=== PATIENT | male | born 1945 | race Caucasian/White ===

== ENCOUNTER 2016-10-15 12:03 | Emergency (ER) | payer BC, OTHER ==
[~2016-10-15] VITALS: Ht 180.3 cm; Wt 123.2 kg
[~2016-10-15 12:03] MED LIST: CITA40TA4 PO; LSX40 PO; PRAM1TAB6 PO
[2016-10-15 12:16] VITALS: Ht 180.3 cm; Wt 123.2 kg
[2016-10-15] MEDS ORDERED: HYDROmorphone INJ 1 MG/ML SYR IV STA ×2 (14:25→16:08)
[2016-10-15] MEDS ORDERED: ONDANSETRON INJ 2 MG/ML 2 ML VIAL IV STA (14:25)
--- NOTE | 2016-10-15 14:26 | EMERGENCY ROOM VISIT NOTE ---
History Report prepared by Jessica: Sheyla Duke Under the Supervision of: Dr. Tony Acosta M.D. First contact with patient: 14:17 Chief Complaint: SWELLING TO EXTREMITY Stated Complaint: SWOLLEN LEGS History of Present Illness The patient is a 71 year old male who presents to the Emergency Room with complaints of right calf pain that began Corey evening. He currently rates his discomfort as a 9/10 in severity. The patient notes that he has a history of previous blood clots and states that he was placed on Coumadin for one year. He states that he was taken off the Coumadin one year ago. The patient states that his right leg pain began Corey evening. He additionally notes chronic back pain today, due to his L4 and L5 compressions. The patient states that he follows with the [facility], but states that his last visit was three months ago. He denies seeing physical therapy. The patient's states that the patient is very careful with taking his medications. He states that he has gained nearly 30 lbs due to all his new medications. Source of History: patient Onset: Saturday evening Position: other (left calf) Symptom Intensity: 9/10 Timing: other (persistent) Associated Symptoms: + back pain Review of Systems See HPI for pertinent positives & negatives. A total of 10 systems reviewed and were otherwise negative. Past Medical & Surgical Medical Problems: (1) HTN (hypertension) (2) Hyperlipemia (3) Hypokalemia (4) ICH (intracerebral hemorrhage) (5) Left shoulder pain (6) Myocardial infarct, old (7) Parkinson disease (8) Superficial thrombophlebitis of left leg Surgical Problems: (1) H/O repair of rotator cuff Family History Diabetes mellitus Hypertension Social History Smoking Status: Current Some Day Smoker Alcohol Use: none Marital Status: Housing Status: lives with significant other Occupation Status: retired Current/Historical Medications Scheduled Apoaequorin (Prevagen), 10 MG PO QAM Aspirin (Aspirin Ec), 81 MG PO QPM Clotrimazole (Topical) (Anti-Fungal), 1 DOSE PO DIRECTED Furosemide (Furosemide), 40 MG PO BID Metoprolol Tartrate (Lopressor) (Lopressor), 0.5 TAB PO DAILY Omeprazole (Prilosec), 20 MG PO QAM Oxybutynin Chloride (Oxybutynin Chloride), 5 MG PO QAM Potassium Ext Rel (Klor-Con), 20 MEQ PO DAILY Pramipexole Dihydrochloride (Pramipexole Dihydrochlori), 1 MG PO TID Simvastatin (Simvastatin), 80 MG PO HS Scheduled PRN Hydrocodon/Acetaminophen 10MG/300MG (Vicodin Hp (10MG/300MG)), Unknown Dose PO BID PRN for Pain Nitroglycerin (Nitrostat), 0.4 MG UT UD PRN for Chest Pain Oxycodone/Acetaminophen 5MG/325MG (Percocet 5MG/325MG), 1-2 TAB PO Q4H PRN for Pain Allergies Coded Allergies: No Known Allergies (Verified , 10/15/16) Physical Exam Vital Signs Date Time Temp Pulse Resp B/P Pulse Ox O2 Delivery O2 Flow Rate FiO2 10/15/16 18:55 36.5 81 22 125/76 96 10/15/16 14:49 96 Nasal Cannula 2.0 10/15/16 14:38 95 Room Air 10/15/16 14:34 81 10/15/16 14:29 82 22 125/76 94 Room Air 10/15/16 12:16 36.5 90 18 144/95 96 Room Air Physical Exam GENERAL: Patient is a healthy-appearing well-nourished HEAD: Normocephalic atraumatic EYES: Ocular movements intact pupils equal and react to light OROPHARYNX mucous membranes are moist no exudates present no erythema or edema present NECK: Supple no nuchal rigidity CHEST: Good equal expansion LUNGS: Clear and equal to auscultation CARDIAC: Normal S1 and S2 ABDOMEN: Soft nontender no guarding BACK: No CVA tenderness EXTREMITIES: Right leg is grossly swollen, no pitting edema, no cellulitis. NEURO: Patient is following commands is answering questions appropriately. Alert and oriented x3 Cranial Nerves 2-12 grossly intact Medical Decision & Procedures ER Provider Diagnostic Interpretation: Radiology results as stated below per my review and radiologist interpretation: BILATERAL LOWER EXTREMITY VENOUS DOPPLER HISTORY: Pain. Edema. Pt c/o b/l swollen ext COMPARISON STUDY: None. FINDINGS: There is normal compressibility, flow, and augmentation within the bilateral lower extremity deep venous systems. IMPRESSION: No DVT within the right or left lower extremity. Electronically signed by: Karri Ledesma M.D. 10/15/2016 5:32 PM Dictated Date/Time: 10/15/2016 5:[address] LUMBAR SPINE WITHOUT CT DOSE: 708.19 mGycm CLINICAL HISTORY: Persistent low back pain LEG SWELLING TECHNIQUE: Helical images were acquired in transverse plane. Reformatted sagittal and coronal images were reviewed. CONTRAST: No contrast was administered COMPARISON STUDY: None. FINDINGS: L1-2 level: There is minimal retrolisthesis of L1 on L2. No focal herniations are visualized. There is no specific and spinal or foraminal stenosis. L2-3 level: There is a small posterior disc osteophyte complex. There is mild spinal canal narrowing. There is no significant foraminal narrowing L3-4 level: The disc is degenerated. There is a mild circumferential disc bulge. There is mild to moderate spinal canal narrowing. L4-5 level: There is a circumferential disc bulge. There is posterior osteophytic spurring. There is moderate spinal stenosis. L5-S1 level: There is a grade 1 spondylolisthesis of L5 on S1. There is a right-sided L5 pars defect. There is no significant spinal stenosis. There is mild to moderate right-sided foraminal narrowing. No acute fractures or trauma subluxations are visualized. No destructive lesions are evident. IMPRESSION: 1. No acute fractures or traumatic subluxations are visualized 2. No destructive lesions are evident 3. Multilevel spondylitic changes with spinal stenosis most pronounced at the L4-5 level. Electronically signed by: Ludwin Saravia M.D. 10/15/2016 3:33 PM Dictated Date/Time: 10/15/2016 3:27 PM The status of this report is Signed. Draft = Not yet reviewed or approved by Radiologist. Signed = Reviewed and approved by Radiologist. CHEST ONE VIEW PORTABLE CLINICAL HISTORY: Chest pain leg swelling COMPARISON STUDY: 07/28/2011 FINDINGS: The heart is enlarged. There is no failure. There is no focal pulmonary consolidation. There are no pleural effusions.[ IMPRESSION: Cardiomegaly. No acute findings. Electronically signed by: Ludwin Saravia M.D. 10/15/2016 2:57 PM Dictated Date/Time: 10/15/2016 2:56 PM RIGHT ANKLE MIN 3 VIEWS ROUTINE CLINICAL HISTORY: Pt c/o Rt ankle pain Right pain COMPARISON: None. DISCUSSION: The bones and joint spaces appear intact. There is no evidence of fracture, dislocation or bony disease. Considerable soft tissue edema IMPRESSION: Soft tissue edema. No acute bony abnormality. Electronically signed by: Karri Ledesma M.D. 10/15/2016 6:18 PM Dictated Date/Time: 10/15/2016 6:17 PM RIGHT TIBIA/FIBULA 2 VIEWS ROUTINE CLINICAL HISTORY: Pt c/o Rt kleine pain Right COMPARISON: None. DISCUSSION: Generalized soft tissue edema. No acute bony abnormality. IMPRESSION: Generalized soft tissue edema. No acute bony abnormality. Electronically signed by: Karri Ledesma M.D. 10/15/2016 6:19 PM Dictated Date/Time: 10/15/2016 6:18 PM Laboratory Results 10/15/16 14:35 Red Blood Count 4.48, Mean Corpuscular Volume 96.2, Mean Corpuscular Hemoglobin 33.5, Mean Corpuscular Hemoglobin Concent 34.8, Mean Platelet Volume 9.7, Neutrophils (%) (Auto) 55.5, Lymphocytes (%) (Auto) 29.8, Monocytes (%) (Auto) 10.2, Eosinophils (%) (Auto) 4.1, Basophils (%) (Auto) 0.2, Neutrophils # (Auto ) 3.12, Lymphocytes # (Auto) 1.67, Monocytes # (Auto) 0.57, Eosinophils # (Auto ) 0.23, Basophils # (Auto) 0.01 10/15/16 14:35 Test 10/15/16 14:35 White Blood Count 5.61 K/uL (4.8-10.8) Red Blood Count 4.48 M/uL (4.7-6.1) Hemoglobin 15.0 g/dL (14.0-18.0) Hematocrit 43.1 % (42-52) Mean Corpuscular Volume 96.2 fL (80-100) Mean Corpuscular Hemoglobin 33.5 pg (25-34) Mean Corpuscular Hemoglobin Concent 34.8 g/dl (32-36) Platelet Count 216 K/uL (130-400) Mean Platelet Volume 9.7 fL (7.4-10.4) Neutrophils (%) (Auto) 55.5 % Lymphocytes (%) (Auto) 29.8 % Monocytes (%) (Auto) 10.2 % Eosinophils (%) (Auto) 4.1 % Basophils (%) (Auto) 0.2 % Neutrophils # (Auto) 3.12 K/uL (1.4-6.5) Lymphocytes # (Auto) 1.67 K/uL (1.2-3.4) Monocytes # (Auto) 0.57 K/uL (0.11-0.59) Eosinophils # (Auto) 0.23 K/uL (0-0.5) Basophils # (Auto) 0.01 K/uL (0-0.2) RDW Standard Deviation 46.3 fL (36.4-46.3) RDW Coefficient of Variation 13.2 % (11.5-14.5) Immature Granulocyte % (Auto) 0.2 % Immature Granulocyte # (Auto) 0.01 K/uL (0.00-0.02) Prothrombin Time 10.4 SECONDS (9.0-12.0) Prothromb Time International Ratio 1.0 (0.9-1.1) Activated Partial Thromboplast Time 27.1 SECONDS (21.0-31.0) Partial Thromboplastin Ratio 1.0 Anion Gap 8.0 mmol/L (3-11) Est Creatinine Clear Calc Drug Dose 116.0 ml/min Estimated GFR () 105.3 Estimated GFR (Non- 90.8 BUN/Creatinine Ratio 21.3 (10-20) Calcium Level 8.8 mg/dl (8.5-10.1) Total Bilirubin 0.4 mg/dl (0.2-1) Direct Bilirubin 0.1 mg/dl (0-0.2) Aspartate Amino Transf (AST/SGOT) 24 U/L (15-37) Alanine Aminotransferase (ALT/SGPT) 26 U/L (12-78) Alkaline Phosphatase 59 U/L (45-117) Pro-B-Type Natriuretic Peptide 148 pg/ml (0-900) Total Protein 7.6 gm/dl (6.4-8.2) Albumin 3.6 gm/dl (3.4-5.0) Lipase 131 U/L (73-393) Labs reviewed by ED physician. Medications Administered Medications (Trade) Dose Ordered Sig/Ed Route Start Time Stop Time Status Last Admin Dose Admin Hydromorphone HCl (Dilaudid Inj) 1 mg NOW STAT IV 10/15/16 14:25 10/15/16 14:27 DC 10/15/16 14:46 1 MG Ondansetron HCl (Zofran Inj) 4 mg NOW STAT IV 10/15/16 14:25 10/15/16 14:27 DC 10/15/16 14:47 4 MG Hydromorphone HCl (Dilaudid Inj) 1 mg NOW STAT IV 10/15/16 16:08 10/15/16 16:09 DC 10/15/16 16:22 1 MG Metoclopramide HCl (Reglan Inj) 10 mg NOW STAT IV 10/15/16 16:08 10/15/16 16:09 DC 10/15/16 16:22 10 MG Oxycodone/ Acetaminophen (Percocet 5/ 325MG Home Pack) 1 homepack UD ONCE PO 10/15/16 18:45 10/15/16 18:46 DC 10/15/16 18:54 1 HOMEPACK ECG Indication: other (possibble DVT) Rate (beats per minute): 85 Rhythm: normal sinus Findings: no acute ischemic change, no ectopy ED Course 1419: Past medical records reviewed. The patient was evaluated in room A11B. A complete history and physical examination was performed. 1425: Ordered Zofran Inj 4 mg IV, Dilaudid Inj 1 mg IV. 1608: Ordered Reglan Inj 10 mg IV, Dilaudid Inj 1 mg IV. 1738: I reevaluated the patient and he is resting comfortably. I updated him on his test results. He is going to have some additional x-rays. 1845: I reevaluated the patient and he is doing well. I discussed all the exam findings with him and I discussed the treatment plan. He verbalized complete understanding and agreement. He is ready to go home. Ordered Oxycodone/ Acetaminophen 1 homepack PO. Medical Decision Differential diagnosis: Etiologies such as DVT, musculoskeletal, infection, joint effusion, trauma, lymphedema, idiopathic, CHF, as well as others were entertained. This is a 71-year-old male who presents emergency department complaining of right ankle pain as well as right back pain. Patient has a history of a DVT and is concerned this is a DVT. He was sent for an ultrasound of the bilateral legs however this did not show any evidence of DVT. Patient was also sent for CAT scan of his lower back. This shows lumbar stenosis. An IV was established , the patient given 1 mg of Dilaudid, Zofran. The Dilaudid was repeated. X- rays of the patient's ankle and tibia do not show any evidence of acute fracture. I recommended that the patient use crutches which he has at home. I also recommended ice and elevation and to have a repeat ultrasound performed within a week if he is continuing to have symptoms. The patient is going to follow-up with orthopedics. He was given pain medication for home. Both patient and are in agreement with the treatment plan. Impression Primary Impression: Low back pain Additional Impression: Ankle pain, right Scribe Attestation The scribe's documentation has been prepared under my direction and personally reviewed by me in its entirety. I confirm that the note above accurately reflects all work, treatment, procedures, and medical decision making performed by me. Departure Information Dispostion Home / Self-Care Prescriptions Oxycodone/Acetaminophen 5MG/325MG (PERCOCET 5MG/325MG) Tab 1-2 TAB PO Q4H Y for Pain, #14 TAB Prov: Tony Acosta MD 10/15/16 Referrals No Doctor, Assigned (PCP) Wing Rose M.D. Torretti, Joel A., M.D. Forms HOME CARE DOCUMENTATION FORM, IMPORTANT VISIT INFORMATION, WORK / SCHOOL INSTRUCTIONS Patient Instructions Ankle Sprain, ED Back Care Tips, ED Back Pain Acute Chronic, ED RICE, Pending Sale To [facility], Sprain Ankle Tx Additional Instructions Follow up with Dr Carrillo's office Follow up ith DR Rose's office You have been examined and treated today on an emergency basis only. This is not a substitute for, or an effort to provide, complete comprehensive medical care. It is impossible to recognize and treat all injuries or illnesses in a single emergency department visit. It is therefore important that you follow up closely with your PCP. Call as soon as possible for an appointment. Thank you for your time and consideration. I look forward to speaking with you again soon. Please don't hesitate to call us if you have any questions. Problem Qualifiers Primary Impression: Low back pain Chronicity: acute Back pain laterality: unspecified Sciatica presence: unspecified whether sciatica present Qualified Codes: M54.5 - Low back pain Additional Impression: Ankle pain, right Chronicity: acute Qualified Codes: M25.571 - Pain in right ankle and joints of right foot
[2016-10-15] MEDS ORDERED: HYDR-3763 PO (14:48)
[2016-10-15 14:49] VITALS: O2SAT 96
[2016-10-15 14:51] LABS: BASO % 0.2 %; BASO ABS # 0.01 K/uL (0-0.2); COMPLETE YES; EOS % 4.1 %; HEMATOCRIT 43.1 % (42-52); IG% 0.2 %; LYMPH % 29.8 %; LYMPH ABS # 1.67 K/uL (1.2-3.4); MEAN CELL VOLUME 96.2 fL (80-100); MEAN CORPUSCULAR HEMOGLOBIN 33.5 pg (25-34); MEAN CORPUSCULAR HGB CONC 34.8 g/dl (32-36); MEAN PLATELET VOLUME 9.7 fL (7.4-10.4); MONO % 10.2 %; NEUT % 55.5 %; PLATELET COUNT 216 K/uL (130-400); RED BLOOD COUNT 4.48 M/uL (4.7-6.1); WHITE BLOOD COUNT 5.61 K/uL (4.8-10.8)
--- NOTE | 2016-10-15 14:58 | DIAGNOSTIC IMAGING REPORT ---
CHEST ONE VIEW PORTABLE CLINICAL HISTORY: Chest pain leg swelling COMPARISON STUDY: 07/28/2011 FINDINGS: The heart is enlarged. There is no failure. There is no focal pulmonary consolidation. There are no pleural effusions.[ IMPRESSION: Cardiomegaly. No acute findings. Electronically signed by: Ludwin Saravia M.D. 10/15/2016 2:57 PM Dictated Date/Time: 10/15/2016 2:56 PM
[2016-10-15 15:09] LABS: BUN/CREATININE RATIO 21.3 (10-20); CALCIUM 8.8 mg/dl (8.5-10.1); CREATININE 0.78 mg/dl (0.60-1.40); POTASSIUM 3.7 mmol/L (3.5-5.1)
[2016-10-15 15:24] LABS: PROTHROMBIN TIME (PATIENT) 10.4 SECONDS (9.0-12.0)
--- NOTE | 2016-10-15 15:34 | DIAGNOSTIC IMAGING REPORT ---
CT LUMBAR SPINE WITHOUT CT DOSE: 708.19 mGycm CLINICAL HISTORY: Persistent low back pain LEG SWELLING TECHNIQUE: Helical images were acquired in transverse plane. Reformatted sagittal and coronal images were reviewed. CONTRAST: No contrast was administered COMPARISON STUDY: None. FINDINGS: L1-2 level: There is minimal retrolisthesis of L1 on L2. No focal herniations are visualized. There is no specific and spinal or foraminal stenosis. L2-3 level: There is a small posterior disc osteophyte complex. There is mild spinal canal narrowing. There is no significant foraminal narrowing L3-4 level: The disc is degenerated. There is a mild circumferential disc bulge. There is mild to moderate spinal canal narrowing. L4-5 level: There is a circumferential disc bulge. There is posterior osteophytic spurring. There is moderate spinal stenosis. L5-S1 level: There is a grade 1 spondylolisthesis of L5 on S1. There is a right-sided L5 pars defect. There is no significant spinal stenosis. There is mild to moderate right-sided foraminal narrowing. No acute fractures or trauma subluxations are visualized. No destructive lesions are evident. IMPRESSION: 1. No acute fractures or traumatic subluxations are visualized 2. No destructive lesions are evident 3. Multilevel spondylitic changes with spinal stenosis most pronounced at the L4-5 level. Electronically signed by: Ludwin Saravia M.D. 10/15/2016 3:33 PM Dictated Date/Time: 10/15/2016 3:27 PM
[2016-10-15] MEDS ORDERED: METOCLOPRAMIDE HCL INJ 5 MG/ML 2 ML VIAL IV STA (16:08)
--- NOTE | 2016-10-15 17:33 | DIAGNOSTIC IMAGING REPORT ---
BILATERAL LOWER EXTREMITY VENOUS DOPPLER HISTORY: Pain. Edema. Pt c/o b/l swollen ext COMPARISON STUDY: None. FINDINGS: There is normal compressibility, flow, and augmentation within the bilateral lower extremity deep venous systems. IMPRESSION: No DVT within the right or left lower extremity. Electronically signed by: Karri Ledesma M.D. 10/15/2016 5:32 PM Dictated Date/Time: 10/15/2016 5:32 PM
--- NOTE | 2016-10-15 18:19 | DIAGNOSTIC IMAGING REPORT ---
RIGHT ANKLE MIN 3 VIEWS ROUTINE CLINICAL HISTORY: Pt c/o Rt ankle pain Right pain COMPARISON: None. DISCUSSION: The bones and joint spaces appear intact. There is no evidence of fracture, dislocation or bony disease. Considerable soft tissue edema IMPRESSION: Soft tissue edema. No acute bony abnormality. Electronically signed by: Karri Ledesma M.D. 10/15/2016 6:18 PM Dictated Date/Time: 10/15/2016 6:17 PM
--- NOTE | 2016-10-15 18:20 | DIAGNOSTIC IMAGING REPORT ---
RIGHT TIBIA/FIBULA 2 VIEWS ROUTINE CLINICAL HISTORY: Pt c/o Rt kleine pain Right COMPARISON: None. DISCUSSION: Generalized soft tissue edema. No acute bony abnormality. IMPRESSION: Generalized soft tissue edema. No acute bony abnormality. Electronically signed by: Karri Ledesma M.D. 10/15/2016 6:19 PM Dictated Date/Time: 10/15/2016 6:18 PM
[2016-10-15] MEDS ORDERED: OXYC-57 PO (18:42)
[2016-10-15] MEDS ORDERED: PERCOCET HOME PACK PO ONE (18:45)
[2016-10-15 18:55] VITALS: BP 125/76; PULSE 81; TEMP 36.5; O2SAT 96
[2017-02-24] MEDS ORDERED: ASPI81TA28 PO (07:10)
[2017-02-24] MEDS ORDERED: APOA1CAP PO (11:00)
[2017-02-24] MEDS ORDERED: CLOT1CRE80 PO (13:01)
[2017-02-24] MEDS ORDERED: POTA20TA16 PO (14:43)
[2017-02-24] MEDS ORDERED: METO25TA56 PO (15:06)
[2017-04-19] MEDS ORDERED: PROTANDIM NRF PO (15:04)
[2017-04-19] MEDS ORDERED: [UNRECOGNIZED DRUG - OTHER] PO (15:04)
[2017-04-19] MEDS ORDERED: FRS/40 PO (15:04)
[2017-04-19] MEDS ORDERED: GARC1TAB PO (15:04)
[2017-04-19] MEDS ORDERED: LIDOCAINE PATCH EX (15:04)
== END 2016-10-15 18:55 | disposition home or self-care (01) ==
LOC: C.EDB 12:05 → C.EDA 18:55
DX: M54.5 Low back pain (principal); M25.571 Pain in right ankle and joints of right foot; I10 Essential (primary) hypertension; E78.5 Hyperlipidemia, unspecified; I25.2 Old myocardial infarction; G20 Parkinson's disease; F17.200 Nicotine dependence, unspecified, uncomplicated; Z86.73 Personal history of transient ischemic attack (TIA), and cerebral infarction without residual deficits; Z79.01 Long term (current) use of anticoagulants; Z79.82 Long term (current) use of aspirin; Z79.899 Other long term (current) drug therapy; Z83.3 Family history of diabetes mellitus; Z82.49 Family history of ischemic heart disease and other diseases of the circulatory system

== ENCOUNTER → 2016-10-19 | Outpatient (CLI) | payer BC, OTHER ==
[~2016-10-19] VITALS: Ht 180.3 cm; Wt 121.4 kg
[~2016-10-19] MED LIST changes: +APOA1CAP PO; +ASPI81TA28 PO; +CARB25TA12 PO; +CARBIDOPA PO; -CITA40TA4 PO; +CLOT1CRE80 PO; +DTR5 PO; +FRS/40 PO; +GARC1TAB PO; +HYDR-3763 PO; +LIDOCAINE 5% PATCH TOP; +LIDOCAINE PATCH EX; +METO25TA56 PO; +NAPR1TAB9 PO; +NTRGSL/4 UT; +OMEP20CA9 PO; +OXYC-57 PO; +POTA20TA16 PO; +PROTANDIM NRF PO; +TRAM-10 PO; +ZCR80 PO; +[UNRECOGNIZED DRUG - OTHER] PO
[2016-10-19 12:24] VITALS: BP 130/90; PULSE 74; Ht 180.3 cm; Wt 121.4 kg
== END | disposition home or self-care (01) ==
LOC: C.NEUR 11:53
PROVIDERS: ATTEND Internal Medicine Pulmonary Disease
DX: R06.83 Snoring (principal); R06.81 Apnea, not elsewhere classified

== ENCOUNTER → 2016-10-22 | Outpatient (CLI) | payer OTHER ==
--- NOTE | 2016-10-23 06:09 | PAP/PSG TECHNICIAN REPORT ---
[facility] Service Unit Operator Polysomnogram Report Study name: None Report date: 10/23/2016 Study date: 10/22/2016 Referring Physician: Michael Rosario M.D. Name: ALAN BONE Interpreting Physician: Michael Rosario M.D. Date of : 1945 Service Unit Operator: ARACELIS Salazar. Sex: Male Age: 71 StudyType: PSG Weight: 267 lbs Height: 71 years, Height 5' 11" Neck Circum:19.5inches BMI: 37.23 Medications: ASA 81mg, Citalopram 40mg, Furosemide 20mg, Lidoderm 5% patch, Metoprolol 25mg, Mirapex 1mg, Nitrostat 0.4mg, Omeprazole 20mg, Prevagen Caps, Simvastatin 80mg, Warfarin Patient History Study started on room air with no ETCO2 monitoring in room #6. 71 yr old male here tonight for a diagnostic psg. He snores loudly at night and wakes up several times gasping for air. He has been sleeping in a hospital bed with the head of the bed slightly elevated. He has EDS. His ESS=13/24. His neck circ=19.5inches. Parameters Monitored NPSG: E1-M2, E2-M1, Fp1-M2, Fp2-M1, F3-M2, F4-M2, F4-M1, C3-M2, C4-M2, C4-M1, O1-M2, O2-M2, O2-M1, T3-M2, T4-M1, P3-M2, P4-M1, CHIN1, CHIN2, HR, EKG, Legs, PFLOW, SNOR, FLOW, CFLOW, Tidal Volume, THOR, ABDO, SpO2, PLTH, CPRESS, ETCO2 Wave, ETCO2, pH Sleep Architecture Sleep Stages Time at Lights Off 10:17:39 PM STAGES Time (min.) TST (%) Time at Lights On 5:14:39 AM Wake 140.5 -- Total Recording Time (TRT) 417.00 min. N1 14.5 5 Total Sleep Period (TSP) 395.0 min. N2 149.0 54 Total Sleep Time (TST) 276.5min. N3 66.5 24 Awake Time 140.5 min. REM 46.5 17 Wake after Sleep Onset 121.5 min. Sleep Efficiency (SE) 66 % Sleep Onset Latency (TONG) 19.0 min. Number of Stage 1 Shifts None Awakenings 28 Stage Changes 109 Number of REM periods 8 REM 46.5 17 REM Latency 37.0 min. NREM 230.0 83 Body Position Analysis Supine Right Left Side Prone Vertical Total Sleep Time (min.) 278.8 89.6 42.4 131.93 0.0 0.0 Total Sleep Time (%) 52% 32% 15% 48 0% N/A% Total Sleep Time REM (min.) 33.0 13.5 0.0 None 0.0 0.0 Total Sleep Time NREM (min.) 111.6 76.1 42.4 None 0.0 0.0 Intermittent Wake (min.) 134.2 6.2 0.1 None 0.0 0.0 Total Sleep Period (%) 66% None None None None None Arousals Myoclonus (PLM) * Events Count Index Events Count Index Spontaneous 23 5 Events Awake (PLMW) 134 57.2 Respiratory 42 9.8 Events Asleep w/ Arousal (PLMA) 17 3.7 PLM 17 4 Events Asleep w/o Arousal (PLMS) 227 49.3 Snoring 2 0 Total Asleep 244 52.9 Total 84 18 Total 378 54 Respiratory Analysis * CA OA MA CH H RERA Total Count 5 7 1 0 107 1 120 Index 1.1 1.5 0.2 0 23.2 0 26.3 Mean Duration 20.4 15.3 17.0 0.00 22.0 13.2 21.4 Longest Duration 25.0 17.7 17.0 0.00 17.0 13.2 71.2 Respiratory Event Summary Total Supine ~Supine Right Left Prone REM NREM Apneas Count 13 8 5 1 4 N/A 1 12 Index 2.8 3 2 0.7 5.7 N/A 1 3 Hypopneas (4% Desat) Count 107 80 27 17 10 N/A 35 72 Index 23.2 33.2 12 11.4 14.2 N/A 45.2 18.8 Apneas & All Hypopneas Count 120 88 32 18 14 N/A 36 84 Index 26.0 37 15 12 20 N/A 46.5 21.9 Respiratory Events (Newspaper Library Manager+All Hyp+RERA) Count 120 89 32 18 14 N/A 36 84 Index 26.3 37 15 12.1 19.8 N/A 46.5 22.2 Respiratory Related Arousal Count 42 89 10 5 5 N/A 10 35 Index 9.8 15 5 3 7 N/A 13 9 Snoring Analysis Supine Right Left Prone REM NREM Total Snore duration 16.3 min Snores count 166 512 189 N/A 48 819 867 Snore mean duration 1.1 Sec Snores index 69 343 268 N/A 61.9 213.7 188.1 TST with snoring (%) 5.9% Desaturation Event Summary: Minimum %SpO2 Event Count Mean/Min/Max Duration(sec.) Desaturation Index % Time In Bed > 90 194 20.0 / 6.5 / 57.8 76.1 41.5 86 - 90 76 18.5 / 4.8 / 57.8 22.1 55.9 81 - 85 1 8.0 / 8.0 / 8.0 6.4 2.5 76 - 80 0 N/A 0.0 0.1 71 - 75 0 N/A 0.0 0.0 66 - 70 0 N/A 0.0 0.0 61 - 65 0 N/A 0.0 0.0 56 - 60 0 N/A 0.0 0.0 51 - 55 0 N/A 0.0 0.0 < 50 0 N/A 0.0 0.0 Total REM NREM Awake <50% 0.0 min. 0.0 min. 0.0 min. 0.0 min. 51 - 60% 0.0 min. 0.0 min. 0.0 min. 0.0 min. 61 - 70% 0.0 min. 0.0 min. 0.0 min. 0.0 min. 71 - 80% 0.4 min. 0.1 min. 0.1 min. 0.3 min. 81 - 90% 215.2 min. 29.9 min. 136.9 min. 48.4 min. 91 - 100% 152.9 min. 16.5 min. 91.6 min. 44.9 min. Average 90 90 90 90 Minimum SpO2 78 80 79 78 Desaturation Event Index 31.5 50.3 29.7 28.6 # Desat. Events below 89% 174 36 86 52 Time(%) with Saturation below 89% 20.7 5.6 9.8 5.4 Time(min.) with Saturation below 89% 76.5 20.6 36.0 19.9 Time (mins) REM (mins) NREM (mins) % of TST SpO2 Below 90% 149 38 N111 37.4 SpO2 Below 88% 39 0 0 11 Heart Rate Analysis Min (bpm) Max (bpm) Average (bpm) Awake 56 231 87 NREM 49 188 78 REM 42 96 67 Overall 42 188 76 Supplemental O2 Values Minimum O2 level: None Value Start Time End Time Service Unit Operator Comments Mr. Bone slept in the right, left and supine positions with the head of the bed slightly elevated. Cardiac arrhythmia and PLM's noted, please see print outs. His legs bothered him all night. He would have to sit at the side of the bed or constantly move them. At one point, he sat in a chair and rubbed alcohol on them. He would fall asleep sitting on the bed and his head would start to swing back and forth. No bruxism noted. Snoring was noted and scored as a 2 on a scale of 1 through 5. (0=no snoring, 5=snoring loud enough to be heard through a closed door or down the yu way) He awoke to use the restroom 1 time during the night. He stated that this is what has been happening for the past few months. The calf of his right leg and the area directly behind his right knee is what bothered him last night. The final report will be interpreted and signed by a sleep physician. The completed physician report will then be placed in the patient medical record. Therapy (cm H2O) 0 TIB (min.) 417.0 TST (min.) 276.5 Sleep Onset (min.) 19.0 REM Onset From Sleep (min.) 37.0 Sleep Efficiency % 66 Wakefulness (%) 34 Wakefulness (min.) 140.5 NREM 1 (%) 5 NREM 1 (min.) 14.5 NREM 2 (%) 54 NREM 2 (min.) 149.0 NREM 3 (%) 24 NREM 3 (min.) 66.5 REM (%) 17 REM (min.) 46.5 # Arousals 84 Arousal Index 18 # Snore 867 Snore Index 188.1 AHI 26.0 AHI Supine 37 AHI Non-Supine 15 NREM AHI 21.9 REM AHI 46.5 RDI 26.3 # Obstructive Apnea 7 # Central Apnea 5 # Mixed Apnea 1 # Hypopneas 107 RERAs 1 Total Respiratory Events 135 Time Below SpO2 89% (min.) 56.6 Mean NREM SpO2 (%) 90 Mean REM SpO2 (%) 90 Mean Sleep SpO2 (%) 90 Min NREM SpO2 (%) 79 Min REM SpO2 (%) 80 Position Supine (min.) 278.8 Position Non-supine (min.) 131.9 LM Index Sleep 52.9 LM Index NREM 59.7 LM Index REM 19.4 Mean Heart Rate (bpm) 76 Min Heart Rate (bpm) 42
--- NOTE | 2016-10-25 07:01 | POLYSOMNOGRAPH REPORT ---
CLINICAL DATA: A 71-year-old male with BMI of 37.23 referred by myself and Dr. Devante Rust of the [facility] for evaluation of sleep apnea. He snores loudly and wakes up several times at night gasping for air. He has been sleeping in a hospital bed with the head of the bed elevated. His Minerva sleepiness score is 13/24. SLEEP ARCHITECTURE: Total sleep period was 395 minutes. Total sleep time was 276.5 minutes divided between 230 minutes of non-REM sleep and 46.5 minutes of REM sleep. Sleep onset latency was 19 minutes. REM latency was 37 minutes. Sleep efficiency was 66%. Wake after sleep onset was 121.5 minutes. Sleep consisted of stage N1 5%, N2 54%, N3 24%, and REM 17%. AROUSAL DATA: Eighty four arousals were recorded for an index of 18 per hour. PLM DATA: Significantly elevated limb movements during sleep were noted. There were 244 limb movements during sleep noted for an index of 52.9 per hour with arousal index of 3.7 per hour. RESPIRATORY DATA: Moderate sleep apnea was documented. The AHI was 26. There were 5 central, 7 obstructive, and 1 mixed apneic episodes. The longest duration of apnea was 25 seconds. There were 107 hypopneic episodes. The mean duration of hypopnea was 22 seconds. OXIMETRY DATA: Nocturnal hypoxemia was seen. Oxygen jennifer was 79% during non-REM sleep. The mean saturation was 90%. Time below 88% was 39 minutes. HEART RATE DATA: Heart rates ranged from 49-188 beats per minute. Sinus arrhythmia, and PACs with sinus tachycardia were noted. CLERK'S COMMENTS: The patient slept in the right, left, supine position with the head of the bed slightly elevated. His legs bothered him all night and he would have to site at the side of the bed and constantly move them. At one point, he sat in a chair and rubbed alcohol on his legs. Snoring was moderate, rated 2 on a scale of 1 through 5. The calf of his right leg and behind his right knee is where he has most of his pain. IMPRESSION: 1. Moderate sleep apnea/hypopnea with an apnea-hypopnea index of 26 with nocturnal hypoxemia with an oxygen jennifer of 79%. 2. Frequent limb movements during sleep. RECOMMENDATIONS: The patient would benefit from a repeat sleep study with CPAP. [facility]
== END | disposition home or self-care (01) ==
LOC: C.NEUR 21:00
PROVIDERS: ATTEND Internal Medicine Pulmonary Disease
DX: R06.81 Apnea, not elsewhere classified (principal)

== ENCOUNTER → 2016-10-29 | Outpatient (CLI) | payer OTHER ==
--- NOTE | 2016-10-30 06:31 | PAP/PSG TECHNICIAN REPORT ---
[facility] School Bus Monitor Polysomnogram Report Study name: None Report date: 10/30/2016 Study date: 10/29/2016 Referring Physician: Michael Rosario M.D. Name: ALAN BONE Interpreting Physician: Michael Rosario M.D. Date of : 1945 School Bus Monitor: Jacklyn Salcedo RPS. Sex: Male Age: 71 StudyType: PSG PAP Weight: 267 lbs Height: 71 years, Height 5' 11" Neck Circum: 19.5inches BMI: 37.23 Medications: ASA 81 mg, Citalopram 40mg, Furosemide 20mg, Lidoderm 5% patch, Metoprolol 25mg, Mirapex 1mg, Nitrostat 0.4mg, Omeprazole 20mg, Prevagen Caps, Simvastatin 80mg, Warfarin Patient History Study started on room air with 5cwp cpap in room #7. 71 yr old male here tonight for a new titration study. He had a diagnostic psg done here on 10/22/16 that had an AHI of 26.0. His ESS=13/24. Neck circ=19.5inches. Parameters Monitored NPSG: E1-M2, E2-M1, Fp1-M2, Fp2-M1, F3-M2, F4-M2, F4-M1, C3-M2, C4-M2, C4-M1, O1-M2, O2-M2, O2-M1, T3-M2, T4-M1, P3-M2, P4-M1, CHIN1, CHIN2, HR, EKG, Legs, PFLOW, SNOR, FLOW, CFLOW, Tidal Volume, THOR, ABDO, SpO2, PLTH, CPRESS, ETCO2 Wave, ETCO2, pH Sleep Architecture Sleep Stages Time at Lights Off 10:04:36 PM STAGES Time (min.) TST (%) Time at Lights On 5:28:06 AM Wake 158.5 -- Total Recording Time (TRT) 443.50 min. N1 12.5 4 Total Sleep Period (TSP) 437.5 min. N2 149.0 52 Total Sleep Time (TST) 285.0min. N3 47.5 17 Awake Time 158.5 min. REM 76.0 27 Wake after Sleep Onset 153.5 min. Sleep Efficiency (SE) 64 % Sleep Onset Latency (TONG) 5.0 min. Number of Stage 1 Shifts None Awakenings 19 Stage Changes 73 Number of REM periods 8 REM 76.0 27 REM Latency 151.0 min. NREM 209.0 73 Body Position Analysis Supine Right Left Side Prone Vertical Total Sleep Time (min.) 235.6 159.3 41.0 200.32 0.0 0.0 Total Sleep Time (%) 30% 56% 14% 70 0% N/A% Total Sleep Time REM (min.) 25.0 21.5 29.5 None 0.0 0.0 Total Sleep Time NREM (min.) 59.7 137.8 11.5 None 0.0 0.0 Intermittent Wake (min.) 150.9 6.9 0.7 None 0.0 0.0 Total Sleep Period (%) 53% None None None None None Arousals Myoclonus (PLM) * Events Count Index Events Count Index Spontaneous 7 1 Events Awake (PLMW) 72 27.3 Respiratory 14 3.8 Events Asleep w/ Arousal (PLMA) 7 1.5 PLM 7 1 Events Asleep w/o Arousal (PLMS) 49 10.3 Snoring 5 1 Total Asleep 56 11.8 Total 33 7 Total 128 17 Respiratory Analysis * CA OA MA CH H RERA Total Count 3 4 0 0 28 0 35 Index 0.6 0.8 0.0 0 5.9 0 7.4 Mean Duration 12.2 18.1 0.0 0.00 29.0 0.0 26.4 Longest Duration 13.3 22.5 0.0 0.00 0.0 0.0 59.3 Respiratory Event Summary Total Supine ~Supine Right Left Prone REM NREM Apneas Count 7 7 0 0 0 N/A 0 7 Index 1.5 5 0 0.0 0.0 N/A 0 2 Hypopneas (4% Desat) Count 28 17 11 10 1 N/A 7 21 Index 5.9 12.0 3 3.8 1.5 N/A 5.5 6.0 Apneas & All Hypopneas Count 35 24 11 10 1 N/A 7 28 Index 7.4 17 3 4 1 N/A 5.5 8.0 Respiratory Events (Insurance Adjuster+All Hyp+RERA) Count 35 24 11 10 1 N/A 7 28 Index 7.4 17 3 3.8 1.5 N/A 5.5 8.0 Respiratory Related Arousal Count 14 24 2 2 0 N/A 2 16 Index 3.8 11 1 1 0 N/A 2 5 Snoring Analysis Supine Right Left Prone REM NREM Total Snore duration 11.4 min Snores count 156 173 140 N/A 216 253 469 Snore mean duration 1.5 Sec Snores index 111 65 205 N/A 170.5 72.6 98.7 TST with snoring (%) 4.0% Desaturation Event Summary: Minimum %SpO2 Event Count Mean/Min/Max Duration(sec.) Desaturation Index % Time In Bed > 90 82 22.0 / 6.0 / 54.8 29.1 51.9 86 - 90 43 20.9 / 6.0 / 58.0 17.1 46.4 81 - 85 1 8.8 / 8.8 / 8.8 11.0 1.7 76 - 80 0 N/A 0.0 0.0 71 - 75 0 N/A 0.0 0.0 66 - 70 0 N/A 0.0 0.0 61 - 65 0 N/A 0.0 0.0 56 - 60 0 N/A 0.0 0.0 51 - 55 0 N/A 0.0 0.0 < 50 0 N/A 0.0 0.0 Total REM NREM Awake <50% 0.0 min. 0.0 min. 0.0 min. 0.0 min. 51 - 60% 0.0 min. 0.0 min. 0.0 min. 0.0 min. 61 - 70% 0.0 min. 0.0 min. 0.0 min. 0.0 min. 71 - 80% 0.1 min. 0.0 min. 0.1 min. 0.0 min. 81 - 90% 156.6 min. 33.7 min. 102.5 min. 20.3 min. 91 - 100% 168.8 min. 42.2 min. 102.5 min. 24.1 min. Average 90 91 90 91 Minimum SpO2 78 84 78 81 Desaturation Event Index 14.2 8.7 12.9 18.5 # Desat. Events below 89% 83 10 32 41 Time(%) with Saturation below 89% 14.6 2.7 8.9 3.1 Time(min.) with Saturation below 89% 47.6 8.7 28.9 10.0 Time (mins) REM (mins) NREM (mins) % of TST SpO2 Below 90% 54 11 N43 26.3 SpO2 Below 88% 16 0 0 5 Heart Rate Analysis Min (bpm) Max (bpm) Average (bpm) Awake 41 300 87 NREM 46 281 75 REM 52 91 64 Overall 46 281 72 Supplemental O2 Values Minimum O2 level: None Value Start Time End Time School Bus Monitor Comments Mr. Bone slept in the right, left and supine positions. Cardiac arrhythmia and leg movements were noted. No bruxism noted. CPAP was initiated at +5 CMH2O and up-titrated to a level of +11 CMH2O. A medium Simplus full face mask by [employer] was used during titration. He awoke to use the restroom 1 time during the night. He awoke several times because he had to sit at the side of the bed to dangle his feet. He had right leg pain. He stated that he slept about the same as when at home. The final report will be interpreted and signed by a sleep physician. The completed physician report will then be placed in the patient medical record. Therapy Event: Therapy (cm H20) 5 6 7 8 9 10 11 Total Time at Pressure (min.) 64.9 70.8 31.4 123.2 17.7 45.4 90.1 TST at Pressure (min.) 46.0 4.0 26.1 89.7 17.2 16.4 85.6 # Periods 1 1 1 1 1 1 1 Sleep Onset (min.) 5.0 1.1 5.3 0.0 0.0 0.0 0.0 REM Onset (min.) N/A N/A 20.3 0.0 N/A N/A 20.1 Sleep Efficiency % 70 5 83 72 97 36 95 Wakefulness (%) 29.1 94.3 16.9 27.2 2.8 63.9 5.0 Wakefulness (min.) 18.9 66.8 5.3 33.5 0.5 29.0 4.5 NREM 1 (%) 2.3 1.4 1.6 4.1 5.7 1.1 3.3 NREM 1 (min.) 1.5 1.0 0.5 5.0 1.0 0.5 3.0 NREM 2 (%) 56.2 4.2 65.2 21.8 91.5 21.7 40.1 NREM 2 (min.) 36.5 3.0 20.5 26.8 16.2 9.9 36.1 NREM 3 (%) 12.3 0.0 0.0 9.7 0.0 13.2 23.9 NREM 3 (min.) 8.0 0.0 0.0 12.0 0.0 6.0 21.5 REM (%) 0.0 0.0 16.3 37.2 0.0 0.0 27.7 REM (min.) 0.0 0.0 5.1 45.9 0.0 0.0 25.0 # Arousals 6 3 1 8 4 6 5 Arousal Index 7.8 45.0 2.3 5.3 14.0 22.0 3.5 # Snore 35 4 39 265 111 7 8 Snore Index 45.7 60.0 89.6 177.2 387.7 25.7 5.6 AHI 3.9 90.0 13.8 6.7 10.5 18.3 1.4 AHI Supine 69.9 90.0 0.0 86.6 10.5 18.3 2.9 AHI Non-Supine 2.7 N/A 14.0 2.1 N/A N/A 0.0 NREM AHI 3.9 90.0 8.6 9.6 10.5 18.3 1.0 REM AHI N/A N/A 35.2 3.9 N/A N/A 2.4 RDI 3.9 90.0 13.8 6.7 10.5 18.3 1.4 # Obstructive 0 0 0 1 2 1 0 # Central Ap 0 0 0 0 0 2 1 # Mixed 0 0 0 0 0 0 0 # Hypopneas 3 6 6 9 1 2 1 RERAS 0 0 0 0 0 0 0 Total Respiratory Events 3 6 6 10 3 5 2 Time Below SpO2 89.00% (min.) 3.6 1.1 16.0 10.4 4.9 0.4 1.2 Mean NREM SpO2 (%) 90 91 88 91 90 91 91 Mean REM SpO2 (%) N/A N/A 87 90 N/A N/A 92 Mean Sleep SpO2 (%) 90 91 88 91 90 91 91 Min NREM SpO2 (%) 86 83 82 78 83 85 86 Min REM SpO2 (%) N/A N/A 84 84 N/A N/A 87 Position Supine (min.) 0.9 4.0 0.3 4.8 17.2 16.4 41.1 Position Non-supine (min.) 45.1 0.0 25.8 84.9 0.0 0.0 44.5 LM Index Sleep 10.4 30.0 2.3 11.4 14.0 69.7 3.5 LM Index NREM 10.4 30.0 2.9 8.2 14.0 69.7 4.0 LM Index REM N/A N/A 0.0 14.4 N/A N/A 2.4 Mean Heart Rate (bpm) 88 84 79 67 71 68 67 Min Heart Rate (bpm) 46 72 55 51 56 51 46
--- NOTE | 2016-11-02 09:00 | POLYSOMNOGRAPH REPORT ---
CLINICAL DATA: A 71-year-old male with BMI of 37.33 referred by myself and Dr. Rust of the [place] for treatment of sleep apnea. He had a diagnostic sleep study done on 10/22/2016 which showed moderate sleep apnea with an AHI of 26. His [place] Sleepiness Score was 13/24. SLEEP ARCHITECTURE: Total sleep period was 437.5 minutes. Total sleep time was 285 minutes divided between 209 minutes of non-REM sleep and 76 minutes of REM sleep. Sleep onset latency was 5 minutes. REM latency was slightly prolonged at 151 minutes. Sleep efficiency was reduced to 64%. Wake after sleep onset was elevated at 153.5 minutes. Sleep consisted of stage N1 4%, N2 52%, N3 17%, REM 27%. AROUSAL DATA: Thirty-three arousals were recorded for an index of 7 per hour. PLM DATA: Fifty-six limb movements during sleep were noted for an index of 11.8 per hour with arousal index of 1.5 per hour. RESPIRATORY DATA: The AHI was 7.4. There were 3 central and 4 obstructive apneic episodes. The longest duration of apnea was 18.1 seconds. There were 28 hypopneic episodes. The mean duration of hypopnea was 29 seconds. OXIMETRY DATA: Nocturnal hypoxemia was seen. Oxygen jennifer was 78%. Mean saturation was 90%. Time below 88% was 16 minutes. EKG: Heart rates ranged from 46 to 91 beats per minute. TEACHER RESOURCE'S COMMENTS AND TREATMENT SUMMARY: The patient slept in the right, left, and supine positions. CPAP was started using a medium Simplus full face mask by [employer]. He was titrated up to his final pressure setting of 11 cm water pressure. At that setting, he slept for 85.6 minutes with an AHI of 1.4. He awoke several times through the night because of right leg pain. IMPRESSION: Moderate sleep apnea/hypopnea corrected with CPAP 11 cm water pressure, medium Simplus full face mask by [employer]. RECOMMENDATIONS: The patient should be started on the above noted treatment regimen and seen back in followup within 90 days to document efficacy and compliance. LAURA
== END | disposition home or self-care (01) ==
LOC: C.NEUR 21:00
PROVIDERS: ATTEND Internal Medicine Pulmonary Disease
DX: G47.33 Obstructive sleep apnea (adult) (pediatric) (principal)

== ENCOUNTER → 2016-11-23 | Outpatient (CLI) | payer OTHER ==
[~2016-11-23] VITALS: Ht 180.3 cm; Wt 121.0 kg
[2016-11-23 16:05] VITALS: BP 147/76; PULSE 74; Ht 180.3 cm; Wt 121.0 kg
== END | disposition home or self-care (01) ==
LOC: C.NEUR 13:57
PROVIDERS: ATTEND Internal Medicine Pulmonary Disease
DX: G47.33 Obstructive sleep apnea (adult) (pediatric) (principal); R53.83 Other fatigue

== ENCOUNTER → 2017-02-15 | Outpatient (CLI) | payer OTHER ==
[~2017-02-15] VITALS: Ht 180.3 cm; Wt 118.7 kg
[2017-02-15 14:37] VITALS: BP 125/78; PULSE 76; Ht 180.3 cm; Wt 118.7 kg
== END | disposition home or self-care (01) ==
LOC: C.NEUR 13:52
PROVIDERS: ATTEND Internal Medicine Pulmonary Disease
DX: G47.33 Obstructive sleep apnea (adult) (pediatric) (principal); I25.10 Atherosclerotic heart disease of native coronary artery without angina pectoris; C61 Malignant neoplasm of prostate

== ENCOUNTER 2017-02-24 18:22 | Emergency (ER) | payer OTHER ==
[~2017-02-24] VITALS: Ht 180.3 cm; Wt 117.3 kg
[~2017-02-24 18:22] MED LIST changes: -CARB25TA12 PO; -CARBIDOPA PO; -DTR5 PO; -FRS/40 PO; -GARC1TAB PO; -LIDOCAINE 5% PATCH TOP; -LIDOCAINE PATCH EX; -NAPR1TAB9 PO; -NTRGSL/4 UT; -OMEP20CA9 PO; -PROTANDIM NRF PO; -TRAM-10 PO; -ZCR80 PO; -[UNRECOGNIZED DRUG - OTHER] PO
[2017-02-24 18:23] VITALS: TEMP 36.6; Ht 180.3 cm; Wt 117.3 kg
[2017-02-24] MEDS ORDERED: NTRGSL/4 UT (19:03)
[2017-02-24] MEDS ORDERED: DTR5 PO (19:10)
[2017-02-24] MEDS ORDERED: ZCR80 PO (19:10)
[2017-02-24] MEDS ORDERED: OMEP20CA9 PO (19:10)
--- NOTE | 2017-02-24 19:15 | DIAGNOSTIC IMAGING REPORT ---
HEAD CT NONCONTRAST CT DOSE: 712.55 mGy.cm HISTORY: Head injury. fall TECHNIQUE: Multiaxial CT images of the head were performed without the use of intravenous contrast. Automated exposure control was utilized for this study. A dose lowering technique was utilized adhering to the principles of ALARA. Comparison: None. Findings: The paranasal sinuses and mastoid air cells are clear. The calvarium and skull base are intact. There is no definite hematoma, midline shift, acute infarct. White matter hypodensity is nonspecific but suggestive of microvascular ischemic change. The ventricles and sulci demonstrate mild age-related involutional changes. Stable 1 cm extra-axial hyperdense focus within the left frontal region on image 25. The stability favors a calcified meningioma. Impression: There is again noted a 1 cm hyperdense extra-axial focus within the left frontal region. This is unchanged compared to the 2015 study. Therefore, this most likely represents a calcified meningioma. A focus of extra-axial hemorrhage is considered less likely given the long-term stability. However, given the history of trauma a 24-hour head CT follow-up is recommended . Electronically signed by: Ashu Bailey M.D. 02/24/2017 7:13 PM Dictated Date/Time: 02/24/2017 7:08 PM
[2017-02-24] MEDS ORDERED: TRAM-10 PO (19:39)
[2017-02-24] MEDS ORDERED: CARBIDOPA PO (19:39)
[2017-02-24] MEDS ORDERED: NAPR1TAB9 PO (19:39)
--- NOTE | 2017-02-24 19:45 | EMERGENCY ROOM VISIT NOTE ---
History Report prepared by Jessica: Machelle Womack Under the Supervision of: Dr. Tony Genao D.O. First contact with patient: 18:28 Chief Complaint: FALL Stated Complaint: FELL,HIT HEAD/LF SHOULDER History of Present Illness The patient is a 71 year old male who presents to the Emergency Room with complaints of a fall 1 hour ago. The patient was mowing the lawn with a new mower today. He was mowing across a hill when the mower started to roll over. He fell off of the mower and hit his head and left shoulder on the grass. The mower righted itself and did not roll over onto him. [facility] he should present to [facility] ED if he ever hits his head because of the medications that he is on. He denies any SOB. He normally has pain in his left shoulder, but is currently having increased pain. He is on aspirin. He is not on warfarin anymore. He has a history of Parkinson's and AR. Source of History: patient, spouse/significant other Onset: 1 hour ago Position: other (global) Quality: other (fall) Timing: other (episodic) Note: Pt reports left shoulder pain, head injury. Review of Systems See HPI for pertinent positives & negatives. A total of 10 systems reviewed and were otherwise negative. Past Medical & Surgical Medical Problems: (1) HTN (hypertension) (2) Hyperlipemia (3) Hypokalemia (4) ICH (intracerebral hemorrhage) (5) Left shoulder pain (6) Myocardial infarct, old (7) Parkinson disease (8) Superficial thrombophlebitis of left leg Surgical Problems: (1) H/O repair of rotator cuff Family History Diabetes mellitus Hypertension Social History Smoking Status: Former Smoker Alcohol Use: none Marital Status: Housing Status: lives with significant other Occupation Status: retired Current/Historical Medications Scheduled Apoaequorin (Prevagen), 10 MG PO QAM Aspirin (Aspirin Ec), 81 MG PO QPM Clotrimazole (Topical) (Anti-Fungal), 1 DOSE PO DIRECTED Furosemide (Furosemide), 40 MG PO BID Metoprolol Tartrate (Lopressor) (Lopressor), 0.5 TAB PO DAILY Naproxen (Aleve), 440 MG PO PRN UD Omeprazole (Prilosec), 20 MG PO QAM Oxybutynin Chloride (Oxybutynin Chloride), 5 MG PO QAM Potassium Ext Rel (Klor-Con), 20 MEQ PO DAILY Simvastatin (Simvastatin), 80 MG PO HS [Carbidopa], 0.5 TAB PO TID Scheduled PRN Nitroglycerin (Nitrostat), 0.4 MG UT UD PRN for Chest Pain Tramadol (Ultram), 50 MG PO PRN UD PRN for Pain Allergies Coded Allergies: No Known Allergies (Verified , 10/15/16) Physical Exam Vital Signs Date Time Temp Pulse Resp B/P (MAP) Pulse Ox O2 Delivery O2 Flow Rate FiO2 02/24/17 19:58 78 20 116/72 98 02/24/17 19:18 77 20 118/79 98 02/24/17 18:23 36.6 74 20 143/79 94 Room Air Physical Exam CONSTITUTIONAL/VITAL SIGNS: Reviewed / noted above. GENERAL: Non-toxic in appearance. INTEGUMENTARY: Warm, dry, and [place]. HEAD: Normocephalic. EYES: without scleral icterus or trauma. ENT/OROPHARYNX: clear and moist. LYMPHADENOPATHY/NECK: Is supple without lymphadenopathy or meningismus. RESPIRATORY: Lungs clear and equal. CARDIOVASCULAR: Regular rate and rhythm. GI/ABDOMEN: Soft and nontender. No organomegaly or pulsatile mass. No rebound or guarding. Normal bowel sounds. EXTREMITIES: Some tenderness to palpation of the left shoulder, decreased ROM of left shoulder due to pain. BACK: No CVA tenderness. NEUROLOGICAL: Intact without focal deficits. PSYCHIATRIC: normal affect. MUSCULOSKELETAL: Normally developed with good muscle tone. Medical Decision & Procedures ER Provider Diagnostic Interpretation: X ray results and stated below per my interpretation and radiology interpretation. Radiology results as stated below per my review and radiologist interpretation: LEFT SHOULDER 3 VIEWS HISTORY: Left shoulder pain. fall COMPARISON: None. FINDINGS: No dislocation. Irregularity at the greater tuberosity of the humeral head. This is consistent with an age-indeterminate nondisplaced fracture. Soft tissues are unremarkable. No radiopaque foreign bodies. The left clavicle is intact. Moderate degenerative changes within the left shoulder. IMPRESSION: Irregularity at the greater tuberosity of the humeral head consistent within age-indeterminate nondisplaced fracture. However, the appearance/location favors an old Hill-Sachs impaction fracture. Recommend correlation for pain at this location to exclude an acute injury. Electronically signed by: Ashu Bailey M.D. 02/24/2017 7:42 PM Dictated Date/Time: 02/24/2017 7:[address]AST CT DOSE: 712.55 mGy.cm HISTORY: Head injury. fall TECHNIQUE: Multiaxial CT images of the head were performed without the use of intravenous contrast. Automated exposure control was utilized for this study. A dose lowering technique was utilized adhering to the principles of ALARA. Comparison: None. Findings: The paranasal sinuses and mastoid air cells are clear. The calvarium and skull base are intact. There is no definite hematoma, midline shift, acute infarct. White matter hypodensity is nonspecific but suggestive of microvascular ischemic change. The ventricles and sulci demonstrate mild age-related involutional changes. Stable 1 cm extra-axial hyperdense focus within the left frontal region on image 25. The stability favors a calcified meningioma. Impression: There is again noted a 1 cm hyperdense extra-axial focus within the left frontal region. This is unchanged compared to the 2015 study. Therefore, this most likely represents a calcified meningioma. A focus of extra-axial hemorrhage is considered less likely given the long-term stability. However, given the history of trauma a 24-hour head CT follow-up is recommended . Electronically signed by: Ashu Bailey M.D. 02/24/2017 7:13 PM Dictated Date/Time: 02/24/2017 7:08 PM Medications Administered Medications (Trade) Dose Ordered Sig/Ed Route Start Time Stop Time Status Last Admin Dose Admin Oxycodone/ Acetaminophen (Percocet 5-325mg Tab) 1 tab NOW ONCE PO 02/24/17 20:00 02/24/17 20:01 DC 02/24/17 19:56 1 TAB ED Course 1830: Previous medical records were reviewed. The patient was evaluated in room D6. A complete history and physical examination was performed. 1948: On reevaluation, the patient is resting comfortably. I discussed the results and findings with the patient. He verbalized agreement of the treatment plan. He was discharged home. Medical Decision Differential includes close head injury, intracranial bleed, facial trauma, cervical spine trauma, chest and thoracic trauma, abdominal and intra-abdominal trauma, spine neurologic trauma, extremity trauma. This is a 71-year-old male who presents the ED with a chief complaint of fall. The patient states that he was riding a lawn manner on the side of the hill when it tipped over causing the fall off. The patient states that the lawnmower righted itself. It did not fall on him. He states that he landed on his left shoulder and hit his head. He complains of some left shoulder pain. He does have some chronic issues with his left shoulder with regards to his rotator cuff. The patient has no other complaints. Denies loss of consciousness. Denies neck or back pain. Denies any chest pains, shortness of breath or abdominal pains or other extremity injury. CT scan of the brain did not show any acute process. There was what appears to be a calcified meningioma that is similar to a CT scan of 2015. They did recommend repeat CT scan of 24 hours. This was reported to the patient. X-ray of the left shoulder did not show any clear acute injuries, fractures or dislocations. The patient has a possible old Hill-Sachs type injury. The patient does state that he has a chronic problem with his left shoulder that he is seeing a orthopedist for this week at the [facility]. The patient was told the results. He is felt to be stable for discharge. Head Trauma GCS Score: 15 Medication Reconcilliation Current Medication List: was personally reviewed by me Blood Pressure Screening Patient's blood pressure: Normal blood pressure Blood pressure disposition: Did not require urgent referral Impression Primary Impression: Contusion of left shoulder Additional Impression: Head injury Scribe Attestation The scribe's documentation has been prepared under my direction and personally reviewed by me in its entirety. I confirm that the note above accurately reflects all work, treatment, procedures, and medical decision making performed by me. Departure Information Dispostion Home / Self-Care Referrals Devante Rust D.O. (PCP) Patient Instructions My [facility] Additional Instructions Follow-up with your doctor for further care and evaluation in 1-2 days if symptoms persist. Return to the emergency department for worsening or new symptoms or any concerns. You have been examined and treated today on an emergency basis only. This is not a substitute for, or an effort to provide, complete comprehensive medical care. It is impossible to recognize and treat all injuries or illnesses in a single emergency department visit. It is therefore important that you follow up closely with your doctor. Call as soon as possible for an appointment. Radiology requests repeat CT scan of the head in 24 hours. Return tomorrow evening for this. Problem Qualifiers
[2017-02-24 19:58] VITALS: BP 116/72; PULSE 78; O2SAT 98
[2017-02-24] MEDS ORDERED: OXYCODONE/ACETAMINOPHEN 5-325 TAB PO ONE (20:00)
[2017-02-25] MEDS ORDERED: CARB25TA12 PO (20:29)
[2017-04-19] MEDS ORDERED: GARC1TAB PO (15:04)
[2017-04-19] MEDS ORDERED: LIDOCAINE PATCH EX (15:04)
[2017-04-19] MEDS ORDERED: [UNRECOGNIZED DRUG - OTHER] PO (15:04)
[2017-04-19] MEDS ORDERED: FRS/40 PO (15:04)
[2017-04-19] MEDS ORDERED: PROTANDIM NRF PO (15:04)
[2017-04-30] MEDS ORDERED: OXYC-57 PO (14:45)
== END 2017-02-24 19:59 | disposition home or self-care (01) ==
LOC: C.EDB 18:23 → C.EDD 19:59
DX: S40.012A Contusion of left shoulder, initial encounter (principal); S09.90XA Unspecified injury of head, initial encounter; V84.5XXA Driver of special agricultural vehicle injured in nontraffic accident, initial encounter; Y92.096 Garden or yard of other non-institutional residence as the place of occurrence of the external cause; G20 Parkinson's disease; I25.2 Old myocardial infarction; I10 Essential (primary) hypertension; E78.5 Hyperlipidemia, unspecified; E87.6 Hypokalemia; Z86.718 Personal history of other venous thrombosis and embolism; Z83.3 Family history of diabetes mellitus; Z82.49 Family history of ischemic heart disease and other diseases of the circulatory system; Z87.891 Personal history of nicotine dependence; Z79.82 Long term (current) use of aspirin; Z79.899 Other long term (current) drug therapy

== ENCOUNTER 2017-02-25 19:14 | Emergency (ER) | payer OTHER ==
[~2017-02-25] VITALS: Ht 180.3 cm; Wt 116.4 kg
[~2017-02-25 19:14] MED LIST changes: +CARBIDOPA PO; +DTR5 PO; -HYDR-3763 PO; +NAPR1TAB9 PO; +NTRGSL/4 UT; +OMEP20CA9 PO; -OXYC-57 PO; -PRAM1TAB6 PO; +TRAM-10 PO; +ZCR80 PO
[2017-02-25 19:29] VITALS: TEMP 36.5; Ht 180.3 cm; Wt 116.4 kg
--- NOTE | 2017-02-25 20:16 | EMERGENCY ROOM VISIT NOTE ---
History Report prepared by Jessica: Keshia Orr Under the Supervision of: Dr. Myla Gonzalez M.D. First contact with patient: 19:47 Chief Complaint: OTHER COMPLAINT Stated Complaint: 24 HOUR FOLLOW UP PER ER LAST NIGHT History of Present Illness The patient is a 71 year old male who presents to the Emergency Room for a follow-up evaluation secondary to a fall occurring 24 hours ago. 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 He went up over a hill and the mower started to flip, causing the patient to fall to the ground. He hit his head and his left shoulder when he fell. The patient was evaluated in the ED yesterday after this incident and told to return in [address] of the head. The patient is complaining of a slight headache. He denies any confusion, vomiting, visual changes, or problems with his speech. He has chronic left shoulder pain and has an appointment in [place] tomorrow with an orthopedic surgeon. He rates his current pain as a 9/10 in severity. Source of History: patient Onset: 24 hours ago Position: other (global) Symptom Intensity: 9/10 Quality: other (fall) Timing: other (episode) Associated Symptoms: + headache, No vomiting Note: Pt has chronic left shoulder pain. Pt denies confusion, visual changes, and problems with speech. Review of Systems See HPI for pertinent positives & negatives. A total of 6 systems reviewed and were otherwise negative. Past Medical & Surgical Medical Problems: (1) HTN (hypertension) (2) Hyperlipemia (3) Hypokalemia (4) ICH (intracerebral hemorrhage) (5) Left shoulder pain (6) Myocardial infarct, old (7) Parkinson disease (8) Superficial thrombophlebitis of left leg Surgical Problems: (1) H/O repair of rotator cuff Family History Diabetes mellitus Hypertension Social History Smoking Status: Current Every Day Smoker Alcohol Use: none Marital Status: Housing Status: lives with significant other Occupation Status: retired Current/Historical Medications Scheduled Apoaequorin (Prevagen), 10 MG PO QAM Aspirin (Aspirin Ec), 81 MG PO QPM Carbidopa/Levodopa (Sinemet 25MG/100MG), 1 TAB PO TID Clotrimazole (Topical) (Anti-Fungal), 1 DOSE PO DIRECTED Furosemide (Furosemide), 40 MG PO BID Metoprolol Tartrate (Lopressor) (Lopressor), 0.5 TAB PO DAILY Omeprazole (Prilosec), 20 MG PO QAM Oxybutynin Chloride (Oxybutynin Chloride), 5 MG PO QAM Potassium Ext Rel (Klor-Con), 20 MEQ PO DAILY Simvastatin (Simvastatin), 80 MG PO HS Scheduled PRN Nitroglycerin (Nitrostat), 0.4 MG UT UD PRN for Chest Pain Tramadol (Ultram), 50 MG PO PRN UD PRN for Pain Allergies Coded Allergies: No Known Allergies (Verified , 02/25/17) Physical Exam Vital Signs Date Time Temp Pulse Resp B/P (MAP) Pulse Ox O2 Delivery O2 Flow Rate FiO2 02/25/17 21:04 62 16 139/103 96 Room Air 02/25/17 19:29 36.5 64 16 140/91 95 Room Air Physical Exam Vital signs reviewed. General: Well-appearing older male, in no significant distress, sling to the left shoulder. HEENT: No scleral icterus, PERRLA, neck supple. Atraumatic. Musculoskeletal: Tender to the shoulders bilaterally, sling to the left arm. Generally atraumatic. Neurologic: Patient awake alert and oriented x 3, full strength in all 4 extremities. Cranial nerves 2 through 12 grossly intact. Skin: Warm, dry, no rash Medical Decision & Procedures ER Provider Diagnostic Interpretation: Radiology results as stated below per my review and radiologist interpretation: HEAD WITHOUT CONTRAST (CT) CT DOSE: 614.27 mGy.cm HISTORY: Mental status change f/u for ?ICH TECHNIQUE: Multiaxial CT images of the head were performed without the use of intravenous contrast. A dose lowering technique was utilized adhering to the principles of ALARA. Comparison: 02/24/2017 Findings: The paranasal sinuses and mastoid air cells are clear. The calvarium and skull base are intact. The ventricles and sulci are within normal limits. There is no mass, hematoma, midline shift, or acute infarct. Unchanged 1 cm left frontal meningioma. Impression: No acute intracranial abnormality. Stable left frontal calcified meningioma. No acute intracranial hemorrhage. The above report was generated using voice recognition software. It may contain grammatical, syntax or spelling errors. Electronically signed by: Karri Ledesma M.D. 02/25/2017 8:35 PM Dictated Date/Time: 02/25/2017 8:32 PM ED Course 1946: Past medical records reviewed. The patient was evaluated in room C12B. A complete history and physical examination was performed. 2108: I reassessed the patient at this time. He is feeling better and resting comfortably. I discussed the results and treatment plan with the patient and his . I answered all pertaining questions that they had. They expressed understanding and verbalized agreement. The patient will be discharged home. Medical Decision Differential diagnoses includes calcified meningioma, intracranial hemorrhage, contusion, concussion. This patient was evaluated and appeared to be in no significant distress. Patient has a sling to the left arm. He does have some discomfort with range of motion however appears to be neurologically intact. Records were reviewed. A repeat CT scan of the head was performed and reveals a stable calcification, no acute bleed. The patient was advised of the findings and discharged in care of his . He will return to the ER for worsening of symptoms or any medical concerns. Medication Reconcilliation Current Medication List: was personally reviewed by me Blood Pressure Screening Patient's blood pressure: Elevated blood pressure Blood pressure disposition: Referred to PCP Impression Primary Impression: Closed head injury Scribe Attestation The scribe's documentation has been prepared under my direction and personally reviewed by me in its entirety. I confirm that the note above accurately reflects all work, treatment, procedures, and medical decision making performed by me. Departure Information Dispostion Home / Self-Care Referrals Devante Rust D.O. (PCP) Forms HOME CARE DOCUMENTATION FORM, IMPORTANT VISIT INFORMATION, WORK / SCHOOL INSTRUCTIONS Patient Instructions My [facility] Additional Instructions Diagnosis: Closed head injury [facility] See your primary care physician for blood pressure recheck and reevaluation. Return to the ER for worsening of symptoms or any medical concerns. Problem Qualifiers Primary Impression: Closed head injury Encounter type: subsequent encounter Qualified Codes: S09.90XD - Unspecified injury of head, subsequent encounter
[2017-02-25] MEDS ORDERED: CARB25TA12 PO (20:29)
--- NOTE | 2017-02-25 20:36 | DIAGNOSTIC IMAGING REPORT ---
HEAD WITHOUT CONTRAST (CT) CT DOSE: 614.27 mGy.cm HISTORY: Mental status change f/u for ?ICH TECHNIQUE: Multiaxial CT images of the head were performed without the use of intravenous contrast. A dose lowering technique was utilized adhering to the principles of ALARA. Comparison: 02/24/2017 Findings: The paranasal sinuses and mastoid air cells are clear. The calvarium and skull base are intact. The ventricles and sulci are within normal limits. There is no mass, hematoma, midline shift, or acute infarct. Unchanged 1 cm left frontal meningioma. Impression: No acute intracranial abnormality. Stable left frontal calcified meningioma. No acute intracranial hemorrhage. The above report was generated using voice recognition software. It may contain grammatical, syntax or spelling errors. Electronically signed by: Karri Ledesma M.D. 02/25/2017 8:35 PM Dictated Date/Time: 02/25/2017 8:32 PM
[2017-02-25 21:04] VITALS: BP 139/103; PULSE 62; O2SAT 96
[2017-04-19] MEDS ORDERED: FRS/40 PO (15:04)
[2017-04-19] MEDS ORDERED: [UNRECOGNIZED DRUG - OTHER] PO (15:04)
[2017-04-19] MEDS ORDERED: PROTANDIM NRF PO (15:04)
[2017-04-19] MEDS ORDERED: LIDOCAINE PATCH EX (15:04)
[2017-04-19] MEDS ORDERED: GARC1TAB PO (15:04)
[2017-04-30] MEDS ORDERED: OXYC-57 PO (14:45)
== END 2017-02-25 21:08 | disposition home or self-care (01) ==
LOC: C.EDB 19:17 → C.EDC 21:08
DX: S09.90XD Unspecified injury of head, subsequent encounter (principal); W01.198A Fall on same level from slipping, tripping and stumbling with subsequent striking against other object, initial encounter; Y93.H9 Activity, other involving exterior property and land maintenance, building and construction; Y99.8 Other external cause status; I10 Essential (primary) hypertension; E78.5 Hyperlipidemia, unspecified; G20 Parkinson's disease; F17.200 Nicotine dependence, unspecified, uncomplicated; I25.2 Old myocardial infarction; Z98.890 Other specified postprocedural states; Z83.3 Family history of diabetes mellitus; Z82.49 Family history of ischemic heart disease and other diseases of the circulatory system; Z79.82 Long term (current) use of aspirin; Z79.899 Other long term (current) drug therapy

== ENCOUNTER 2017-03-17 12:57 | Emergency (ER) | payer BC, OTHER ==
[~2017-03-17] VITALS: Ht 180.3 cm; Wt 116.9 kg
[~2017-03-17 12:57] MED LIST changes: +CARB25TA12 PO; -CARBIDOPA PO; -NAPR1TAB9 PO
[2017-03-17 13:02] VITALS: TEMP 36.7; Ht 180.3 cm; Wt 116.9 kg
[2017-03-17] MEDS ORDERED: LIDOCAINE 5% PATCH TOP (13:22)
--- NOTE | 2017-03-17 13:54 | DIAGNOSTIC IMAGING REPORT ---
RIGHT WRIST MIN 3 VIEWS ROUTINE HISTORY: 72 years-old Male acute right wrist pain status post fall. COMPARISON: None available TECHNIQUE: 3 views of the right wrist. FINDINGS: Multifocal degenerative changes are noted with mild background bone demineralization. Joint space narrowing with marginal spurring and subchondral sclerosis seen most notably within the first carpal metacarpal, second and third metacarpal phalangeal joints. Mild triscaphe degenerative changes are noted with subcortical cystic changes seen throughout the proximal and distal carpal row. There is a remote fracture deformity of the distal fifth metacarpal. There is mild soft tissue swelling about the wrist without acute fracture or dislocation identified. The distal radius and ulna appear to be intact. IMPRESSION: 1. Mild soft tissues about the wrist without acute fracture or dislocation identified. 2. Multifocal degenerative changes with background mild bone demineralization. 3. Remote fracture deformity of the distal fifth metacarpal. The above report was generated using voice recognition software. It may contain grammatical, syntax or spelling errors. Electronically signed by: Juan Roa M.D. 03/17/2017 1:52 PM Dictated Date/Time: 03/17/2017 1:50 PM
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
[2017-03-17 14:10] VITALS: BP 134/64; PULSE 64; O2SAT 99
[2017-04-19] MEDS ORDERED: PROTANDIM NRF PO (15:04)
[2017-04-19] MEDS ORDERED: LIDOCAINE PATCH EX (15:04)
[2017-04-19] MEDS ORDERED: GARC1TAB PO (15:04)
[2017-04-19] MEDS ORDERED: [UNRECOGNIZED DRUG - OTHER] PO (15:04)
[2017-04-19] MEDS ORDERED: FRS/40 PO (15:04)
[2017-04-30] MEDS ORDERED: OXYC-57 PO (14:45)
== END 2017-03-17 14:11 | disposition home or self-care (01) ==
LOC: C.EDB 12:58 → C.EDD 14:11
DX: S63.501A Unspecified sprain of right wrist, initial encounter (principal); W19.XXXA Unspecified fall, initial encounter; F17.200 Nicotine dependence, unspecified, uncomplicated; I10 Essential (primary) hypertension; E78.5 Hyperlipidemia, unspecified; G20 Parkinson's disease

== ENCOUNTER → 2017-04-30 | Day surgery (SDC) | payer OTHER, BC ==
[2017-04-19 14:31] VITALS: BMI 36.0
--- NOTE | 2017-04-19 15:29 | PAT Medication Instructions ---
Service Date Apr 19, 2017. Current Home Medication List Apoaequorin (Prevagen), 10 MG PO QAM Aspirin (Aspirin Ec), 81 MG PO QD@1400 Carbidopa/Levodopa (Sinemet 25MG/100MG), 0.5 TAB PO TID Clotrimazole (Topical) (Anti-Fungal), 1 DOSE PO DIRECTED Furosemide (Lasix), 40 MG PO BID Garcinia Cambogia-Chromium (Garcinia Cambogia), 1 TAB PO QPM Metoprolol Tartrate (Lopressor) (Lopressor), 0.5 TAB PO QAM Omeprazole (Prilosec), 20 MG PO QAM Oxybutynin Chloride (Oxybutynin Chloride), 5 MG PO QAM Potassium Ext Rel (Klor-Con), 20 MEQ PO QAM Simvastatin (Simvastatin), 80 MG PO HS Tramadol (Ultram), 50 MG PO PRN UD PRN for Pain [Lidocaine Patch], 1 PATCH EX Q12 [Protandim Nrf], 1 TAB PO QPM [Slender Forskolin], 1 TAB PO QPM Medication Instructions For Your Scheduled Surgery [Lidocaine Patch], 1 PATCH EX Q12 (avoid placement on surgical site) - Hold the following medications starting 04/19/17: Garcinia Cambogia-Chromium (Garcinia Cambogia), 1 TAB PO QPM - Check with surgeon/check services clerk for instructions: Aspirin (Aspirin Ec), 81 MG PO QD@1400 - Hold the following medications 24 hours prior to surgery: Clotrimazole (Topical) (Anti-Fungal), 1 DOSE PO DIRECTED - Hold the following medications the morning of surgery: Oxybutynin Chloride (Oxybutynin Chloride), 5 MG PO QAM Furosemide (Lasix), 40 MG PO BID Apoaequorin (Prevagen), 10 MG PO QAM - Take the following medications the morning of surgery with a sip of water: Tramadol (Ultram), 50 MG PO PRN UD PRN for Pain (okay to take up 4 hours prior to surgery if needed) Omeprazole (Prilosec), 20 MG PO QAM Metoprolol Tartrate (Lopressor) (Lopressor), 0.5 TAB PO QAM Carbidopa/Levodopa (Sinemet 25MG/100MG), 0.5 TAB PO TID - Take the following medications as scheduled the night before surgery: Tramadol (Ultram), 50 MG PO PRN UD PRN for Pain (if needed) Simvastatin (Simvastatin), 80 MG PO HS Furosemide (Lasix), 40 MG PO BID Carbidopa/Levodopa (Sinemet 25MG/100MG), 0.5 TAB PO TID [Protandim Nrf], 1 TAB PO QPM [Slender Forskolin], 1 TAB PO QPM If you have any questions please call us at [phone] or [phone] or [phone]
[2017-04-19 15:53] LABS: BASO % 0.2 %; BASO ABS # 0.01 K/uL (0-0.2); COMPLETE YES; EOS % 3.2 %; IG% 0.3 %; LYMPH % 22.2 %; LYMPH ABS # 1.37 K/uL (1.2-3.4); MEAN CELL VOLUME 96.3 fL (80-100); MEAN CORPUSCULAR HEMOGLOBIN 33.3 pg (25-34); MEAN CORPUSCULAR HGB CONC 34.5 g/dl (32-36); MEAN PLATELET VOLUME 9.6 fL (7.4-10.4); MONO % 13.1 %; PLATELET COUNT 208 K/uL (130-400); RED BLOOD COUNT 4.57 M/uL (4.7-6.1); WHITE BLOOD COUNT 6.16 K/uL (4.8-10.8)
[2017-04-19 15:53] LABS: URINE APPEARANCE CLEAR (CLEAR); URINE BILIRUBIN NEG (NEG); URINE COLOR YELLOW; URINE NITRITE NEG (NEG); URINE SPECIFIC GRAVITY 1.015 (1.000-1.030); UROBILINOGEN NEG (NEG); ZZUR CULT IF INDIC CLEAN CATCH NO
[2017-04-19 15:56] LABS: MANUAL MICROSCOPIC REQUIRED? NO; REVIEW REQ? NO
--- NOTE | 2017-04-19 16:03 | DIAGNOSTIC IMAGING REPORT ---
CHEST PREADMISSION(PA/LAT) HISTORY: 72 years-old Male PAT preadmission exam for left shoulder surgery. No acute chest complaints. COMPARISON: Chest radiograph 10/15/2016 TECHNIQUE: Frontal and lateral views of the chest FINDINGS: Cardiac silhouette is again mildly enlarged. There is atherosclerosis of the aorta. No pneumothorax, pleural effusion or focal airspace consolidation. Minimal subsegmental ill-defined opacities suggest some atelectasis, unchanged. No overt pulmonary edema. The bones of the chest appear to be grossly intact. Multilevel endplate osteophytosis of the spine is seen. IMPRESSION: No acute cardiopulmonary process. The above report was generated using voice recognition software. It may contain grammatical, syntax or spelling errors. Electronically signed by: Juan Roa M.D. 04/19/2017 4:02 PM Dictated Date/Time: 04/19/2017 4:00 PM
[2017-04-19 16:05] LABS: PROTHROMBIN TIME (PATIENT) 10.6 SECONDS (9.0-12.0)
[2017-04-19 16:09] LABS: BUN/CREATININE RATIO 15.7 (10-20); CREATININE 0.79 mg/dl (0.60-1.40); POTASSIUM 3.9 mmol/L (3.5-5.1)
--- NOTE | 2017-04-29 09:59 | HISTORY & PHYSICAL EXAMINATION ---
DATE OF ADMISSION: 04/30/2017 HISTORY OF PRESENT ILLNESS: The patient presents as a 72-year-old white male with left shoulder pain, presents for rotator cuff repair with resection of AC joint. PAST MEDICAL HISTORY: Significant for previous myocardial infarction, heart murmur, hypertension, hypercholesterolemia, previous history of TIA. FAMILY HISTORY: Unremarkable and noncontributory. SOCIAL HISTORY: The patient relates 1 alcoholic drink per week. No smoking, no recreational drug use. PAST SURGICAL HISTORY: Significant for previous carpal tunnel surgery. ALLERGIES: None. MEDICATIONS: Lisinopril, dose unknown. REVIEW OF SYSTEMS: Otherwise unremarkable. See history of present illness for pertinent positives. PHYSICAL EXAMINATION: GENERAL: Reveals a very pleasant 72-year-old white male, alert and oriented x3, with ongoing complaints of pain about his left shoulder. HEENT: Otherwise atraumatic, normocephalic. No lesions are noted. HEART: Regular at 72 beats per minute. LUNGS: Clear. No rales, rhonchi or wheeze noted. ABDOMEN: Soft, nontender, nondistended. Bowel sounds are present in all 4 quadrants. RECTAL: No rectal examination was performed. MUSCULOSKELETAL: Ongoing left shoulder pain with rotator cuff tear, weakness of the supraspinatus tendon, nonresponsive to injections as well as physical therapy. Presenting for arthroscopic evaluation, rotator cuff repair, distal clavicle excision pending findings at the time of surgery, postoperative pain management, DVT prophylaxis, antibiotics.
[~2017-04-30] VITALS: Ht 180.3 cm; Wt 117.9 kg
[~2017-04-30] MED LIST changes: +BACITRACIN 50000 UNIT VIAL ONE; +CEFAZOLIN 2000 MG/60 ML D5W IV SCH; +EpINEphrine HCL INJ 1 MG/ML 5ML SYRINGE ONE; +FENTANYL CITRATE INJ 50 MCG/1 ML 2 ML VIAL ONE; +FRS/40 PO; +GARC1TAB PO; +LACTATED RINGER'S 1000ML 1,000 ML IV SCH; +LIDOCAINE HCL 2% 2 ML VIAL (20MG/ML) ONE; +LIDOCAINE PATCH EX; -LSX40 PO; +MIDAZOLAM HCL 1 MG/ML 2ML VIAL ONE; -NTRGSL/4 UT; +ONDANSETRON INJ 2 MG/ML 2 ML VIAL IV PRN; +ONDANSETRON INJ 2 MG/ML 2 ML VIAL ONE; +OXYC-57 PO; +OXYCODONE/ACETAMINOPHEN 5-325 TAB PO PRN; +PROPOFOL IV EMULSION 10 MG/ML 20 ML VIAL IV ONE; +PROTANDIM NRF PO; +ROPIVACAINE 0.5% 5 MG/ML 30 ML VIAL ONE; +SODIUM CHLORIDE 0.9% 1000ML 1,000 ML IV SCH; +THROMBIN FOR SOLN 20000 UNIT KIT ONE; +[UNRECOGNIZED DRUG - OTHER] PO
--- NOTE | 2017-04-30 11:34 | History & Physical Bridge Note ---
H&P Re-Evaluation Bridge Note: I have examined the patient, reviewed the History & Physical and in the interval since the performance of the History & Physical I have noted the following changes of clinical significance: No changes noted
[2017-04-30 12:10] VITALS: BP 142/92; PULSE 72; TEMP 36.7; O2SAT 96; Ht 180.3 cm; Wt 117.9 kg
--- NOTE | 2017-04-30 14:47 | [facility] Operative Report ---
Operative Report Operative Date Apr 30, 2017. Pre-Operative Diagnosis Left Shoulder Pain, Rotator Cuff Tear Post-Operative Diagnosis Left Shoulder Pain, Rotator Cuff Tear Procedure(s) Performed Left Shoulder Arthroscopy with Debredement of Rotator Cuff Tear acromioplasty distal clavicle excision debridement of labral tear debridement of massive cuff tear back to a stable margin Surgeon Niels Revenue Agent Surgeon(s) Karri Botello PA-C Estimated Blood Loss 5cc Findings Massive rotator cuff tear and before meals joint DJD impingement syndrome labral tear nonresponsive to conservative therapy presents for a scopic evaluation Specimens none per surgeon Complication(s) None Disposition Recovery Room / PACU Indications Patient presents with ongoing shoulder pain with weakness of rotator cuff and shoulder massive cuff tear before meals joint DJD impingement pain performed scopic evaluation failing attempts injections anti-inflammatories relative rest physical therapy and presents for arthroscopic evaluation. Description of Procedure After proper prepping and draping the left upper extremity a posterior portal was created or scopic examination beginning region of the glenohumeral joint revealed evidence of a massive rotator cuff tear was debrided back to a stable margin the anterior labrum was debrided as well for markedly degenerative tearing and fraying of the subcarinal space was evaluated markedly thickened hypertrophic before meals joint spurs and osteophytes anteriorly and at the joint which were removed utilizing a 5.0 mm bur distal clavicle excision was performed with 1 cm of distal clavicle excised with a bur under direct visualization have informed acromioplasty subacromial decompression debridement of labral tear back to stable margin rotator cuff was further evaluated and attempted to be mobilized and was not able to be mobilized back past the equator of the humeral head was basically about 1 cm past the lateralward past the superior region of the glenoid. Nonrepairable massive was debrided back to stable margin. Region removed superficial closed with 4-0 nylon a sterile compressive dressing was placed Karri HENLEY was necessary for prepping draping retraction arm positioning wound closure was necessary for the case I attest to the content of the Intraoperative Record and any orders documented therein. Any exceptions are noted below.
--- NOTE | 2017-04-30 14:50 | Discharge Instructions ---
Discharge Instructions Date of Service Apr 30, 2017. Visit Reason for Visit: Left Shoulder Osteoarthritis, Sprain Of Rtc Capsul Discharge Discharge Diagnosis / Problem: Left Shoulder Osteoarthritis; Unrepairable RTC Tear Discharge Goals Goal(s): Decrease discomfort, Improve function ( ) Activity Recommendations Activity Limitations: per Instructions/Follow-up section Anesthesia . Post Anesthesia Instructions: If you have had General Anesthesia or IV Sedation: * Do not drive today. * Resume driving when surgeon permits. * Do not make important decisions or sign legal documents today. * Call surgeon for: 1. Temperature elevations greater than 101 degrees F. 2. Uncontrollable pain. 3. Excessive bleeding. 4. Persistent nausea and vomiting. 5. Medication intolerance (nausea, vomiting or rash). * For nausea and vomiting use only clear liquids such as: tea, soda, bouillon until nausea subsides, then gradually increase diet as tolerated. * If you have any concerns or questions, call your surgeon's office. If physician is unavailable and it is an emergency, call 911 or go to the nearest emergency room. . Instructions / Follow-Up Instructions / Follow-Up U DISCHARGE INSTRUCTIONS: SHOULDER ARTHROSCOPY with or without Distal Clavicle Excision SELF CARE INSTRUCTIONS AFTER: A. You are allowed to use your arm actively as comfort allows. Recommend NOT doing repetitive overhead activity or heavy lifting. B. You should start Physical Therapy within 1-3 days from your surgery. You will be provided a prescription with specific restrictions, if needed, at time of discharge. C. You can discontinue the sling as comfort allows within one to two days after surgery. A. At 48 hours post-operatively, you may change your dressing. . (Leave white steri-strips intact if present). Use band-aids and change daily. You are allowed to shower at this time and get the incision area wet, but DO NOT soak or submerge incision area in water. (No baths, swimming pools, hot tubs) B. Do NOT apply soap or any ointment/lotions directly over incision. C. You may use ice as needed to operative shoulder SPECIAL CARE INSTRUCTIONS: VERY IMPORTANT TO READ AND REVIEW A. There are a few signs you need to watch for after you are home. Call [facility] at [phone] if you experience any of the following: a. Increased severe shoulder pain. Some pain is expected especially when you exercise b. Increased swelling in your shoulder or arm; pain or swelling in either upper extremity. (Note: swelling and stiffness is normal and expected for several weeks post op, depending on type of shoulder surgery you had). c. Any fluid or drainage from the incision; redness of the incision. d. Shortness of breath or chest pain. B. Please call [facility] at [phone] if you have any questions or concerns about your operation or recovery. C. Call your physician if: a. Temperature is greater than 101 degrees (F). b. Pain is not relieved by prescribed pain medications. c. Increase drainage or redness from incision. d. Unanswered questions or concerns. D. Pain Medication: a. You will be prescribed pain medication upon discharge that should last till your first post-operative appointment. b. You may also take Advil or Ibuprofen between medication doses if you do not have any contraindication to taking them. c. You may also take Advil or Ibuprofen in place of your pain medication if the pain is tolerable. d. If you experience nausea and/or skin rash, discontinue this medication and contact our office for an alternative medication. e. Caution- narcotic pain medication can cause constipation. FOLLOW UP VISIT: Please call [facility] at [phone] to schedule a follow up appointment 10-14 days from your surgery date. Diet Recommendations Recommended Home Diet: resume previous diet Procedures Procedures Performed: Left Shoulder Arthroscopy with Debredement of Rotator Cuff Tear Pending Studies Studies pending at discharge: no Medical Emergencies . Who to Call and When: Medical Emergencies: If at any time you feel your situation is an emergency, please call 911 immediately. . Non-Emergent Contact Non-Emergency issues call your: Surgeon Call Non-Emergent contact if: temperature is above 101.5, your pain is not controlled, your pain is worsening, wound has increased drainage, wound has increased redness . . "Provider Documentation" section prepared by Milton Maki. . [place] Drug Monitoring Program Search Results: patient reviewed within database, no issues identified
--- NOTE | 2017-04-30 15:21 | Anesthesiology Progress Note ---
Anesthesia Post Op Note Date & Time Apr 30, 2017 at 15:21 Vital Signs Pain Intensity: 0 Vital Signs Past 12 Hours Date Time Temp Pulse Resp B/P (MAP) Pulse Ox O2 Delivery O2 Flow Rate FiO2 04/30/17 15:15 36.7 56 19 114/82 (97) 95 Room Air Oxymask 04/30/17 15:10 122/85 04/30/17 15:09 73 23 96 04/30/17 15:09 69 23 04/30/17 15:08 131/89 04/30/17 15:07 53/45 04/30/17 15:04 57 18 100 04/30/17 15:04 56 18 04/30/17 15:00 131/94 04/30/17 14:59 58 15 04/30/17 14:59 15 04/30/17 14:55 104/79 04/30/17 14:54 148 20 04/30/17 14:54 36.0 67 10 104/79 (84) 100 Oxymask 10 04/30/17 14:54 67 20 99 04/30/17 12:10 36.7 72 20 142/92 (109) 96 Room Air Notes Mental Status: alert / awake / arousable, participated in evaluation Pt Amnestic to Procedure: Yes Nausea / Vomiting: adequately controlled Pain: adequately controlled Airway Patency, RR, SpO2: stable & adequate BP & HR: stable & adequate Hydration State: stable & adequate Anesthetic Complications: no major complications apparent
[2017-04-30 15:30] VITALS: BP 110/79; PULSE 62; TEMP 36.6; O2SAT 94
[2017-04-30 16:00] VITALS: BP 136/77; PULSE 59; TEMP 36.6; O2SAT 96
== END | disposition home or self-care (01) ==
LOC: C.ACU 11:40
PROVIDERS: ATTEND Orthopaedic Surgery
DX: M75.102 Unspecified rotator cuff tear or rupture of left shoulder, not specified as traumatic (principal); G47.33 Obstructive sleep apnea (adult) (pediatric); I25.2 Old myocardial infarction; I25.10 Atherosclerotic heart disease of native coronary artery without angina pectoris; I10 Essential (primary) hypertension; M19.90 Unspecified osteoarthritis, unspecified site; Z86.73 Personal history of transient ischemic attack (TIA), and cerebral infarction without residual deficits; Z98.890 Other specified postprocedural states; G20 Parkinson's disease; E66.9 Obesity, unspecified; Z68.36 Body mass index [BMI] 36.0-36.9, adult; Z85.46 Personal history of malignant neoplasm of prostate

== ENCOUNTER 2017-07-26 03:53 | Emergency (ER) | payer OTHER, BC ==
[~2017-07-26] VITALS: Ht 180.3 cm; Wt 110.0 kg
[~2017-07-26 03:53] MED LIST changes: -BACITRACIN 50000 UNIT VIAL ONE; -CEFAZOLIN 2000 MG/60 ML D5W IV SCH; -EpINEphrine HCL INJ 1 MG/ML 5ML SYRINGE ONE; -FENTANYL CITRATE INJ 50 MCG/1 ML 2 ML VIAL ONE; -LACTATED RINGER'S 1000ML 1,000 ML IV SCH; -LIDOCAINE HCL 2% 2 ML VIAL (20MG/ML) ONE; -MIDAZOLAM HCL 1 MG/ML 2ML VIAL ONE; -ONDANSETRON INJ 2 MG/ML 2 ML VIAL IV PRN; -ONDANSETRON INJ 2 MG/ML 2 ML VIAL ONE; -OXYCODONE/ACETAMINOPHEN 5-325 TAB PO PRN; -PROPOFOL IV EMULSION 10 MG/ML 20 ML VIAL IV ONE; -ROPIVACAINE 0.5% 5 MG/ML 30 ML VIAL ONE; -SODIUM CHLORIDE 0.9% 1000ML 1,000 ML IV SCH; -THROMBIN FOR SOLN 20000 UNIT KIT ONE
[2017-07-26 03:59] VITALS: TEMP 36.4; Ht 180.3 cm; Wt 110.0 kg
[2017-07-26] MEDS ORDERED: OXYCODONE/ACETAMINOPHEN 5-325 TAB PO STA (04:15)
--- NOTE | 2017-07-26 04:22 | EMERGENCY ROOM VISIT NOTE ---
History First contact with patient: 04:05 Chief Complaint: ANKLE PAIN Stated Complaint: FELL ON ICE,ANKLE PAIN History of Present Illness The patient is a 72 year old male who presents to the Emergency Room with complaints of right ankle pain. The patient reports that he slipped on ice yesterday and fell, injuring his right ankle. He has had worsening pain since then. He was unable to sleep tonight due to the pain. He has been able to bear weight, but with difficulty. He rates his discomfort a 9/10. He took 2 tramadol without relief. He has seen [facility] in the past. He denies any previous injuries to this ankle. He denies any numbness or weakness. Review of Systems A 6 point review of systems was reviewed with the patient with pertinent positives and negatives as per history of present illness. All else were negative. Past Medical/Surgical History Medical Problems: (1) Ankle pain, right (2) Closed head injury (3) Closed head injury (4) Contusion of left shoulder (5) Head injury (6) HTN (hypertension) (7) Hyperlipemia (8) Hypokalemia (9) ICH (intracerebral hemorrhage) (10) Left shoulder pain (11) Low back pain (12) Musculoskeletal neck pain (13) Myocardial infarct, old (14) Neck pain (15) Neck stiffness (16) Parkinson disease (17) Right leg injury (18) Superficial thrombophlebitis of left leg Surgical Problems: (1) H/O repair of rotator cuff Family History Diabetes mellitus Hypertension Social History Smoking Status: Light Tobacco Smoker Alcohol Use: none Marital Status: Housing Status: lives with significant other Occupation Status: retired Current/Historical Medications Scheduled Apoaequorin (Prevagen), 10 MG PO QAM Aspirin (Aspirin Ec), 81 MG PO QD@1400 Carbidopa/Levodopa (Sinemet 25MG/100MG), 0.5 TAB PO TID Clotrimazole (Topical) (Anti-Fungal), 1 DOSE PO DIRECTED Furosemide (Lasix), 40 MG PO BID Garcinia Cambogia-Chromium (Garcinia Cambogia), 1 TAB PO QPM Metoprolol Tartrate (Lopressor) (Lopressor), 0.5 TAB PO QAM Omeprazole (Prilosec), 20 MG PO QAM Oxybutynin Chloride (Oxybutynin Chloride), 5 MG PO QAM Potassium Ext Rel (Klor-Con), 20 MEQ PO QAM Simvastatin (Simvastatin), 80 MG PO HS [Lidocaine Patch], 1 PATCH EX Q12 [Protandim Nrf], 1 TAB PO QPM [Slender Forskolin], 1 TAB PO QPM Scheduled PRN Oxycodone/Acetaminophen 5MG/325MG (Percocet 5MG/325MG), 1-2 TABLETS PO q4-6h PRN for Pain Oxycodone/Acetaminophen 5MG/325MG (Percocet 5MG/325MG), 1-2 TABS PO Q4H PRN for Pain Tramadol (Ultram), 50 MG PO PRN UD PRN for Pain Physical Exam Vital Signs Date Time Temp Pulse Resp B/P (MAP) Pulse Ox O2 Delivery O2 Flow Rate FiO2 07/26/17 05:00 73 18 146/87 93 Room Air 07/26/17 05:00 87 18 141/92 91 Room Air 07/26/17 03:59 36.4 84 20 154/100 91 Room Air Physical Exam VITALS: Vitals are noted on the nurse's note and reviewed by myself. Vital signs stable. GENERAL: This is a 72-year-old male, in no acute distress, nondiaphoretic, well- developed well-nourished. MUSCULOSKELETAL: Soft tissue swelling to both lateral and medial aspects of the right ankle. Tenderness to palpation of the right lateral malleolus. No tenderness of the proximal tibia/fibula or foot. Normal sensation. Decreased strength to plantar flexion and dorsiflexion. NEURO: Patient was alert and oriented to person place and time. Medical Decision & Procedures ER Provider Diagnostic Interpretation: RIGHT ANKLE: Oblique fracture of right distal fibula. Otherwise no fractures or dislocations. Medications Administered Medications (Trade) Dose Ordered Sig/Ed Route Start Time Stop Time Status Last Admin Dose Admin Oxycodone/ Acetaminophen (Percocet 5-325mg Tab) 1 tab NOW STAT PO 07/26/17 04:15 07/26/17 04:17 DC 07/26/17 04:21 1 TAB Medical Decision The patient was evaluated as above. X-ray was reviewed by myself and shows a fracture of the distal right fibula. Patient was placed in a fracture boot and given a walker. He was given a Percocet in the emergency department with some relief. He was discharged home with a prescription for Percocet. He will follow up with [facility]. He verbalized understanding of my assessment and treatment plan. The patient was independently evaluated by Dr. Grant, ED attending physician , who agreed with my assessment and treatment plan. Medication Reconcilliation Current Medication List: was personally reviewed by me Blood Pressure Screening Patient's blood pressure: Elevated blood pressure Blood pressure disposition: Elevated BP felt to be situational Impression Primary Impression: Fracture of distal end of right fibula Departure Information Dispostion Home / Self-Care Condition GOOD Prescriptions Oxycodone/Acetaminophen 5MG/325MG (PERCOCET 5MG/325MG) Tab 1-2 TABS PO Q4H Y for Pain, #20 TAB For Initial Treatment Prov: Kristine Taylor PA-C 07/26/17 Referrals Devante Rust D.O. (PCP) Venu Mehta D.O. Patient Instructions [facility] Additional Instructions You have been treated in the Emergency Department for an Ankle fracture. You have received pain medicine in the emergency department which impairs your ability to operate a vehicle. It is illegal for you to drive after receiving these medicines. You have been prescribed Percocet to be used for pain control. This is a narcotic medication. You cannot drive or consume alcohol while on this medicine. This medicine should only be used for pain that cannot be controlled with [id number]-cjb-twbonnd pain medicines. For pain control, you can use the following [id number] medicines (if >12 yo): - Regular strength (325mg/tab) Tylenol (acetaminophen) 2 tabs every 4-6 hours as needed. Do not exceed 12 tablets in a 24 hour period. Avoid taking more than 4 grams (4000 mg) of Tylenol per day. This includes any other sources of acetaminophen you may take on a regular basis. - Regular strength (200 mg/tab) Advil (ibuprofen) 1-2 tabs every 4-6 hours as needed. Do not exceed a dose of 3200 mg per day. If this is a recent injury (<24 hrs), ice can be applied to the area of pain for the first 3 days to help decrease pain and inflammation. Contact [facility] for follow-up. Keep the ankle brace/splint in place until cleared by Orthopedics. Use the walker to help keep weight off the ankle. Return to the Emergency Department if your current symptoms worsen despite treatment course outlined above, or if you develop any of the following symptoms : intractable pain despite aforementioned treatment course or new onset of numbness or tingling of the foot. Problem Qualifiers Primary Impression: Fracture of distal end of right fibula Encounter type: initial encounter Fracture type: closed Fracture morphology : other fracture Qualified Codes: S82.831A - Other fracture of upper and lower end of right fibula, initial encounter for closed fracture
[2017-07-26] MEDS ORDERED: OXYC-57 PO (04:49)
[2017-07-26 05:00] VITALS: BP 146/87; PULSE 73; O2SAT 93
--- NOTE | 2017-07-26 06:37 | EMERGENCY ROOM VISIT NOTE ---
ED Visit Note First contact with patient: 04:05 I have personally evaluated and examined this patient. I agree with assessment and plan of Kristine Taylor PA-C. Right distal fib fracture s/p fall. No other injuries nor complaints.
--- NOTE | 2017-07-26 06:47 | DIAGNOSTIC IMAGING REPORT ---
R ANKLE MIN 3 VIEWS ROUTINE CLINICAL HISTORY: right ankle pain, injury trauma. Pain. COMPARISON: 10/15/2016 DISCUSSION: Oblique fracture distal fibula. No significant displacement. Ankle mortise is aligned anatomically. Lateral soft tissue edema. Heel spur. Medial malleolus is intact. No evidence of dislocation. IMPRESSION: Blank fracture distal fibula. Heel spur. Soft tissue edema. The above report was generated using voice recognition software. It may contain grammatical, syntax or spelling errors. Electronically signed by: Karri Ledesma M.D. 07/26/2017 6:45 AM Dictated Date/Time: 07/26/2017 6:44 AM
== END 2017-07-26 05:11 | disposition home or self-care (01) ==
LOC: C.EDB 03:54 → C.EDA 05:11
DX: S82.431A Displaced oblique fracture of shaft of right fibula, initial encounter for closed fracture (principal); W00.1XXA Fall from stairs and steps due to ice and snow, initial encounter; I10 Essential (primary) hypertension; E78.5 Hyperlipidemia, unspecified; E87.6 Hypokalemia; I25.2 Old myocardial infarction; M25.512 Pain in left shoulder; M54.5 Low back pain; M54.2 Cervicalgia; G20 Parkinson's disease; Z86.72 Personal history of thrombophlebitis; Z83.3 Family history of diabetes mellitus; Z82.49 Family history of ischemic heart disease and other diseases of the circulatory system; F17.200 Nicotine dependence, unspecified, uncomplicated; Z79.82 Long term (current) use of aspirin

== ENCOUNTER → 2017-09-17 | Outpatient (CLI) | payer OTHER ==
[~2017-09-17] VITALS: Ht 180.3 cm; Wt 116.3 kg
[2017-09-17 14:42] VITALS: BP 118/87; PULSE 87; Ht 180.3 cm; Wt 116.3 kg
== END | disposition home or self-care (01) ==
LOC: C.NEUR 13:55
PROVIDERS: ATTEND Internal Medicine Pulmonary Disease
DX: G47.33 Obstructive sleep apnea (adult) (pediatric) (principal); E66.9 Obesity, unspecified

== ENCOUNTER 2022-02-05 06:43 | Observation (INO) ==
--- NOTE | 2022-02-05 07:03 | Emergency Department Note ---
Impression & Plan Fall, Contusion of head, Back pain, Closed rib fracture ED Provider Note NAME: ALAN BONE AGE: 76 SEX: M : 1945 ARRIVES VIA: Walk-In INFORMANT: Patient ED PROVIDER(S): Rene Antunez DO CHIEF COMPLAINT: back pain and headache HPI: Patient is a 76-year-old male who presents to the ER following a mechanical fall. He was pushing his tractor out of the garage and it started rolling and he tried to hop up onto the lawnmower. He tripped and fell secondary to the seat. He did hit his head. She denies any loss consciousness. He admits to mild headache 3 out of 10 which is dull in nature in the posterior aspect. Back pain is worse in the upper lumbar and goes out to bilateral sides. Denies any weakness or numbness in the arms or legs. No other exacerbating or remitting factors. ROS: See above HPI for pertinent positives & negatives. A total of 10 systems reviewed and were otherwise negative. PAST MEDICAL HISTORY:See Below PAST SURGICAL HISTORY:See Below FAMILY HISTORY:See Below SOCIAL HISTORY:See Below HOME MEDICATIONS:See Below ALLERGIES:See Below VITALS:See Below PHYSICAL EXAMINATION: GENERAL: alert, well appearing, well nourished, no distress, non-toxic HEAD: normal cephalic, contusion to posterior occiput EYE EXAM: normal conjunctiva, PERRL and EOM's grossly intact OROPHARYNX: no exudate, no erythema, lips, buccal mucosa, and tongue normal and mucous membranes are moist NECK: supple, no nuchal rigidity, no adenopathy, non-tender CHEST: stable to compression anteriorly and posteriorly LUNGS: clear to auscultation. Normal chest wall mechanics HEART: no murmurs, S1 normal and S2 normal ABDOMEN: abdomen soft, non-tender, normo-active bowel sounds, no masses, no rebound or guarding. PELVIS: stable to compression anteriorly and posteriorly BACK: Back is symmetrical on inspection and there is no deformity, mid lumbar midline tenderness tracking up to the right paraspinal region no CVA tenderness. UPPER EXTREMITIES: full active and passive range of motion of all joints without tenderness to palpation LOWER EXTREMITIES: full active and passive range of motion of all joints without tenderness to palpation NEURO EXAM: Normal sensorium, cranial nerves II-XII grossly intact, normal speech, no gross weakness of arms, no gross weakness of legs. GCS: 15. MEDICAL DECISION MAKING: Patient is a 76-year-old male who presents ER with above-stated complaint. IV was established blood work was obtained. Labs show no significant leukocytosis or anemia. BMP along with LFTs bilirubin was unremarkable. COVID was negative. CT of the abdomen and lumbar spine shows [address] head was negative. Patient was updated bedside. He was having significant mount of pain was unable to get up/sit up. He was given IV morphine. He became slightly hypoxic on the morphine. With a protracted pain requiring narcotics and being hypoxic and still unable to sit up I did discuss with hospitalist for further evaluation. Triage Nursing notes reviewed. Limited review of prior medical records performed Vital Signs: reviewed and remarkable for HTN Differential diagnosis: Fracture, dislocation, contusion, intra-abdominal, pneumothorax, intrathoracic, intracranial, neurologic, compartment syndrome, rhabdomyolysis, as well as other pathologies. ER treatment provided: See below Diagnostics interpreted by me: ECG: none Cardiac Monitoring: An order was placed for continuous cardiac monitoring. The monitor shows a rate of 80 with sinus rhythm. Laboratory studies: As stated above and show below. Imaging studies: CT head was negative Chest x-ray was unremarkable CT abdomen pelvis showed 2 rib fractures on the left Consultation(s): Discussed with Dr. Peng for further evaluation Procedures: none Critical Care: None Past Med/Surg History Medical History Bilateral sacroiliitis Cardiac murmur Chronic back pain Diverticulosis Hearing deficit History of NC (myocardial infarction) History of osteoarthritis History of prostate cancer Lumbar facet joint syndrome Myofascial pain Parkinson disease Poor historian Sleep apnea Spinal stenosis of lumbar region Transient ischemic attack (TIA) Surgical History History of cardiac cath History of colonoscopy History of prostate biopsy History of repair of rotator cuff History of right cataract surgery S/P epidural steroid injection S/P left cataract extraction Family History Father Family history of diabetes mellitus Brother Family history of diabetes mellitus Social History Smoking Status: Former smoker Tobacco Type: Cigarettes Second Hand Exposure: Yes (BAR SMOKE); Hx Alcohol Use: Yes Alcohol type: hard liquor Hx Substance Use: No Preferred Language: Hungarian Communication Ability: Effective Visual Impairment: No Limitations Hearing Ability: Hard of Hearing 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 Required: No Beliefs That Will Affect Care: None marital status: Current Living Situation: Spouse current occupational status: retired Feels Safe at Home: Yes Assistive Devices: Cane, CPAP, Glasses and Hearing Aid - Bilateral Allergies Allergies Allergy/AdvReac Type Severity Reaction Status Date / Time No Known Allergies Allergy Verified 11/16/21 13:51 Home Meds Home Medications Medication Instructions Recorded Confirmed aspirin 81 mg tablet,delayed 81 mg PO HS 12/19/18 11/16/21 release cyanocobalamin (vitamin B-12) 1,000 mcg PO [facility] 12/19/18 11/16/21 1,000 mcg tablet furosemide 40 mg tablet (Lasix) 40 mg PO BID 12/19/18 11/16/21 metoprolol succinate 25 mg 12.5 mg PO [facility] 12/19/18 11/16/21 tablet,extended release 24 hr omeprazole 20 mg tablet,delayed 20 mg PO [facility] 12/19/18 11/16/21 release potassium chloride 20 mEq 20 meq PO BID 12/19/18 11/16/21 tablet,extended release Neuro Boost 1 tab PO [facility] 08/07/21 11/16/21 Prevagen 1 cap PO [facility] 08/07/21 11/16/21 rosuvastatin 40 mg tablet 40 mg PO 11/06/21 11/16/21 trospium 20 mg tablet 20 mg PO [facility] 11/06/21 11/16/21 Previous Rx's Medication Instructions Recorded carbidopa 25 mg-levodopa 100 mg 2 tab PO TID 90 days #540 tabs 09/26/21 tablet Results & Data (ED) Vital Signs Vital Signs - 24 hr 02/05/22 06:44 02/05/22 06:56 02/05/22 08:00 Temperature 36.4 C L Temperature Source Temporal Artery Scan Pulse Rate 88 82 Pulse Rate [Left Finger] 93 H Pulse Rate from SpO2 Sensor Pulse Rhythm Regular Pulse Rhythm [Left Finger] Regular Pulse Strength [Left Finger] Normal Respiratory Rate 18 20 20 Respiratory Effort / Characteristics Non-Labored Spontaneous Respiratory Depth Normal Respiratory Pattern Regular Blood Pressure 144/95 H Blood Pressure [Left Arm] 121/74 Blood Pressure Mean 111 Blood Pressure Mean [Left Arm] 89 Blood Pressure Position Sitting Blood Pressure Position [Left Arm] Sitting Pulse Oximetry 93 94 94 Oxygen Delivery Method Room Air Room Air Room Air Oxygen Flow Rate Sepsis Recent Fever Within 48 Hours No Sepsis New/Unexplained Change in Mental Status N/A Sepsis Action Taken by Nursing No Action Required Oxygen Flow Rate - Titration Pulse Oximetry Post Tiitration 02/05/22 08:21 02/05/22 08:30 02/05/22 08:30 Temperature Temperature Source Pulse Rate 79 Pulse Rate [Left Finger] Pulse Rate from SpO2 Sensor 79 Pulse Rhythm Pulse Rhythm [Left Finger] Pulse Strength [Left Finger] Respiratory Rate 24 Respiratory Effort / Characteristics Respiratory Depth Respiratory Pattern Blood Pressure 116/74 Blood Pressure [Left Arm] Blood Pressure Mean 88 Blood Pressure Mean [Left Arm] Blood Pressure Position Blood Pressure Position [Left Arm] Pulse Oximetry 87 L 94 Oxygen Delivery Method Nasal Cannula Nasal Cannula Oxygen Flow Rate 0 2 Sepsis Recent Fever Within 48 Hours Sepsis New/Unexplained Change in Mental Status Sepsis Action Taken by Nursing Oxygen Flow Rate - Titration 2 Pulse Oximetry Post Tiitration 97 02/05/22 09:00 02/05/22 09:00 Temperature Temperature Source Pulse Rate 83 Pulse Rate [Left Finger] Pulse Rate from SpO2 Sensor 83 Pulse Rhythm Pulse Rhythm [Left Finger] Pulse Strength [Left Finger] Respiratory Rate 21 Respiratory Effort / Characteristics Respiratory Depth Respiratory Pattern Blood Pressure 109/69 Blood Pressure [Left Arm] Blood Pressure Mean 82 Blood Pressure Mean [Left Arm] Blood Pressure Position Blood Pressure Position [Left Arm] Pulse Oximetry 91 Oxygen Delivery Method Nasal Cannula Oxygen Flow Rate 2 Sepsis Recent Fever Within 48 Hours Sepsis New/Unexplained Change in Mental Status Sepsis Action Taken by Nursing Oxygen Flow Rate - Titration Pulse Oximetry Post Tiitration Laboratory Data Result diagrams: 02/05/22 07:06 02/05/22 08:45 Lab Results 02/05/22 02/05/22 02/05/22 Range/Units 07:06 07:06 08:45 WBC 7.66 (4.8-10.8) K/ul RBC 4.73 (4.63-6.08) M/uL Hgb 15.9 (14.0-18.0) g/dl Hct 47.0 (40.1-51.0) % MCV 99.4 (80.0-100.0) fL MCH 33.6 (25.0-34.0) pg MCHC 33.8 (32.0-36.0) g/dL RDW Std Deviation 45.1 (36.4-46.3) fL RDW Coeff of Rachel 12.2 (11.5-14.5) % Plt Count 228 (130-400) K/uL MPV 9.2 L (9.4-12.4) fL Immature Gran % (Auto) 0.4 % Neut % (Auto) 68.0 % Lymph % (Auto) 19.3 % [place] % (Auto) 9.7 % Eos % (Auto) 2.2 % Baso % (Auto) 0.4 % Neut # (Auto) 5.21 (1.4-6.5) K/uL Lymph # (Auto) 1.48 (1.2-3.4) K/uL [place] # (Auto) 0.74 (0.24-0.82) K/uL Eos # (Auto) 0.17 (0-0.50) K/uL Baso # (Auto) 0.03 (0-0.2) K/uL Immature Gran # (Auto) 0.03 H (0.00-0.02) K/uL Sodium 137 (136-145) mmol/L Potassium TNP 3.7 Chloride 101 (98-107) mmol/L Carbon Dioxide 28 (21-32) mmol/L Anion Gap 8 (3-11) BUN 14 (6-23) mg/dl Creatinine 0.88 (0.6-1.4) mg/dl Est Cr Clr Drug Dosing Not Reportable Est GFR ( Amer) 96.7 ml/min Est GFR (Non-Af Amer) 83.4 ml/min BUN/Creatinine Ratio 15.9 (10-20) Glucose 117 H (70-99(Fasting)) mg/dl Calcium 9.4 (8.5-10.1) mg/dl Total Bilirubin 0.4 (0.2-1.0) mg/dl AST TNP 18 ALT 8 (7-52) U/L Alkaline Phosphatase 43 (34-104) U/L Total Protein 7.8 (6.0-8.3) gm/dl Albumin 4.3 (3.4-5.0) gm/dl Globulin 3.5 (2.5-4.0) gm/dl Albumin/Globulin Ratio 1.2 (0.9-2) Administered Medications Acetaminophen (Acetaminophen 325 Mg Tab) 650 mg PO Q6H REAGAN Stop: 03/07/22 10:29 Last Admin: 02/05/22 12:36 Dose: Not Given Documented By: KV Naproxen (Naproxen 250 Mg Tab) 250 mg PO BID REAGAN Stop: 03/07/22 10:29 Last Admin: 02/05/22 11:10 Dose: 250 mg Documented By: KV Polyethylene Glycol (Polyethylene (Miralax) 17 Gm Pack) 17 gm PO BID REAGAN Stop: 03/07/22 10:29 Last Admin: 02/05/22 11:10 Dose: 17 gm Documented By: KV Discontinued Medications Morphine Sulfate (Morphine Sulfate 4 Mg/Ml 1 Ml Carp\Vial) 4 mg IV NOW STA Stop: 02/05/22 08:03 Last Admin: 02/05/22 08:16 Dose: 4 mg Documented By: VERENICE Ondansetron HCl (Ondansetron Inj 2 Mg/Ml 2 Ml Vial) 4 mg IV NOW STA Stop: 02/05/22 08:03 Last Admin: 02/05/22 08:15 Dose: 4 mg Documented By: VERENICE Imaging Data Radiologist's Impression: Abdomen/Pelvis CT 02/05/22 06:[address] WITHOUT CONTRAST CT DOSE: HISTORY: fall back pain TECHNIQUE: Multiaxial CT images of the abdomen and pelvis were performed without contrast. A dose lowering technique was utilized adhering to the principles of ALARA. COMPARISON STUDY: Abdomen and pelvis CT 01/08/2020. FINDINGS: Mild bibasilar subsegmental atelectasis. No pneumoperitoneum. No pneumatosis. No acute fractures within the visualized osseous structures. There is a right L5 pars defect with associated grade 1 anterolisthesis. Multiple old, healed bilateral rib fractures. There are acute nondisplaced left ninth and 10th rib fractures. Moderate coronary artery calcifications are noted. The heart is mildly enlarged. No pleural effusions. Mild hepatic steatosis. There is a 6 mm stone at the gallbladder neck. No gallbladder wall thickening. The unenhanced spleen, adrenal glands, and pancreas are unremarkable. No renal stones or hydronephrosis. There is a stable 8 mm hypodense lesion within the upper pole the left kidney. This is technically too small to characterize but favors a cyst. No retroperitoneal hematoma or lymphadenopathy. Calcified plaque within the normal caliber abdominal aorta. A few brachytherapy seeds noted within the prostate gland. Normal bladder. No pelvic free fluid. Suboptimal evaluation for bowel pathology due to the lack of intravenous and oral contrast. However, there is no definite bowel wall thickening or obstruction. Normal appendix. Colonic diverticulosis. No evidence for acute diverticulitis. IMPRESSION: 1. Acute nondisplaced left posterior ninth and 10th rib fractures. 2. Cholelithiasis. 3. Colonic diverticulosis. 4. No bowel wall thickening or obstruction. 5. Additional findings as described above. ACT 112: Negative or not required by law. Electronically signed by: Ashu Bailey M.D. 02/05/2022 7:[address] 02/05/22 06:56 CT lumbar spine wo con CLINICAL HISTORY: fall back pain COMPARISON STUDY: 11/06/2021 CT DOSE: 3035.68 mGy.cm TECHNIQUE: Standard CT of the Lumbar Spine was performed without IV contrast. A dose lowering technique was utilized adhering to the principles of ALARA. FINDINGS: Bones: The bones are osteopenic. There is again grade 1/4 spondylolisthesis of L5 on S1. There is again a unilateral pars defect on the right. There is no evidence for an acute fracture or malalignment. Minimal old anterior wedge deformities present involving T12. The heights of the lumbar vertebral bodies are maintained. The remaining lumbar vertebral bodies are in anatomic alignment. There is a mild dextroscoliotic curve of the lumbar spine. Disc spaces: There is again moderate to marked disc space narrowing throughout the lumbar spine with vacuum disc phenomena seen particularly at the lower 3 disc space levels. Bulging annuli and thickening of ligamentum flavum are present bilaterally. The combination of these findings produce segmental spinal stenosis at these 3 disc space levels. Facet joints: Prominent degenerative facet joint disease is seen bilaterally. Degenerative changes are seen involving the SI joints bilaterally with bridging osteophyte formation seen anteriorly. Soft tissues: The prevertebral soft tissues are within normal limits. IMPRESSION: 1. Osteopenia with no acute osseous pathology. 2. Degenerative disc and degenerative facet joint disease along with degenerative spondylolisthesis are again seen. The combination of these findings again produce spinal stenosis particularly at the lower 3 disc space levels. ACT 112: Negative or not required by law. Electronically signed by: Nguyễn Orozco M.D. 02/05/2022 7:[address] 02/05/22 06:57 CT cervical spine wo con CLINICAL HISTORY: fall with trauma to the head. Neck pain. COMPARISON STUDY: 11/12/2020 CT DOSE: TECHNIQUE: Standard CT of the Cervical Spine was performed without IV contrast. A dose lowering technique was utilized adhering to the principles of ALARA. FINDINGS: Bones: Bones are osteopenic. There is no evidence for an acute fracture or malalignment. The heights of the vertebral bodies are maintained. The vertebral bodies are in anatomic alignment. The odontoid is intact. Degenerative changes are seen at the atlantoaxial articulation. Disc spaces: There is again mild to moderate disc space narrowing seen throughout the cervical spine with minimal endplate sclerosis and osteophyte formation. Apophyseal joints: Prominent degenerative apophyseal joint disease is also present bilaterally. Soft tissues: The prevertebral soft tissues are within normal limits. IMPRESSION: 1. Osteopenia with no acute osseous pathology. 2. Degenerative disc and degenerative joint disease. ACT 112: Negative or not required by law. Electronically signed by: Nguyễn Orozco M.D. 02/05/2022 7:[address] 02/05/22 06:[address] DOSE: HISTORY: Fall. Head injury. TECHNIQUE: Multiaxial CT images of the head were performed without the use of intravenous contrast. Automated exposure control was utilized for this study. A dose lowering technique was utilized adhering to the principles of ALARA. Comparison: Head CT 09/14/2020. Findings: The paranasal sinuses and mastoid air cells are clear. The calvarium and skull base are intact. The ventricles and sulci demonstrate mild age-related involutional changes. Periventricular white matter hypodensity remains unchanged and likely represents microvascular ischemic change. There is no hematoma, midline shift, or acute infarct. Stable 8 mm left frontal meningioma on image 27. Old punctate lacunar infarct within the right basal ganglia is again noted. Impression: No significant change compared to the prior study. No acute intracranial abnormality. ACT 112: Negative or not required by law. Electronically signed by: Ashu Bailey M.D. 02/05/2022 7:37 AM Chest X-Ray 02/05/22 08:04 XR chest 1V portable HISTORY: Left-sided back pain. fall COMPARISON: Chest 04/19/2017. FINDINGS: No pneumothorax. No pleural effusions. The heart is mildly enlarged right left basilar linear densities consistent with subsegmental atelectasis. No evidence for pulmonary edema. The patient's known left posterior ninth and 10th rib fractures are better appreciated on the same day chest CT. IMPRESSION: The patient's known left posterior ninth and 10th rib fractures are better appre ciated on the same day chest CT. No pneumothorax. ACT 112: Negative or not required by law. Electronically signed by: Ashu Bailey M.D. 02/05/2022 8:26 AM Discharge Plan Visit Data Chief Complaint: Fall Stated Complaint: FELL OFF TRACTOR- BACK PAIN, HIT HEAD ED Provider: Rene Antunez Discharge Problem: Fall, Contusion of head, Back pain, Closed rib fracture Patient Disposition: Admitted As Inpatient Discharge Instructions Interventions: ED Discharge Assessment Last Done: 02/05/22 12:21
[2022-02-05 07:14] LABS: Basophils # (auto) 0.03 K/uL (0-0.2); Basophils % (auto) 0.4 %; Eosinophils # (auto) 0.17 K/uL (0-0.50); Eosinophils % (auto) 2.2 %; Hemoglobin 15.9 g/dl (14.0-18.0); Immature Granulocytes # (auto) 0.03 K/uL (0.00-0.02); Immature Granulocytes % (auto) 0.4 %; Lymphocytes # (auto) 1.48 K/uL (1.2-3.4); Lymphocytes % (auto) 19.3 %; Mean Corpuscular Hemoglobin 33.6 pg (25.0-34.0); Mean Corpuscular Hgb Conc 33.8 g/dL (32.0-36.0); Mean Corpuscular Volume 99.4 fL (80.0-100.0); Mean Platelet Volume 9.2 fL (9.4-12.4); Monocytes # (auto) 0.74 K/uL (0.24-0.82); Monocytes % (auto) 9.7 %; Neutrophils # (auto) 5.21 K/uL (1.4-6.5); Platelet Count 228 K/uL (130-400); RDW Coefficient of Variation 12.2 % (11.5-14.5); RDW Standard Deviation 45.1 fL (36.4-46.3); Red Blood Count 4.73 M/uL (4.63-6.08); White Blood Count 7.66 K/ul (4.8-10.8)
--- NOTE | 2022-02-05 07:39 | CT Scan Report ---
HEAD CT NONCONTRAST CT DOSE: HISTORY: Fall. Head injury. TECHNIQUE: Multiaxial CT images of the head were performed without the use of intravenous contrast. A utomated exposure control was utilized for this study. A dose lowering technique was utilized adheri ng to the principles of ALARA. Comparison: Head CT 09/14/2020. Findings: The paranasal sinuses and mastoid air cells are clear. The calvarium and skull base are int act. The ventricles and sulci demonstrate mild age-related involutional changes. Periventricular whit e matter hypodensity remains unchanged and likely represents microvascular ischemic change. There is no hematoma, midline shift, or acute infarct. Stable 8 mm left frontal meningioma on image 27. Old pu nctate lacunar infarct within the right basal ganglia is again noted. Impression: No significant change compared to the prior study. No acute intracranial abnormality. ACT 112: Negative or not required by law. Electronically signed by: Ashu Bailey M.D. 02/05/2022 7:37 AM
[2022-02-05 07:48] LABS: Alanine Aminotransferase 8 U/L (7-52); Albumin Globulin Ratio 1.2 (0.9-2); Albumin Level 4.3 gm/dl (3.4-5.0); Alkaline Phosphatase 43 U/L (34-104); Anion Gap 8 (3-11); BUN Creatinine Ratio 15.9 (10-20); Bilirubin,Total 0.4 mg/dl (0.2-1.0); Blood Urea Nitrogen 14 mg/dl (6-23); Calcium 9.4 mg/dl (8.5-10.1); Carbon Dioxide 28 mmol/L (21-32); Chloride 101 mmol/L (98-107); Est GFR (African American) 96.7 ml/min; Est GFR (Non-African American) 83.4 ml/min; Globulin 3.5 gm/dl (2.5-4.0); Glucose 117 mg/dl (70-99(Fasting)); Sodium 137 mmol/L (136-145); Total Protein 7.8 gm/dl (6.0-8.3)
--- NOTE | 2022-02-05 07:48 | CT Scan Report ---
CT cervical spine wo con CLINICAL HISTORY: fall with trauma to the head. Neck pain. COMPARISON STUDY: 11/12/2020 CT DOSE: TECHNIQUE: Standard CT of the Cervical Spine was performed without IV contrast. A dose lowering joaquín hnique was utilized adhering to the principles of ALARA. FINDINGS: Bones: Bones are osteopenic. There is no evidence for an acute fracture or malalignment. The heights of the vertebral bodies are maintained. The vertebral bodies are in anatomic alignment. The odontoid is intact. Degenerative changes are seen at the atlantoaxial articulation. Disc spaces: There is again mild to moderate disc space narrowing seen throughout the cervical spine with minimal endplate sclerosis and osteophyte formation. Apophyseal joints: Prominent degenerative apophyseal joint disease is also present bilaterally. Soft tissues: The prevertebral soft tissues are within normal limits. IMPRESSION: 1. Osteopenia with no acute osseous pathology. 2. Degenerative disc and degenerative joint disease. ACT 112: Negative or not required by law. Electronically signed by: Nguyễn Orozco M.D. 02/05/2022 7:46 AM
--- NOTE | 2022-02-05 07:48 | CT Scan Report ---
ABDOMEN AND PELVIS CT WITHOUT CONTRAST CT DOSE: HISTORY: fall back pain TECHNIQUE: Multiaxial CT images of the abdomen and pelvis were performed without contrast. A dose lo wering technique was utilized adhering to the principles of ALARA. COMPARISON STUDY: Abdomen and pelvis CT 01/08/2020. FINDINGS: Mild bibasilar subsegmental atelectasis. No pneumoperitoneum. No pneumatosis. No acute frac tures within the visualized osseous structures. There is a right L5 pars defect with associated grade 1 anterolisthesis. Multiple old, healed bilateral rib fractures. There are acute nondisplaced left n inth and 10th rib fractures. Moderate coronary artery calcifications are noted. The heart is mildly e nlarged. No pleural effusions. Mild hepatic steatosis. There is a 6 mm stone at the gallbladder neck. No gallbladder wall thickening. The unenhanced spleen, adrenal glands, and pancreas are unremarkable . No renal stones or hydronephrosis. There is a stable 8 mm hypodense lesion within the upper pole th e left kidney. This is technically too small to characterize but favors a cyst. No retroperitoneal he matoma or lymphadenopathy. Calcified plaque within the normal caliber abdominal aorta. A few brachyth erapy seeds noted within the prostate gland. Normal bladder. No pelvic free fluid. Suboptimal evaluat ion for bowel pathology due to the lack of intravenous and oral contrast. However, there is no defini te bowel wall thickening or obstruction. Normal appendix. Colonic diverticulosis. No evidence for acu te diverticulitis. IMPRESSION: 1. Acute nondisplaced left posterior ninth and 10th rib fractures. 2. Cholelithiasis. 3. Colonic diverticulosis. 4. No bowel wall thickening or obstruction. 5. Additional findings as described above. ACT 112: Negative or not required by law. Electronically signed by: Ashu Bailey M.D. 02/05/2022 7:46 AM
--- NOTE | 2022-02-05 07:53 | CT Scan Report ---
CT lumbar spine wo con CLINICAL HISTORY: fall back pain COMPARISON STUDY: 11/06/2021 CT DOSE: 3035.68 mGy.cm TECHNIQUE: Standard CT of the Lumbar Spine was performed without IV contrast. A dose lowering techni que was utilized adhering to the principles of ALARA. FINDINGS: Bones: The bones are osteopenic. There is again grade 1/4 spondylolisthesis of L5 on S1. There is aga in a unilateral pars defect on the right. There is no evidence for an acute fracture or malalignment. Minimal old anterior wedge deformities present involving T12. The heights of the lumbar vertebral mae dies are maintained. The remaining lumbar vertebral bodies are in anatomic alignment. There is a mild dextroscoliotic curve of the lumbar spine. Disc spaces: There is again moderate to marked disc space narrowing throughout the lumbar spine with vacuum disc phenomena seen particularly at the lower 3 disc space levels. Bulging annuli and thickeni ng of ligamentum flavum are present bilaterally. The combination of these findings produce segmental spinal stenosis at these 3 disc space levels. Facet joints: Prominent degenerative facet joint disease is seen bilaterally. Degenerative changes ar e seen involving the SI joints bilaterally with bridging osteophyte formation seen anteriorly. Soft tissues: The prevertebral soft tissues are within normal limits. IMPRESSION: 1. Osteopenia with no acute osseous pathology. 2. Degenerative disc and degenerative facet joint disease along with degenerative spondylolisthesis a re again seen. The combination of these findings again produce spinal stenosis particularly at the lo wer 3 disc space levels. ACT 112: Negative or not required by law. Electronically signed by: Nguyễn Orozco M.D. 02/05/2022 7:52 AM
[2022-02-05] MEDS ORDERED: MoRPHine SULFATE 4 MG/ML 1 ML CARP\\VIAL IV STA (08:02)
[2022-02-05] MEDS ORDERED: ONDANSETRON INJ 2 MG/ML 2 ML VIAL IV STA (08:02)
--- NOTE | 2022-02-05 08:27 | XRay Report ---
XR chest 1V portable HISTORY: Left-sided back pain. fall COMPARISON: Chest 04/19/2017. FINDINGS: No pneumothorax. No pleural effusions. The heart is mildly enlarged right left basilar line ar densities consistent with subsegmental atelectasis. No evidence for pulmonary edema. The patient's known left posterior ninth and 10th rib fractures are better appreciated on the same day chest CT. IMPRESSION: The patient's known left posterior ninth and 10th rib fractures are better appreciated on the same da y chest CT. No pneumothorax. ACT 112: Negative or not required by law. Electronically signed by: Ashu Bailey M.D. 02/05/2022 8:26 AM
--- NOTE | 2022-02-05 09:13 | History & Physical Report ---
Date of Service February 05, 2022 Assessment & Plan (1) Closed rib fracture: Plan: Placed on pain meds. Tylenol and NSAIDS around the clock. May consider narcotic, if pain is not controlled (2) Back pain: Plan: Patient appears to have chronic back pain. will monitor (3) History of colon polyps: Plan: stable (4) GERD (gastroesophageal reflux disease): Plan: resume home meds (5) Parkinson disease: Plan: resume home meds (6) Contusion of head: Plan: Patient did not appear to suffer a concussion. Will monitor for symptoms thought during hospital stay. History of Present Illness Chief Complaint: back pain. 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 As it was slidding down, the patient tried to jump on top of chair and fell of stock manager. He hit his head on the asphalt. Thankfully the lawnmower did not hit him. No loss of consciousness Patient has back pain. Imaging completed in ER: no intracranial hemorrhage noted. Allergies Allergy/AdvReac Type Severity Reaction Status Date / Time No Known Allergies Allergy Verified 02/05/22 15:55 Home Medications Medication Instructions Recorded Confirmed Type aspirin 81 mg tablet,delayed 81 mg PO .QNOON 12/19/18 02/05/22 History release cyanocobalamin (vitamin B-12) 1,000 mcg PO QAM 12/19/18 02/05/22 History 1,000 mcg tablet furosemide 40 mg tablet (Lasix) 40 mg PO BID 12/19/18 02/05/22 History metoprolol succinate 25 mg 12.5 mg PO QAM 12/19/18 02/05/22 History tablet,extended release 24 hr omeprazole 20 mg tablet,delayed 20 mg PO QAM 12/19/18 02/05/22 History release potassium chloride 20 mEq 20 meq PO BID 12/19/18 02/05/22 History tablet,extended release Prevagen 1 cap PO QAM 08/07/21 02/05/22 History carbidopa 25 mg-levodopa 100 mg 2 tab PO TID 90 days #540 tabs 09/26/21 02/05/22 Rx tablet rosuvastatin 40 mg tablet 20 mg PO HS 11/06/21 02/05/22 History trospium 20 mg tablet 20 mg PO AMHS 11/06/21 02/05/22 History acetaminophen 325 mg tablet 975 mg PO TID 02/05/22 02/05/22 History (Tylenol) lidocaine 5 % topical patch 1 patch topical DAILY PRN Pain 02/05/22 02/05/22 History naproxen 500 mg tablet 500 mg PO DAILY 02/05/22 02/05/22 History polyethylene glycol 3350 17 17 g PO BID 02/05/22 02/05/22 History gram/dose oral powder terbinafine HCl 250 mg tablet 250 mg PO DAILY 02/05/22 02/05/22 History acetaminophen 325 mg tablet 650 mg PO Q6H #120 tabs 02/06/22 Rx naproxen 250 mg tablet 250 mg PO BID #30 tabs 02/06/22 Rx oxycodone 5 mg tablet 5 mg PO Q8H PRN severe 02/06/22 Rx breakthrough pain #14 tabs Past Med/Surg History Medical History Bilateral sacroiliitis Cardiac murmur A CHILD Chronic back pain Diverticulosis Hearing deficit [place] History of NE (myocardial infarction) 1994 History of osteoarthritis History of prostate cancer S/P CYBERKNIFE PROCEDURE Lumbar facet joint syndrome Myofascial pain Parkinson disease Poor historian Sleep apnea CPAP Spinal stenosis of lumbar region Transient ischemic attack (TIA) possible ~2007. Surgical History History of cardiac cath 1994 - [place] - PT UNSURE IF HE HAS STENTS - FOLLOWS W/ DR. MARIVEL DUNCAN History of colonoscopy History of prostate biopsy History of repair of rotator cuff bilateral History of right cataract surgery 01/12/19: was given 2mg of IV versed S/P epidural steroid injection S/P left cataract extraction Family History Father Family history of diabetes mellitus Brother Family history of diabetes mellitus Social History Smoking Status: Smoker, status unknown Tobacco Type: Cigarettes Second Hand Exposure: Yes (BAR SMOKE); Hx Alcohol Use: Yes Alcohol type: hard liquor Hx Substance Use: No Preferred Language: [place] Communication Ability: Effective Visual Impairment: No Limitations Hearing Ability: Hard of Hearing Estate Attorney Required: No Beliefs That Will Affect Care: None marital status: Current Living Situation: Spouse current occupational status: retired Feels Safe at Home: Yes Safety Concerns: Feels Safe At This Time Assistive Devices: BiPap and Cane Assistive Devices Comment: overhead fan at night Review of Systems Constitutional: no fever and no sweats Eyes: no blind spots Ear, Nose, Mouth, Throat: no ear pain Respiratory: no cough Cardiovascular: + chest pain Gastrointestinal: + constipation; no abdominal pain Genitourinary: no dysuria Musculoskeletal: no back pain Integumentary: no acne Neurologic: no gait abnormality Psychiatric: no behavioral changes Endocrine: no fatigue Hematologic / Lymphatic: no easy bleeding Allergy / Immunological: no GI upset with certain foods Physical Exam Constitutional: WD/WN, vitals as above Eyes: PERRL, conjunctivae normal, anicteric sclerae ENMT: external ear and nose normal, oropharynx normal Neck: trachea midline, no thyromegaly Respiratory: normal respiratory effort, lungs clear to auscultation Cardiovascular: RRR, no murmur, no edema Gastrointestinal (Abdomen): normal bowel sounds, soft, nontender, no hepatosplenomegaly Musculoskeletal: no cyanosis or clubbing, extremities motor strength 5/5 Skin: no rashes, warm and dry Neurologic: PERRL, EOMI, accommodation nl, no face palsy, no dysarthria Psychiatric: A+Ox3, euthymic affect Results & Data Results & Data ([facility]) Vital Signs (Past 12 Hours) Vital Signs Temp Pulse Pulse Resp BP BP Pulse Ox 02/05/22 08:30 79 24 94 02/05/22 08:30 116/74 02/05/22 08:21 87 L 02/05/22 08:00 93 H 20 121/74 94 02/05/22 06:56 82 20 94 02/05/22 06:44 36.4 C L 88 18 144/95 H 93 O2 Del Method O2 Flow Rate 02/05/22 08:30 Nasal Cannula 2 02/05/22 08:30 02/05/22 08:21 Nasal Cannula 0 02/05/22 08:00 Room Air 02/05/22 06:56 Room Air 02/05/22 06:44 Room Air PG Care Time/CCT Total # of Minutes Spent Total Time Spent with Patient: Total time spent is greater than 50% in coordination of care (as documented) at patient's floor/unit and/or counseling patient: Coding Level of Care Code INT OBSERVATION CARE 70M LVL 3 Diagnoses Closed rib fracture S22.39XA Back pain M54.9 History of colon polyps Z86.010 GERD (gastroesophageal reflux disease) K21.9 Parkinson disease G20 Contusion of head S00.93XA
[2022-02-05 09:46] LABS: Potassium 3.7 mmol/L (3.5-5.1)
[2022-02-05] MEDS: POLYETHYLENE (MIRALAX) 17 GM PACK PO SCH ×2 (11:10→20:12)
[2022-02-05] MEDS: NAPROXEN 250 MG TAB PO SCH ×2 (11:10→20:44)
[2022-02-05] MEDS: ACETAMINOPHEN 325 MG TAB PO SCH ×3 (12:36→22:43)
[2022-02-05] MEDS: CARBIDOPA/LEVODOPA 25/100MG TAB PO SCH ×2 (14:20→20:12)
[2022-02-05] MEDS: ENOXAPARIN INJ 40 MG/0.4 ML SYR SQ SCH (15:29)
[2022-02-05] MEDS: FUROSEMIDE 40 MG TAB PO SCH (16:23)
[2022-02-05] MEDS: traMADol HCL 50 MG TABLET PO PRN (18:08)
[2022-02-05] MEDS: POTASSIUM CHLORIDE CRTAB 20 MEQ TABCR PO SCH (20:12)
[2022-02-05] MEDS ORDERED: ASPIRIN 81 MG ECTAB PO SCH (21:00)
[2022-02-05] MEDS ORDERED: [UNRECOGNIZED DRUG - OTHER] PO SCH (21:00)
[2022-02-05] MEDS ORDERED: ROSUVASTATIN CALCIUM 20 MG TAB PO SCH (21:00)
[2022-02-05] MEDS ORDERED: LIDOCAINE 5% 1 PATCH TD SCH (21:55)
[2022-02-05] MEDS: HYDROmorphone INJ 0.5 MG/0.5 ML SYR IV PRN (22:44)
[2022-02-06] MEDS: HYDROmorphone INJ 0.5 MG/0.5 ML SYR IV PRN (01:48)
[2022-02-06] MEDS: ACETAMINOPHEN 325 MG TAB PO SCH ×3 (05:09→15:47)
[2022-02-06] MEDS ORDERED: METOPROLOL SUCC 25MG EXT REL TAB PO SCH (09:00)
[2022-02-06] MEDS ORDERED: PREVAGEN PO SCH (09:00)
[2022-02-06] MEDS ORDERED: TROSPIUM 20 MG PO SCH (09:00)
[2022-02-06] MEDS ORDERED: PANTOprazole 40 MG TAB PO SCH (09:00)
[2022-02-06] MEDS ORDERED: CYANOCOBALAMIN (B-12) 500 MCG TABLET PO SCH (09:00)
[2022-02-06] MEDS: ENOXAPARIN INJ 40 MG/0.4 ML SYR SQ SCH (09:19)
[2022-02-06] MEDS: FUROSEMIDE 40 MG TAB PO SCH (09:21)
[2022-02-06] MEDS: POTASSIUM CHLORIDE CRTAB 20 MEQ TABCR PO SCH (09:23)
[2022-02-06] MEDS: CARBIDOPA/LEVODOPA 25/100MG TAB PO SCH ×2 (09:23→14:03)
[2022-02-06] MEDS: POLYETHYLENE (MIRALAX) 17 GM PACK PO SCH (09:31)
[2022-02-06] MEDS: NAPROXEN 250 MG TAB PO SCH (10:08)
[2022-02-06] MEDS: traMADol HCL 50 MG TABLET PO PRN (15:46)
== END 2022-02-06 16:45 | disposition home or self-care (01) ==
LOC: ED 06:43 → EDINP 06:43 → 2W 12:21
DX: K21.9 Gastro-esophageal reflux disease without esophagitis; Y92.015 Private garage of single-family (private) house as the place of occurrence of the external cause; W01.198A Fall on same level from slipping, tripping and stumbling with subsequent striking against other object, initial encounter; Z79.01 Long term (current) use of anticoagulants; S22.42XA Multiple fractures of ribs, left side, initial encounter for closed fracture; Z95.5 Presence of coronary angioplasty implant and graft; S00.93XA Contusion of unspecified part of head, initial encounter; G20 Parkinson's disease; Z87.891 Personal history of nicotine dependence; Z86.73 Personal history of transient ischemic attack (TIA), and cerebral infarction without residual deficits; M54.9 Dorsalgia, unspecified

== ENCOUNTER 2023-08-21 20:29 | Inpatient (IN) ==
--- NOTE | 2023-08-21 20:58 | Emergency Department Note ---
Impression & Plan Hematuria, Acute urinary retention ED Provider Note ED Provider Note NAME: ALAN BONE AGE:78 SEX: Male : 1945 ARRIVES VIA: EMS INFORMANT: Patient ED PROVIDER(s): Mariann Ruiz DO CHIEF COMPLAINT: Hematuria, dysuria HPI: This is a 78-year-old male presents emergency department due to concern for dysuria and hematuria. Patient states he has noticed increased blood with urination over the last 2 to 3 days. Today it became much worse. Staff convinced him to have a catheter placed because they were concerned about his ability to urinate. He states ever since placement of the catheter he has had increased pain and burning at his penis and increased pain in the lower central abdomen. He states eventually he requested it be removed. He states they remove the catheter however his symptoms did not improve. PAST MEDICAL HISTORY:See Below PAST SURGICAL HISTORY:See Below FAMILY HISTORY:See Below SOCIAL HISTORY:See Below HOME MEDICATIONS:See Below ALLERGIES:See Below VITALS:See Below PHYSICAL EXAMINATION: GENERAL: alert, uncomfortable appearing, well nourished, no distress, non-toxic EYE EXAM: normal conjunctiva, PERRL and EOM's grossly intact OROPHARYNX: no exudate, no erythema, lips, buccal mucosa, and tongue normal and mucous membranes are moist NECK: supple, no nuchal rigidity, no adenopathy, non-tender LUNGS: Clear to auscultation. Normal chest wall mechanics, no w/r/r HEART: no murmurs, S1 normal and S2 normal ABDOMEN: abdomen soft, suprapubic tenderness with palpation, normo-active bowel sounds, no masses, no rebound or guarding. BACK: Back is symmetrical on inspection and there is no deformity, no midline tenderness, no CVA tenderness. SKIN: no rashes, petechiae, orbruising UPPER EXTREMITIES: upper extremities are grossly normal. FROM, nml pulses b/l. LOWER EXTREMITIES: No pitting edema. FROM, nml pulses b/l. NEURO EXAM: Normal sensorium, cranial nerves II-XII grossly intact, normal speech, no facial droop,nogross weakness of arms, no gross weakness of legs. Gross sensation intact. No ataxia. Vital Signs: reviewed and remarkable Differential Diagnosis: UTI, prostatitis, trauma, bladder stone, ureterolithiasis, ANSLEY, nephrotic syndrome, as well as others were considered MEDICAL DECISION MAKING: This is a 78 yo male brought by EMS due to concern for hematuria and urinary symptoms. Patient noted to have bladder scan with >500 ml. Auguste catheter placed with drainage of gross hematuria and small clots. Patient still c/o suprapubic pain. No fevers, VS stable. H/H stable and no ANSLEY. Bedside US with enlarged bladder and debris noted despite auguste which then stopped draining. Sterile water could be flushed but not aspirated. After discussion with urology, a larger catheter was placed which initially provided some drainage, however this stopped also. With some manipulation I was able to aspirate multiple large and small clots and then patient started on CBI. Patient then stopped draining while on CBI additionally. DIscussed with hospitalist who recontacted urology who came to bedside. Consultation(s): 1230: Discussed with Dr. Lee via [place] text. Recommends transitioning to larger Auguste catheter with attempts at irrigation. 0204: Discussed with Dr. Lee again via [place] text. 0215: Discussed with Dr. Short, [facility] hospitalist, for additional evaluation and mgmt. ER Treatment Provided: See below Diagnostics Interpreted By Me: -Cardiac Monitoring: An order was placed for continuous cardiac monitoring. The monitor shows a rate of 90 with normal sinus rhythm. -Laboratory studies: As stated above and show below. Triage Nursing Note Reviewed Prior/Outside Records Reviewed -facility records accompanying the patient Past Med/Surg History Medical History Transient ischemic attack (TIA) possible ~2007. Lumbar facet joint syndrome Diverticulosis Myofascial pain Spinal stenosis of lumbar region Bilateral sacroiliitis Poor historian Chronic back pain History of osteoarthritis History of prostate cancer S/P CYBERKNIFE PROCEDURE Hearing deficit [place] Parkinson disease Cardiac murmur A CHILD History of ID (myocardial infarction) 1994 Sleep apnea CPAP Surgical History S/P epidural steroid injection History of repair of rotator cuff bilateral S/P left cataract extraction History of right cataract surgery 01/12/19: was given 2mg of IV versed History of prostate biopsy History of colonoscopy History of cardiac cath 1994 - ID - PT UNSURE IF HE HAS STENTS - FOLLOWS W/ DR. 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: No Beliefs That Will Affect Care: None marital status: Current Living Situation: Spouse current occupational status: retired Feels Safe at Home: Yes Assistive Devices: Glasses Allergies Allergies Allergy/AdvReac Type Severity Reaction Status Date / Time No Known Allergies Allergy Verified 08/21/23 21:29 Home Meds Home Medications Medication Instructions Recorded Confirmed cyanocobalamin (vitamin B-12) 1,000 mcg PO QAM 12/19/18 08/21/23 1,000 mcg tablet polyethylene glycol 3350 17 17 g PO QDL PRN Constipation 02/05/22 08/21/23 gram/dose oral powder mirabegron 25 mg tablet,extended 25 mg PO DAILY 07/26/23 08/21/23 release 24 hr acetaminophen 500 mg tablet 1,000 mg PO Q8H PRN Pain 08/21/23 08/21/23 (Tylenol Extra Strength) atorvastatin 10 mg tablet 10 mg PO DAILY 08/21/23 08/21/23 cholecalciferol (vitamin D3) 50 50 mcg PO DAILY 08/21/23 08/21/23 mcg (2,000 unit) capsule (Vitamin D3) docusate sodium 100 mg capsule 100 mg PO BID 08/21/23 08/21/23 hydralazine 10 mg tablet 10 mg PO Q4H PRN NEEDED PER MED 08/21/23 08/21/23 LIST magnesium hydroxide 400 mg/5 mL 30 ml PO HS 08/21/23 08/21/23 oral suspension (Milk of Magnesia) melatonin 3 mg tablet 3 mg PO HS PRN Sleep 08/21/23 08/21/23 naloxone 4 mg/actuation nasal spray 4 mg intranasal DIRECTED PRN 08/21/23 08/21/23 Opioid Overdose ondansetron HCl 4 mg tablet 4 mg PO Q4H PRN NAUSEA/VOMITING 08/21/23 08/21/23 oxycodone 5 mg tablet 2.5 mg PO Q4H PRN Pain (Scale 08/21/23 08/21/23 Score 4-6) pantoprazole 40 mg tablet,delayed 40 mg PO DAILYBB 08/21/23 08/21/23 release ropinirole 0.25 mg tablet 0.25 mg PO QPM 08/21/23 08/21/23 sennosides 8.6 mg tablet (Senokot) 8.6 mg PO QDL PRN Constipation 08/21/23 08/21/23 sennosides 8.6 mg tablet (senna) 17.2 mg PO HS 08/21/23 08/21/23 sertraline 25 mg tablet 25 mg PO DAILY 08/21/23 08/21/23 white petrolatum-mineral oil 57.3 1 applic ophthalmic (eye) QID PRN 08/21/23 08/21/23 %-42.5 % eye ointment (Refresh Dry Eyes P.M.) zinc oxide 20 % topical ointment 1 applic topical BID 08/21/23 08/21/23 Previous Rx's Medication Instructions Recorded carbidopa 25 mg-levodopa 100 mg 2 tab PO TID 90 days #540 tabs 01/11/23 tablet memantine 10 mg tablet 10 mg PO BID 90 days #180 tabs 04/03/23 zonisamide 25 mg capsule (Zonegran) 25 mg PO BID 90 days #180 caps 07/01/23 Results & Data (ED) Vital Signs Vital Signs - 24 hr 08/21/23 20:32 08/21/23 20:34 08/21/23 23:00 Temperature 36.5 C Temperature Source Oral Pulse Rate 116 H 115 H Pulse Rate [Apical] 112 H Respiratory Rate 22 18 Respiratory Effort / Characteristics Non-Labored Spontaneous Non-Labored Spontaneous Respiratory Depth Normal Normal Respiratory Pattern Regular Blood Pressure 158/105 H Blood Pressure [Right Arm] 125/103 H Blood Pressure Mean 122 Blood Pressure Mean [Right Arm] 110 Blood Pressure Position Semi-fowlers Blood Pressure Position [Right Arm] Semi-fowlers Pulse Oximetry 94 94 Oxygen Delivery Method Room Air Room Air Sepsis Recent Fever Within 48 Hours No Sepsis New/Unexplained Change in Mental Status No Sepsis Action Taken by Nursing Physician Notified Laboratory Data 08/23/23 11:34 08/21/23 21:08 Lab Results 08/21/23 08/21/23 08/22/23 Range/Units 21:08 21:21 02:16 WBC 13.97 H (4.8-10.8) K/ul RBC 3.88 L (4.70-6.10) M/uL Hgb 11.7 L 10.7 L (14.0-18.0) g/dl Hct 37.0 L 34.0 L (42.0-52.0) % MCV 95.4 (80.0-100.0) fL MCH 30.2 (25.0-34.0) pg MCHC 31.6 L (32.0-36.0) g/dL RDW Std Deviation 48.8 H (36.4-46.3) fL RDW Coeff of Rachel 14.0 (11.5-14.5) % Plt Count 425 H (130-400) K/uL MPV 8.9 L (9.4-12.4) fL Immature Gran % (Auto) 0.4 % Neut % (Auto) 80.9 % Lymph % (Auto) 9.6 % [place] % (Auto) 7.4 % Eos % (Auto) 1.4 % Baso % (Auto) 0.3 % Neut # (Auto) 11.31 H (1.40-6.50) K/uL Lymph # (Auto) 1.34 (1.20-3.40) K/uL [place] # (Auto) 1.04 H (0.11-0.59) K/uL Eos # (Auto) 0.19 (0.00-0.50) K/uL Baso # (Auto) 0.04 (0.00-0.20) K/uL Immature Gran # (Auto) 0.05 (0.01-0.20) K/uL Sodium 137 (136-145) mmol/L Potassium 3.8 (3.5-5.1) mmol/L Chloride 104 (98-107) mmol/L Carbon Dioxide 24 (21-32) mmol/L Anion Gap 9 (3-11) BUN 25 H (6-23) mg/dl Creatinine 0.97 (0.6-1.4) mg/dl Est Cr Clr Drug Dosing 80.8 ml/min Est GFR ( Amer) 86.3 ml/min Est GFR (Non-Af Amer) 74.5 ml/min BUN/Creatinine Ratio 25.8 H (10-20) Glucose 151 H (70-99(Fasting)) mg/dl Calcium 9.2 (8.6-10.3) mg/dl Total Bilirubin 0.3 (0.2-1.0) mg/dl AST 13 (13-39) U/L ALT < 3 L (7-52) U/L Alkaline Phosphatase 102 (34-104) U/L Total Protein 6.9 (6.0-8.3) gm/dl Albumin 3.7 (3.4-5.0) gm/dl Globulin 3.2 (2.5-4.0) gm/dl Albumin/Globulin Ratio 1.2 (0.9-2) Urine Color Dark Yellow Urine Appearance Turbid A (Clear) Urine pH 7.0 (4.5-7.5) Ur Specific [place] 1.037 H (1.000-1.030) Urine Protein 4+ H (Negative) Urine Glucose (UA) Trace H (Negative) Urine Ketones Negative (Negative) Urine Blood 3+ H (Negative) Urine Nitrite Negative (Negative) Urine Bilirubin Negative (Negative) Urine Urobilinogen Negative (Negative) Ur Leukocyte Esterase Negative (Negative) Urine WBC (Auto) 1-5 (0-5) /hpf Urine RBC (Auto) >30 H (0-4) /hpf U Hyaline Cast (Auto) 1-5 (0-5) /lpf U Epithel Cells (Auto) 0-5 (0-5) /lpf Urine Bacteria (Auto) Negative (Negative) Administered Medications Acetaminophen (Acetaminophen 500 Mg Tab) 1,000 mg PO Q8H PRN PRN Reason: Pain Stop: 09/21/23 04:20 Last Admin: 08/22/23 21:30 Dose: 1,000 mg Documented By: Admin: 08/22/23 13:45 Dose: 1,000 mg Documented By: DMB Atorvastatin Calcium (Atorvastatin 10 Mg Tab) 10 mg PO DAILY REAGAN Stop: 09/21/23 08:59 Last Admin: 08/23/23 08:28 Dose: 10 mg Documented By: Admin: 08/22/23 07:48 Dose: 10 mg Documented By: DMB Carbidopa/Levodopa (Carbidopa/Levodopa 25/100mg Tab) 2 tab PO TID REAGAN Stop: 09/21/23 08:59 Last Admin: 08/23/23 13:22 Dose: 2 tab Documented By: Admin: 08/23/23 08:28 Dose: 2 tab Documented By: Admin: 08/22/23 20:31 Dose: 2 tab Documented By: ABIGAIL(2) Admin: 08/22/23 13:46 Dose: 2 tab Documented By: Admin: 08/22/23 07:48 Dose: 2 tab Documented By: HALEY Docusate Sodium (Docusate Sodium 100 Mg Cap) 100 mg PO BID REAGAN Stop: 09/21/23 08:59 Last Admin: 08/23/23 10:57 Dose: Not Given Documented By: Admin: 08/22/23 20:34 Dose: 100 mg Documented By: ABIGAIL(2) Admin: 08/22/23 07:55 Dose: 100 mg Documented By: HALEY Ceftriaxone Sodium 2,000 mg/ (Dextrose) 50 mls @ 100 mls/hr IV Q24H REAGAN; Protocol Stop: 08/27/23 04:59 Last Infusion: 08/23/23 06:29 Dose: Infused Documented By: ABIGAIL(2) Admin: 08/23/23 05:38 Dose: 100 mls/hr Documented By: Infusion: 08/22/23 06:32 Dose: Infused Documented By: Admin: 08/22/23 05:50 Dose: 100 mls/hr Documented By: SNEHA Magnesium Hydroxide (Magnesium Hydroxide Susp 30 Ml Udc) 30 ml PO HS REAGAN Stop: 09/21/23 20:59 Last Admin: 08/22/23 20:34 Dose: 30 ml Documented By: ABIGAIL(2) Melatonin (Melatonin 3 Mg Tab) 3 mg PO HS PRN PRN Reason: Sleep Stop: 09/21/23 04:20 Last Admin: 08/22/23 21:30 Dose: 3 mg Documented By: ABIGAIL Memantine (Memantine Hcl 10 Mg Tab) 10 mg PO BID REAGAN Stop: 09/21/23 08:59 Last Admin: 08/23/23 08:28 Dose: 10 mg Documented By: Admin: 08/22/23 20:31 Dose: 10 mg Documented By: ABIGAIL(2) Admin: 08/22/23 07:55 Dose: 10 mg Documented By: HALYE Miscellaneous (Zonisamide [Zonegran] 25 Mg - Order Awaiting Action) 1 each N/A QS REAGAN Stop: 09/21/23 07:59 Last Admin: 08/23/23 15:48 Dose: Not Given Documented By: Admin: 08/23/23 08:29 Dose: Not Given Documented By: Admin: 08/23/23 01:45 Dose: Not Given Documented By: ABIGAIL(2) Admin: 08/22/23 16:15 Dose: Not Given Documented By: Admin: 08/22/23 07:47 Dose: Not Given Documented By: HALEY Morphine Sulfate (Morphine Sulfate 4 Mg/Ml 1 Ml Carp\Vial) 3 mg IV Q3H PRN PRN Reason: Pain (6,7,8,9,10) Stop: 09/05/23 04:20 Last Admin: 08/22/23 22:15 Dose: 3 mg Documented By: ABIGAIL(2) Morphine Sulfate (Morphine Sulfate 2 Mg/Ml Carp) 1 mg IV Q3H PRN PRN Reason: Pain (1,2,3,4,5) & Pre PT Stop: 09/05/23 04:20 Last Admin: 08/23/23 03:58 Dose: 1 mg Documented By: ABIGAIL(2) Admin: 08/22/23 14:32 Dose: 1 mg Documented By: HALEY Pantoprazole Sodium (Pantoprazole 40 Mg Tab) 40 mg PO DAILYBB REAGAN Stop: 09/21/23 06:29 Last Admin: 08/23/23 05:38 Dose: 40 mg Documented By: Admin: 08/22/23 05:51 Dose: 40 mg Documented By: SNEHA Ropinirole HCl (Ropinirole Hcl 0.25 Mg Tablet) 0.25 mg PO QPM REAGAN Stop: 09/21/23 20:59 Last Admin: 08/22/23 20:30 Dose: 0.25 mg Documented By: ABIGAIL(2) Sennosides (Senna 8.6 Mg Tab) 17.2 mg PO HS REAGAN Stop: 09/21/23 20:59 Last Admin: 08/22/23 21:30 Dose: 17.2 mg Documented By: ABIGAIL Sertraline HCl (Sertraline Hcl 50 Mg Tablet) 25 mg PO DAILY REAGAN Stop: 09/21/23 08:59 Last Admin: 08/23/23 08:28 Dose: 25 mg Documented By: Admin: 08/22/23 07:55 Dose: 25 mg Documented By: DMB Discontinued Medications Fentanyl Citrate (Fentanyl Citrate Pf 100 Mcg/2 Ml Vial) 50 mcg IV NOW STA Stop: 08/21/23 20:55 Last Admin: 08/21/23 21:05 Dose: 50 mcg Documented By: JUDY Fentanyl Citrate (Fentanyl Citrate Pf 100 Mcg/2 Ml Vial) 50 mcg IV NOW STA Stop: 08/21/23 22:54 Last Admin: 08/21/23 22:59 Dose: 50 mcg Documented By: JUDY Sodium Chloride (Nss) 1,000 mls @ 125 mls/hr IV .Q8H REAGAN Stop: 09/20/23 20:59 Last Infusion: 08/22/23 06:00 Dose: Infused Documented By: Infusion: 08/22/23 00:57 Dose: 125 mls/hr Documented By: Infusion: 08/22/23 00:33 Dose: 0 mls/hr Documented By: Admin: 08/21/23 21:26 Dose: 125 mls/hr Documented By: JUDY Acetaminophen (Ofirmev) 1,000 mg in 100 mls @ 400 mls/hr IV NOW STA Stop: 08/21/23 21:01 Last Infusion: 08/21/23 21:26 Dose: Infused Documented By: Admin: 08/21/23 21:06 Dose: 400 mls/hr Documented By: JUDY Ioversol (Optiray 320 500ml) 90 ml IV ONCE ONE Stop: 08/21/23 22:00 Last Admin: 08/21/23 21:59 Dose: 90 ml Documented By: MINI Lidocaine HCl (Lidocaine 2% Jelly 5 Ml Tube) 10 ml EXT NOW ONE Stop: 08/21/23 20:54 Last Admin: 08/21/23 21:23 Dose: 10 ml Documented By: JUDY Lidocaine HCl (Lidocaine 2% Jelly 5 Ml Tube) 10 ml EXT NOW ONE Stop: 08/22/23 00:43 Last Admin: 08/22/23 02:10 Dose: Not Given Documented By: JUDY Lorazepam (Lorazepam 1 Mg/1 Ml Syr Ed Inj Use) 0.5 mg IV ONE STA Stop: 08/22/23 00:43 Last Admin: 08/22/23 00:45 Dose: 0.5 mg Documented By: RAMILA Morphine Sulfate (Morphine Sulfate 2 Mg/Ml Carp) 1 mg IV Q2H PRN PRN Reason: Pain Stop: 09/05/23 02:41 Last Admin: 08/22/23 03:38 Dose: 1 mg Documented By: AILYN Phenazopyridine HCl (Phenazopyridine Hcl 200 Mg Tab) 200 mg PO NOW STA Stop: 08/23/23 15:00 Last Admin: 08/23/23 15:48 Dose: 200 mg Documented By: BAR Imaging Data Radiologist's Impression: Abdomen/Pelvis CT 08/21/23 20:47 Exam(s): CT ABDOMEN + PELVIS With Contrast EXAM: CT Abdomen and Pelvis With Intravenous Contrast CLINICAL HISTORY: Reason for exam: hematuria, abd pain. TECHNIQUE: Axial computed tomography images of the abdomen and pelvis with intravenous contrast. CTDI is 28.09 mGy and DLP is 1518.43 mGy-cm. Automated exposure control was utilized for the study. A dose lowering technique was utilized adhering to the principles of ALARA. CONTRAST: Contrast must be dictated COMPARISON: No relevant prior studies available. FINDINGS: Lung bases: Unremarkable. No mass. No consolidation. Pleural space: Small RIGHT pleural effusion. Mediastinum: Small hiatal hernia. ABDOMEN: Liver: Unremarkable. No mass. Gallbladder and bile ducts: Unremarkable. No calcified stones. No ductal dilation. Pancreas: Unremarkable. No mass. No ductal dilation. Spleen: Unremarkable. No splenomegaly. Adrenals: Unremarkable. No mass. Kidneys and ureters: Unremarkable. No solid mass. No hydronephrosis. Stomach and bowel: Diverticulosis, without acute diverticulitis. No small bowel obstruction. No free intraperitoneal air. PELVIS: Appendix: Normal appendix. Bladder: Large volume hematuria throughout the urinary bladder. Indwelling Auguste catheter. Reproductive: Unremarkable as visualized. ABDOMEN and PELVIS: Intraperitoneal space: Unremarkable. No free air. No significant fluid collection. Bones/joints: Degenerative changes of the spine. No acute fracture. No dislocation. Soft tissues: Unremarkable. Vasculature: Atherosclerotic changes of the aorta. No abdominal aortic aneurysm. Lymph nodes: Unremarkable. No enlarged lymph nodes. IMPRESSION: Large volume hematuria throughout the urinary bladder. Indwelling Auguste catheter. Electronically signed by: Santy Cruz MD 08/21/23 23:39 PM Discharge Plan Visit Data Chief Complaint: Hematuria Stated Complaint: BLEEDING, HAD CATHETER EARLIER ED Provider: Mariann Ruiz Discharge Problem: Hematuria, Acute urinary retention Patient Disposition: Admitted As Inpatient Discharge Instructions Interventions: ED Discharge Assessment Last Done: 08/22/23 04:02
[2023-08-21] MEDS: fentaNYL citrate PF 100 MCG/2 ML VIAL IV STA ×2 (21:05→22:59)
[2023-08-21] MEDS: ACETAMINOPHEN 1,000 MG/100 ML VIAL IV STA (21:06)
[2023-08-21] MEDS: LIDOCAINE 2% JELLY 5 ML TUBE EXT ONE (21:23)
[2023-08-21] MEDS: SODIUM CHLORIDE 0.9% 1,000 ML IV SCH (21:26)
[2023-08-21 21:41] LABS: Anion Gap 9 (3-11); BUN Creatinine Ratio 25.8 (10-20); Blood Urea Nitrogen 25 mg/dl (6-23); Calcium 9.2 mg/dl (8.6-10.3); Carbon Dioxide 24 mmol/L (21-32); Chloride 104 mmol/L (98-107); Creatinine Clr Calc Pharmacy 80.8 ml/min; Est GFR (African American) 86.3 ml/min; Est GFR (Non-African American) 74.5 ml/min; Glucose 151 mg/dl (70-99(Fasting)); Potassium 3.8 mmol/L (3.5-5.1); Sodium 137 mmol/L (136-145)
[2023-08-21 21:45] LABS: Alanine Aminotransferase < 3 U/L (7-52); Albumin Globulin Ratio 1.2 (0.9-2); Albumin Level 3.7 gm/dl (3.4-5.0); Alkaline Phosphatase 102 U/L (34-104); Aspartate Aminotransferase 13 U/L (13-39); Bilirubin,Total 0.3 mg/dl (0.2-1.0); Globulin 3.2 gm/dl (2.5-4.0); Total Protein 6.9 gm/dl (6.0-8.3)
[2023-08-21 21:50] LABS: Basophils # (auto) 0.04 K/uL (0.00-0.20); Basophils % (auto) 0.3 %; Eosinophils # (auto) 0.19 K/uL (0.00-0.50); Eosinophils % (auto) 1.4 %; Hemoglobin 11.7 g/dl (14.0-18.0); Immature Granulocytes # (auto) 0.05 K/uL (0.01-0.20); Immature Granulocytes % (auto) 0.4 %; Lymphocytes # (auto) 1.34 K/uL (1.20-3.40); Lymphocytes % (auto) 9.6 %; Mean Corpuscular Hemoglobin 30.2 pg (25.0-34.0); Mean Corpuscular Hgb Conc 31.6 g/dL (32.0-36.0); Mean Corpuscular Volume 95.4 fL (80.0-100.0); Mean Platelet Volume 8.9 fL (9.4-12.4); Monocytes # (auto) 1.04 K/uL (0.11-0.59); Monocytes % (auto) 7.4 %; Neutrophils # (auto) 11.31 K/uL (1.40-6.50); Neutrophils % (auto) 80.9 %; Platelet Count 425 K/uL (130-400); RDW Standard Deviation 48.8 fL (36.4-46.3); Red Blood Count 3.88 M/uL (4.70-6.10); White Blood Count 13.97 K/ul (4.8-10.8)
[2023-08-21] MEDS: OPTIRAY 320 500ml IV ONE (21:59)
[2023-08-21 22:11] LABS: Appearance Urine Turbid (Clear); Bacteria Urine Automated Negative (Negative); Bilirubin Urine Negative (Negative); Blood Urine 3+ (Negative); Color Urine Dark Yellow; Epithelial Cell Urine Auto 0-5 /lpf (0-5); Glucose Urine UA Trace (Negative); Ketones Urine Negative (Negative); Leukocyte Esterase Urine Negative (Negative); Nitrite Urine Negative (Negative); Protein Urine 4+ (Negative); RBC Urine Automated >30 /hpf (0-4); Specific Gravity Urine 1.037 (1.000-1.030); Urobilinogen Urine Negative (Negative)
--- NOTE | 2023-08-21 23:39 | CT Scan Report ---
Exam(s): CT ABDOMEN + PELVIS With Contrast EXAM: CT Abdomen and Pelvis With Intravenous Contrast CLINICAL HISTORY: Reason for exam: hematuria, abd pain. TECHNIQUE: Axial computed tomography images of the abdomen and pelvis with intravenous contrast. CTDI is 28.09 mGy and DLP is 1518.43 mGy-cm. Automated exposure control was utilized for the study. A dose lowering technique was utilized adhering to the principles of ALARA. CONTRAST: Contrast must be dictated COMPARISON: No relevant prior studies available. FINDINGS: Lung bases: Unremarkable. No mass. No consolidation. Pleural space: Small RIGHT pleural effusion. Mediastinum: Small hiatal hernia. ABDOMEN: Liver: Unremarkable. No mass. Gallbladder and bile ducts: Unremarkable. No calcified stones. No ductal dilation. Pancreas: Unremarkable. No mass. No ductal dilation. Spleen: Unremarkable. No splenomegaly. Adrenals: Unremarkable. No mass. Kidneys and ureters: Unremarkable. No solid mass. No hydronephrosis. Stomach and bowel: Diverticulosis, without acute diverticulitis. No small bowel obstruction. No free intraperitoneal air. PELVIS: Appendix: Normal appendix. Bladder: Large volume hematuria throughout the urinary bladder. Indwelling Jackson catheter. Reproductive: Unremarkable as visualized. ABDOMEN and PELVIS: Intraperitoneal space: Unremarkable. No free air. No significant fluid collection. Bones/joints: Degenerative changes of the spine. No acute fracture. No dislocation. Soft tissues: Unremarkable. Vasculature: Atherosclerotic changes of the aorta. No abdominal aortic aneurysm. Lymph nodes: Unremarkable. No enlarged lymph nodes. IMPRESSION: Large volume hematuria throughout the urinary bladder. Indwelling Jackson catheter. Electronically signed by: Santy Cruz MD 08/21/23 23:39 PM
[2023-08-22] MEDS: LORazepam 1 MG/1 ML SYR ED Inj Use IV STA (00:45)
[2023-08-22] MEDS: LIDOCAINE 2% JELLY 5 ML TUBE EXT ONE (02:10)
[2023-08-22 02:43] LABS: Hemoglobin 10.7 g/dl (14.0-18.0)
--- NOTE | 2023-08-22 02:50 | History & Physical Report ---
Date of Service August 22, 2023 Assessment & Plan (1) Hematuria: Plan: 78yo male presenting with gross hematuria. He is tachycardic. Blood pressure is stable. H/H=11.7 and 37 which is decreased from 14.4 and 45, respectively, on 07/26/23. Jackson catheter in place, continuous bladder irrigation attempted in the ER. Jackson currently not draining possibly secondary to clot burden, leaking around the Jackson. Patient is uncomfortable. No obvious UTI on UA No anti-platelet agents or blood thinners listed on medication list -Patient seen by Urology in the ER - bladder aggressively irrigated with removal of large amount of clot. Patient much improved symptomatically. Jackson output cleared. -Admit to PCU -Resume continuous bladder irrigation -Initiate Ceftriaxone 2gm IV daily -Check urine culture -Monitor CBC q 8 hours - transfuse for ongoing blood loss, symptomatic anemia or Hgb < 7 -Acetaminophen for pain control -Morphine PRN pain control (2) Parkinson disease: Plan: Patient with Parkinson's disease with underlying dementia. He is oriented x 3 at present, answering questions appropriately with occasional episodes of confusion -Continue Carbidopa/Levodopa -Continue Namenda -Frequent orientation for delirium prevention measures (3) Coronary artery disease: Plan: Chronic. No chest pain -Continue Atorvastatin -Does not have Metoprolol or ASA on his medication list at present (4) GERD (gastroesophageal reflux disease): Plan: Chronic. Stable -Continue Protonix (5) Restless leg syndrome: Plan: Chronic. Stable -Continue Ropinirole History of Present Illness Primary Care Provider: Keshia Matias MD 78yo male with history of GUME, CAD, DM and PAF not on anticoagulation presenting from [facility] with hematuria and diaphoresis. Patient reports intermittent hematuria over the last 2-3 days. Earlier today patient with continuous gross hematuria. Had a Jackson placed at [facility] but had dysuria and requested that the Jackson be removed. He was sent to the ER for further management. Bladder scan performed in the ER with >500mL of urine. Jackson was placed with 300mL of bloody output with minimal clot passage then the Jackson stopped draining. The catheter was manually irrigated and ultimately exchanged for a larger size. Clots were removed. Minimal drainage so continuous bladder irrigation was initiated. Patient had some drainage of bloody urine with minimal clots then the drainage stopped. CBI was placed on hold and the Jackson was again manually irrigated - unable to aspirate urine from ports. Patient is in moderate distress from bladder discomfort. Otherwise no acute complaints. He denies fever, chills, cough, CP, SOB. Denies nausea, vomiting, diarrhea. Er Course: Fentanyl 50mcg IV x 2 Tylenol 1gm IV Lidocaine topical NSS x 1L Ativan 0.5mg V Morphine 1mg IV Patient seen at [facility] on 07/26/23 after falling down a flight of carpeted stairs. He was found to have and unstable thoracic spine fracture through T7-T8 disc space involving the inferior and superior endplates with paravertebral hematoma as well as rib fractures and distal radius and ulna fractures of right wrist. Patient was transferred to [facility] and went to the OR on 07/28/23 wtih T5-T10 fusion and reduction of T8-T9 fractures. He returned to the OR on 07/29/23 for ORIF of the right wrist. He was transferred to [facility] on 08/01/23. He is to continue TLSO brace when out of bed. Brace to right wrist as well Allergies Allergy/AdvReac Type Severity Reaction Status Date / Time No Known Allergies Allergy Verified 08/21/23 21:29 Home Medications Medication Instructions Recorded Confirmed Type cyanocobalamin (vitamin B-12) 1,000 mcg PO QAM 12/19/18 08/21/23 History 1,000 mcg tablet polyethylene glycol 3350 17 17 g PO QDL PRN Constipation 02/05/22 08/21/23 History gram/dose oral powder carbidopa 25 mg-levodopa 100 mg 2 tab PO TID 90 days #540 tabs 01/11/23 08/21/23 Rx tablet memantine 10 mg tablet 10 mg PO BID 90 days #180 tabs 04/03/23 08/21/23 Rx zonisamide 25 mg capsule (Zonegran) 25 mg PO BID 90 days #180 caps 07/01/23 08/21/23 Rx mirabegron 25 mg tablet,extended 25 mg PO DAILY 07/26/23 08/21/23 History release 24 hr acetaminophen 500 mg tablet 1,000 mg PO Q8H PRN Pain 08/21/23 08/21/23 History (Tylenol Extra Strength) atorvastatin 10 mg tablet 10 mg PO DAILY 08/21/23 08/21/23 History cholecalciferol (vitamin D3) 50 50 mcg PO DAILY 08/21/23 08/21/23 History mcg (2,000 unit) capsule (Vitamin D3) docusate sodium 100 mg capsule 100 mg PO BID 08/21/23 08/21/23 History hydralazine 10 mg tablet 10 mg PO Q4H PRN NEEDED PER MED 08/21/23 08/21/23 History LIST magnesium hydroxide 400 mg/5 mL 30 ml PO HS 08/21/23 08/21/23 History oral suspension (Milk of Magnesia) melatonin 3 mg tablet 3 mg PO HS PRN Sleep 08/21/23 08/21/23 History naloxone 4 mg/actuation nasal spray 4 mg intranasal DIRECTED PRN 08/21/23 08/21/23 History Opioid Overdose ondansetron HCl 4 mg tablet 4 mg PO Q4H PRN NAUSEA/VOMITING 08/21/23 08/21/23 History oxycodone 5 mg tablet 2.5 mg PO Q4H PRN Pain (Scale 08/21/23 08/21/23 History Score 4-6) pantoprazole 40 mg tablet,delayed 40 mg PO DAILYBB 08/21/23 08/21/23 History release ropinirole 0.25 mg tablet 0.25 mg PO QPM 08/21/23 08/21/23 History sennosides 8.6 mg tablet (Senokot) 8.6 mg PO QDL PRN Constipation 08/21/23 08/21/23 History sennosides 8.6 mg tablet (senna) 17.2 mg PO HS 08/21/23 08/21/23 History sertraline 25 mg tablet 25 mg PO DAILY 08/21/23 08/21/23 History white petrolatum-mineral oil 57.3 1 applic ophthalmic (eye) QID PRN 08/21/23 08/21/23 History %-42.5 % eye ointment (Refresh Dry Eyes P.M.) zinc oxide 20 % topical ointment 1 applic topical BID 08/21/23 08/21/23 History Past Med/Surg History Medical History Transient ischemic attack (TIA) possible ~2007. Lumbar facet joint syndrome Diverticulosis Myofascial pain Spinal stenosis of lumbar region Bilateral sacroiliitis Poor historian Chronic back pain History of osteoarthritis History of prostate cancer S/P CYBERKNIFE PROCEDURE Hearing deficit BL [place] Parkinson disease Cardiac murmur A CHILD History of [place] (myocardial infarction) 1994 Sleep apnea CPAP Surgical History S/P epidural steroid injection History of repair of rotator cuff bilateral S/P left cataract extraction History of right cataract surgery 01/12/19: was given 2mg of IV versed History of prostate biopsy History of colonoscopy History of cardiac cath 1994 - [place] - PT UNSURE IF HE HAS STENTS - FOLLOWS W/ DR. 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 Beliefs That Will Affect Care: None marital status: Current Living Situation: Spouse current occupational status: retired Feels Safe at Home: Yes Assistive Devices: BiPap and Cane Review of Systems Review of Systems: All systems reviewed & are unremarkable except as noted in HPI & below Physical Exam 2 Physical Exam: General: patient restless, uncomfortable, NAD, non-toxic in appearance, AA&O x 4 but with periods of confusion Skin: slightly diaphoretic, no rash HEENT: NC/AT, PERRL, EOMI, anicteric sclera, conjunctiva without injection, external ear normal to inspection and nontender, nares patent, moist mucus membranes, dentition intact, no oropharyngeal lesions, neck supple, trachea midline, no LAD, no thyromegaly, no JVD Heart: +S1/S2, regular, tachycardic, no m/r/g Lungs: equal air entry bilaterally, no rales/rhonchi/wheezes Abd: +BS, soft, tenderness in suprapubic region Ext: warm, 2+ pulses in UE/LE bilaterally, no clubbing/cyanosis or edema Neuro: nonfocal, patient AA&O x 4, speech intact, no facial droop, moving all extremities on command with equal strength 5/5 Results & Data Results & Data Vital Signs (Past 12 Hours) Vital Signs Temp Pulse Pulse Resp BP BP Pulse Ox 08/22/23 02:21 105 H 20 165/119 H 95 08/21/23 23:00 112 H 18 125/103 H 94 08/21/23 20:34 115 H 08/21/23 20:32 36.5 C 116 H 22 158/105 H 94 O2 Del Method 08/22/23 02:21 Room Air 08/21/23 23:00 Room Air 08/21/23 20:34 08/21/23 20:32 Room Air Laboratory Results Laboratory Results WBC 13.97 K/ul (4.8-10.8) H 08/21/23 21:08 RBC 3.88 M/uL (4.70-6.10) L 08/21/23 21:08 Hgb 10.7 g/dl (14.0-18.0) L 08/22/23 02:16 Hct 34.0 % (42.0-52.0) L 08/22/23 02:16 MCV 95.4 fL (80.0-100.0) 08/21/23 21:08 MCH 30.2 pg (25.0-34.0) 08/21/23 21:08 MCHC 31.6 g/dL (32.0-36.0) L 08/21/23 21:08 RDW Std Deviation 48.8 fL (36.4-46.3) H 08/21/23 21:08 RDW Coeff of Rachel 14.0 % (11.5-14.5) 08/21/23 21:08 Plt Count 425 K/uL (130-400) H 08/21/23 21:08 MPV 8.9 fL (9.4-12.4) L 08/21/23 21:08 Immature Gran % (Auto) 0.4 % 08/21/23 21:08 Neut % (Auto) 80.9 % 08/21/23 21:08 Lymph % (Auto) 9.6 % 08/21/23 21:08 Cowley % (Auto) 7.4 % 08/21/23 21:08 Eos % (Auto) 1.4 % 08/21/23 21:08 Baso % (Auto) 0.3 % 08/21/23 21:08 Neut # (Auto) 11.31 K/uL (1.40-6.50) H 08/21/23 21:08 Lymph # (Auto) 1.34 K/uL (1.20-3.40) 08/21/23 21:08 Cowley # (Auto) 1.04 K/uL (0.11-0.59) H 08/21/23 21:08 Eos # (Auto) 0.19 K/uL (0.00-0.50) 08/21/23 21:08 Baso # (Auto) 0.04 K/uL (0.00-0.20) 08/21/23 21:08 Immature Gran # (Auto) 0.05 K/uL (0.01-0.20) 08/21/23 21:08 Sodium 137 mmol/L (136-145) 08/21/23 21:08 Potassium 3.8 mmol/L (3.5-5.1) 08/21/23 21:08 Chloride 104 mmol/L (98-107) 08/21/23 21:08 Carbon Dioxide 24 mmol/L (21-32) 08/21/23 21:08 Anion Gap 9 (3-11) 08/21/23 21:08 BUN 25 mg/dl (6-23) H 08/21/23 21:08 Creatinine 0.97 mg/dl (0.6-1.4) 08/21/23 21:08 Est Cr Clr Drug Dosing 80.8 ml/min 08/21/23 21:08 Est GFR ( Amer) 86.3 ml/min 08/21/23 21:08 Est GFR (Non-Af Amer) 74.5 ml/min 08/21/23 21:08 BUN/Creatinine Ratio 25.8 (10-20) H 08/21/23 21:08 Glucose 151 mg/dl (70-99(Fasting)) H 08/21/23 21:08 Calcium 9.2 mg/dl (8.6-10.3) 08/21/23 21:08 Total Bilirubin 0.3 mg/dl (0.2-1.0) 08/21/23 21:08 AST 13 U/L (13-39) 08/21/23 21:08 ALT < 3 U/L (7-52) L 08/21/23 21:08 Alkaline Phosphatase 102 U/L (34-104) 08/21/23 21:08 Total Protein 6.9 gm/dl (6.0-8.3) 08/21/23 21:08 Albumin 3.7 gm/dl (3.4-5.0) 08/21/23 21:08 Globulin 3.2 gm/dl (2.5-4.0) 08/21/23 21:08 Albumin/Globulin Ratio 1.2 (0.9-2) 08/21/23 21:08 Urine Color Dark Yellow 08/21/23 21: Urine Appearance Turbid (Clear) A 08/21/23 21: Urine pH 7.0 (4.5-7.5) 08/21/23 21:21 Ur Specific [place] 1.037 (1.000-1.030) H 08/21/23 21:21 Urine Protein 4+ (Negative) H 01/31/24 21:21 Urine Glucose (UA) Trace (Negative) H 08/21/23 21:21 Urine Ketones Negative (Negative) 08/21/23 21:21 Urine Blood 3+ (Negative) H 08/21/23 21:21 Urine Nitrite Negative (Negative) 08/21/23 21:21 Urine Bilirubin Negative (Negative) 08/21/23 21:21 Urine Urobilinogen Negative (Negative) 08/21/23 21:21 Ur Leukocyte Esterase Negative (Negative) 08/21/23 21:21 Urine WBC (Auto) 1-5 /hpf (0-5) 08/21/23 21:21 Urine RBC (Auto) >30 /hpf (0-4) H 08/21/23 21:21 U Hyaline Cast (Auto) 1-5 /lpf (0-5) 08/21/23 21:21 U Epithel Cells (Auto) 0-5 /lpf (0-5) 08/21/23 21:21 Urine Bacteria (Auto) Negative (Negative) 08/21/23 21:21 Impressions Abdomen/Pelvis CT 08/21/23 20:47 Exam(s): CT ABDOMEN + PELVIS With Contrast EXAM: CT Abdomen and Pelvis With Intravenous Contrast CLINICAL HISTORY: Reason for exam: hematuria, abd pain. TECHNIQUE: Axial computed tomography images of the abdomen and pelvis with intravenous contrast. CTDI is 28.09 mGy and DLP is 1518.43 mGy-cm. Automated exposure control was utilized for the study. A dose lowering technique was utilized adhering to the principles of ALARA. CONTRAST: Contrast must be dictated COMPARISON: No relevant prior studies available. FINDINGS: Lung bases: Unremarkable. No mass. No consolidation. Pleural space: Small RIGHT pleural effusion. Mediastinum: Small hiatal hernia. ABDOMEN: Liver: Unremarkable. No mass. Gallbladder and bile ducts: Unremarkable. No calcified stones. No ductal dilation. Pancreas: Unremarkable. No mass. No ductal dilation. Spleen: Unremarkable. No splenomegaly. Adrenals: Unremarkable. No mass. Kidneys and ureters: Unremarkable. No solid mass. No hydronephrosis. Stomach and bowel: Diverticulosis, without acute diverticulitis. No small bowel obstruction. No free intraperitoneal air. PELVIS: Appendix: Normal appendix. Bladder: Large volume hematuria throughout the urinary bladder. Indwelling Jackson catheter. Reproductive: Unremarkable as visualized. ABDOMEN and PELVIS: Intraperitoneal space: Unremarkable. No free air. No significant fluid collection. Bones/joints: Degenerative changes of the spine. No acute fracture. No dislocation. Soft tissues: Unremarkable. Vasculature: Atherosclerotic changes of the aorta. No abdominal aortic aneurysm. Lymph nodes: Unremarkable. No enlarged lymph nodes. IMPRESSION: Large volume hematuria throughout the urinary bladder. Indwelling Jackson catheter. Electronically signed by: Santy Cruz MD 08/21/23 23:39 PM PG Care Time/CCT Total # of Minutes Spent Total Time Spent with Patient: Total time spent is greater than 50% in coordination of care (as documented) at patient's floor/unit and/or counseling patient: Coding Level of Care Code 39455 INT INP/OBS CARE 375MIN Diagnoses Hematuria R31.9 Parkinson disease G20 Coronary artery disease I25.10 GERD (gastroesophageal reflux disease) K21.9 Restless leg syndrome G25.81
[2023-08-22] MEDS: MoRPHine SULFATE 2 MG/ML CARP IV PRN ×2 (03:38→14:32)
[2023-08-22] MEDS ORDERED: ONDANSETRON INJ 2 MG/ML 2 ML VIAL IV PRN (04:21)
[2023-08-22] MEDS ORDERED: SENNA 8.6 MG TAB PO PRN (04:21)
[2023-08-22] MEDS ORDERED: POLYETHYLENE (MIRALAX) 17 GM PACK PO PRN (04:21)
--- NOTE | 2023-08-22 04:29 | Urology Consultation ---
Date of Consultation August 22, 2023 Assessment & Plan (1) Hematuria: Plan 78-year-old male with gross hematuria on CBI which kept clotting off. CT scan shows significant clot burden in bladder. Procedure: I initially deflated the balloon and pulled back his Jackson catheter. I then was able to draw back roughly 300 to 400 cc of blood clot. This significantly improve the patient's discomfort. I then irrigated his bladder with roughly 1 L of sterile water with return of significant amount of further clot. I suspect total amount of clot was 500 cc. Eventually his urine turned to a light pink and I hooked him back up to CBI and his his urine was essentially running clear with occasional flecks of clot. I reinflated the balloon with 10 cc of sterile water. I suspect I removed the majority of the clot burden but there is probably a small amount of formed clot left in the bladder. After 15 minutes of CBI I checked on the patient again and his CBI continued to run without issue and he was feeling much more comfortable. Continue CBI, wean as tolerated. Okay for nursing to hand irrigate if he has an obstruction from a small piece of clot Agree with starting ceftriaxone Remain NPO. Urology team will check on him later this morning if urine remains clear he can have a diet. Patient will need outpatient workup for hematuria workup once he is discharged from the hospital. No indication to do this as an inpatient Urology to follow Greater than 75 minutes was spent reviewing chart and irrigating patient's bladder History of Present Illness Attending Physician: Sheyla Short, History of Present Illness 78-year-old male admitted for gross hematuria. History is somewhat hard to obtain as he came from a care facility but reportedly came with a catheter for past several days. Catheter was swapped on the emergency department and irrigated and then he was started on CBI but CBI continued to clot off. He has been hypertensive and tachycardic most likely due to pain but otherwise afebrile. Labs showed a white blood cell count 13.9, hemoglobin of 11.7, creatinine of 0.97 and a urinalysis that was positive for hematuria but otherwise negative. He had a CT scan done of the abdomen pelvis which I independently reviewed which showed a large volume of the blood clot in his bladder with an indwelling Jackson catheter in place. When I met the patient, he was an extremis due to an obstructed catheter. CBI had been stopped previously. Past medical history review shows that he has Parkinson's, coronary artery disease, GERD and restless leg syndrome. Sounds like he recently had spine surgery in [place]. Patient denies having hematuria prior Allergies Allergy/AdvReac Type Severity Reaction Status Date / Time No Known Allergies Allergy Verified 08/21/23 21:29 Home Medications Medication Instructions Recorded Confirmed Type cyanocobalamin (vitamin B-12) 1,000 mcg PO QAM 12/19/18 08/21/23 History 1,000 mcg tablet polyethylene glycol 3350 17 17 g PO QDL PRN Constipation 02/05/22 08/21/23 History gram/dose oral powder carbidopa 25 mg-levodopa 100 mg 2 tab PO TID 90 days #540 tabs 01/11/23 08/21/23 Rx tablet memantine 10 mg tablet 10 mg PO BID 90 days #180 tabs 04/03/23 08/21/23 Rx zonisamide 25 mg capsule (Zonegran) 25 mg PO BID 90 days #180 caps 07/01/23 08/21/23 Rx mirabegron 25 mg tablet,extended 25 mg PO DAILY 07/26/23 08/21/23 History release 24 hr acetaminophen 500 mg tablet 1,000 mg PO Q8H PRN Pain 08/21/23 08/21/23 History (Tylenol Extra Strength) atorvastatin 10 mg tablet 10 mg PO DAILY 08/21/23 08/21/23 History cholecalciferol (vitamin D3) 50 50 mcg PO DAILY 08/21/23 08/21/23 History mcg (2,000 unit) capsule (Vitamin D3) docusate sodium 100 mg capsule 100 mg PO BID 08/21/23 08/21/23 History hydralazine 10 mg tablet 10 mg PO Q4H PRN NEEDED PER MED 08/21/23 08/21/23 History LIST magnesium hydroxide 400 mg/5 mL 30 ml PO HS 08/21/23 08/21/23 History oral suspension (Milk of Magnesia) melatonin 3 mg tablet 3 mg PO HS PRN Sleep 08/21/23 08/21/23 History naloxone 4 mg/actuation nasal spray 4 mg intranasal DIRECTED PRN 08/21/23 08/21/23 History Opioid Overdose ondansetron HCl 4 mg tablet 4 mg PO Q4H PRN NAUSEA/VOMITING 08/21/23 08/21/23 History oxycodone 5 mg tablet 2.5 mg PO Q4H PRN Pain (Scale 08/21/23 08/21/23 History Score 4-6) pantoprazole 40 mg tablet,delayed 40 mg PO DAILYBB 08/21/23 08/21/23 History release ropinirole 0.25 mg tablet 0.25 mg PO QPM 08/21/23 08/21/23 History sennosides 8.6 mg tablet (Senokot) 8.6 mg PO QDL PRN Constipation 08/21/23 08/21/23 History sennosides 8.6 mg tablet (senna) 17.2 mg PO HS 08/21/23 08/21/23 History sertraline 25 mg tablet 25 mg PO DAILY 08/21/23 08/21/23 History white petrolatum-mineral oil 57.3 1 applic ophthalmic (eye) QID PRN 08/21/23 08/21/23 History %-42.5 % eye ointment (Refresh Dry Eyes P.M.) zinc oxide 20 % topical ointment 1 applic topical BID 08/21/23 08/21/23 History Patient History Medical History Transient ischemic attack (TIA) possible ~2007. Lumbar facet joint syndrome Diverticulosis Myofascial pain Spinal stenosis of lumbar region Bilateral sacroiliitis Poor historian Chronic back pain History of osteoarthritis History of prostate cancer S/P CYBERKNIFE PROCEDURE Hearing deficit [place] Parkinson disease Cardiac murmur A CHILD History of [place] (myocardial infarction) 1994 Sleep apnea CPAP Surgical History S/P epidural steroid injection History of repair of rotator cuff bilateral S/P left cataract extraction History of right cataract surgery 01/12/19: was given 2mg of IV versed History of prostate biopsy History of colonoscopy History of cardiac cath 1994 - [place] - PT UNSURE IF HE HAS STENTS - FOLLOWS W/ DR. MARIVEL DUNCAN Family History Father Family history of diabetes mellitus Brother Family history of diabetes mellitus Social History Smoking Status: Never smoker Tobacco Type: Cigarettes Second Hand Exposure: No; Do You Dip or Chew Tobacco: No; Hx Alcohol Use: Yes Alcohol type: hard liquor Hx Substance Use: No Preferred Language: Turkmen Communication Ability: Effective Visual Impairment: No Limitations Hearing Ability: Hard of Hearing Chef Teacher Required: No Beliefs That Will Affect Care: None marital status: Current Living Situation: Spouse current occupational status: retired Feels Safe at Home: Yes Assistive Devices: BiPap and Cane Review of Systems Review of Systems: 14 point review of systems negative outs jorge of what is listed above in HPI Physical Exam Physical Exam: General: Alert and oriented, in significant distress HEENT: Normocephalic, mucous membranes moist Pulmonary: Nonlabored respirations Abdomen: Suprapubic distention and tender. Nonperitonitic. : Circumcised phallus with orthotopic meatus. 24 [place] Jackson catheter in place not draining urine Extremities: Moves all 4 spontaneously Neuro: No gross deficits Skin: Warm, dry, no rashes noted Results & Data Vital Signs (Past 12 Hours) Vital Signs Temp Pulse Pulse Resp BP BP Pulse Ox 08/22/23 03:49 128 H 08/22/23 03:48 126 H 24 95 08/22/23 02:21 105 H 20 165/119 H 95 08/21/23 23:00 112 H 18 125/103 H 94 08/21/23 20:34 115 H 08/21/23 20:32 36.5 C 116 H 22 158/105 H 94 O2 Del Method 08/22/23 03:49 08/22/23 03:48 Room Air 08/22/23 02:21 Room Air 08/21/23 23:00 Room Air 08/21/23 20:34 08/21/23 20:32 Room Air PG Care Time/CCT Total # of Minutes Spent Total Time Spent with Patient: Total time spent is greater than 50% in coordination of care (as documented) at patient's floor/unit and/or counseling patient: Coding Level of Care Code 12913 INT INP/OBS CARE 3/75MIN Diagnoses Hematuria R31.9
[2023-08-22] MEDS: cefTRIAXone SODIUM 2,000 MG in DEXTROSE 5 % MINI-B 50 ML IV SCH (05:50)
[2023-08-22] MEDS: PANTOprazole 40 MG TAB PO SCH (05:51)
[2023-08-22] MEDS: CARBIDOPA/LEVODOPA 25/100MG TAB PO SCH (07:48)
[2023-08-22] MEDS: ATORVASTATIN 10 MG TAB PO SCH (07:48)
[2023-08-22] MEDS: SERTRALINE HCL 50 MG TABLET PO SCH (07:55)
[2023-08-22] MEDS: DOCUSATE SODIUM 100 MG CAP PO SCH (07:55)
[2023-08-22] MEDS: MEMANTINE HCL 10 MG TAB PO SCH (07:55)
--- NOTE | 2023-08-22 08:03 | Urology Progress Note ---
Date of Service August 22, 2023 Assessment & Plan (1) Hematuria: Plan: Follow-up of hematuria with clot burden Pt reassessed this am and urine remains clear with CBI on slow, 2 small clots noted in tubing which easily passed through Okay for patient to have diet today Continue CBI, wean as tolerated Okay for nursing to hand irrigate if he has an obstruction from a small piece of clot Continue with antibiotics Patient will need outpatient workup for hematuria workup once he is discharged from the hospital will follow Admission and Anticipated Discharge Date Admission Date: August 22, 2023 Subjective Patient seen and examined this morning One to one sitter at bedside Patient appeared confused and trying to get out of bed as I arrived He was able to be reoriented and was calm during my interview He reports some discomfort from Jackson catheter at catheter insertion site No suprapubic or flank pain Jackson patent and draining clear urine with CBI on slow, 2 small clots noted in tubing which easily passed through Denies nausea, vomiting, fever or chills Review of Systems Constitutional: as per Subjective / HPI Gastrointestinal: as per Subjective / HPI Genitourinary: + as per Subjective / HPI Physical Exam Constitutional: well developed and well nourished; no acute distress Respiratory: normal respiratory effort; no respiratory distress and no labored breathing Gastrointestinal (Abdomen): Inspection/Auscultation: abdomen normal to inspection Percussion/Palpation: abdomen soft; abdomen nontender Musculoskeletal: Head/Neck/Chest: normocephalic Neurologic: moves all extremities and awake Psychiatric: Orientation: alert and oriented to person Results & Data Vital Signs (Past 12 Hours) Vital Signs Temp Pulse Pulse Resp BP BP BP 08/22/23 05:50 08/22/23 05:40 36.8 C 102 H 18 129/83 08/22/23 04:28 108 H 18 105/73 08/22/23 04:28 08/22/23 03:49 128 H 08/22/23 03:48 126 H 24 08/22/23 02:21 105 H 20 165/119 H 08/21/23 23:00 112 H 18 125/103 H 08/21/23 20:34 115 H 08/21/23 20:32 36.5 C 116 H 22 158/105 H Pulse Ox Pulse Ox O2 Del Method O2 Del Method 08/22/23 05:50 Room Air 08/22/23 05:40 95 Room Air 08/22/23 04:28 92 Room Air 08/22/23 04:28 93 Room Air 08/22/23 03:49 08/22/23 03:48 95 Room Air 08/22/23 02:21 95 Room Air 08/21/23 23:00 94 Room Air 08/21/23 20:34 08/21/23 20:32 94 Room Air PG Care Time/CCT Total # of Minutes Spent Total Time Spent with Patient: Total time spent is greater than 50% in coordination of care (as documented) at patient's floor/unit and/or counseling patient: Coding Level of Care Code None Diagnoses Hematuria R31.9
--- NOTE | 2023-08-22 09:36 | Hospitalist Progress Note ---
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 He is tachycardic. acute blood loss anemia,m No anti-platelet agents or blood thinners listed on medication list Started on CBI after manual clot extraction from urology, hematuria has lessened, cbi is intermittent Urine culture pending continues on Ceftriaxone -Acetaminophen for pain control -Morphine PRN pain control (2) Parkinson disease: Plan: Patient with Parkinson's disease with underlying dementia. He is oriented x 3 at present, answering questions appropriately with occasional episodes of confusion -Continue Carbidopa/Levodopa -Continue Namenda -Frequent orientation for delirium prevention measures (3) Coronary artery disease: Plan: Chronic. No chest pain -Continue Atorvastatin -Does not have Metoprolol or ASA on his medication list at present (4) GERD (gastroesophageal reflux disease): Plan: Chronic. Stable -Continue Protonix (5) Restless leg syndrome: Plan: Chronic. Stable -Continue Ropinirole Plan dvt SCD's chemoprophylaxis contraindicated Admission and Anticipated Discharge Date Admission Date: August 22, 2023 Subjective pt was seen and is pleasantly confused was progressing nicely at rehab until hematuria hematuria has improved greatly with CBI Physical Exam Physical Exam: pleasant and oriented x 3 very little suprapubic abdominal pain cardiac is regular, AKSHAT heard Results & Data Results & Data Vital Signs (Past 12 Hours) Vital Signs Temp Pulse Pulse Resp BP BP BP 08/22/23 09:00 129/91 08/22/23 09:00 90 21 08/22/23 08:01 100 H 31 H 08/22/23 08:01 153/87 H 08/22/23 08:00 101 H 15 08/22/23 08:00 98.2 F 08/22/23 07:01 166/100 H 08/22/23 07:01 103 H 22 08/22/23 07:00 100 H 18 08/22/23 05:50 08/22/23 05:40 98.3 F 102 H 18 129/83 08/22/23 04:28 108 H 18 105/73 08/22/23 04:28 08/22/23 03:49 128 H 08/22/23 03:48 126 H 24 08/22/23 02:21 105 H 20 165/119 H 08/21/23 23:00 112 H 18 125/103 H Pulse Ox Pulse Ox O2 Del Method O2 Del Method 08/22/23 09:00 08/22/23 09:00 08/22/23 08:01 08/22/23 08:01 08/22/23 08:00 08/22/23 08:00 08/22/23 07:01 08/22/23 07:01 08/22/23 07:00 08/22/23 05:50 Room Air 08/22/23 05:40 95 Room Air 08/22/23 04:28 92 Room Air 08/22/23 04:28 93 Room Air 08/22/23 03:49 08/22/23 03:48 95 Room Air 08/22/23 02:21 95 Room Air 08/21/23 23:00 94 Room Air Laboratory Results reviewed cbc PG Care Time/CCT Total # of Minutes Spent Total Time Spent with Patient: Total time spent is greater than 50% in coordination of care (as documented) at patient's floor/unit and/or counseling patient: Coding Level of Care Code 94823 SUB INP/OBS CARE 3/50MIN Diagnoses Hematuria R31.9 Parkinson disease G20 Coronary artery disease I25.10 GERD (gastroesophageal reflux disease) K21.9 Restless leg syndrome G25.81
[2023-08-22 12:36] LABS: Hematocrit (blood only) 30.9 % (42.0-52.0); Mean Corpuscular Hemoglobin 30.4 pg (25.0-34.0); Mean Corpuscular Hgb Conc 32.4 g/dL (32.0-36.0); Mean Corpuscular Volume 93.9 fL (80.0-100.0); Mean Platelet Volume 9.2 fL (9.4-12.4); Platelet Count 327 K/uL (130-400); RDW Coefficient of Variation 14.1 % (11.5-14.5); RDW Standard Deviation 48.3 fL (36.4-46.3); Red Blood Count 3.29 M/uL (4.70-6.10); White Blood Count 15.17 K/ul (4.8-10.8)
[2023-08-22] MEDS: ACETAMINOPHEN 500 MG TAB PO PRN (13:45)
[2023-08-22 20:10] LABS: Hematocrit (blood only) 28.5 % (42.0-52.0); Hemoglobin 9.1 g/dl (14.0-18.0); Mean Corpuscular Hemoglobin 30.5 pg (25.0-34.0); Mean Corpuscular Hgb Conc 31.9 g/dL (32.0-36.0); Mean Corpuscular Volume 95.6 fL (80.0-100.0); Mean Platelet Volume 8.9 fL (9.4-12.4); Platelet Count 286 K/uL (130-400); RDW Coefficient of Variation 14.3 % (11.5-14.5); RDW Standard Deviation 49.6 fL (36.4-46.3); Red Blood Count 2.98 M/uL (4.70-6.10); White Blood Count 11.05 K/ul (4.8-10.8)
[2023-08-22] MEDS: rOPINIRole HCL 0.25 MG TABLET PO SCH (20:30)
[2023-08-22] MEDS: MAGNESIUM HYDROXIDE SUSP 30 ML UDC PO SCH (20:34)
[2023-08-22] MEDS: SENNA 8.6 MG TAB PO SCH (21:30)
[2023-08-22] MEDS: MELATONIN 3 MG TAB PO PRN (21:30)
[2023-08-22] MEDS: MoRPHine SULFATE 4 MG/ML 1 ML CARP\\VIAL IV PRN (22:15)
[2023-08-23 06:51] LABS: Hematocrit (blood only) 29.4 % (42.0-52.0); Hemoglobin 9.4 g/dl (14.0-18.0); Mean Corpuscular Hemoglobin 30.2 pg (25.0-34.0); Mean Corpuscular Volume 94.5 fL (80.0-100.0); Mean Platelet Volume 9.2 fL (9.4-12.4); Platelet Count 286 K/uL (130-400); RDW Coefficient of Variation 14.4 % (11.5-14.5); RDW Standard Deviation 49.5 fL (36.4-46.3); Red Blood Count 3.11 M/uL (4.70-6.10); White Blood Count 8.93 K/ul (4.8-10.8)
[2023-08-23 07:11] LABS: Prothrombin Time 11.4 Seconds (9.0-12.0)
--- NOTE | 2023-08-23 07:57 | Hospitalist Progress Note ---
Date of Service August 23, 2023 Assessment & Plan (1) Hematuria: Plan: 78yo male presenting with recent placement of auguste catheter , presents with gross hematuria and catheter obstruction. He is tachycardic. acute blood loss anemia,m No anti-platelet agents or blood thinners listed on medication list Started on CBI after manual clot extraction from urology, hematuria has lessened, cbi is now discontinued Urine culture shows less than thousand colonies however gross hematuria greatly improved while on Ceftriaxone will complete a 1 week course or convert to oral equivalent -Acetaminophen for pain control -Morphine PRN pain control dysuria, will try Pyridium and for bladder spasm will try hs Ditropan Hematuria due to indwelling Auguste catheter, a complication of care (2) Parkinson disease: Plan: Patient with Parkinson's disease with underlying dementia. He is oriented x 3 at present, answering questions appropriately with occasional episodes of confusion -Continue Carbidopa/Levodopa -Continues on Namenda -Patient desires to return to rehab to continue to work on his mobility (3) Coronary artery disease: Plan: Chronic. Continues without chest pain -Continue Atorvastatin -Does not have Metoprolol or ASA on his medication list at present (4) GERD (gastroesophageal reflux disease): Plan: Chronic. Remains stable -Continue Protonix (5) Restless leg syndrome: Plan: Chronic. Stable -Continue Ropinirole Plan dvt SCD's chemoprophylaxis contraindicated Admission and Anticipated Discharge Date Admission Date: August 22, 2023 Subjective Patient awake alert appropriate. Family at the bedside and updated. Patient complaining of urethral pain likely from his catheter. Did call urology to both removal of catheter they wish for her to stay in for another 24 to 48 hours. No evidence of hematuria or clots. No evidence of urinary retention by bladder scan Physical Exam Physical Exam: Abdominal examination is NABS soft he is only mildly tender in the suprapubic area. Extremities are without edema Results & Data Results & Data Vital Signs (Past 12 Hours) Vital Signs Temp Pulse Pulse Pulse Resp BP Pulse Ox 08/23/23 07:47 97.7 F 84 18 160/90 H 92 08/23/23 02:54 98.4 F 85 18 104/70 95 08/23/23 00:03 93 H 18 96/61 L 95 08/23/23 00:00 98 H 08/22/23 23:04 97.5 F L 90 18 96/59 L 95 O2 Del Method 08/23/23 07:47 Room Air 08/23/23 02:54 Room Air 08/23/23 00:03 Room Air 08/23/23 00:00 08/22/23 23:04 Room Air Laboratory Results Reviewed CBC reviewed PT/INR Ordered CBC chemistry and iron panel for 08/24/2023 PG Care Time/CCT Total # of Minutes Spent Total Time Spent with Patient: Total time spent is greater than 50% in coordination of care (as documented) at patient's floor/unit and/or counseling patient: Coding Level of Care Code 52580 SUB INP/OBS CARE 350MIN Diagnoses Hematuria R31.9 Parkinson disease G20 Coronary artery disease I25.10 GERD (gastroesophageal reflux disease) K21.9 Restless leg syndrome G25.81
--- NOTE | 2023-08-23 10:19 | Urology Progress Note ---
Date of Service August 23, 2023 Assessment & Plan (1) Hematuria: Plan: Follow-up of hematuria with clot burden Patient was manually irrigated by Dr. Lee on 08/22/2023 and CBI restarted Urine remains clear with CBI on slow No manual irrigation required overnight CBI clamped this morning Will reassess later today and discontinue CBI if urine remains clear Okay for nursing to gently hand irrigate if he has an obstruction Urine culture pendingcontinue with antibiotics Continue supportive care and medical management per hospital medicine Patient will need outpatient workup for hematuria workup once he is discharged from the hospital will follow Admission and Anticipated Discharge Date Admission Date: August 22, 2023 Subjective Patient seen and examined this morning One-to-one sitter at bedside Patient awake, pleasantly confused Jackson patent and draining clear urine with CBI on slow CBI clamped at bedside, RN aware Patient denies abdominal pain, nausea, vomiting, fever or chills Review of Systems Constitutional: as per Subjective / HPI Gastrointestinal: as per Subjective / HPI Genitourinary: + as per Subjective / HPI Physical Exam Constitutional: well developed and well nourished; no acute distress Respiratory: normal respiratory effort; no respiratory distress and no labored breathing Gastrointestinal (Abdomen): Inspection/Auscultation: abdomen normal to inspection Percussion/Palpation: abdomen soft; abdomen nontender Neurologic: moves all extremities and awake Psychiatric: Orientation: alert and oriented to person Genitourinary: Jackson patent and draining clear urine with CBI on slow. CBI clamped during exam, RN aware. Results & Data Vital Signs (Past 12 Hours) Vital Signs Temp Pulse Pulse Pulse Resp BP Pulse Ox 08/23/23 07:47 36.5 C 84 18 160/90 H 92 08/23/23 02:54 36.9 C 85 18 104/70 95 08/23/23 00:03 93 H 18 96/61 L 95 08/23/23 00:00 98 H 08/22/23 23:04 36.4 C L 90 18 96/59 L 95 O2 Del Method 08/23/23 07:47 Room Air 08/23/23 02:54 Room Air 08/23/23 00:03 Room Air 08/23/23 00:00 08/22/23 23:04 Room Air PG Care Time/CCT Total # of Minutes Spent Total Time Spent with Patient: Total time spent is greater than 50% in coordination of care (as documented) at patient's floor/unit and/or counseling patient: Coding Level of Care Code 71117 SUB INP/OBS CARE 08/15MIN Diagnoses Hematuria R31.9
[2023-08-23 11:47] LABS: Hematocrit (blood only) 27.2 % (42.0-52.0); Hemoglobin 8.7 g/dl (14.0-18.0); Mean Corpuscular Hemoglobin 30.3 pg (25.0-34.0); Mean Corpuscular Volume 94.8 fL (80.0-100.0); Mean Platelet Volume 9.1 fL (9.4-12.4); Platelet Count 278 K/uL (130-400); RDW Coefficient of Variation 14.2 % (11.5-14.5); RDW Standard Deviation 49.1 fL (36.4-46.3); Red Blood Count 2.87 M/uL (4.70-6.10); White Blood Count 11.85 K/ul (4.8-10.8)
[2023-08-23] MEDS: PHENAZOPYRIDINE HCL 200 MG TAB PO STA (15:48)
[2023-08-23] MEDS: oxyBUTYnin chloride 5 MG TAB PO SCH (20:00)
[2023-08-23] MEDS: PHENAZOPYRIDINE HCL 100 MG TAB PO PRN (20:01)
[2023-08-24 07:46] LABS: Hemoglobin 9.2 g/dl (14.0-18.0); Mean Corpuscular Hemoglobin 30.4 pg (25.0-34.0); Mean Corpuscular Hgb Conc 31.7 g/dL (32.0-36.0); Mean Corpuscular Volume 95.7 fL (80.0-100.0); Mean Platelet Volume 9.2 fL (9.4-12.4); Platelet Count 289 K/uL (130-400); RDW Coefficient of Variation 14.3 % (11.5-14.5); RDW Standard Deviation 49.4 fL (36.4-46.3); Red Blood Count 3.03 M/uL (4.70-6.10); White Blood Count 9.82 K/ul (4.8-10.8)
[2023-08-24 08:08] LABS: Calcium 8.6 mg/dl (8.6-10.3); Creatinine Clr Calc Pharmacy 110.1 ml/min; Est GFR (African American) 104.8 ml/min; Est GFR (Non-African American) 90.4 ml/min; Potassium 4.1 mmol/L (3.5-5.1)
--- NOTE | 2023-08-24 17:13 | Hospitalist Progress Note ---
Date of Service August 24, 2023 Assessment & Plan (1) Hematuria: Plan: 78yo male presenting with recent placement of auguste catheter , presents with gross hematuria and catheter obstruction. He is tachycardic. acute blood loss anemia,m No anti-platelet agents or blood thinners listed on medication list Started on CBI after manual clot extraction from urology, hematuria has lessened, cbi is now discontinued Urine culture shows less than thousand colonies however gross hematuria greatly improved while on Ceftriaxone will complete a 1 week course or convert to oral equivalent since hematuria returned will reculture but this now maybe more a mechanical issue -Acetaminophen for pain control -Morphine PRN pain control dysuria, will try Pyridium and for bladder spasm will try hs Ditropan Hematuria due to indwelling Auguste catheter, a complication of care (2) Parkinson disease: Plan: Patient with Parkinson's disease with underlying dementia. He is oriented x 3 at present, answering questions appropriately with occasional episodes of confusion -Continue Carbidopa/Levodopa -Continues on Namenda -Patient desires to return to rehab to continue to work on his mobility (3) Coronary artery disease: Plan: Chronic. Stable -Continue Atorvastatin -Does not have Metoprolol or ASA on his medication list at present blood pressure may limit b blockers (4) GERD (gastroesophageal reflux disease): Plan: Chronic. Remains stable -Continue Protonix (5) Restless leg syndrome: Plan: Chronic. remains Stable -Continue Ropinirole Plan dvt SCD's chemoprophylaxis contraindicated Admission and Anticipated Discharge Date Admission Date: August 22, 2023 Subjective Patient awake alert appropriate. disappointed in recurrence of hematuria Patient continues complaining of urethral pain likely from his catheter. urology does not want to removed catheter No evidence of hematuria or clots. No evidence of urinary retention by bladder scan Physical Exam Physical Exam: Abdominal examination is NABS soft he is only mildly tender in the suprapubic area. Extremities are without edema gross hematuria persists Results & Data Results & Data Vital Signs (Past 12 Hours) Vital Signs Temp Pulse Pulse Pulse Resp BP Pulse Ox 08/24/23 15:39 98.2 F 85 15 117/78 94 08/24/23 11:29 97.9 F 87 17 110/70 92 08/24/23 08:00 80 08/24/23 08:00 08/24/23 07:11 97.5 F L 97 H 16 150/88 H 94 O2 Del Method 08/24/23 15:39 Room Air 08/24/23 11:29 Room Air 08/24/23 08:00 08/24/23 08:00 Room Air 08/24/23 07:11 Room Air Laboratory Results reviewed cbc reviewed chemistry reviewed iron reviewed all meds and orders for transfer to less acute level of care PG Care Time/CCT Total # of Minutes Spent Total Time Spent with Patient: Total time spent is greater than 50% in coordination of care (as documented) at patient's floor/unit and/or counseling patient: Coding Level of Care Code 88129 SUB INP/OBS CARE 2/35MIN Diagnoses Hematuria R31.9 Parkinson disease G20 Coronary artery disease I25.10 GERD (gastroesophageal reflux disease) K21.9 Restless leg syndrome G25.81
[2023-08-25 09:08] LABS: Hematocrit (blood only) 32.3 % (42.0-52.0); Hemoglobin 9.9 g/dl (14.0-18.0); Mean Corpuscular Hemoglobin 29.7 pg (25.0-34.0); Mean Corpuscular Hgb Conc 30.7 g/dL (32.0-36.0); Mean Platelet Volume 9.5 fL (9.4-12.4); Platelet Count 320 K/uL (130-400); RDW Standard Deviation 49.9 fL (36.4-46.3); Red Blood Count 3.33 M/uL (4.70-6.10); White Blood Count 8.11 K/ul (4.8-10.8)
[2023-08-25 09:26] LABS: BUN Creatinine Ratio 17.4 (10-20); Calcium 8.7 mg/dl (8.6-10.3); Creatinine Clr Calc Pharmacy 111.7 ml/min; Est GFR (African American) 105.4 ml/min; Est GFR (Non-African American) 90.9 ml/min; Potassium 3.8 mmol/L (3.5-5.1)
--- NOTE | 2023-08-25 13:39 | Hospitalist Progress Note ---
Date of Service August 25, 2023 Assessment & Plan (1) Hematuria: Plan: 78yo male presenting with recent placement of auguste catheter , presents with gross hematuria and catheter obstruction. He is tachycardic. acute blood loss anemia,m No anti-platelet agents or blood thinners listed on medication list Started on CBI after manual clot extraction from urology, hematuria has lessened, cbi is now discontinued Urine culture shows less than thousand colonies however gross hematuria greatly improved while on Ceftriaxone will complete a 1 week course or convert to oral equivalent since hematuria returned will reculture but this now maybe more a mechanical issue from auguste irritation, will remove Auguste and follow -Acetaminophen for pain control -Morphine PRN pain control dysuria, will try Pyridium and for bladder spasm will try hs Ditropan Hematuria due to indwelling Auguste catheter, a complication of care (2) Parkinson disease: Plan: Patient with Parkinson's disease with underlying dementia. He is oriented x 3 at present, answering questions appropriately with occasional episodes of confusion -Continue Carbidopa/Levodopa -Continues on Namenda -Patient desires to return to rehab to continue to work on his mobility (3) Coronary artery disease: Plan: Chronic. continues to be Stable -Continue Atorvastatin -Does not have Metoprolol or ASA on his medication list at present blood pressure may limit b blockers (4) GERD (gastroesophageal reflux disease): Plan: Chronic. Remains stable -Continue Protonix (5) Restless leg syndrome: Plan: Chronic. remains Stable -Continue Ropinirole Plan dvt SCD's chemoprophylaxis contraindicated at this time begin search for rehab placement Admission and Anticipated Discharge Date Admission Date: August 22, 2023 Subjective Patient awake alert appropriate. disappointed in recurrence of hematuria however it is much more slight Urology endorses removal of the catheter, will see if can urinate without No evidence of clots. will bladder scan for urinary retention by bladder scan Physical Exam Physical Exam: Abdominal examination is NABS soft he is only mildly tender in the suprapubic area. Extremities are without edema gross hematuria persists Results & Data Results & Data Vital Signs (Past 12 Hours) Vital Signs Temp Pulse Resp BP Pulse Ox O2 Del Method 08/25/23 06:53 98.2 F 78 16 148/80 H 96 Room Air Laboratory Results review cbc reviewed chemistry PG Care Time/CCT Total # of Minutes Spent Total Time Spent with Patient: Total time spent is greater than 50% in coordination of care (as documented) at patient's floor/unit and/or counseling patient: Coding Level of Care Code 09215 SUB INP/OBS CARE 235MIN Diagnoses Hematuria R31.9 Parkinson disease G20 Coronary artery disease I25.10 GERD (gastroesophageal reflux disease) K21.9 Restless leg syndrome G25.81
[2023-08-26 06:52] VITALS: RESP 16
[2023-08-26 07:38] LABS: Hematocrit (blood only) 28.5 % (42.0-52.0); Hemoglobin 9.2 g/dl (14.0-18.0); Mean Corpuscular Hemoglobin 30.6 pg (25.0-34.0); Mean Corpuscular Hgb Conc 32.3 g/dL (32.0-36.0); Mean Corpuscular Volume 94.7 fL (80.0-100.0); Mean Platelet Volume 8.9 fL (9.4-12.4); Platelet Count 339 K/uL (130-400); RDW Coefficient of Variation 14.2 % (11.5-14.5); Red Blood Count 3.01 M/uL (4.70-6.10)
[2023-08-26 07:58] LABS: BUN Creatinine Ratio 18.6 (10-20); Calcium 8.7 mg/dl (8.6-10.3); Creatinine Clr Calc Pharmacy 110.1 ml/min; Est GFR (African American) 104.8 ml/min; Est GFR (Non-African American) 90.4 ml/min; Potassium 3.9 mmol/L (3.5-5.1)
[2023-08-26] MEDS: TAMSULOSIN HCL 0.4 MG CAP PO ONE (08:04)
--- NOTE | 2023-08-26 09:29 | Urology Progress Note ---
Date of Service August 26, 2023 Assessment & Plan (1) Hematuria: Plan: Follow-up of hematuria and urinary retention. Afebrile, hemodynamically stable. Labs - No leukocytosis and normal renal function. Urine culture 08/21 and 08/24 negative. Continues on Ceftriaxone. Jackson catheter removed yesterday 08/25 for void trial. He is voiding spontaneously, reports urinary frequency. Bladder scanned for volumes 211-349ml. Pt denies hematuria today. Pt prefers to avoid catheter replacement. Recommend continued monitoring of ability to void and post void residuals. Can consider Jackson catheter replacement for PVRs >400ml or signs/symptoms of retention. Encourage double voiding. Consider addition of tamsulosin. Continue supportive care and medical management per hospital medicine. Patient will need outpatient hematuria workup once he is discharged from the hospital. will follow peripherally. Admission and Anticipated Discharge Date Admission Date: August 22, 2023 Subjective Patient seen and examined this morning Sitting on bedside chair on arrival No acute distress Jackson catheter removed yesterday for void trial Has been voiding spontaneously, reports urinary frequency Bladder scanned for volumes 211-349ml Reports some dysuria Denies hematuria but reports urine is dark Denies abdominal, flank, or suprapubic pain Denies f/c/n/v Review of Systems Constitutional: as per Subjective / HPI Genitourinary: + as per Subjective / HPI Physical Exam Constitutional: no acute distress Respiratory: no respiratory distress and no labored breathing Gastrointestinal (Abdomen): Percussion/Palpation: abdomen soft; abdomen nontender Neurologic: awake Psychiatric: Orientation: alert and cooperative Results & Data Vital Signs (Past 12 Hours) Vital Signs Temp Pulse Resp BP Pulse Ox O2 Del Method 08/26/23 06:51 36.5 C 79 16 110/70 93 Room Air 08/25/23 22:02 Room Air PG Care Time/CCT Total # of Minutes Spent Total Time Spent with Patient: Total time spent is greater than 50% in coordination of care (as documented) at patient's floor/unit and/or counseling patient: Coding Level of Care Code 68832 SUB INP/OBS CARE 2/35MIN Diagnoses Hematuria R31.9
[2023-08-26] MEDS: ZONISAMIDE 25 MG PO SCH (15:26)
--- NOTE | 2023-08-26 17:23 | Hospitalist Progress Note ---
Date of Service August 26, 2023 Assessment & Plan (1) Hematuria: Plan: 78yo male presenting with recent placement of auguste catheter , presents with gross hematuria and catheter obstruction. He is tachycardic. acute blood loss anemia,m No anti-platelet agents or blood thinners listed on medication list Started on CBI after manual clot extraction from urology, hematuria has lessened, cbi is now discontinued Urine culture shows less than thousand colonies however gross hematuria greatly improved while on Ceftriaxone will complete a 1 week course or convert to oral equivalent since hematuria returned will reculture but this now maybe more a mechanical issue from auguste irritation, will remove Auguste and follow -Acetaminophen for pain control dysuria, resolved with removal of auguste, will start Flomax to help with urination Hematuria due to indwelling Auguste catheter, a complication of care (2) Parkinson disease: Plan: Patient with Parkinson's disease with underlying dementia. He is oriented x 3 at present, answering questions appropriately with occasional episodes of confusion -Continue Carbidopa/Levodopa -Continues on Namenda -Patient desires to return to rehab to continue to work on his mobility (3) Coronary artery disease: Plan: Chronic. continues to be Stable -Continue Atorvastatin -Does not have Metoprolol or ASA on his medication list at present blood pressure may limit b blockers (4) GERD (gastroesophageal reflux disease): Plan: Chronic. Remains stable -Continue Protonix (5) Restless leg syndrome: Plan: Chronic. remains Stable -Continue Ropinirole Plan dvt SCD's chemoprophylaxis contraindicated at this time begin search for rehab placement Admission and Anticipated Discharge Date Admission Date: August 22, 2023 Subjective pt having issues with urination but able to urinate without catheter Physical Exam Physical Exam: Abdominal examination is NABS soft Extremities are without edema no signs of hematuria at this time Results & Data Results & Data Vital Signs (Past 12 Hours) Vital Signs Temp Pulse Resp BP Pulse Ox O2 Del Method 08/26/23 14:40 97.5 F L 88 16 119/75 91 Room Air 08/26/23 06:51 97.7 F 79 16 110/70 93 Room Air Laboratory Results review cbc review chemistry PG Care Time/CCT Total # of Minutes Spent Total Time Spent with Patient: Total time spent is greater than 50% in coordination of care (as documented) at patient's floor/unit and/or counseling patient: Coding Level of Care Code 07937 SUB INP/OBS CARE MIN Diagnoses Hematuria R31.9 Parkinson disease G20 Coronary artery disease I25.10 GERD (gastroesophageal reflux disease) K21.9 Restless leg syndrome G25.81
[2023-08-26] MEDS: TAMSULOSIN HCL 0.4 MG CAP PO SCH (20:48)
[2023-08-27 07:07] LABS: Hematocrit (blood only) 28.4 % (42.0-52.0); Hemoglobin 9.3 g/dl (14.0-18.0); Mean Corpuscular Hemoglobin 30.6 pg (25.0-34.0); Mean Corpuscular Hgb Conc 32.7 g/dL (32.0-36.0); Mean Corpuscular Volume 93.4 fL (80.0-100.0); Mean Platelet Volume 9.1 fL (9.4-12.4); Platelet Count 365 K/uL (130-400); RDW Standard Deviation 47.8 fL (36.4-46.3); Red Blood Count 3.04 M/uL (4.70-6.10); White Blood Count 6.87 K/ul (4.8-10.8)
[2023-08-27 07:10] VITALS: PULSE 93; TEMP 98.1; O2SAT 95
[2023-08-27 07:25] LABS: BUN Creatinine Ratio 22.7 (10-20); Calcium 8.9 mg/dl (8.6-10.3); Creatinine Clr Calc Pharmacy 102.8 ml/min; Est GFR (African American) 101.8 ml/min; Est GFR (Non-African American) 87.9 ml/min; Potassium 4.1 mmol/L (3.5-5.1)
--- NOTE | 2023-08-27 12:00 | Urology Progress Note ---
Date of Service August 27, 2023 Assessment & Plan (1) Hematuria: Plan: Follow-up of hematuria and urinary retention. Afebrile, hemodynamically stable. Labs - No leukocytosis and normal renal function. Hemoglobin 9.3. Urine culture 08/21 and 08/24 negative. Voiding spontaneously following Jackson catheter removal on 08/25/2023. Patient denies hematuria. Continue to monitor ability to void and post void residuals. Continue tamsulosin. Continue supportive care and medical management per hospital medicine. Patient will need outpatient hematuria workup once he is discharged from the hospital. We discussed outpatient cystoscopy to complete hematuria workup, he is agreeable to proceeding. will follow peripherally. Please call with any further questions or concerns. Admission and Anticipated Discharge Date Admission Date: August 22, 2023 Subjective Patient seen and examined this morning Awake, resting in bed on arrival No acute distress at bedside Voiding spontaneously Denies hematuria Reports some dysuria Denies abdominal, flank, or suprapubic pain Denies f/c/n/v Review of Systems Constitutional: as per Subjective / HPI Gastrointestinal: as per Subjective / HPI Genitourinary: + as per Subjective / HPI Physical Exam Constitutional: no acute distress Respiratory: no respiratory distress and no labored breathing Gastrointestinal (Abdomen): Percussion/Palpation: abdomen soft; abdomen nont gil Neurologic: awake Psychiatric: Orientation: alert and cooperative Results & Data Vital Signs (Past 12 Hours) Vital Signs Temp Pulse Resp BP Pulse Ox O2 Del Method 08/27/23 07:09 36.7 C 93 H 16 118/81 95 Room Air PG Care Time/CCT Total # of Minutes Spent Total Time Spent with Patient: Total time spent is greater than 50% in coordination of care (as documented) at patient's floor/unit and/or counseling patient: Coding Level of Care Code 72072 SUB INP/OBS CARE 2/35MIN Diagnoses Hematuria R31.9
[2023-08-27 14:18] VITALS: BP 146/87
--- NOTE | 2023-08-27 17:44 | Discharge Summary ---
Date of Service August 27, 2023 Admission HPI Per Admitting Provider 78yo male with history of GUME, CAD, DM and PAF not on anticoagulation presenting from [facility] with hematuria and diaphoresis. Patient reports intermittent hematuria over the last 2-3 days. Earlier today jackeline greene with continuous gross hematuria. Had a Auguste placed at [facility] but had dysuria and requested that the Auguste be removed. He was sent to the ER for further management. Bladder scan performed in the ER with >500mL of urine. Auguste was placed with 300mL of bloody output with minimal clot passage then the Auguste stopped draining. The catheter was manually irrigated and ultimately exchanged for a larger size. Clots were removed. Minimal drainage so continuous bladder irrigation was initiated. Patient had some drainage of bloody urine with minimal clots then the drainage stopped. CBI was placed on hold and the Auguste was again manually irrigated - unable to aspirate urine from ports. Patient is in moderate distress from bladder discomfort. Otherwise no acute complaints. He denies fever, chills, cough, CP, SOB. Denies nausea, vomiting, diarrhea. Er Course: Fentanyl 50mcg IV x 2 Tylenol 1gm IV Lidocaine topical NSS x 1L Ativan 0.5mg V Morphine 1mg IV Patient seen at [facility] on 07/26/23 after falling down a flight of carpeted stairs. He was found to have and unstable thoracic spine fracture through T7-T8 disc space involving the inferior and superior endplates with paravertebral hematoma as well as rib fractures and distal radius and ulna fractures of right wrist. Patient was transferred to [facility] and went to the OR on 07/28/23 wtih T5-T10 fusion and reduction of T8-T9 fractures. He returned to the OR on 07/29/23 for ORIF of the right wrist. He was transferred to [facility] on 08/01/23. He is to continue TLSO brace when out of bed. Brace to right wrist as well Principal Diagnosis hematuria resolved pre admission thoracic and rib fractures parkinsons disease Discharge Exam pt has improved, still with poor physical activity, recommending rehab cardiac is regular lungs are unlabored Discharge Data Allergies Allergy/AdvReac Type Severity Reaction Status Date / Time No Known Allergies Allergy Verified 08/21/23 21:29 Consultations 08/22/23 02:50 Consult Urology Routine Ordered Studies 08/21/23 20:47 CT abd pelvis IV con only Stat Hospital Course (1) Hematuria: 78yo male presenting with recent placement of auguste catheter , presents with gross hematuria and catheter obstruction. He is tachycardic. acute blood loss anemia,m No anti-platelet agents or blood thinners listed on medication list Started on CBI after manual clot extraction from urology, hematuria has lessened, cbi is now discontinued Urine culture shows less than thousand colonies however gross hematuria greatly improved while on Ceftriaxone will complete a 1 week course or convert to oral equivalent since hematuria returned will reculture but this now maybe more a mechanical issue from auguste irritation, will remove Augutse and follow -Acetaminophen for pain control dysuria, resolved with removal of auguste, started Flomax to help with urination Hematuria due to indwelling Auguste catheter, a complication of care (2) Parkinson disease: Patient with Parkinson's disease with underlying dementia. He is oriented x 3 at present, answering questions appropriately with occasional episodes of confusion -Continue Carbidopa/Levodopa -Continues on Namenda - return to rehab (3) Coronary artery disease: Chronic. continues to be Stable -Continue Atorvastatin -Does not have Metoprolol or ASA on his medication list at present blood pressure may limit b blockers (4) GERD (gastroesophageal reflux disease): Chronic. Remains stable -Continue Protonix (5) Restless leg syndrome: Chronic. remains Stable -Continue Ropinirole Plan dvt SCD's chemoprophylaxis contraindicated Total Time Total Time Spent Total Time Spent (In Minutes): It required greater than 30 minutes to prepare this patient for discharge. Discharge Plan Discharge Items Patient Disposition: Transfer Inpatient Rehab Fac Reason For Visit: HEMATURIA Discharge Diagnosis: hematuria, resolve thoracic vertebral fx t7, spinous process fracture T4,5,6 left rib fracture 7,8 right distal radial and ulnar fracture Activity: Per Instructions section Activity Comment: per instructions at rehab Non-emergency contact: Primary Care Provider Call non-emergency contact if: your symptoms worsen Follow-up/Referrals: Keshia Matias MD [Primary Care Provider] - Diet: Regular Addtl Attending Provider Instructions: please continue rehab, use Flomax for urine flow Pending Studies at Discharge: No Stand-Alone Forms: My [facility] Skilled Items Patient informed of condition?: Yes DNR: No Discharge Level of Care: Other Communicable Disease: No Discharge Prognosis: Stable Lines: None Urinary Catheter: No Medications and DC Order Prescriptions: New tamsulosin 0.4 mg Capsule 0.4 mg PO HS Qty: 30 0RF Continued carbidopa-levodopa 25-100 mg tablet 2 tab PO TID 90 Days Qty: 540 1RF zonisamide [Zonegran] 25 mg capsule 25 mg PO BID 90 Days Qty: 180 1RF memantine 10 mg tablet 10 mg PO BID 90 Days Qty: 180 1RF cyanocobalamin (vitamin B-12) 1,000 mcg Tablet 1,000 mcg PO QAM mirabegron 25 mg Tablet Extended Release 24 Hr 25 mg PO DAILY polyethylene glycol 3350 17 gram/dose Powder 17 g PO QDL PRN (Reason: Constipation) hydralazine 10 mg Tablet 10 mg PO Q4H PRN (Reason: NEEDED PER MED LIST) sennosides [senna] 8.6 mg Tablet 17.2 mg PO HS sennosides [Senokot] 8.6 mg Tablet 8.6 mg PO QDL PRN (Reason: Constipation) atorvastatin 10 mg Tablet 10 mg PO DAILY ondansetron HCl 4 mg Tablet 4 mg PO Q4H PRN (Reason: NAUSEA/VOMITING) melatonin 3 mg Tablet 3 mg PO HS PRN (Reason: Sleep) zinc oxide 20 % Ointment 1 applic TOPICAL BID acetaminophen [Tylenol Extra Strength] 500 mg Tablet 1,000 mg PO Q8H PRN (Reason: Pain) magnesium hydroxide [Milk of Magnesia] 400 mg/5 mL Suspension 30 ml PO HS pantoprazole 40 mg Tablet,Delayed Release (Dr/Ec) 40 mg PO DAILYBB docusate sodium 100 mg Capsule 100 mg PO BID sertraline 25 mg Tablet 25 mg PO DAILY oxycodone 5 mg Tablet 2.5 mg PO Q4H PRN (Reason: Pain (Scale Score 4-6)) cholecalciferol (vitamin D3) [Vitamin D3] 50 mcg (2,000 unit) Capsule 50 mcg PO DAILY Refresh P.M. 57.3-42.5 % Ointment 1 applic OPHTHALMIC (EYE) QID PRN (Reason: Dry Eyes) naloxone 4 mg/actuation [place],Non-Aerosol 4 mg INTRANASAL DIRECTED PRN (Reason: Opioid Overdose) ropinirole 0.25 mg tablet 0.25 mg PO QPM Rx Instructions: 0.25 mg orally take one tab 2 hours before bedtime; Discharge Orders: Discharge Order (Routine); Ordered 08/27/23 Ordered By: Ananth Carbone Admission Data Admit Date/Time: 08/22/23 02:50 Attending Provider: Ananth Carbone Admit Provider: Sheyla Short Primary Care Provider: Keshia Matias Other Providers: [facility]; [facility]; Alex Lee Coding Level of Care Code 37100 INP/OBS DISCH >30 MIN Diagnoses Hematuria R31.9 Parkinson disease G20 Coronary artery disease I25.10 GERD (gastroesophageal reflux disease) K21.9 Restless leg syndrome G25.81
== END 2023-08-27 14:20 | DRG 699 ==
LOC: ED 20:29 → EDINP 08-22 02:50 → SUATTDRO 08-22 02:50 → 1E 08-22 04:02 → 2S 08-22 16:38 → 3N 08-24 20:38

== ENCOUNTER 2024-09-04 13:04 | Inpatient (IN) ==
--- NOTE | 2024-09-04 13:19 | Emergency Department Note ---
Impression & Plan Acute hypoxemic respiratory failure, Influenza A, Acute dehydration, Sepsis ED Provider Note NAME: ALAN BONE AGE: 79 SEX: M : 1945 ARRIVES VIA: Ambulance INFORMANT: EMS report, prior records, Dr. Wadsworth ED PROVIDER(S): Zack Damon MD CHIEF COMPLAINT: Altered mental status, hypotension MEDICAL DECISION MAKING: Patient presents with the above. The patient was able to open eyes finger count as well as move all 4 extremities and follow commands. The patient was stating that he was not feeling well. IV was established and blood work is obtained along with VBG. Empiric antibiotics ordered along with a MRSA swab BioFire ammonia and CT of the head in light of the patient's recent TBI. Bedside [id number] ultrasound was performed which appears to reasonable squeeze of the left ventricle no obvious pericardial effusion. B-lines noted consistent with some edema within not this is related to CHF postacute related to respiratory cause in light of the patient's symptoms. I did speak with Dr. Wadsworth at [facility] who stated that the patient was doing quite well yesterday and had normal blood work but he seemed to have a decline today. The patient was able to follow basic commands. Patient did have improvement in blood pressure. The patient tolerated the BiPAP fairly well. The patient has a normal white count hemoglobin of 12.7 with a normal platelet count. Kidney function unremarkable. Mild hyponatremia at 135. Pneumonia is low. Patient's BioFire was still pending. Patient's urinalysis does not show evidence of obvious infection but the patient was actively being treated for E. coli associated UTI while at [facility]. Patient's initial VBG with mild acidosis and hypercarbia with pCO2 of 56 and VBG pH of 7.26. Patient's lactate was normal. The patient was given successive 500 cc boluses x 4 for total of 2 L which she tolerated well. Patient's bicarb is normal. CT head without any acute findings. Chest x-ray without obvious pneumonia. Patient eventually was notably positive for influenza A. I did speak with the on-call hospitalist service and did speak with Dr. Rene Gay and the patient was admitted to the medicine service. Of note after the patient was admitted/seen by hospitalist service and was pending a PCU bed the patient was noted to be hypotensive 70s over 50s. The patient was tolerating being off BiPAP at this point as instructed by the hospitalist service tolerating 6 L. Patient evaluated by myself and discussed w/ nursing for additional IVF as patient may still be volume down. HR normal. Patient was ordered additional 500 of IV fluids. Patient did have improvement in blood pressure from 70s over 50s to 91/69. Patient did have a subsequent repeat blood pressure with improvement to 99/64. I did convey the improvement to the Dr. Paige who agreed with current management plan of care. Critical Care: I have personally spent 125 minutes of critical care time in direct management of this patient. This includes bedside care, interpretation of diagnostic studies, and testing, discussion with consultants, patient, and family members, and other require inpatient management activities. This 125 minutes is in excess of all separately billable procedures. Procedures: Limited Point of Care Cardiac Ultrasound performed by me: Indication: Hypotension/hypoxia Findings: Limited echocardiography revealed no pericardial fluid. The ventricular EF appears to be grossly normal. Irregularly irregular heart rate in the 80s. B-lines noted more prominently in the left chest. Impression: No obvious pericardial effusion. Discussion w/ other healthcare providers: Dr. Wadsworth at [facility] Dr. Wells our inpatient medicine service Prior /Outside records reviewed: I did review some of the patient's prior records from [facility] which noted the patient had been admitted for TBI with associated hemorrhage concussion and dysphagia. Patient was also being treated for E. coli cystitis. Differential diagnosis: Infection, dehydration, metabolic abnormality, hypo/hyperglycemia, electrolyte imbalance, anemia, UTI, pneumonia, thyroid dysfunction among others were considered. Diagnostics, as interpreted by me: ECG: A-fib, rate of 89, normal QRS duration, normal axis no obvious STEMI. Cardiac monitoring: An order was placed for continuous cardiac monitoring. The monitor shows a rate of 89 with irregular irregular rhythm. Patient was placed on pulse oximetry Medical decision rules: None Imaging studies: I informally interpreted the patient's chest x-ray does not show obvious pneumonia or pulmonary edema with formal report to follow. HPI: Patient presents due to concern for altered mental status. I did receive a command call and their call out was for altered mental status typically the patient is awake alert and talking. Patient did have a temp of 100 blood pressure was in the 50s at the facility and was not responsive to verbal stimuli but respond to painful stimuli. Patient is currently at [facility] due to concerns for TBI and prior head bleed. Review of the medical records the patient did have a fall while he was on thinners back on July 30 and essentially had a multiple brain bleeds and hematoma in the left parietal region. Patient was subsequently transferred to [facility]. No surgical intervention at that time patient did have change in mentation a stroke alert was called neurology was consulted MRI of the brain at that time was negative for stroke. The patient was noted to have some dysphagia and a PEG tube was placed on August 17. Patient reportedly was more lethargic today per prior notes and did not sleep well last night. Patient was noted to be profoundly hypotensive and was to receive some fluids. EMS reports that the BSG was 94. EMS did report that he had increasing responsiveness by the time of arrival and was associated with an improvement in his blood pressure. Patient was noted based on admission diagnoses to have TBI closed fracture of the parietal bone subdural hematoma subarachnoid hemorrhage and intraventricular hemorrhage. Also associated concussion and oropharyngeal dysphagia. Patient reportedly was also being treated for uncomplicated cystitis which grew out E. coli sensitive to cephalosporins and was getting short course of cefdinir but Zosyn was started today. PAST MEDICAL HISTORY: See Below PAST SURGICAL HISTORY: See Below SOCIAL HISTORY: See Below HOME MEDICATIONS: See Below ALLERGIES: See Below VITALS: See Below PHYSICAL EXAMINATION: GENERAL: Moderate distress, oxygen in place. EYE EXAM: Normal conjunctiva. PERRL, no anisocoria and EOM's grossly intact w/o pain. OROPHARYNX: Dry mucus membranes, grossly normal dentition. NECK: Trachea midline, no stridor. Supple, no nuchal rigidity, no adenopathy, non-tender. No signs of meningismus. FROM of the neck with good chin to chest and neck extension. LUNGS: Coarse sounds throughout. Normal chest wall mechanics. HEART: Irregular irregular, no MRG. ABDOMEN: Abdomen soft, non-tender, no masses, no rebound or guarding. BACK: No CVA TTP. SKIN: No rashes and no bruising. UPPER EXTREMITIES: Upper extremities are grossly normal. LOWER EXTREMITIES: Grossly normal, mild pretibial edema without obvious asymmetry. NEURO EXAM: Opens eyes to voice, cranial nerves grossly intact no obvious facial droop, moves all 4 extremities to command. Past Med/Surg History Problem List (Updated 09/04/24 @ 18:18 by Zack Damon MD) Sepsis (Acute) Acute dehydration (Acute) Influenza A (Acute) Acute hypoxemic respiratory failure (Acute) DVT prophylaxis Influenza Unresponsive PAF (paroxysmal atrial fibrillation) Dysphagia Iron deficiency anemia Acute heart failure with preserved ejection fraction (HFpEF) Parkinsonism Memory loss Acute urinary retention (Acute) Hematuria (Acute) Hematuria Coronary artery disease Diabetes Atherogenic dyslipidemia COVID-19 virus infection (Acute) Transient alteration of awareness Fall (Acute) Contusion of head (Acute) Back pain (Acute) Closed rib fracture (Acute) History of colon polyps Left shoulder pain (Chronic) Hypokalemia (Chronic) Superficial thrombophlebitis of left leg (Chronic) Right leg injury (Chronic) Neck stiffness (Chronic) Neck pain (Chronic) Closed head injury (Chronic) Encounter for pre-operative examination (Chronic) Leg length discrepancy (Chronic) Hypotension (Chronic) Restless leg syndrome Myofascial pain Spinal stenosis of lumbar region (Chronic) Bilateral sacroiliitis (Chronic) History of RI (myocardial infarction) (Chronic) 1994 Cardiac murmur (Chronic) A CHILD Hearing deficit (Chronic) [place] History of prostate cancer (Chronic) S/P CYBERKNIFE PROCEDURE History of osteoarthritis (Chronic) Chronic back pain (Chronic) Poor historian (Chronic) Medical History CHF (congestive heart failure) Seizure-like activity GERD (gastroesophageal reflux disease) Parkinson disease Sleep apnea CPAP Transient ischemic attack (TIA) possible ~2007. Diverticulosis Surgical History S/P epidural steroid injection History of repair of rotator cuff bilateral S/P left cataract extraction History of right cataract surgery 01/12/19: was given 2mg of IV versed History of prostate biopsy History of colonoscopy Family History Father Family history of diabetes mellitus Brother Family history of diabetes mellitus Social History Smoking Status: Never smoker Tobacco Type: Cigarettes Cigarettes Per Day: 1; Second Hand Exposure: No; Do You Dip or Chew Tobacco: No; Hx Alcohol Use: Yes Alcohol type: hard liquor Hx Substance Use: No Preferred Language: [place] Communication Ability: Effective Visual Impairment: No Limitations Hearing Ability: Hard of Hearing Human Resource Consultant Required: No Beliefs That Will Affect Care: None marital status: Current Living Situation: Spouse Current Living Situation Comment: 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 Feels Safe at Home: Yes Assistive Devices: Cane and Walker Allergies Allergies Allergy/AdvReac Type Severity Reaction Status Date / Time No Known Allergies Allergy Verified 07/06/24 13:27 Home Meds Home Medications Medication Instructions Recorded Confirmed cyanocobalamin (vitamin B-12) 1,000 mcg feeding tube QAM 12/19/18 09/04/24 1,000 mcg tablet cholecalciferol (vitamin D3) 50 50 mcg feeding tube DAILY 08/21/23 09/04/24 mcg (2,000 unit) capsule (Vitamin D3) furosemide 40 mg tablet 40 mg feeding tube DAILY 03/31/24 09/04/24 acetaminophen 650 mg/20.3 mL oral 650 mg PO Q6 09/04/24 09/04/24 solution atorvastatin 40 mg tablet 40 mg feeding tube HS 09/04/24 09/04/24 bacitracin 500 unit/gram topical 1 applic topical BID 09/04/24 09/04/24 ointment carbidopa 25 mg-levodopa 100 mg 2 tab feeding tube Q8 09/04/24 09/04/24 tablet empagliflozin 25 mg tablet 12.5 mg feeding tube QAM 09/04/24 09/04/24 enoxaparin 40 mg/0.4 mL 40 mg subcut BID 09/04/24 09/04/24 subcutaneous syringe finasteride 5 mg tablet 5 mg feeding tube DAILY 09/04/24 09/04/24 gabapentin 300 mg capsule 300 mg PO BID 09/04/24 09/04/24 lansoprazole 15 mg delayed 30 mg feeding tube DAILYBB 09/04/24 09/04/24 release,disintegrating tablet lisinopril 5 mg tablet 5 mg feeding tube DAILY 09/04/24 09/04/24 melatonin 3 mg tablet 9 mg feeding tube HS 09/04/24 09/04/24 memantine 10 mg tablet 10 mg PO Q12 09/04/24 09/04/24 piperacillin-tazobactam 3.375 gram 3.375 g IV Q6H 09/04/24 09/04/24 intravenous solution quetiapine 25 mg tablet 12.5 mg feeding tube Q12 09/04/24 09/04/24 ropinirole 2 mg tablet 2 mg feeding tube HS 09/04/24 09/04/24 sertraline 25 mg tablet 25 mg feeding tube DAILY 09/04/24 09/04/24 zonisamide 25 mg capsule 25 mg PO Q12 09/04/24 09/04/24 Results & Data (ED) Vital Signs Vital Signs - 24 hr 09/04/24 13:19 09/04/24 13:31 09/04/24 13:33 Temperature 36.7 C Temperature Source Oral Pulse Rate 97 H 90 Pulse Rate [Left] Pulse Rate from SpO2 Sensor Respiratory Rate 21 20 Respiratory Effort / Characteristics Spontaneous Respiratory Depth Normal Respiratory Pattern Regular Blood Pressure 79/53 L 79/53 L Blood Pressure [Right Arm] Blood Pressure Mean 61 61 Blood Pressure Mean [Right Arm] Blood Pressure Position [Right Arm] Pulse Oximetry 94 97 Oxygen Delivery Method BiPAP Fraction of Inspired Oxygen 50 Sepsis Recent Fever Within 48 Hours No Sepsis New/Unexplained Change in Mental Status No Sepsis Action Taken by Nursing No Action Required 09/04/24 13:39 09/04/24 13:41 09/04/24 13:50 Temperature Temperature Source Pulse Rate 89 88 Pulse Rate [Left] Pulse Rate from SpO2 Sensor Respiratory Rate 20 Respiratory Effort / Characteristics Respiratory Depth Respiratory Pattern Blood Pressure 85/62 L Blood Pressure [Right Arm] Blood Pressure Mean 70 Blood Pressure Mean [Right Arm] Blood Pressure Position [Right Arm] Pulse Oximetry 100 Oxygen Delivery Method Fraction of Inspired Oxygen 40 Sepsis Recent Fever Within 48 Hours Sepsis New/Unexplained Change in Mental Status Sepsis Action Taken by Nursing 09/04/24 13:55 09/04/24 14:02 09/04/24 14:02 Temperature Temperature Source Pulse Rate Pulse Rate [Left] Pulse Rate from SpO2 Sensor Respiratory Rate Respiratory Effort / Characteristics Respiratory Depth Respiratory Pattern Blood Pressure 87/64 L 93/65 L 93/65 L Blood Pressure [Right Arm] Blood Pressure Mean 72 78 78 Blood Pressure Mean [Right Arm] Blood Pressure Position [Right Arm] Pulse Oximetry Oxygen Delivery Method Fraction of Inspired Oxygen Sepsis Recent Fever Within 48 Hours Sepsis New/Unexplained Change in Mental Status Sepsis Action Taken by Nursing 09/04/24 14:03 09/04/24 14:06 09/04/24 14:07 Temperature Temperature Source Pulse Rate 86 98 H Pulse Rate [Left] Pulse Rate from SpO2 Sensor 86 99 H Respiratory Rate 17 16 Respiratory Effort / Characteristics Respiratory Depth Respiratory Pattern Blood Pressure 120/86 Blood Pressure [Right Arm] Blood Pressure Mean 96 Blood Pressure Mean [Right Arm] Blood Pressure Position [Right Arm] Pulse Oximetry 95 97 Oxygen Delivery Method BiPAP BiPAP Fraction of Inspired Oxygen 40 40 Sepsis Recent Fever Within 48 Hours Sepsis New/Unexplained Change in Mental Status Sepsis Action Taken by Nursing 09/04/24 14:07 09/04/24 14:08 09/04/24 14:09 Temperature Temperature Source Pulse Rate 87 Pulse Rate [Left] 91 H Pulse Rate from SpO2 Sensor 89 Respiratory Rate 20 21 Respiratory Effort / Characteristics Non-Labored Spontaneous Respiratory Depth Respiratory Pattern Blood Pressure 120/86 Blood Pressure [Right Arm] Blood Pressure Mean 96 Blood Pressure Mean [Right Arm] Blood Pressure Position [Right Arm] Pulse Oximetry 100 96 Oxygen Delivery Method BiPAP BiPAP Fraction of Inspired Oxygen 40 40 Sepsis Recent Fever Within 48 Hours Sepsis New/Unexplained Change in Mental Status Sepsis Action Taken by Nursing 09/04/24 14:11 09/04/24 14:12 09/04/24 14:15 Temperature Temperature Source Pulse Rate 89 Pulse Rate [Left] Pulse Rate from SpO2 Sensor 89 Respiratory Rate 19 Respiratory Effort / Characteristics Respiratory Depth Respiratory Pattern Blood Pressure 111/74 Blood Pressure [Right Arm] Blood Pressure Mean 84 Blood Pressure Mean [Right Arm] Blood Pressure Position [Right Arm] Pulse Oximetry 98 97 Oxygen Delivery Method BiPAP BiPAP Fraction of Inspired Oxygen 40 Sepsis Recent Fever Within 48 Hours Sepsis New/Unexplained Change in Mental Status Sepsis Action Taken by Nursing 09/04/24 14:18 09/04/24 14:20 09/04/24 14:21 Temperature 37.7 C H 37.8 C H Temperature Source Pulse Rate 91 H 86 Pulse Rate [Left] Pulse Rate from SpO2 Sensor 89 89 Respiratory Rate 18 21 Respiratory Effort / Characteristics Respiratory Depth Respiratory Pattern Blood Pressure 95/65 L Blood Pressure [Right Arm] Blood Pressure Mean 77 Blood Pressure Mean [Right Arm] Blood Pressure Position [Right Arm] Pulse Oximetry 98 100 Oxygen Delivery Method BiPAP BiPAP Fraction of Inspired Oxygen 40 40 Sepsis Recent Fever Within 48 Hours Sepsis New/Unexplained Change in Mental Status Sepsis Action Taken by Nursing 09/04/24 14:25 09/04/24 14:27 09/04/24 14:30 Temperature 37.9 C H Temperature Source Pulse Rate 94 H Pulse Rate [Left] Pulse Rate from SpO2 Sensor 96 H Respiratory Rate 22 Respiratory Effort / Characteristics Respiratory Depth Respiratory Pattern Blood Pressure 104/75 111/74 Blood Pressure [Right Arm] Blood Pressure Mean 92 82 Blood Pressure Mean [Right Arm] Blood Pressure Position [Right Arm] Pulse Oximetry 100 Oxygen Delivery Method BiPAP Fraction of Inspired Oxygen 40 Sepsis Recent Fever Within 48 Hours Sepsis New/Unexplained Change in Mental Status Sepsis Action Taken by Nursing 09/04/24 14:35 09/04/24 14:36 09/04/24 14:39 Temperature 37.8 C H 37.8 C H Temperature Source Pulse Rate 94 H 99 H Pulse Rate [Left] Pulse Rate from SpO2 Sensor 91 H 91 H Respiratory Rate 25 H 22 Respiratory Effort / Characteristics Respiratory Depth Respiratory Pattern Blood Pressure 99/69 L Blood Pressure [Right Arm] Blood Pressure Mean 76 Blood Pressure Mean [Right Arm] Blood Pressure Position [Right Arm] Pulse Oximetry 98 100 Oxygen Delivery Method BiPAP BiPAP Fraction of Inspired Oxygen 40 40 Sepsis Recent Fever Within 48 Hours Sepsis New/Unexplained Change in Mental Status Sepsis Action Taken by Nursing 09/04/24 14:40 09/04/24 14:40 09/04/24 14:45 Temperature 37.8 C H Temperature Source Pulse Rate 91 H Pulse Rate [Left] Pulse Rate from SpO2 Sensor 95 H Respiratory Rate 19 Respiratory Effort / Characteristics Respiratory Depth Respiratory Pattern Blood Pressure 105/65 105/65 Blood Pressure [Right Arm] Blood Pressure Mean 78 78 Blood Pressure Mean [Right Arm] Blood Pressure Position [Right Arm] Pulse Oximetry 100 Oxygen Delivery Method BiPAP Fraction of Inspired Oxygen 40 Sepsis Recent Fever Within 48 Hours Sepsis New/Unexplained Change in Mental Status Sepsis Action Taken by Nursing 09/04/24 14:45 09/04/24 14:45 09/04/24 14:50 Temperature Temperature Source Pulse Rate Pulse Rate [Left] Pulse Rate from SpO2 Sensor Respiratory Rate Respiratory Effort / Characteristics Respiratory Depth Respiratory Pattern Blood Pressure 91/62 L 91/62 L 82/61 L Blood Pressure [Right Arm] Blood Pressure Mean 72 72 65 Blood Pressure Mean [Right Arm] Blood Pressure Position [Right Arm] Pulse Oximetry Oxygen Delivery Method Fraction of Inspired Oxygen Sepsis Recent Fever Within 48 Hours Sepsis New/Unexplained Change in Mental Status Sepsis Action Taken by Nursing 09/04/24 14:50 09/04/24 14:51 09/04/24 14:54 Temperature 37.7 C H 37.7 C H Temperature Source Pulse Rate 90 95 H Pulse Rate [Left] Pulse Rate from SpO2 Sensor 95 H 94 H Respiratory Rate 21 19 Respiratory Effort / Characteristics Respiratory Depth Respiratory Pattern Blood Pressure 82/61 L Blood Pressure [Right Arm] Blood Pressure Mean 65 Blood Pressure Mean [Right Arm] Blood Pressure Position [Right Arm] Pulse Oximetry 100 100 Oxygen Delivery Method BiPAP BiPAP Fraction of Inspired Oxygen 40 Sepsis Recent Fever Within 48 Hours Sepsis New/Unexplained Change in Mental Status Sepsis Action Taken by Nursing 09/04/24 14:55 09/04/24 14:58 09/04/24 15:00 Temperature Temperature Source Pulse Rate Pulse Rate [Left] Pulse Rate from SpO2 Sensor Respiratory Rate Respiratory Effort / Characteristics Respiratory Depth Respiratory Pattern Blood Pressure 83/58 L 77/56 L 85/65 L Blood Pressure [Right Arm] Blood Pressure Mean 68 66 71 Blood Pressure Mean [Right Arm] Blood Pressure Position [Right Arm] Pulse Oximetry Oxygen Delivery Method Fraction of Inspired Oxygen Sepsis Recent Fever Within 48 Hours Sepsis New/Unexplained Change in Mental Status Sepsis Action Taken by Nursing 09/04/24 15:00 09/04/24 15:07 09/04/24 15:15 Temperature 37.6 C H Temperature Source Pulse Rate 86 Pulse Rate [Left] Pulse Rate from SpO2 Sensor 88 Respiratory Rate 20 Respiratory Effort / Characteristics Respiratory Depth Respiratory Pattern Blood Pressure 72/46 L 99/71 L Blood Pressure [Right Arm] Blood Pressure Mean 50 79 Blood Pressure Mean [Right Arm] Blood Pressure Position [Right Arm] Pulse Oximetry 98 Oxygen Delivery Method BiPAP Fraction of Inspired Oxygen Sepsis Recent Fever Within 48 Hours Sepsis New/Unexplained Change in Mental Status Sepsis Action Taken by Nursing 09/04/24 15:18 09/04/24 15:34 09/04/24 15:36 Temperature 37.3 C 37.2 C Temperature Source Jackson Cath ( Temp Sensing) Pulse Rate 89 Pulse Rate [Left] 100 H Pulse Rate from SpO2 Sensor 91 H Respiratory Rate 16 22 Respiratory Effort / Characteristics Respiratory Depth Respiratory Pattern Blood Pressure Blood Pressure [Right Arm] 99/57 L Blood Pressure Mean Blood Pressure Mean [Right Arm] 71 Blood Pressure Position [Right Arm] Lying Pulse Oximetry 100 100 Oxygen Delivery Method BiPAP BiPAP Fraction of Inspired Oxygen 40 Sepsis Recent Fever Within 48 Hours Sepsis New/Unexplained Change in Mental Status Sepsis Action Taken by Nursing 09/04/24 15:45 09/04/24 15:59 09/04/24 16:02 Temperature Temperature Source Pulse Rate Pulse Rate [Left] 94 H 88 88 Pulse Rate from SpO2 Sensor Respiratory Rate 22 22 22 Respiratory Effort / Characteristics Respiratory Depth Normal Respiratory Pattern Blood Pressure Blood Pressure [Right Arm] 91/59 L 87/65 L 90/58 L Blood Pressure Mean Blood Pressure Mean [Right Arm] 69 72 68 Blood Pressure Position [Right Arm] Lying Pulse Oximetry 100 100 100 Oxygen Delivery Method BiPAP BiPAP BiPAP Fraction of Inspired Oxygen Sepsis Recent Fever Within 48 Hours Sepsis New/Unexplained Change in Mental Status Sepsis Action Taken by Half-Way Medications Current Medication List: was personally reviewed by me Laboratory Data Attestation: I reviewed the patient's lab results. 09/04/24 13:38 09/04/24 13:38 Lab Results 09/04/24 09/04/24 09/04/24 Range/Units 13:30 13:38 13:41 WBC 7.42 (4.8-10.8) K/ul RBC 4.29 L (4.70-6.10) M/uL Hgb 12.7 L (14.0-18.0) g/dl POC Hgb (14.0-18.0) g/dl Hct 39.7 L (42.0-52.0) % POC Hct (42-52) % MCV 92.5 (80.0-100.0) fL MCH 29.6 (25.0-34.0) pg MCHC 32.0 (32.0-36.0) g/dL RDW Std Deviation 54.1 H (36.4-46.3) fL RDW Coeff of Rachel 15.9 H (11.5-14.5) % Plt Count 177 (130-400) K/uL MPV 9.8 (9.4-12.4) fL Immature Gran % (Auto) 0.4 % Neut % (Auto) 75.7 % Lymph % (Auto) 9.8 % Clay % (Auto) 13.7 % Eos % (Auto) 0.3 % Baso % (Auto) 0.1 % Neut # (Auto) 5.61 (1.40-6.50) K/uL Lymph # (Auto) 0.73 L (1.20-3.40) K/uL Clay # (Auto) 1.02 H (0.11-0.59) K/uL Eos # (Auto) 0.02 (0.00-0.50) K/uL Baso # (Auto) 0.01 (0.00-0.20) K/uL Immature Gran # (Auto) 0.03 (0.01-0.20) K/uL PT 11.4 (9.0-12.0) Seconds INR 1.1 (0.9-1.1) APTT 26 (21-31) Seconds PTT Ratio 1.0 VBG pH (7.36-7.41) VBG pCO2 (38-50) mmHg VBG pO2 mmHg VBG HCO3 mmol/L VBG O2 Saturation % VBG Base Excess mEq/L POC Sodium (135-144) mmol/L Sodium 135 L (136-145) mmol/L POC Potassium (3.3-5.0) mmol/L Potassium 4.2 (3.5-5.1) mmol/L POC Chloride (101-112) mmol/L Chloride 102 (98-107) mmol/L Carbon Dioxide 23 (21-32) mmol/L POC Total CO2 (24-31) mmol/L Anion Gap 10 (3-11) POC Anion Gap (16-25) mmol/L POC BUN (7-18) mg/dl BUN 24 H (6-23) mg/dl Creatinine 1.13 (0.6-1.4) mg/dl POC Creatinine (0.6-1.3) mg/dl Est Cr Clr Drug Dosing 69.0 ml/min eGFR 66.12 BUN/Creatinine Ratio 21.2 H (10-20) Glucose 101 H (70-99(Fasting)) mg/dl POC Glucose 97 (70-99) mg/dl POC Glucose (other) (70-99) mg/dl Lactate (0.4-2.0) mmol/L Calcium 9.0 (8.6-10.3) mg/dl POC Ioniz Calcium Lynette (1.12-1.32) mmol/l Magnesium 1.7 (1.7-2.4) mg/dl Total Bilirubin 0.3 (0.2-1.0) mg/dl Direct Bilirubin 0.0 (0-0.2) mg/dl AST 22 (13-39) U/L ALT 5 L (7-52) U/L Alkaline Phosphatase 47 (34-104) U/L Ammonia 17.0 L (18-72) umol/L Troponin I High Sens 7.9 (0-20) pg/ml C-Reactive Protein 5.16 H (0-0.5) mg/dl B-Natriuretic Peptide (0-100) pg/ml Total Protein 6.9 (6.0-8.3) gm/dl Albumin 3.7 (3.4-5.0) gm/dl Procalcitonin 0.17 (0-0.5) ng/ml Urine Color Urine Appearance (Clear) Urine pH (4.5-7.5) Ur Specific Durham (1.000-1.030) Urine Protein (Negative) Urine Glucose (UA) (Negative) Urine Ketones (Negative) Urine Blood (Negative) Urine Nitrite (Negative) Urine Bilirubin (Negative) Urine Urobilinogen (Negative) Ur Leukocyte Esterase (Negative) Urine WBC (Auto) (0-5) /hpf Urine RBC (Auto) (0-2) /hpf U Hyaline Cast (Auto) (0-2) /lpf U Epithel Cells (Auto) (0-2) /hpf Urine Bacteria (Auto) (None Seen) Calcium Oxalate Crystal (None Prsent) Urine Mucus (None Prsent) Nasal Screen MRSA (PCR) (Negative) Adenovirus (PCR) Not Detected (NotDetected) B. pertussis DNA (PCR) Not Detected (NotDetected) B.parapertussis DNA PCR Not Detected (NotDetected) C. pneumoniae DNA (PCR) Not Detected (NotDetected) Coronavirus OC43 (PCR) Not Detected (NotDetected) Coronavirus HKU1 (PCR) Not Detected (NotDetected) Coronavirus 229E (PCR) Not Detected (NotDetected) SARS-CoV-2 (PCR) Not Detected (NotDetected) Coronavirus NL63 (PCR) Not Detected (NotDetected) Human Metapneumovir PCR Not Detected (NotDetected) Influenza A (H3) PCR DETECTED A (NotDetected) Influenza Type B (PCR) Not Detected (NotDetected) M. pneumoniae (PCR) Not Detected (NotDetected) Parainfluenza 1 (PCR) Not Detected (NotDetected) Parainfluenza 2 (PCR) Not Detected (NotDetected) Parainfluenza 3 (PCR) Not Detected (NotDetected) Parainfluenza 4 (PCR) Not Detected (NotDetected) RSV (PCR) Not Detected (NotDetected) Entero/Rhino (PCR) Not Detected (NotDetected) Blood Type Antibody Screen 09/04/24 09/04/24 09/04/24 Range/Units 13:45 13:58 14:07 WBC (4.8-10.8) K/ul RBC (4.70-6.10) M/uL Hgb (14.0-18.0) g/dl POC Hgb 14.3 (14.0-18.0) g/dl Hct (42.0-52.0) % POC Hct 42 (42-52) % MCV (80.0-100.0) fL MCH (25.0-34.0) pg MCHC (32.0-36.0) g/dL RDW Std Deviation (36.4-46.3) fL RDW Coeff of Rachel (11.5-14.5) % Plt Count (130-400) K/uL MPV (9.4-12.4) fL Immature Gran % (Auto) % Neut % (Auto) % Lymph % (Auto) % Clay % (Auto) % Eos % (Auto) % Baso % (Auto) % Neut # (Auto) (1.40-6.50) K/uL Lymph # (Auto) (1.20-3.40) K/uL Clay # (Auto) (0.11-0.59) K/uL Eos # (Auto) (0.00-0.50) K/uL Baso # (Auto) (0.00-0.20) K/uL Immature Gran # (Auto) (0.01-0.20) K/uL PT (9.0-12.0) Seconds INR (0.9-1.1) APTT (21-31) Seconds PTT Ratio VBG pH (7.36-7.41) VBG pCO2 (38-50) mmHg VBG pO2 mmHg VBG HCO3 mmol/L VBG O2 Saturation % VBG Base Excess mEq/L POC Sodium 135 (135-144) mmol/L Sodium (136-145) mmol/L POC Potassium 4.1 (3.3-5.0) mmol/L Potassium (3.5-5.1) mmol/L POC Chloride 103 (101-112) mmol/L Chloride (98-107) mmol/L Carbon Dioxide (21-32) mmol/L POC Total CO2 21 L (24-31) mmol/L Anion Gap (3-11) POC Anion Gap 15.0 L (16-25) mmol/L POC BUN 24 H (7-18) mg/dl BUN (6-23) mg/dl Creatinine (0.6-1.4) mg/dl POC Creatinine 1.2 (0.6-1.3) mg/dl Est Cr Clr Drug Dosing ml/min eGFR BUN/Creatinine Ratio (10-20) Glucose (70-99(Fasting)) mg/dl POC Glucose (70-99) mg/dl POC Glucose (other) 101 H (70-99) mg/dl Lactate (0.4-2.0) mmol/L Calcium (8.6-10.3) mg/dl POC Ioniz Calcium Lynette 1.04 L (1.12-1.32) mmol/l Magnesium (1.7-2.4) mg/dl Total Bilirubin (0.2-1.0) mg/dl Direct Bilirubin (0-0.2) mg/dl AST (13-39) U/L ALT (7-52) U/L Alkaline Phosphatase (34-104) U/L Ammonia (18-72) umol/L Troponin I High Sens (0-20) pg/ml C-Reactive Protein (0-0.5) mg/dl B-Natriuretic Peptide (0-100) pg/ml Total Protein (6.0-8.3) gm/dl Albumin (3.4-5.0) gm/dl Procalcitonin (0-0.5) ng/ml Urine Color Yellow Urine Appearance Clear (Clear) Urine pH 6.0 (4.5-7.5) Ur Specific [place] 1.023 (1.000-1.030) Urine Protein Trace H (Negative) Urine Glucose (UA) 3+ H (Negative) Urine Ketones Trace H (Negative) Urine Blood Negative (Negative) Urine Nitrite Negative (Negative) Urine Bilirubin Negative (Negative) Urine Urobilinogen Negative (Negative) Ur Leukocyte Esterase Negative (Negative) Urine WBC (Auto) 0-5 (0-5) /hpf Urine RBC (Auto) 3-5 H (0-2) /hpf U Hyaline Cast (Auto) >20 H (0-2) /lpf U Epithel Cells (Auto) 0-2 (0-2) /hpf Urine Bacteria (Auto) None Seen (None Seen) Calcium Oxalate Crystal Present A (None Prsent) Urine Mucus Present A (None Prsent) Nasal Screen MRSA (PCR) Negative (Negative) Adenovirus (PCR) (NotDetected) B. pertussis DNA (PCR) (NotDetected) B.parapertussis DNA PCR (NotDetected) C. pneumoniae DNA (PCR) (NotDetected) Coronavirus OC43 (PCR) (NotDetected) Coronavirus HKU1 (PCR) (NotDetected) Coronavirus 229E (PCR) (NotDetected) SARS-CoV-2 (PCR) (NotDetected) Coronavirus NL63 (PCR) (NotDetected) Human Metapneumovir PCR (NotDetected) Influenza A (H3) PCR (NotDetected) Influenza Type B (PCR) (NotDetected) M. pneumoniae (PCR) (NotDetected) Parainfluenza 1 (PCR) (NotDetected) Parainfluenza 2 (PCR) (NotDetected) Parainfluenza 3 (PCR) (NotDetected) Parainfluenza 4 (PCR) (NotDetected) RSV (PCR) (NotDetected) Entero/Rhino (PCR) (NotDetected) Blood Type Antibody Screen 09/04/24 09/04/24 Range/Units 14:23 14:41 WBC (4.8-10.8) K/ul RBC (4.70-6.10) M/uL Hgb (14.0-18.0) g/dl POC Hgb (14.0-18.0) g/dl Hct (42.0-52.0) % POC Hct (42-52) % MCV (80.0-100.0) fL MCH (25.0-34.0) pg MCHC (32.0-36.0) g/dL RDW Std Deviation (36.4-46.3) fL RDW Coeff of Rachel (11.5-14.5) % Plt Count (130-400) K/uL MPV (9.4-12.4) fL Immature Gran % (Auto) % Neut % (Auto) % Lymph % (Auto) % Clay % (Auto) % Eos % (Auto) % Baso % (Auto) % Neut # (Auto) (1.40-6.50) K/uL Lymph # (Auto) (1.20-3.40) K/uL Clay # (Auto) (0.11-0.59) K/uL Eos # (Auto) (0.00-0.50) K/uL Baso # (Auto) (0.00-0.20) K/uL Immature Gran # (Auto) (0.01-0.20) K/uL PT (9.0-12.0) Seconds INR (0.9-1.1) APTT (21-31) Seconds PTT Ratio VBG pH 7.26 L (7.36-7.41) VBG pCO2 56 H (38-50) mmHg VBG pO2 30 mmHg VBG HCO3 25 mmol/L VBG O2 Saturation < 60.0 % VBG Base Excess -2.7 mEq/L POC Sodium (135-144) mmol/L Sodium (136-145) mmol/L POC Potassium (3.3-5.0) mmol/L Potassium (3.5-5.1) mmol/L POC Chloride (101-112) mmol/L Chloride (98-107) mmol/L Carbon Dioxide (21-32) mmol/L POC Total CO2 (24-31) mmol/L Anion Gap (3-11) POC Anion Gap (16-25) mmol/L POC BUN (7-18) mg/dl BUN (6-23) mg/dl Creatinine (0.6-1.4) mg/dl POC Creatinine (0.6-1.3) mg/dl Est Cr Clr Drug Dosing ml/min eGFR BUN/Creatinine Ratio (10-20) Glucose (70-99(Fasting)) mg/dl POC Glucose (70-99) mg/dl POC Glucose (other) (70-99) mg/dl Lactate 1.1 (0.4-2.0) mmol/L Calcium (8.6-10.3) mg/dl POC Ioniz Calcium Lynette (1.12-1.32) mmol/l Magnesium (1.7-2.4) mg/dl Total Bilirubin (0.2-1.0) mg/dl Direct Bilirubin (0-0.2) mg/dl AST (13-39) U/L ALT (7-52) U/L Alkaline Phosphatase (34-104) U/L Ammonia (18-72) umol/L Troponin I High Sens (0-20) pg/ml C-Reactive Protein (0-0.5) mg/dl B-Natriuretic Peptide 72 (0-100) pg/ml Total Protein (6.0-8.3) gm/dl Albumin (3.4-5.0) gm/dl Procalcitonin (0-0.5) ng/ml Urine Color Urine Appearance (Clear) Urine pH (4.5-7.5) Ur Specific [place] (1.000-1.030) Urine Protein (Negative) Urine Glucose (UA) (Negative) Urine Ketones (Negative) Urine Blood (Negative) Urine Nitrite (Negative) Urine Bilirubin (Negative) Urine Urobilinogen (Negative) Ur Leukocyte Esterase (Negative) Urine WBC (Auto) (0-5) /hpf Urine RBC (Auto) (0-2) /hpf U Hyaline Cast (Auto) (0-2) /lpf U Epithel Cells (Auto) (0-2) /hpf Urine Bacteria (Auto) (None Seen) Calcium Oxalate Crystal (None Prsent) Urine Mucus (None Prsent) Nasal Screen MRSA (PCR) (Negative) Adenovirus (PCR) (NotDetected) B. pertussis DNA (PCR) (NotDetected) B.parapertussis DNA PCR (NotDetected) C. pneumoniae DNA (PCR) (NotDetected) Coronavirus OC43 (PCR) (NotDetected) Coronavirus HKU1 (PCR) (NotDetected) Coronavirus 229E (PCR) (NotDetected) SARS-CoV-2 (PCR) (NotDetected) Coronavirus NL63 (PCR) (NotDetected) Human Metapneumovir PCR (NotDetected) Influenza A (H3) PCR (NotDetected) Influenza Type B (PCR) (NotDetected) M. pneumoniae (PCR) (NotDetected) Parainfluenza 1 (PCR) (NotDetected) Parainfluenza 2 (PCR) (NotDetected) Parainfluenza 3 (PCR) (NotDetected) Parainfluenza 4 (PCR) (NotDetected) RSV (PCR) (NotDetected) Entero/Rhino (PCR) (NotDetected) Blood Type A Positive Antibody Screen NEGATIVE Administered Medications Sodium Chloride (Nss) 500 mls @ 999 mls/hr IV .Q31M ONE Stop: 09/04/24 18:11 Last Admin: 09/04/24 17:44 Dose: 999 mls/hr Documented By: MMG Discontinued Medications Acetaminophen (Acetaminophen 1000 Mg/100 Ml Iv) Confirm Administered Dose 1,000 mg IV .STK-MED ONE Stop: 09/04/24 14:26 Last Admin: 09/04/24 14:27 Dose: Not Given Documented By: KRISTEL Albuterol (Albut/Ipratrop 3mg/0.5mg Neb 3 Ml Vial) Confirm Administered Dose 9 ml .ROUTE .STK-MED ONE Stop: 09/04/24 14:07 Last Admin: 09/04/24 14:10 Dose: 6 ml Documented By: KRISTEL Albuterol (Albut/Ipratrop 3mg/0.5mg Neb 3 Ml Vial) 6 ml NEB NOW STA; Protocol Stop: 09/04/24 14:09 Last Admin: 09/04/24 14:10 Dose: Not Given Documented By: KRISTEL Sodium Chloride (Nss) 500 mls @ 999 mls/hr IV .Q31M ONE Stop: 09/04/24 13:47 Last Infusion: 09/04/24 14:27 Dose: Infused Documented By: Admin: 09/04/24 13:31 Dose: 999 mls/hr Documented By: KRISTEL Sodium Chloride (Nss) 500 mls @ 999 mls/hr IV .Q31M ONE Stop: 09/04/24 14:02 Last Infusion: 09/04/24 14:45 Dose: Infused Documented By: Admin: 09/04/24 14:14 Dose: 999 mls/hr Documented By: KRISTEL Piperacillin Sod/Tazobactam Sod (Zosyn) 4.5 gm in 100 mls @ 200 mls/hr IV NOW ONE; Protocol Stop: 09/04/24 14:05 Last Infusion: 09/04/24 15:15 Dose: Infused Documented By: Infusion: 09/04/24 15:15 Dose: Infused Documented By: Admin: 09/04/24 14:41 Dose: 200 mls/hr Documented By: KRISTEL Acetaminophen (Ofirmev) 1,000 mg in 100 mls @ 400 mls/hr IV NOW STA Stop: 09/04/24 14:40 Last Infusion: 09/04/24 14:41 Dose: Infused Documented By: Admin: 09/04/24 14:27 Dose: 400 mls/hr Documented By: KRISTEL Sodium Chloride (Nss) 500 mls @ 999 mls/hr IV .Q31M ONE Stop: 09/04/24 15:22 Last Infusion: 09/04/24 15:16 Dose: Infused Documented By: Admin: 09/04/24 14:53 Dose: 999 mls/hr Documented By: KRISTEL Sodium Chloride (Nss) 500 mls @ 999 mls/hr IV .Q31M ONE Stop: 09/04/24 15:51 Last Infusion: 09/04/24 15:51 Dose: Infused Documented By: Admin: 09/04/24 15:22 Dose: 999 mls/hr Documented By: KRISTEL Ondansetron HCl (Ondansetron Inj 2 Mg/Ml 2 Ml Vial) 4 mg IV NOW STA Stop: 09/04/24 13:12 Last Admin: 09/04/24 13:31 Dose: 4 mg Documented By: KRISTEL Oseltamivir Phosphate (Oseltamivir Phosphate 75 Mg Cap) 75 mg PO NOW STA; Protocol Stop: 09/04/24 16:18 Last Admin: 09/04/24 16:30 Dose: 75 mg Documented By: DARG Imaging Data Radiologist's Impression: Chest X-Ray 09/04/24 13:09 XR chest 1V portable CLINICAL HISTORY: Sepsis. COMPARISON STUDY: Chest radiograph December 16, 2023. Chest CT July 30, 2024. FINDINGS: Thoracolumbar spine fusion is partially imaged. There is no pneumothorax or pleural effusion. Cardiomegaly is unchanged. Mediastinal contours are stable. Pulmonary vascular congestion is unchanged. There is no consolidation to suggest pneumonia. IMPRESSION: No significant change in appearance of the chest. Cardiomegaly with pulmonary vascular congestion. ACT 112: Negative or not required by law. Electronically signed by: Germán White M.D. 09/04/2024 1:[address] 09/04/24 13:14 CT OF THE HEAD WITHOUT CONTRAST CLINICAL HISTORY: confusion, improved but h/o ICH COMPARISON STUDY: MRI of the brain September 05, 2024. Head CT July 30, 2024. CT DOSE: 703.85 mGy.cm TECHNIQUE: Helical axial images of the head were obtained without IV contrast. Automated exposure control was utilized for the study. A dose lowering technique was utilized adhering to the principles of ALARA. FINDINGS: No acute intracranial hemorrhage, midline shift or mass effect is present. The subdural and subarachnoid hemorrhage overlying the right cerebral hemisphere on CT of July 30, 2024 has resolved. A partially calcified 1 cm extra-axial lesion overlying the left frontal lobe on image 116 of 144 is unchanged. This represents a hemangioma. Ventricular dilatation is unchanged and likely due to central atrophy. There are no calvarial fractures. There is mild mucosal thickening of the sinuses. White matter hypodensity suggests small vessel disease. IMPRESSION: 1. No acute intracranial findings. 2. Resolution of the subarachnoid and subdural hemorrhage overlying the right cerebral hemisphere on head CT of August 09, 2024. ACT 112: Negative or not required by law. Electronically signed by: Germán White M.D. 09/04/2024 2:25 PM Discharge Plan Visit Data Chief Complaint: Unresponsive ED Provider: Zack Damon Discharge Problem: Acute hypoxemic respiratory failure, Influenza A, Acute dehydration, Sepsis Discharge Instructions Interventions: ED Discharge Assessment Last Done: 09/04/24 18:02 Discharge Problem: Sepsis Qualifiers: Sepsis type: sepsis due to unspecified organism Sepsis acute organ dysfunction status: with acute organ dysfunction Severe sepsis acute organ dysfunction type: acute respiratory failure Acute respiratory failure type: with hypoxia Severe sepsis shock status: unspecified Qualified Code(s): A41.9 - Sepsis, unspecified organism; R65.20 - Severe sepsis without septic shock; J96.01 - Acute respiratory failure with hypoxia
[2024-09-04] MEDS: ONDANSETRON INJ 2 MG/ML 2 ML VIAL IV STA (13:31)
[2024-09-04] MEDS: SODIUM CHLORIDE 0.9% 500 ML IV ONE ×5 (13:31→17:44)
--- NOTE | 2024-09-04 13:37 | XRay Report ---
XR chest 1V portable CLINICAL HISTORY: Sepsis. COMPARISON STUDY: Chest radiograph December 16, 2023. Chest CT July 30, 2024. FINDINGS: Thoracolumbar spine fusion is partially imaged. There is no pneumothorax or pleural effusio n. Cardiomegaly is unchanged. Mediastinal contours are stable. Pulmonary vascular congestion is uncha nged. There is no consolidation to suggest pneumonia. IMPRESSION: No significant change in appearance of the chest. Cardiomegaly with pulmonary vascular co ngestion. ACT 112: Negative or not required by law. Electronically signed by: Germán White M.D. 09/04/2024 1:35 PM
[2024-09-04 13:59] LABS: iSTAT Creatinine 1.2 mg/dl (0.6-1.3); iSTAT Hemoglobin 14.3 g/dl (14.0-18.0); iSTAT Ionized Calcium 1.04 mmol/l (1.12-1.32); iSTAT Potassium 4.1 mmol/L (3.3-5.0)
[2024-09-04 14:01] LABS: Basophils # (auto) 0.01 K/uL (0.00-0.20); Basophils % (auto) 0.1 %; Eosinophils # (auto) 0.02 K/uL (0.00-0.50); Eosinophils % (auto) 0.3 %; Hematocrit (blood only) 39.7 % (42.0-52.0); Hemoglobin 12.7 g/dl (14.0-18.0); Immature Granulocytes # (auto) 0.03 K/uL (0.01-0.20); Immature Granulocytes % (auto) 0.4 %; Lymphocytes # (auto) 0.73 K/uL (1.20-3.40); Lymphocytes % (auto) 9.8 %; Mean Corpuscular Hemoglobin 29.6 pg (25.0-34.0); Mean Corpuscular Volume 92.5 fL (80.0-100.0); Mean Platelet Volume 9.8 fL (9.4-12.4); Monocytes # (auto) 1.02 K/uL (0.11-0.59); Monocytes % (auto) 13.7 %; Neutrophils # (auto) 5.61 K/uL (1.40-6.50); Neutrophils % (auto) 75.7 %; Platelet Count 177 K/uL (130-400); RDW Coefficient of Variation 15.9 % (11.5-14.5); RDW Standard Deviation 54.1 fL (36.4-46.3); Red Blood Count 4.29 M/uL (4.70-6.10); White Blood Count 7.42 K/ul (4.8-10.8)
[2024-09-04] MEDS: ALBUT/IPRATROP 3MG/0.5MG NEB 3 ML VIAL NEB STA (14:10)
[2024-09-04] MEDS: ALBUT/IPRATROP 3MG/0.5MG NEB 3 ML VIAL ONE (14:10)
[2024-09-04 14:24] LABS: Albumin Level 3.7 gm/dl (3.4-5.0); BUN Creatinine Ratio 21.2 (10-20); Bilirubin,Total 0.3 mg/dl (0.2-1.0); Magnesium 1.7 mg/dl (1.7-2.4); Potassium 4.2 mmol/L (3.5-5.1); Total Protein 6.9 gm/dl (6.0-8.3)
[2024-09-04 14:26] LABS: Troponin I High Sensitivity 7.9 pg/ml (0-20)
[2024-09-04] MEDS: ACETAMINOPHEN 1,000 MG/100 ML VIAL IV STA (14:27)
[2024-09-04] MEDS: ACETAMINOPHEN 1000 MG/100 ML IV IV ONE (14:27)
--- NOTE | 2024-09-04 14:27 | CT Scan Report ---
CT OF THE HEAD WITHOUT CONTRAST CLINICAL HISTORY: confusion, improved but h/o ICH COMPARISON STUDY: MRI of the brain September 05, 2024. Head CT July 30, 2024. CT DOSE: 703.85 mGy.cm TECHNIQUE: Helical axial images of the head were obtained without IV contrast. Automated exposure con trol was utilized for the study. A dose lowering technique was utilized adhering to the principles o f ALARA. FINDINGS: No acute intracranial hemorrhage, midline shift or mass effect is present. The subdural and subarachnoid hemorrhage overlying the right cerebral hemisphere on CT of July 30, 2024 has resolve d. A partially calcified 1 cm extra-axial lesion overlying the left frontal lobe on image 116 of 144 is unchanged. This represents a hemangioma. Ventricular dilatation is unchanged and likely due to cuate tral atrophy. There are no calvarial fractures. There is mild mucosal thickening of the sinuses. Whit e matter hypodensity suggests small vessel disease. IMPRESSION: 1. No acute intracranial findings. 2. Resolution of the subarachnoid and subdural hemorrhage overlying the right cerebral hemisphere on head CT of August 09, 2024. ACT 112: Negative or not required by law. Electronically signed by: Germán White M.D. 09/04/2024 2:25 PM
[2024-09-04 14:28] LABS: INR 1.1 (0.9-1.1); Partial Thromboplastin Time 26 Seconds (21-31); Prothrombin Time 11.4 Seconds (9.0-12.0)
[2024-09-04 14:34] LABS: Base Excess VBG -2.7 mEq/L; HCO3 VBG 25 mmol/L; Oxygen Saturation VBG < 60.0 %; PCO2 VBG 56 mmHg (38-50); PO2 VBG 30 mmHg; pH VBG 7.26 (7.36-7.41)
[2024-09-04] MEDS: PIPERACILLIN/TAZOBACTAM 4.5 GM/100 ML BAG IV ONE (14:41)
[2024-09-04 14:47] LABS: Appearance Urine Clear (Clear); Bacteria Urine Automated None Seen (None Seen); Bilirubin Urine Negative (Negative); Blood Urine Negative (Negative); Calcium Oxalate Crystals Urine Present (None Prsent); Cast Urine Automated >20 /lpf (0-2); Color Urine Yellow; Epithelial Cell Urine Auto 0-2 /hpf (0-2); Glucose Urine UA 3+ (Negative); Ketones Urine Trace (Negative); Leukocyte Esterase Urine Negative (Negative); Mucus Urine Present (None Prsent); Nitrite Urine Negative (Negative); Protein Urine Trace (Negative); Specific Gravity Urine 1.023 (1.000-1.030); Urobilinogen Urine Negative (Negative); WBC Urine Automated 0-5 /hpf (0-5)
[2024-09-04 15:12] LABS: Adenovirus PCR Not Detected (NotDetected); Bordetella parapertussis PCR Not Detected (NotDetected); Bordetella pertussis PCR Not Detected (NotDetected); Chlamydia pneumoniae PCR Not Detected (NotDetected); Coronavirus 229E PCR Not Detected (NotDetected); Coronavirus CoV-2 (COVID19)PCR Not Detected (NotDetected); Coronavirus HKU1 PCR Not Detected (NotDetected); Coronavirus NL63 PCR Not Detected (NotDetected); Coronavirus OC43PCR Not Detected (NotDetected); Human Metapneumovirus PCR Not Detected (NotDetected); Influenza A (H3) PCR DETECTED (NotDetected); Influenza B PCR Not Detected (NotDetected); Mycoplasma pneumoniae PCR Not Detected (NotDetected); Parainfluenza Virus 1 PCR Not Detected (NotDetected); Parainfluenza Virus 2 PCR Not Detected (NotDetected); Parainfluenza Virus 3 PCR Not Detected (NotDetected); Parainfluenza Virus 4 PCR Not Detected (NotDetected); Respiratory Syncytial VirusPCR Not Detected (NotDetected); Rhinovirus/Enterovirus PCR Not Detected (NotDetected)
--- NOTE | 2024-09-04 15:37 | Electrocardiogram Report ---
Test Reason : Blood Pressure : */* mmHG Vent. Rate : 89 BPM Atrial Rate : * BPM P-R Int : * ms QRS Dur : 106 ms QT Int : 370 ms P-R-T Axes : * 84 62 degrees QTcB Int : 450 ms Atrial fibrillation Abnormal ECG When compared with ECG of 30-Jul-2024 17:29, No significant change was found Confirmed by Alber Deluca ([id number]) on 09/04/2024 3:36:59 PM Referred By: [facility] Confirmed By: Alber Deluca
--- NOTE | 2024-09-04 16:18 | History & Physical Report ---
Date of Service September 04, 2024 Assessment & Plan (1) Unresponsive: Plan: Appears to be delirium due to influenza/hypoxia/hypercapnia/hypotension fortunately his mental status was quite good yesterdaywhile it may take time for him to improve, we fortunately do have a good target for him to improve back to (2) Influenza: Plan: it appears that the influenza is a central cause of his hypoxic/hypercapnic respiratory failure, as well as hypotensionessentially severe sepsis/septic shock due to influenza. While I strongly suspect it is all viral, given the severity of his illnessfor now covering with empiric antibiotics to ensure against secondary bacterial overgrowth as a concomitant factor. cover with zosyn (MRSA nares negative so no need for MRSA coverage, patsy w high suspicion that this is all viral) for the flu - tamiflu - patsy since just got sick today it may make an impact for shock - treat underlying cause, supportive care, IV fluids - improving. fluids with caution since he does have CHF hx, but dry currently and CHF hx fortunately does not appear to be too brittle for respiratory failure - hypercapnea improving hopefully can wean bipap, hypoxia - support w O2 - treating flu and currently empiric coverage given severity of illness is full code (3) Dysphagia: Plan: holding on tube feeds and PO intake till off bipap (4) Acute heart failure with preserved ejection fraction (HFpEF): Plan: holding lasix and acei for now. follow. (5) Parkinsonism: (6) DVT prophylaxis: Plan: lovenox as he was on previously History of Present Illness Chief Complaint: unresponsive Primary Care Provider: Reinier Woodson MD Patient is a 79-year-old male who was sent over from [facility] rehab due to being unresponsive. HPI is not obtainable from the patient, but from family, his physician at rehab, and the ER [facility] a [facility], it sounds like it was quite a long hospital course he was on the ventilator he has a feeding tube, but he was improving and had gone to [facility] for rehab. There he was getting better quite nicelyhis physician over there noted to me that even yesterday they were talking and joking. Today he was unresponsive in a manner that appeared nonspecific but infectious. They had ordered empiric antibiotics to be initiated, but ended up needing to send him to the ER before any therapy was even started. Here he was found to be hypoxic and hypotensive, but has responded to BiPAP and IV fluids. Again no meaningful HPI review of systems obtainable from the patient as he is still sedated from illness Had a fall with an intracranial bleedbut seem to have been recovering from that nicely. in regards to his background medical history, he does not seem to suffer significantly from freeze episodes should he miss medications. He does carry history of HFpEF, was last hospitalized for that in November 2023 and follows actively with the heart failure clinic. Allergies Allergy/AdvReac Type Severity Reaction Status Date / Time No Known Allergies Allergy Verified 07/06/24 13:27 Home Medications Medication Instructions Recorded Confirmed Type cyanocobalamin (vitamin B-12) 1,000 mcg feeding tube QAM 12/19/18 09/04/24 History 1,000 mcg tablet cholecalciferol (vitamin D3) 50 50 mcg feeding tube DAILY 08/21/23 09/04/24 History mcg (2,000 unit) capsule (Vitamin D3) furosemide 40 mg tablet 40 mg feeding tube DAILY 03/31/24 09/04/24 History acetaminophen 650 mg/20.3 mL oral 650 mg PO Q6 09/04/24 09/04/24 History solution atorvastatin 40 mg tablet 40 mg feeding tube HS 09/04/24 09/04/24 History bacitracin 500 unit/gram topical 1 applic topical BID 09/04/24 09/04/24 History ointment carbidopa 25 mg-levodopa 100 mg 2 tab feeding tube Q8 09/04/24 09/04/24 History tablet empagliflozin 25 mg tablet 12.5 mg feeding tube QAM 09/04/24 09/04/24 History enoxaparin 40 mg/0.4 mL 40 mg subcut BID 09/04/24 09/04/24 History subcutaneous syringe finasteride 5 mg tablet 5 mg feeding tube DAILY 09/04/24 09/04/24 History gabapentin 300 mg capsule 300 mg PO BID 09/04/24 09/04/24 History lansoprazole 15 mg delayed 30 mg feeding tube DAILYBB 09/04/24 09/04/24 History release,disintegrating tablet lisinopril 5 mg tablet 5 mg feeding tube DAILY 09/04/24 09/04/24 History melatonin 3 mg tablet 9 mg feeding tube HS 09/04/24 09/04/24 History memantine 10 mg tablet 10 mg PO Q12 09/04/24 09/04/24 History piperacillin-tazobactam 3.375 gram 3.375 g IV Q6H 09/04/24 09/04/24 History intravenous solution quetiapine 25 mg tablet 12.5 mg feeding tube Q12 09/04/24 09/04/24 History ropinirole 2 mg tablet 2 mg feeding tube HS 09/04/24 09/04/24 History sertraline 25 mg tablet 25 mg feeding tube DAILY 09/04/24 09/04/24 History zonisamide 25 mg capsule 25 mg PO Q12 09/04/24 09/04/24 History Past Med/Surg History Problem List (Updated 09/04/24 @ 16:42 by Rene Paige DO) DVT prophylaxis Influenza Unresponsive PAF (paroxysmal atrial fibrillation) Dysphagia Iron deficiency anemia Acute heart failure with preserved ejection fraction (HFpEF) Parkinsonism Memory loss Acute urinary retention (Acute) Hematuria (Acute) Hematuria Coronary artery disease Diabetes Atherogenic dyslipidemia COVID-19 virus infection (Acute) Transient alteration of awareness Fall (Acute) Contusion of head (Acute) Back pain (Acute) Closed rib fracture (Acute) History of colon polyps Left shoulder pain (Chronic) Hypokalemia (Chronic) Superficial thrombophlebitis of left leg (Chronic) Right leg injury (Chronic) Neck stiffness (Chronic) Neck pain (Chronic) Closed head injury (Chronic) Encounter for pre-operative examination (Chronic) Leg length discrepancy (Chronic) Hypotension (Chronic) Restless leg syndrome Myofascial pain Spinal stenosis of lumbar region (Chronic) Bilateral sacroiliitis (Chronic) History of IA (myocardial infarction) (Chronic) 1994 Cardiac murmur (Chronic) A CHILD Hearing deficit (Chronic) [place] History of prostate cancer (Chronic) S/P CYBERKNIFE PROCEDURE History of osteoarthritis (Chronic) Chronic back pain (Chronic) Poor historian (Chronic) Medical History CHF (congestive heart failure) Seizure-like activity GERD (gastroesophageal reflux disease) Parkinson disease Sleep apnea CPAP Transient ischemic attack (TIA) possible ~2007. Diverticulosis Surgical History S/P epidural steroid injection History of repair of rotator cuff bilateral S/P left cataract extraction History of right cataract surgery 01/12/19: was given 2mg of IV versed History of prostate biopsy History of colonoscopy Family History Father Family history of diabetes mellitus Brother Family history of diabetes mellitus Social History Smoking Status: Never smoker Tobacco Type: Cigarettes Cigarettes Per Day: 1; Second Hand Exposure: No; Do You Dip or Chew Tobacco: No; Hx Alcohol Use: Yes Alcohol type: hard liquor Hx Substance Use: No Preferred Language: Mohawk Communication Ability: Effective Visual Impairment: No Limitations Hearing Ability: Hard of Hearing 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 HEENT normocephalic atraumatic, best I can ascertain mucous membranes appear moist but obviously difficult exam with BiPAP mask on. Cardio is somewhat distant no rubs murmurs or gallops. Lungs are coarse bilaterally with somewhat diminished air entry no focal findings no wheezing no accessory muscle use no retractions no abdominal breathing. Abdomen is soft nondistended nontender no masses organomegaly there is a feeding tube in place consistent with PEG. Extremities without cyanosis clubbing or edema no appearance of calf tenderness. Neuro is very difficult to assess but he shows no focal deficits and seems to move all extremities equally and respond a degree to touch with no notable focal areas of sensory deficits. Skin without rashes pallor or icterus. Chest x-ray is a fairly poor film the does not show any clear or obvious infiltrate to me, has spinal hardware in place, and may be looks slightly consistent with pulmonary edema (which is actually inconsistent with his clinical picture) read by radiology as cardiomegaly with pulmonary vascular congestion. Labs show a CBC with a white count of 7.42, hemoglobin 12.7, platelets 177. VBG with a pH of 7.26 pCO2 of 56after I have seen himfollow-up ABG shows a pH of 7.32 pCO2 of 42 pO2 of 142. Procalcitonin of 0.17, CRP of 5.16. Troponin is normal, EKG is rate controlled A-fib without ischemic c hanges. Results & Data Results & Data Vital Signs (Past 12 Hours) Vital Signs Temp Pulse Pulse Resp BP BP Pulse Ox 09/04/24 16:15 90 22 97/64 L 100 09/04/24 16:02 88 22 90/58 L 100 09/04/24 15:59 88 22 87/65 L 100 09/04/24 15:45 94 H 22 91/59 L 100 09/04/24 15:36 99.0 F 09/04/24 15:34 100 H 22 99/57 L 100 09/04/24 15:18 99.1 F 89 16 100 09/04/24 15:15 99/71 L 09/04/24 15:07 72/46 L 09/04/24 15:00 99.7 F H 86 20 98 09/04/24 15:00 85/65 L 09/04/24 14:58 77/56 L 09/04/24 14:55 83/58 L 09/04/24 14:54 99.9 F H 95 H 19 100 09/04/24 14:51 99.9 F H 90 21 100 09/04/24 14:50 82/61 L 09/04/24 14:50 82/61 L 09/04/24 14:45 91/62 L 09/04/24 14:45 91/62 L 09/04/24 14:45 100.0 F H 91 H 19 100 09/04/24 14:40 105/65 09/04/24 14:40 105/65 09/04/24 14:39 100.0 F H 99 H 22 100 09/04/24 14:36 100.0 F H 94 H 25 H 98 09/04/24 14:35 99/69 L 09/04/24 14:30 111/74 09/04/24 14:27 100.2 F H 94 H 22 100 09/04/24 14:25 104/75 09/04/24 14:21 100.0 F H 86 21 100 09/04/24 14:20 95/65 L 09/04/24 14:18 99.9 F H 91 H 18 98 09/04/24 14:15 111/74 09/04/24 14:12 89 19 97 09/04/24 14:11 98 09/04/24 14:09 87 21 96 09/04/24 14:08 91 H 20 100 09/04/24 14:07 120/86 09/04/24 14:07 120/86 09/04/24 14:06 98 H 16 97 09/04/24 14:03 86 17 95 09/04/24 14:02 93/65 L 09/04/24 14:02 93/65 L 09/04/24 13:55 87/64 L 09/04/24 13:50 88 09/04/24 13:41 85/62 L 09/04/24 13:39 89 20 100 09/04/24 13:33 98.1 F 90 20 79/53 L 97 09/04/24 13:31 79/53 L 09/04/24 13:19 97 H 21 94 O2 Del Method FiO2 09/04/24 16:15 BiPAP 09/04/24 16:02 BiPAP 09/04/24 15:59 BiPAP 09/04/24 15:45 BiPAP 09/04/24 15:36 09/04/24 15:34 BiPAP 09/04/24 15:18 BiPAP 40 09/04/24 15:15 09/04/24 15:07 09/04/24 15:00 BiPAP 09/04/24 15:00 09/04/24 14:58 09/04/24 14:55 09/04/24 14:54 BiPAP 09/04/24 14:51 BiPAP 40 09/04/24 14:50 09/04/24 14:50 09/04/24 14:45 09/04/24 14:45 09/04/24 14:45 BiPAP 40 09/04/24 14:40 09/04/24 14:40 09/04/24 14:39 BiPAP 40 09/04/24 14:36 BiPAP 40 09/04/24 14:35 09/04/24 14:30 09/04/24 14:27 BiPAP 40 09/04/24 14:25 09/04/24 14:21 BiPAP 40 09/04/24 14:20 09/04/24 14:18 BiPAP 40 09/04/24 14:15 09/04/24 14:12 BiPAP 40 09/04/24 14:11 BiPAP 09/04/24 14:09 BiPAP 40 09/04/24 14:08 BiPAP 40 09/04/24 14:07 09/04/24 14:07 09/04/24 14:06 BiPAP 40 09/04/24 14:03 BiPAP 40 09/04/24 14:02 09/04/24 14:02 09/04/24 13:55 09/04/24 13:50 09/04/24 13:41 09/04/24 13:39 40 09/04/24 13:33 BiPAP 09/04/24 13:31 09/04/24 13:19 50 Code Status & VTE Plan VTE Prophylaxis Plan VTE Prophylaxis will be ordered: Yes PG Care Time/CCT Total # of Minutes Spent Total Time Spent with Patient: Total time spent is greater than 50% in coordination of care (as documented) at patient's floor/unit and/or counseling patient: Coding Level of Care Code 68032 INT INP/OBS CARE 3/75MIN Diagnoses Unresponsive R41.89 Influenza J11.1 Dysphagia R13.10 Acute heart failure with preserved ejection fraction (HFpEF) I50.31 Parkinsonism G20.C DVT prophylaxis Z29.9
[2024-09-04 16:30] LABS: C Reactive Protein 5.16 mg/dl (0-0.5)
[2024-09-04] MEDS: OSELTAMIVIR PHOSPHATE 75 MG CAP PO STA (16:30)
[2024-09-04 16:36] LABS: Base Excess ABG -4.3 mEq/L (-9-1.8); HCO3 ABG 22 mmol/L (19-24); Oxygen Saturation ABG 99.4 % (90-95); PCO2 ABG 42 mmHg (35-46); PO2 ABG 142 mmHg (80-95); pH ABG 7.32 (7.35-7.45)
[2024-09-04 16:49] LABS: Allen Test Pos (Pos)
[2024-09-04] MEDS ORDERED: ONDANSETRON INJ 2 MG/ML 2 ML VIAL IV PRN (18:01)
[2024-09-04] MEDS: LACTATED RINGER'S 1,000 ML IV SCH (18:39)
[2024-09-04] MEDS: PIPERACILLIN/TAZOBACTAM 4.5 GM/100 ML BAG IV SCH (18:39)
[2024-09-04 20:08] LABS: HCO3 ABG 22 mmol/L (19-24); Oxygen Saturation ABG 99.2 % (90-95); PCO2 ABG 45 mmHg (35-46); PO2 ABG 138 mmHg (80-95); pH ABG 7.29 (7.35-7.45)
[2024-09-04 20:15] LABS: Allen Test Pos (Pos)
[2024-09-04] MEDS ORDERED: GABAPENTIN 300 MG CAP PO SCH (21:00)
[2024-09-04] MEDS: MELATONIN 3 MG TAB PO SCH (22:54)
[2024-09-04] MEDS: ZONISAMIDE 25 MG CAPSULE PO SCH (22:55)
[2024-09-04] MEDS: OSELTAMIVIR PHOSPHATE 75 MG CAP PO SCH (22:55)
[2024-09-04] MEDS: ATORVASTATIN 40 MG TAB GT SCH (22:55)
[2024-09-04] MEDS: CARBIDOPA/LEVODOPA 25/100MG TAB GT SCH (22:55)
[2024-09-04] MEDS: MEMANTINE HCL 10 MG TAB PO SCH (22:55)
[2024-09-04] MEDS: QUEtiapine FUMARATE 25 MG TABLET GT SCH (22:56)
[2024-09-04] MEDS: MoRPHine SULFATE 4 MG/ML 1 ML CARP\\VIAL IV STA (23:01)
[2024-09-04] MEDS: POLYETHYLENE (MIRALAX) 17 GM PACK PO SCH (23:03)
[2024-09-04] MEDS: GABAPENTIN 250 MG/5 ML 470 ML BTL PEG SCH (23:32)
[2024-09-04] MEDS: ENOXAPARIN INJ 40 MG/0.4 ML SYR SQ SCH (23:32)
[2024-09-05] MEDS: LANSOPRAZOLE 30 MG SOLTAB GT SCH (05:59)
--- NOTE | 2024-09-05 06:36 | Hospitalist Progress Note ---
Date of Service September 05, 2024 Assessment & Plan (1) Influenza: Plan: - + Influenza w/ severe sepsis/septic shock on admission - Covering for secondary bacterial infection given servility of illness on presentation w/ Zosyn, negative MRSA nares so no MRSA coverage. - CXR on admission w/out opacities/signs of PNA, some pulmonary vascular congestion, procal= 0.17 - continue with Tamiflu -S/p 2.5L fluid bolus in ED as per sepsis protocol, cautiously continue fluids NSS @80ml/hr -> history of HFpEF - trial off BiPAP with repeat VBG (2) Unresponsive: Plan: - likely delirium -> multifactorial in the setting of influenza/hypoxia/hypercapnia/hypotension - Head CT without acute pathology (3) Dysphagia: Plan: - holding on tube feeds and PO intake till off bipap - consider restarting today if able to stay off bipap (4) Acute heart failure with preserved ejection fraction (HFpEF): Plan: holding lasix and acei for hypotension (5) Parkinsonism: Plan: - continue carbidopa-levodopa, ropinirole, memantine (6) DVT prophylaxis: Plan: lovenox as he was on previously Plan Chronic and Stable: Afib: Rate controlled not on anticoagulation due to fall/bleed risk, follows with cardiology as an outpatient CAD: continue asp, Crestor Restless Leg Syndrome: Continue gabapentin History of Seizure: continue zonisamide Code: Full Diet: NPO VTE Prophylaxis: Lovenox Admission and Anticipated Discharge Date Admission Date: September 04, 2024 Supervising Physician Co-Signing Physician Notes I personally examined the patient and verified all العلي points of history and exam, discussed case, and agree with decision making with Dr Petit Awake and alert, seems easily confusedno meaningful HPI fatigued more than anything. Does not remember yesterday's event. Vitals noted, general he is awake but easily fused fatigued but no distress. HEENT normocephalic atraumatic mucous moist. Breathing unlabored no accessory muscle use good effort, now on 4 L nasal cannula instead of BiPAP. Skin without rashes, pallor, icterus. influenza w severe sepsis (sepsis, encephalopathy) and septic shock (hypotension that required ~3L isotonic fluids to correct) as well as combined hypoxic and hypercapnic respiratory failure present on admission - doing better. off bipap and vbg reassurring; continue empiric zosyn for now given severity of illness on admission but if by tomorrow continuing to look purely viral - could probably stop all abx. start tube feeds. supportive care. PT/OT - anticipate return to rehab. on DVT proph w lovenox. Subjective 79 year old male admitted with delirium in the setting of influenza. No events overnight. No complaints this morning. Remained on BiPAP when I saw him. Review of Systems Review of Systems: As per above Physical Exam Physical Exam: Constitutional: well-appearing, no acute distress HEENT: NCAT, no conjunctival injection CV: regular rhythm, no murmur appreciated, extremities well-perfused, no LE edema Resp: scattered rhonchi throughout, no focal findings, on BiPAP GI: soft, nondistended, nontender, BS normoactive MSK: no gross deformities appreciated Skin: warm, dry, no rash appreciated Neuro: no focal neurologic deficit appreciated Results & Data Results & Data Vital Signs (Past 12 Hours) Vital Signs Temp Pulse Pulse Resp BP BP Pulse Ox 09/05/24 04:23 87 17 98 09/05/24 03:10 36.9 C 90 18 116/79 100 09/05/24 00:14 86 18 121/79 97 09/04/24 23:29 36.8 C 85 16 107/79 100 09/04/24 21:54 09/04/24 21:14 98 H 20 100 09/04/24 21:11 37.2 C 87 18 135/76 100 09/04/24 20:11 112/82 09/04/24 20:06 122/98 09/04/24 20:06 122/98 09/04/24 20:04 121/87 09/04/24 19:55 112/89 09/04/24 19:51 37.2 C 93 H 20 97 09/04/24 19:50 117/81 09/04/24 19:50 117/81 09/04/24 19:45 37.2 C 88 23 99 09/04/24 19:45 119/90 09/04/24 19:45 119/90 09/04/24 19:45 119/90 09/04/24 19:42 37.1 C 89 20 100 09/04/24 19:40 107/84 09/04/24 19:40 107/84 09/04/24 19:40 107/84 09/04/24 19:20 37.0 C 90 21 113/87 100 09/04/24 19:06 36.9 C 87 17 100 09/04/24 19:05 116/84 09/04/24 19:03 36.9 C 89 18 100 09/04/24 19:00 36.9 C 84 19 98 09/04/24 19:00 108/80 09/04/24 18:55 124/79 09/04/24 18:55 124/79 09/04/24 18:50 86 20 116/83 99 09/04/24 18:45 36.8 C 87 16 100 09/04/24 18:44 87 20 105/68 100 09/04/24 18:40 105/68 09/04/24 18:40 105/68 09/04/24 18:40 86 20 105/68 100 09/04/24 18:33 36.8 C 84 21 97 O2 Del Method O2 Flow Rate FiO2 09/05/24 04:23 35 09/05/24 03:10 BiPAP 40 09/05/24 00:14 BiPAP 09/04/24 23:29 BiPAP 40 09/04/24 21:54 BiPAP 09/04/24 21:14 40 09/04/24 21:11 BiPAP 40 09/04/24 20:11 09/04/24 20:06 09/04/24 20:06 09/04/24 20:04 09/04/24 19:55 09/04/24 19:51 09/04/24 19:50 09/04/24 19:50 09/04/24 19:45 09/04/24 19:45 09/04/24 19:45 09/04/24 19:45 09/04/24 19:42 09/04/24 19:40 09/04/24 19:40 09/04/24 19:40 09/04/24 19:20 BiPAP 09/04/24 19:06 09/04/24 19:05 09/04/24 19:03 09/04/24 19:00 09/04/24 19:00 09/04/24 18:55 09/04/24 18:55 09/04/24 18:50 BiPAP 09/04/24 18:45 09/04/24 18:44 BiPAP 40 09/04/24 18:40 09/04/24 18:40 09/04/24 18:40 BiPAP 09/04/24 18:33 Resident Activity Tracking Resident Involvement: Resident Care Provided Care Provided: Adult Hospital Medicine
[2024-09-05 07:11] LABS: Basophils # (auto) 0.01 K/uL (0.00-0.20); Basophils % (auto) 0.2 %; Eosinophils # (auto) 0.05 K/uL (0.00-0.50); Eosinophils % (auto) 1.2 %; Hemoglobin 11.7 g/dl (14.0-18.0); Immature Granulocytes # (auto) 0.01 K/uL (0.01-0.20); Immature Granulocytes % (auto) 0.2 %; Lymphocytes # (auto) 0.53 K/uL (1.20-3.40); Lymphocytes % (auto) 12.7 %; Mean Corpuscular Hgb Conc 31.6 g/dL (32.0-36.0); Mean Corpuscular Volume 94.9 fL (80.0-100.0); Mean Platelet Volume 9.6 fL (9.4-12.4); Monocytes # (auto) 0.58 K/uL (0.11-0.59); Monocytes % (auto) 13.9 %; Neutrophils # (auto) 2.98 K/uL (1.40-6.50); Neutrophils % (auto) 71.8 %; Platelet Count 164 K/uL (130-400); RDW Coefficient of Variation 15.9 % (11.5-14.5); RDW Standard Deviation 55.9 fL (36.4-46.3); White Blood Count 4.16 K/ul (4.8-10.8)
[2024-09-05 07:41] LABS: BUN Creatinine Ratio 19.7 (10-20); C Reactive Protein 7.16 mg/dl (0-0.5); Calcium 8.2 mg/dl (8.6-10.3); Creatinine Clr Calc Pharmacy 107.6 ml/min; Potassium 4.2 mmol/L (3.5-5.1)
[2024-09-05] MEDS: FINASTERIDE 5 MG TAB PEG SCH (08:34)
[2024-09-05] MEDS: SERTRALINE HCL 50 MG TABLET PEG SCH (08:34)
[2024-09-05] MEDS: GABAPENTIN 250 MG/5 ML 470 ML BTL PEG SCH (09:36)
[2024-09-05 11:24] LABS: Base Excess VBG -1.4 mEq/L; HCO3 VBG 25 mmol/L; Oxygen Saturation VBG 90.3 %; PCO2 VBG 49 mmHg (38-50); PO2 VBG 57 mmHg; pH VBG 7.32 (7.36-7.41)
--- NOTE | 2024-09-05 14:29 | Billing Data ---
Date of Service September 05, 2024 Coding Level of Care Code 92688 SUB INP/OBS CARE 3MIN
[2024-09-05] MEDS: FIBERSOURCE HN 1.2 CAL 1000 ML BAG GT SCH (16:45)
[2024-09-05] MEDS: MoRPHine SULFATE 4 MG/ML 1 ML CARP\\VIAL IV STA (22:09)
[2024-09-05] MEDS: GENTAMICIN SULFATE 0.3% OP SOLN 5 ML BTL OP SCH (22:24)
--- NOTE | 2024-09-06 06:51 | Hospitalist Progress Note ---
Date of Service September 06, 2024 Assessment & Plan (1) Influenza: Plan: - + Influenza w/ severe sepsis/septic shock on admission - Covering for secondary bacterial infection given servility of illness on presentation w/ Zosyn, negative MRSA nares so no MRSA coverage. - CXR on admission w/out opacities/signs of PNA, some pulmonary vascular congestion, procal= 0.17-> overall reassuring that likely just viral in the setting of influenza - Plan to stop Zosyn -> f/u CBC and CRP qAM - continue with Tamiflu -weaned from BiPAP and doing well 4L NC (2) Unresponsive: Plan: - likely delirium -> multifactorial in the setting of influenza/hypoxia/hypercapnia/hypotension - Head CT without acute pathology - improving - one to one prn (3) Dysphagia: Plan: - tube feeds restarted 09/05 - discussed with [facility] and prior to admission was getting Jevity 1.2 bolus feeds on 325mL QID - Finance Professor following and appreciate recommendations-> plan to titrate yp to prior feeding regimen (4) Acute heart failure with preserved ejection fraction (HFpEF): Plan: - Blood pressures remain mildly hypotensive -> continue to hold Lasix/lisinopril - overall appears euvolemic on exam (5) Parkinsonism: Plan: - continue carbidopa-levodopa, ropinirole, memantine (6) DVT prophylaxis: Plan: lovenox as he was on previously (7) Conjunctivitis: Plan: - new evening 09/05 - started on gentamicin drops Plan Chronic and Stable: Afib: Rate controlled not on anticoagulation due to fall/bleed risk, follows with cardiology as an outpatient CAD: continue asp, Crestor Restless Leg Syndrome: Continue gabapentin History of Seizure: continue zonisamide HLD: continue statin DM2: last hemoglobin a1c= 6.4 03/2024-> empagliflozin held Code: Full Diet: NPO VTE Prophylaxis: Lovenox Admission and Anticipated Discharge Date Admission Date: September 04, 2024 Supervising Physician Co-Signing Physician Notes I personally examined the patient and verified all العلي points of history and exam, discussed case, and agree with decision making with Dr Damaso solis hPI or ROS but nursing notes that he has been more physically active despite still being fairly confused. Vitals noted, general he is awake but laying silently, appears in no distress. HEENT normocephalic atraumatic mucous moist. Breathing unlabored no accessory muscle use good effort, diffuse rhonchi, now on 4 L nasal cannula instead of BiPAP. Skin without rashes, pallor, icterus. influenza w severe sepsis (sepsis, encephalopathy) and septic shock (hypotension that required ~3L isotonic fluids to correct) as well as combined hypoxic and hypercapnic respiratory failure present on admission - doing better. off bipap and vbg reassurring; initially was on empiric zosyn for now given severity of illness on admission but has continued to look purely viral - will stop all abx. tolerating tube feeds. supportive care. PT/OT - anticipate return to rehab. on DVT proph w lovenox. Subjective Pt seen at bedside this morning. Awake and alert, able to answer questions appropriately. Notes left eye redness/pain. Denies new vision changes, but does not that he does not have his glasses. Review of Systems Review of Systems: As per above Physical Exam Physical Exam: Constitutional: well-appearing, no acute distress HEENT: NCAT, + conjunctival injection left eye CV: regular rhythm, no murmur appreciated, extremities well-perfused, no LE edema Resp: scattered rhonchi throughout, no focal findings GI: soft, nondistended, nontender, BS normoactive MSK: no gross deformities appreciated Skin: warm, dry, no rash appreciated Neuro: no focal neurologic deficit appreciated Results & Data Results & Data Vital Signs (Past 12 Hours) Vital Signs Temp Pulse Pulse Resp BP Pulse Ox O2 Del Method 09/06/24 02:50 36.7 C 80 17 118/70 97 Room Air 09/05/24 23:10 36.5 C 90 16 115/79 94 Room Air 09/05/24 22:49 89 19 96 09/05/24 20:00 High Flow Nasal Cannula 09/05/24 19:50 37.6 C 90 24 129/97 94 High Flow Nasal Cannula O2 Flow Rate FiO2 09/06/24 02:50 09/05/24 23:10 09/05/24 22:49 35 09/05/24 20:00 4 09/05/24 19:50 4 Resident Activity Tracking Resident Involvement: Resident Care Provided Care Provided: Adult [facility] Medicine
[2024-09-06 07:16] LABS: Basophils # (auto) 0.01 K/uL (0.00-0.20); Basophils % (auto) 0.2 %; Eosinophils # (auto) 0.12 K/uL (0.00-0.50); Eosinophils % (auto) 2.8 %; Hematocrit (blood only) 37.8 % (42.0-52.0); Hemoglobin 11.8 g/dl (14.0-18.0); Immature Granulocytes # (auto) 0.01 K/uL (0.01-0.20); Immature Granulocytes % (auto) 0.2 %; Lymphocytes # (auto) 0.85 K/uL (1.20-3.40); Mean Corpuscular Hemoglobin 29.4 pg (25.0-34.0); Mean Corpuscular Hgb Conc 31.2 g/dL (32.0-36.0); Mean Corpuscular Volume 94.3 fL (80.0-100.0); Mean Platelet Volume 9.7 fL (9.4-12.4); Monocytes # (auto) 0.62 K/uL (0.11-0.59); Monocytes % (auto) 14.6 %; Neutrophils # (auto) 2.64 K/uL (1.40-6.50); Neutrophils % (auto) 62.2 %; Platelet Count 184 K/uL (130-400); RDW Coefficient of Variation 15.2 % (11.5-14.5); RDW Standard Deviation 53.2 fL (36.4-46.3); Red Blood Count 4.01 M/uL (4.70-6.10); White Blood Count 4.25 K/ul (4.8-10.8)
[2024-09-06 07:35] LABS: BUN Creatinine Ratio 15.7 (10-20); Calcium 8.2 mg/dl (8.6-10.3); Creatinine Clr Calc Pharmacy 108.6 ml/min; Potassium 3.7 mmol/L (3.5-5.1)
[2024-09-06] MEDS ORDERED: POLYETHYLENE (MIRALAX) 17 GM PACK PO PRN (08:51)
[2024-09-06] MEDS: TUBE FEEDING WATER FLUSH GT SCH (12:30)
[2024-09-06] MEDS: FIBERSOURCE HN 1.2 CAL 1000 ML BAG GT SCH (12:30)
--- NOTE | 2024-09-06 15:52 | Billing Data ---
Date of Service September 06, 2024 Coding Level of Care Code 51796 SUB INP/OBS CARE 3MIN
[2024-09-06] MEDS: MoRPHine SULFATE 4 MG/ML 1 ML CARP\\VIAL IV STA (22:55)
--- NOTE | 2024-09-07 06:59 | Hospitalist Progress Note ---
Date of Service September 07, 2024 Assessment & Plan (1) Influenza: (2) Unresponsive: (3) Dysphagia: (4) Acute heart failure with preserved ejection fraction (HFpEF): (5) Parkinsonism: (6) DVT prophylaxis: (7) Conjunctivitis: Plan 1) Influenza - pos Influenza w/ severe sepsis/septic shock on admission - Covering for secondary bacterial infection given severity of illness on presentation - Stopped Zosyn on AM of 09/06, negative MRSA nares (so no MRSA coverage) - CXR on admission w/out opacities/signs of PNA, some pulmonary vascular congestion, procal= 0.17-> overall reassuring that likely just viral in the setting of influenza - CRP, 5.02 <-- 7.16; WBC, 4.1 <-- 4.3 - continue with Tamiflu, added guaifenesin, 1200 mg, PO, BID -weaned from BiPAP and doing well 4L O2 NC, will continue to wean (2) Unresponsive/Delirious - likely delirium -> multifactorial in the setting of influenza/hypoxia/hypercapnia/hypotension - Head CT without acute pathology - improving, patient AAO x 2 now, one-to-one PRN nursing due to uncooperative (3) Dysphagia - tube feeds restarted 09/05 - discussed with [facility] and prior to admission was getting Jevity 1.2 bolus feeds on 325mL QID - Xray Tech following and appreciate recommendations-> plan to titrate to prior feeding regimen (4) Acute heart failure with preserved ejection fraction (HFpEF) - Blood pressures remain mildly hypotensive -> continue to hold Lasix/lisinopril - overall appears euvolemic on exam (5) Parkinsonism - continue carbidopa-levodopa, memantine; ropinirole held in context of delirium (6) DVT prophylaxis - Lovenox, 40 mg, subQ, BID (on previously) (7) Conjunctivitis/conjunctival hemorrhage (l. eye) - new evening 09/05, seems more like conjunctival hemorrhage than unilateral conjunctivitis (either way likely d/t high flow O2) - continue gentamicin drops Chronic/Stable conditions Afib: Rate controlled not on anticoagulation due to fall/bleed risk, follows with cardiology as an outpatient CAD: continue aspirin, Crestor Restless Leg Syndrome: Continue gabapentin, ropinirole held d/t increased delirium risk History of Seizure: continue zonisamide HLD: continue statin DM2: last A1C, 6.4, Mar 2024-> empagliflozin held Code: Full code Diet: NPO VTE Prophylaxis: Lovenox Admission and Anticipated Discharge Date Admission Date: September 04, 2024 Supervising Physician Co-Signing Physician Notes I personally examined the patient and verified العلي points of history and exam, discussed case, and agree with decision making and plan documented by Dr. Singh. Evaluated patient at bedside with his Wilma. 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 Oxygen demand has reduced, patient remains on 2 L, diffuse rhonchi and upper respiratory sounds appreciated on exam, patient irregularly irregular. At present, patient is influenza positive, he remains on Tamiflu, empiric antibiotics have been discontinued. Patient remains on tube feeds. Plan is for him to return to [facility] for rehab once medically improved. Subjective Pt seen and evaluated at bedside this morning. Awake and alert, answers most questions appropriately, but does have the impression that his family members are here in the building. AAO x 2 (not to place or situation). Notes left eye redness, but denies any pain to me. Patient was concerned about some urethral discomfort due to his Jackson placement. Review of Systems Constitutional: + fatigue; no weakness Respiratory: + cough; no dyspnea Cardiovascular: no chest pain Gastrointestinal: no abdominal pain, no nausea and no vomiting Genitourinary: + problem reported (discomfort w/ Jackson catheter) Physical Exam Constitutional: well developed, + obese, + altered mental status (confused, thinks family members are in hospital waiting for him) and cooperative patient feels warm, prefers to be in nude w/ covers off Eyes: + conjunctival abnormality (conjunctival hemorrhage of l. eye) and EOM intact bilaterally Cardiovascular: RRR, no murmur, no edema Extremities: normal capillary refill; no calf tenderness and no pedal edema Gastrointestinal (Abdomen): normal bowel sounds, soft, nontender, no hepatosplenomegaly Psychiatric: Orientation: alert, oriented to person, oriented to time and cooperative; + not oriented to place (also not oriented to situation) Genitourinary: no CVA tenderness Jackson catheter in Results & Data Results & Data Vital Signs (Past 12 Hours) Vital Signs Temp Pulse Resp BP Pulse Ox O2 Del Method O2 Flow Rate 09/07/24 02:21 36.6 C 91 H 22 132/90 100 Nasal Cannula 4 09/06/24 22:01 36.8 C 90 19 145/94 H 98 Nasal Cannula 5 09/06/24 19:20 37.0 C 101 H 24 170/110 H 94 High Flow Nasal Cannula 4 Resident Activity Tracking Resident Involvement: Resident Care Provided Care Provided: Adult Hospital Medicine
[2024-09-07 08:56] LABS: Eosinophils # (auto) 0.12 K/uL (0.00-0.50); Eosinophils % (auto) 2.9 %; Hematocrit (blood only) 40.7 % (42.0-52.0); Hemoglobin 12.9 g/dl (14.0-18.0); Immature Granulocytes # (auto) 0.01 K/uL (0.01-0.20); Immature Granulocytes % (auto) 0.2 %; Lymphocytes # (auto) 0.96 K/uL (1.20-3.40); Lymphocytes % (auto) 23.4 %; Mean Corpuscular Hemoglobin 29.5 pg (25.0-34.0); Mean Corpuscular Hgb Conc 31.7 g/dL (32.0-36.0); Mean Corpuscular Volume 92.9 fL (80.0-100.0); Mean Platelet Volume 9.5 fL (9.4-12.4); Monocytes # (auto) 0.45 K/uL (0.11-0.59); Neutrophils # (auto) 2.56 K/uL (1.40-6.50); Neutrophils % (auto) 62.5 %; Platelet Count 199 K/uL (130-400); RDW Coefficient of Variation 14.8 % (11.5-14.5); RDW Standard Deviation 51.2 fL (36.4-46.3); Red Blood Count 4.38 M/uL (4.70-6.10)
[2024-09-07 09:14] LABS: iSTAT Arterial Blood Gas HCO3 24 meg/L (19-24); iSTAT Arterial Blood Gas pCO2 50 mmHg (35-46); iSTAT Arterial Blood Gas pO2 28 mmHg (80-95); iSTAT Carbon Dioxide 26 mmol/L (24-31); iSTAT Hematocrit 39 % (42-52); iSTAT Hemoglobin 13.3 g/dl (14.0-18.0); iSTAT Potassium 4.5 mmol/L (3.3-5.0); iSTAT Sodium 135 mmol/L (135-144)
[2024-09-07 09:15] LABS: iSTAT Arterial Blood Gas HCO3 21 meg/L (19-24); iSTAT Arterial Blood Gas pCO2 46 mmHg (35-46); iSTAT Arterial Blood Gas pH 7.27 (7.35-7.45); iSTAT Arterial Blood Gas pO2 87 mmHg (80-95); iSTAT Carbon Dioxide 23 mmol/L (24-31); iSTAT Hematocrit 33 % (42-52); iSTAT Hemoglobin 11.2 g/dl (14.0-18.0); iSTAT Potassium 3.7 mmol/L (3.3-5.0); iSTAT Sodium 139 mmol/L (135-144)
[2024-09-07 09:17] LABS: BUN Creatinine Ratio 14.5 (10-20); C Reactive Protein 5.02 mg/dl (0-0.5); Calcium 8.8 mg/dl (8.6-10.3); Creatinine Clr Calc Pharmacy 136.7 ml/min; Potassium 3.5 mmol/L (3.5-5.1)
[2024-09-07] MEDS: SODIUM CHLOR 7% 4 ML NEB NEB SCH (19:28)
[2024-09-07] MEDS: guaiFENesin 600 MG TABCR PO SCH (20:36)
[2024-09-08 07:09] LABS: Hematocrit (blood only) 40.2 % (42.0-52.0); Mean Corpuscular Hemoglobin 29.7 pg (25.0-34.0); Mean Corpuscular Hgb Conc 32.3 g/dL (32.0-36.0); Mean Platelet Volume 9.6 fL (9.4-12.4); Platelet Count 221 K/uL (130-400); RDW Coefficient of Variation 14.6 % (11.5-14.5); RDW Standard Deviation 49.6 fL (36.4-46.3); Red Blood Count 4.37 M/uL (4.70-6.10); White Blood Count 4.89 K/ul (4.8-10.8)
[2024-09-08 07:21] LABS: BUN Creatinine Ratio 17.3 (10-20); C Reactive Protein 4.31 mg/dl (0-0.5); Calcium 8.9 mg/dl (8.6-10.3); Creatinine Clr Calc Pharmacy 144.1 ml/min; Potassium 3.6 mmol/L (3.5-5.1)
[2024-09-08] MEDS ORDERED: TUBE FEEDING WATER FLUSH GT SCH ×2 (10:30→13:00)
--- NOTE | 2024-09-08 11:15 | Hospitalist Progress Note ---
Date of Service September 08, 2024 Assessment & Plan (1) Influenza: (2) Unresponsive: (3) Dysphagia: (4) Acute heart failure with preserved ejection fraction (HFpEF): (5) Parkinsonism: (6) DVT prophylaxis: (7) Conjunctivitis: Plan 1) Influenza - pos Influenza w/ severe sepsis/septic shock on admission - Re-started Zosyn on 09/08, Stopped Zosyn on AM of 09/06, negative MRSA nares (so no MRSA coverage) - CXR on admission w/out opacities/signs of PNA, some pulmonary vascular congestion, procal= 0.17-> overall reassuring that likely just viral in the setting of influenza - Repeat CXR on 09/08 showed bibasilar opacities concerning for developing pneumonia - Repeat VBG, 09/08, WNL - CRP, 4.3 <-- 5.02 <-- 7.16; WBC, 4.9 <-- 4.3 - continue with Tamiflu, added guaifenesin, 1200 mg, PO, BID; added hypertonic saline nebulizer - weaned from BiPAP and doing well 4L O2 NC, will continue to wean as appropriate (2) Unresponsive/Delirious - likely delirium -> multifactorial in the setting of influenza/hypoxia/hypercapnia/hypotension - Head CT without acute pathology - improving, patient AAO x 2 now, one-to-one PRN nursing due to uncooperative behavior - patient more drowsy on 09/08 AM (3) Dysphagia - tube feeds restarted 09/05 - discussed with [facility] and prior to admission was getting Jevity 1.2 bolus feeds on 325mL QID - Electronic Science Teacher following and appreciate recommendations-> plan to titrate to prior feeding regimen (4) Acute heart failure with preserved ejection fraction (HFpEF) - Blood pressures remain mildly hypotensive -> continue to hold Lasix/lisinopril - overall appears euvolemic on exam (5) Parkinsonism - continue carbidopa-levodopa, memantine; ropinirole held in context of delirium (6) DVT prophylaxis - Lovenox, 40 mg, subQ, BID (on previously) (7) Conjunctivitis/conjunctival hemorrhage (l. eye) - new evening 09/05, seems more like conjunctival hemorrhage than unilateral conjunctivitis (either way likely d/t high flow O2) - continue gentamicin drops Chronic/Stable conditions Afib: Rate controlled not on anticoagulation due to fall/bleed risk, follows with cardiology as an outpatient CAD: continue aspirin, Crestor Restless Leg Syndrome: Continue gabapentin, ropinirole held d/t increased delirium risk History of Seizure: continue zonisamide HLD: continue statin DM2: last A1C, 6.4, Mar 2024-> empagliflozin held Code: Full code Diet: NPO VTE Prophylaxis: Lovenox Admission and Anticipated Discharge Date Admission Date: September 04, 2024 Supervising Physician Co-Signing Physician Notes I personally examined the patient and verified العلي points of history and exam, discussed case, and agree with decision making and plan documented by Dr. Singh. Patient seated during exam, coarse breath sounds bilaterally, patient irregularly irregular. CXR with bibasilar opacities today, Zosyn restarted. Plan is for him to return to [facility] for rehab once medically improved. Subjective Pt seen and evaluated at bedside this morning. Intermittently drowsy and less alert and oriented than yesterday, AAO x 1 (person) consistently, to place only after context cues. Much less combative and much more somnolent today than yesterday. Review of Systems Review of Systems: As per above Constitutional: + fatigue; no weakness Eyes: + eye pain (l. eye tenderness) Respiratory: + cough and + chest congestion; no dyspn ea Cardiovascular: no chest pain Gastrointestinal: no abdominal pain, no nausea and no vomiting Physical Exam Constitutional: well developed, + obese, + altered mental status (confused, thinks family members are in hospital waiting for him) and cooperative Eyes: + conjunctival abnormality (conjunctival hemorrhage of l. eye) and EOM intact bilaterally Respiratory: Auscultation: + rhonchi and + wheezes (on left side) Cardiovascular: RRR, no murmur, no edema Extremities: normal capillary refill; no calf tenderness and no pedal edema Gastrointestinal (Abdomen): normal bowel sounds, soft, nontender, no hepatosplenomegaly Psychiatric: Orientation: alert, oriented to person, oriented to place and cooperative; + not oriented to time Genitourinary: no CVA tenderness Results & Data Results & Data Vital Signs (Past 12 Hours) Vital Signs Temp Pulse Pulse Resp BP Pulse Ox O2 Del Method 09/08/24 11:02 36.6 C 84 18 126/83 98 High Flow Nasal Cannula 09/08/24 10:00 Nasal Cannula 09/08/24 07:17 36.7 C 85 22 128/89 100 High Flow Nasal Cannula 09/08/24 07:09 87 22 96 Nasal Cannula 09/08/24 03:16 36.6 C 88 18 140/97 95 High Flow Nasal Cannula O2 Flow Rate 09/08/24 11:02 1 09/08/24 10:00 1 09/08/24 07:17 09/08/24 07:09 2 09/08/24 03:16 2
[2024-09-08 11:56] LABS: HCO3 VBG 30 mmol/L; Oxygen Saturation VBG 88.2 %; PCO2 VBG 48 mmHg (38-50); PO2 VBG 54 mmHg
--- NOTE | 2024-09-08 13:37 | XRay Report ---
XR chest 1V portable CLINICAL HISTORY: hypoxia COMPARISON STUDY: 09/04/2024 FINDINGS: Single view portable chest demonstrates persistent cardiomegaly and pulmonary vascular emiliano estion. There are small, patchy ground glass opacities developing in both lung bases. There is no sig nificant pleural effusion. Multilevel thoracic spine fusion is noted. IMPRESSION: Bibasilar airspace opacities are developing which could be pneumonia in the appropriate clinical context. ACT 112: Negative or not required by law. Electronically signed by: Stefany To M.D. 09/08/2024 1:36 PM
[2024-09-08] MEDS: NUTREN LIQD 2.0 1,000 ML BAG GT SCH (16:11)
[2024-09-08] MEDS: PIPERACILLIN/TAZOBACTAM 4.5 GM/100 ML BAG IV STA (17:57)
--- NOTE | 2024-09-09 07:28 | Hospitalist Progress Note ---
Date of Service September 09, 2024 Assessment & Plan (1) Influenza: (2) Unresponsive: (3) Dysphagia: (4) Acute heart failure with preserved ejection fraction (HFpEF): (5) Parkinsonism: (6) DVT prophylaxis: (7) Conjunctivitis: Plan 1) Influenza/ Super-imposed pneumonia - pos Influenza w/ severe sepsis/septic shock on admission - Re-started Zosyn on 09/08, Stopped Zosyn on AM of 09/06, negative MRSA nares (so no MRSA coverage) - CXR on admission w/out opacities/signs of PNA, some pulmonary vascular congestion, procal= 0.17-> overall reassuring that likely just viral in the setting of influenza - Repeat CXR on 09/08 showed bibasilar opacities concerning for developing pneumonia, Repeat VBG, 09/08, WNL - CRP, 4.3 <-- 7.16; WBC, 5.4 <-- 4.3 - added guaifenesin, 1200 mg, PO, BID; added hypertonic saline nebulizer, f inished course of Tamiflu - ordered Chest Percussion Therapy (chest vest) - weaned from BiPAP and O2 NC, now 95% on RA (2) Unresponsive/Delirious - likely delirium -> multifactorial in the setting of influenza/hypoxia/hypercapnia/hypotension - Head CT without acute pathology on admission - one-to-one PRN nursing due to uncooperative behavior - improving, patient AAO x 2 now; patient more drowsy on 09/08, 09/09 AM - pt on sedating meds: melatonin, 9 mg, PO, qHS; quetiapine, 12.5 mg, GT, q12hrs; gabapentin, 300 mg, PEG, BID (3) Dysphagia - tube feeds restarted 09/05 - discussed with [facility] and prior to admission was getting Jevity 1.2 bolus feeds on 325mL QID - Metal Drill Press Operator following and appreciate recommendations-> plan to titrate to prior feeding regimen (4) Acute heart failure with preserved ejection fraction (HFpEF) - Blood pressures mildly hypotensive on admission-> held Lasix/lisinopril; BNP, 72 (on admission) - overall appears euvolemic on exam - Lasix, 40 mg, GT, ONCE ordered on 09/09 ordered in case pt fluid overloaded; repeat BNP ordered for tomorrow (5) Parkinsonism - continue carbidopa-levodopa, memantine; ropinirole held in context of delirium (6) DVT prophylaxis - Lovenox, 40 mg, subQ, BID (on previously) (7) Conjunctivitis/conjunctival hemorrhage - bilateral now (started out on just left side) - per nurse, patient might have been rubbing his eyes after accidentally having a BM in bed - continue gentamicin drops Chronic/Stable conditions Afib: Rate controlled not on anticoagulation due to fall/bleed risk, follows with cardiology as an outpatient CAD: continue aspirin, Crestor Restless Leg Syndrome: Continue gabapentin, ropinirole held d/t increased delirium risk History of Seizure: continue zonisamide HLD: continue statin DM2: last A1C, 6.4, Mar 2024-> empagliflozin held Code: Full code Diet: NPO VTE Prophylaxis: Lovenox Admission and Anticipated Discharge Date Admission Date: September 04, 2024 Supervising Physician Co-Signing Physician Notes I personally examined the patient and verified العلي points of history and exam, discussed case, and agree with decision making and plan documented by Dr. Singh. Continue IV Zosyn and transition to oral antibiotics. With less confusion, will trial off 1:1. Patient will benefit from rehabilitation. Subjective Pt seen and evaluated at bedside this morning. Intermittently drowsy and less alert and oriented than yesterday, AAO x 2 today, not to time, but able to repeat 5 min later the correct month and year. Less somnolent today than yesterday. Review of Systems Review of Systems: As per above Constitutional: + fatigue; no weakness Eyes: + eye pain (b/l eye tenderness) Respiratory: + cough and + chest congestion; no dyspn ea Cardiovascular: no chest pain Gastrointestinal: no abdominal pain, no nausea and no vomiting Genitourinary: + problem reported (discomfort w/ Jackson catheter) Physical Exam Constitutional: well developed, + obese, + altered mental status (confused, thinks family members are in hospital waiting for him) and cooperative Eyes: + conjunctival abnormality (conjunctival hemorrhage of l. eye) and EOM intact bilaterally Respiratory: Auscultation: + rhonchi and + wheezes (on left side) Cardiovascular: RRR, no murmur, no edema Extremities: normal capillary refill; no calf tenderness and no pedal edema Gastrointestinal (Abdomen): normal bowel sounds, soft, nontender, no hepatosplenomegaly Psychiatric: Orientation: alert, oriented to person, oriented to place and cooperative; + not oriented to time Genitourinary: no CVA tenderness Results & Data Results & Data Vital Signs (Past 12 Hours) Vital Signs Temp Pulse Resp BP Pulse Ox O2 Del Method 09/09/24 07:12 93 H 16 95 Room Air 09/09/24 07:05 36.7 C 93 H 17 123/88 94 Room Air 09/09/24 00:16 36.3 C L 89 22 113/80 96 Room Air 09/08/24 20:49 Room Air 09/08/24 19:41 36.6 C 93 H 22 115/81 93 Room Air Resident Activity Tracking Resident Involvement: Resident Care Provided Care Provided: Adult Hospital Medicine
[2024-09-09] MEDS: PROSOURCE NO CARB 30 ML/PKT GT SCH (07:45)
[2024-09-09 08:44] LABS: Basophils # (auto) 0.01 K/uL (0.00-0.20); Basophils % (auto) 0.2 %; Eosinophils # (auto) 0.22 K/uL (0.00-0.50); Eosinophils % (auto) 4.1 %; Hematocrit (blood only) 39.9 % (42.0-52.0); Hemoglobin 12.8 g/dl (14.0-18.0); Immature Granulocytes # (auto) 0.02 K/uL (0.01-0.20); Immature Granulocytes % (auto) 0.4 %; Lymphocytes # (auto) 1.37 K/uL (1.20-3.40); Lymphocytes % (auto) 25.3 %; Mean Corpuscular Hemoglobin 29.2 pg (25.0-34.0); Mean Corpuscular Hgb Conc 32.1 g/dL (32.0-36.0); Mean Corpuscular Volume 91.1 fL (80.0-100.0); Mean Platelet Volume 9.4 fL (9.4-12.4); Monocytes # (auto) 0.56 K/uL (0.11-0.59); Monocytes % (auto) 10.3 %; Neutrophils # (auto) 3.24 K/uL (1.40-6.50); Neutrophils % (auto) 59.7 %; Platelet Count 248 K/uL (130-400); RDW Coefficient of Variation 14.6 % (11.5-14.5); RDW Standard Deviation 48.8 fL (36.4-46.3); Red Blood Count 4.38 M/uL (4.70-6.10); White Blood Count 5.42 K/ul (4.8-10.8)
[2024-09-09 09:11] LABS: Creatinine Clr Calc Pharmacy 129.3 ml/min; Potassium 3.7 mmol/L (3.5-5.1)
[2024-09-09] MEDS: GENTAMICIN SULFATE 0.3% OP SOLN 5 ML BTL OPB SCH (13:34)
[2024-09-09] MEDS: FUROSEMIDE 10 MG/ML 60ML BOTTLE GT ONE (14:12)
[2024-09-09] MEDS: PIPERACILLIN/TAZOBACTAM 4.5 GM/100 ML BAG IV SCH (23:04)
--- NOTE | 2024-09-10 06:54 | Hospitalist Progress Note ---
Date of Service September 10, 2024 Assessment & Plan (1) Influenza: (2) Unresponsive: (3) Dysphagia: (4) Acute heart failure with preserved ejection fraction (HFpEF): (5) Parkinsonism: (6) DVT prophylaxis: (7) Conjunctivitis: Plan 1) Influenza/ Super-imposed pneumonia - pos Influenza w/ severe sepsis/septic shock on admission - Re-started Zosyn on 09/08, negative MRSA nares (so no MRSA coverage) - CXR on admission w/out opacities/signs of PNA, some pulmonary vascular congestion, procal= 0.17-> overall reassuring that likely just viral in the setting of influenza - Repeat CXR on 09/08 showed bibasilar opacities concerning for developing pneumonia, Repeat VBG, 09/08, WNL - CRP, 4.3 <-- 7.16; WBC, 5.4 <-- 4.3 - added guaifenesin, 1200 mg, PO, BID; added hypertonic saline nebulizer, finished course of Tamiflu - ordered Chest Percussion Therapy (chest vest) - weaned from BiPAP and O2 NC, now on room air (2) Unresponsive/Delirious - likely delirium -> multifactorial in the setting of influenza/hypoxia/hypercapnia/hypotension - Head CT without acute pathology on admission - one-to-one PRN due to uncooperative behavior, however will need 24 hours without 1:1 before he can go to [facility] - improving, patient AAO x 2 now; patient more drowsy on 09/08, 09/09 AM - pt on sedating meds: melatonin, 9 mg, PO, qHS; quetiapine, 12.5 mg, GT, q12hrs; gabapentin, 300 mg, PEG, BID (3) Dysphagia - tube feeds restarted 09/05 - discussed with [facility] and prior to admission was getting Jevity 1.2 bolus feeds on 325mL QID - Ignition Expert following and appreciate recommendations-> plan to titrate to prior feeding regimen (4) Acute heart failure with preserved ejection fraction (HFpEF) - Blood pressures mildly hypotensive on admission-> held Lasix/lisinopril; BNP, 72 (on admission) - overall appears euvolemic on exam - Lasix, 40 mg, GT, x1 dose ordered on 09/09 ordered in case pt fluid overloaded (5) Parkinsonism - continue carbidopa-levodopa, memantine; ropinirole held in context of delirium (6) DVT prophylaxis - Lovenox, 40 mg, subQ, BID (on previously) (7) Conjunctivitis/conjunctival hemorrhage - bilateral now (started out on just left side) - per nurse, patient might have been rubbing his eyes after accidentally having a BM in bed - continue gentamicin drops Chronic/Stable conditions Afib: Rate controlled not on anticoagulation due to fall/bleed risk, follows with cardiology as an outpatient CAD: continue aspirin, Crestor Restless Leg Syndrome: Continue gabapentin, ropinirole held d/t increased delirium risk History of Seizure: continue zonisamide HLD: continue statin DM2: last A1C, 6.4, Mar 2024-> empagliflozin held Code: Full code Diet: NPO VTE Prophylaxis: Lovenox Admission and Anticipated Discharge Date Admission Date: September 04, 2024 Supervising Physician Co-Signing Physician Notes I personally examined the patient and verified العلي points of history and exam, discussed case, and agree with decision making and plan documented by Dr. Graf. Patient on admission for altered mental status in the setting of influenza A. He was restarted on Zosyn for concern of developing pneumonia, recommend transition to antibiotics via feeding tube. Discussed with trial off one-to-one for hopeful return to rehabilitation. Patient's reports he has had episodic delirium and confusion since his traumatic brain injury, she cares for him at home, she is considering hiring her niece who is an EMERGENCY ROOM PHYSICIAN ASSISTANT to help her at home when he returns. Subjective Patient seen and examined at bedside. Patient continues to require a 1:1 as he frequently pulls at his GT, needs frequent redirection. Denies chest pain or shortness of breath. Patient inquires about when he will be able to leave. Review of Systems Review of Systems: As per above Physical Exam Constitutional: well developed and well nourished; no acute distress Eyes: Drainage and erythema at bilateral eyes ENMT: Ears: no external ear abnormality Nose: no external nose abnormality Moist mucous membranes Respiratory: No increased respiratory efforts. Some coarse lung sounds throughout. Cardiovascular: Rate/Rhythm: regular rate and regular rhythm Extremities: no edema Gastrointestinal (Abdomen): Inspection/Auscultation: abdomen normal to inspection; abdomen not distended Percussion/Palpation: abdomen soft; abdomen nontender Musculoskeletal: Moves all limbs Skin: no rashes, warm and dry Psychiatric: Orientation: alert and oriented to person Results & Data Results & Data Vital Signs (Past 12 Hours) Vital Signs Pulse Resp BP Pulse Ox O2 Del Method 09/10/24 04:00 84 22 127/86 93 Room Air 09/09/24 22:04 Room Air 09/09/24 19:00 96 H 18 144/85 H 95 Room Air Resident Activity Tracking Resident Involvement: Resident Care Provided Care Provided: Adult Hospital Medicine
[2024-09-10 07:33] LABS: Basophils # (auto) 0.01 K/uL (0.00-0.20); Basophils % (auto) 0.2 %; Eosinophils # (auto) 0.21 K/uL (0.00-0.50); Eosinophils % (auto) 4.1 %; Hemoglobin 12.5 g/dl (14.0-18.0); Immature Granulocytes # (auto) 0.02 K/uL (0.01-0.20); Immature Granulocytes % (auto) 0.4 %; Lymphocytes # (auto) 1.31 K/uL (1.20-3.40); Lymphocytes % (auto) 25.8 %; Mean Corpuscular Hemoglobin 29.3 pg (25.0-34.0); Mean Corpuscular Hgb Conc 32.1 g/dL (32.0-36.0); Mean Corpuscular Volume 91.3 fL (80.0-100.0); Mean Platelet Volume 9.6 fL (9.4-12.4); Monocytes # (auto) 0.54 K/uL (0.11-0.59); Monocytes % (auto) 10.7 %; Neutrophils # (auto) 2.98 K/uL (1.40-6.50); Neutrophils % (auto) 58.8 %; Platelet Count 270 K/uL (130-400); RDW Coefficient of Variation 14.7 % (11.5-14.5); RDW Standard Deviation 49.7 fL (36.4-46.3); Red Blood Count 4.27 M/uL (4.70-6.10); White Blood Count 5.07 K/ul (4.8-10.8)
[2024-09-10 07:59] LABS: Calcium 8.7 mg/dl (8.6-10.3); Creatinine Clr Calc Pharmacy 146.5 ml/min; Potassium 3.5 mmol/L (3.5-5.1)
--- NOTE | 2024-09-11 07:46 | Hospitalist Progress Note ---
Date of Service September 11, 2024 Assessment & Plan (1) Influenza: (2) Unresponsive: (3) Dysphagia: (4) Acute heart failure with preserved ejection fraction (HFpEF): (5) Parkinsonism: (6) DVT prophylaxis: (7) Conjunctivitis: Plan 1) Influenza/ Super-imposed pneumonia - pos Influenza w/ severe sepsis/septic shock on admission - Re-started Zosyn on 09/08, negative MRSA nares. Anticipate discharging on Augmentin to complete 7 day course of treatment. - CXR on admission w/out opacities/signs of PNA, some pulmonary vascular congestion, procal= 0.17-> overall reassuring that likely just viral in the setting of influenza - Repeat CXR on 09/08 showed bibasilar opacities concerning for developing pneumonia, Repeat VBG, 09/08, WNL - added guaifenesin, 1200 mg, PO, BID; added hypertonic saline nebulizer, finished course of Tamiflu - Ordered Chest Percussion Therapy (chest vest) - weaned from BiPAP and O2 NC, now on room air (2) Unresponsive/Delirious - likely delirium -> multifactorial in the setting of influenza/hypoxia/hypercapnia/hypotension - Head CT without acute pathology on admission - improving, patient AAO x 2 now; patient more drowsy on 09/08, 09/09 AM - pt on sedating meds: melatonin, 9 mg, PO, qHS; quetiapine, 12.5 mg, GT, q12hrs; gabapentin, 300 mg, PEG, BID - Initially on 1:1, but now >24 hours without 1:1 (3) Dysphagia - tube feeds restarted 09/05 - discussed with [facility] and prior to admission was getting Jevity 1.2 bolus feeds on 325mL QID - Breaker Machine Operator following and added recommendations - Patient now tolerating more PO intake so tube feeds have scaled back in frequency (4) Acute heart failure with preserved ejection fraction (HFpEF) - Blood pressures mildly hypotensive on admission-> held Lasix/lisinopril; BNP, 72 (on admission) - overall appears euvolemic on exam (5) Parkinsonism - continue carbidopa-levodopa, memantine; ropinirole held in context of delirium (6) DVT prophylaxis - Lovenox, 40 mg, subQ, BID (on previously) (7) Conjunctivitis/conjunctival hemorrhage - bilateral now (started out on just left side) - No significant improvement on gentamicin drops so switched to Cipro drops on 09/11 Chronic/Stable conditions Afib: Rate controlled not on anticoagulation due to fall/bleed risk, follows with cardiology as an outpatient CAD: continue aspirin, Crestor Restless Leg Syndrome: Continue gabapentin, ropinirole held d/t increased delirium risk History of Seizure: continue zonisamide HLD: continue statin DM2: last A1C, 6.4, Mar 2024-> empagliflozin held * Dispo: medically stable for discharge to [facility], currently waiting for bed availability * Attempted to call patient's to provide update on afternoon of 09/11, no answer Code: Full code Diet: Pureed diet with mildly thick liquids VTE Prophylaxis: Lovenox Admission and Anticipated Discharge Date Admission Date: September 04, 2024 Supervising Physician Co-Signing Physician Notes ATTESTATION I also saw the patient and confirmed العلي portions of the history and exam. I agree with the impression and plan in the resident documentation, and as summarized below. Off 1:1 for the last 24 hours. Taking PO in addition to the feedings now that his orientation has improved. Still with bilateral conjunctivitis EXAM 154/93, 88, 25, 36.7, 94 percent on room air Bilateral conjunctivitis with tearing CV I/I Lungs decreased in bases, clear upper menjivar DATA Labs HgB 13.3, plt 293 BUN 22, Cr 0.69 IMPRESSION & PLAN Flu A Pneumonia Dysphagia, improving with improved orientation Conjunctivitis Awaiting placement Change eye drops to cipro Additional per resident documentation Subjective Patient seen and examined at bedside. No acute events reported overnight. Patient was able to eat 100% of dinner last night and has been without a 1:1 for more than 24 hours. Patient is alert and oriented to person, time, and place. Reports that his eyes burn a bit. Review of Systems Review of Systems: As per HPI Physical Exam Constitutional: well developed and well nourished; no acute distress Eyes: Tearing and erythema at conjunctiva bilaterally ENMT: Ears: no external ear abnormality Nose: no external nose abnormality Respiratory: Few coarse lung sounds. No increased respiratory efforts. Cardiovascular: Rate/Rhythm: regular rate and regular rhythm Extremities: no edema Gastrointestinal (Abdomen): Inspection/Auscultation: abdomen normal to inspection; abdomen not distended Percussion/Palpation: abdomen soft; abdomen nontender Skin: no rashes, warm and dry Psychiatric: Orientation: alert, oriented to person, oriented to place and oriented to time Results & Data Results & Data Vital Signs (Past 12 Hours) Vital Signs Temp Pulse Resp BP Pulse Ox O2 Del Method FiO2 09/11/24 07:31 93 H 15 93 Room Air 21 09/10/24 23:00 36.8 C 93 H 18 132/93 94 Room Air 09/10/24 22:42 Room Air Resident Activity Tracking Resident Involvement: Resident Care Provided Care Provided: Adult Hospital Medicine
[2024-09-11 08:19] LABS: Basophils # (auto) 0.02 K/uL (0.00-0.20); Basophils % (auto) 0.2 %; Eosinophils # (auto) 0.26 K/uL (0.00-0.50); Eosinophils % (auto) 3.2 %; Hematocrit (blood only) 41.8 % (42.0-52.0); Hemoglobin 13.3 g/dl (14.0-18.0); Immature Granulocytes # (auto) 0.06 K/uL (0.01-0.20); Immature Granulocytes % (auto) 0.7 %; Lymphocytes # (auto) 1.31 K/uL (1.20-3.40); Lymphocytes % (auto) 15.9 %; Mean Corpuscular Hemoglobin 29.7 pg (25.0-34.0); Mean Corpuscular Hgb Conc 31.8 g/dL (32.0-36.0); Mean Corpuscular Volume 93.3 fL (80.0-100.0); Mean Platelet Volume 10.2 fL (9.4-12.4); Monocytes # (auto) 0.76 K/uL (0.11-0.59); Monocytes % (auto) 9.2 %; Neutrophils # (auto) 5.82 K/uL (1.40-6.50); Neutrophils % (auto) 70.8 %; Platelet Count 293 K/uL (130-400); RDW Coefficient of Variation 15.1 % (11.5-14.5); RDW Standard Deviation 52.2 fL (36.4-46.3); Red Blood Count 4.48 M/uL (4.70-6.10); White Blood Count 8.23 K/ul (4.8-10.8)
[2024-09-11 08:40] LABS: Calcium 9.1 mg/dl (8.6-10.3); Creatinine Clr Calc Pharmacy 108.4 ml/min
[2024-09-11] MEDS: CIPROFLOXACIN HCL 0.3% OP SOLN 2.5 ML BTL OPB SCH ×2 (12:16→13:16)
[2024-09-11] MEDS ORDERED: TUBE FEEDING WATER FLUSH GT SCH ×3 (13:15→20:00)
[2024-09-11] MEDS: NUTREN LIQD 2.0 1,000 ML BAG GT SCH (21:30)
[2024-09-12 06:22] LABS: Basophils # (auto) 0.02 K/uL (0.00-0.20); Basophils % (auto) 0.3 %; Eosinophils # (auto) 0.27 K/uL (0.00-0.50); Eosinophils % (auto) 3.6 %; Hematocrit (blood only) 42.6 % (42.0-52.0); Hemoglobin 13.9 g/dl (14.0-18.0); Immature Granulocytes # (auto) 0.07 K/uL (0.01-0.20); Immature Granulocytes % (auto) 0.9 %; Lymphocytes # (auto) 1.32 K/uL (1.20-3.40); Lymphocytes % (auto) 17.6 %; Mean Corpuscular Hemoglobin 30.2 pg (25.0-34.0); Mean Corpuscular Hgb Conc 32.6 g/dL (32.0-36.0); Mean Corpuscular Volume 92.6 fL (80.0-100.0); Monocytes # (auto) 0.72 K/uL (0.11-0.59); Monocytes % (auto) 9.6 %; Neutrophils # (auto) 5.09 K/uL (1.40-6.50); Platelet Count 344 K/uL (130-400); RDW Standard Deviation 51.7 fL (36.4-46.3); White Blood Count 7.49 K/ul (4.8-10.8)
[2024-09-12 06:32] LABS: Calcium 9.3 mg/dl (8.6-10.3); Creatinine Clr Calc Pharmacy 101.9 ml/min; Potassium 3.3 mmol/L (3.5-5.1)
--- NOTE | 2024-09-12 07:21 | Hospitalist Progress Note ---
Date of Service September 12, 2024 Assessment & Plan (1) Influenza: (2) Unresponsive: (3) Dysphagia: (4) Acute heart failure with preserved ejection fraction (HFpEF): (5) Parkinsonism: (6) DVT prophylaxis: (7) Conjunctivitis: Plan 1) Influenza/ Super-imposed pneumonia - pos Influenza w/ severe sepsis/septic shock on admission - Re-started Zosyn on 09/08, negative MRSA nares. Anticipate discharging on Augmentin to complete 7 day course of treatment (ending on 09/14) - CXR on admission w/out opacities/signs of PNA, some pulmonary vascular congestion, procal= 0.17-> overall reassuring that likely just viral in the sett ing of influenza - Repeat CXR on 09/08 showed bibasilar opacities concerning for developing pneumonia, Repeat VBG, 09/08, WNL - added guaifenesin, 1200 mg, PO, BID; added hypertonic saline nebulizer, finished course of Tamiflu - Ordered Chest Percussion Therapy (chest vest) - weaned from BiPAP and O2 NC, now on room air (2) Unresponsive/Delirious - likely delirium -> multifactorial in the setting of influenza/hypoxia/hypercapnia/hypotension - Head CT without acute pathology on admission - improving, patient AAO x 2 now; patient more drowsy on 09/08, 09/09 AM - pt on sedating meds: melatonin, 9 mg, PO, qHS; quetiapine, 12.5 mg, GT, q12hrs; gabapentin, 300 mg, PEG, BID - Initially on 1:1, but now >48 hours without 1:1 (3) Dysphagia - tube feeds restarted 09/05 - discussed with [facility] and prior to admission was getting Jevity 1.2 bolus feeds on 325mL QID - Sale Professional Digital Marketing following and added recommendations - Patient now tolerating more PO intake so tube feeds have scaled back in frequency (4) Acute heart failure with preserved ejection fraction (HFpEF) - Blood pressures mildly hypotensive on admission-> held Lasix/lisinopril; BNP, 72 (on admission) - overall appears euvolemic on exam (5) Parkinsonism - continue carbidopa-levodopa, memantine; ropinirole held in context of delirium (6) DVT prophylaxis - Lovenox, 40 mg, subQ, BID (on previously) (7) Conjunctivitis/conjunctival hemorrhage - bilateral now (started out on just left side) - No significant improvement on gentamicin drops so switched to Cipro drops on 09/11 (8) Hypokalemia - K 3.3 on 09/12, repletion ordered - Repeat BMP in a.m. (9) Loose Bowel Movement - Ordered c.diff stool test after 2 mucousy, loose BMs on 09/12 - C.diff test negative Chronic/Stable conditions Afib: Rate controlled not on anticoagulation due to fall/bleed risk, follows with cardiology as an outpatient CAD: continue aspirin, Crestor Restless Leg Syndrome: Continue gabapentin, ropinirole held d/t increased delirium risk History of Seizure: continue zonisamide HLD: continue statin DM2: last A1C, 6.4, Mar 2024-> empagliflozin held * Dispo: medically stable for discharge to [facility], currently waiting for bed availability Code: Full code Diet: Pureed diet with mildly thick liquids VTE Prophylaxis: Lovenox Admission and Anticipated Discharge Date Admission Date: September 04, 2024 Supervising Physician Co-Signing Physician Notes ATTESTATION I also saw the patient and confirmed العلي portions of the history and exam. I agree with the impression and plan in the resident documentation, and as summarized below. Eyes look and feel a bit better. Is having some foul-smelling, mucus type stools per rectum. PO intake keeps improving, now only using PEG for single bolus feed at night EXAM 129/93, 85, 19, 36.8, 93% on room air Bilateral conjunctivitis with tearing Lungs decreased in bases, clear upper menjivar DATA Labs hemoglobin 13.9 potassium 3.3 BUN 19, creatinine 0.73 IMPRESSION & PLAN Flu A Pneumonia Dysphagia, improving with improved orientation Conjunctivitis Hypokalemia Paroxysmal atrial fibrillation check C. difficile replete potassium remains off systemic anticoagulation due to history of intracranial bleed Additional per resident documentation Subjective Patient seen and examined at bedside. No acute events reported overnight. This morning patient states his eyes aren't burning as much. Nursing reports that patient had a large, loose/mucousy BM this morning. Alert and oriented to self/place/time. Review of Systems Review of Systems: As per HPI Physical Exam Constitutional: well developed and well nourished; no acute distress Eyes: conjunctiva is erythematous bilaterally, some tearing but no pus or crusting visualized ENMT: Ears: no external ear abnormality Nose: no external nose abnormality Cardiovascular: Rate/Rhythm: regular rate and regular rhythm Extremities: no edema Gastrointestinal (Abdomen): Inspection/Auscultation: abdomen normal to inspection; abdomen not distended Percussion/Palpation: abdomen soft; abdomen nontender PEG tube in place, no surrounding erythema Skin: no rashes, warm and dry Psychiatric: Orientation: alert, oriented to person, oriented to place and oriented to time Results & Data Results & Data Vital Signs (Past 12 Hours) Vital Signs Temp Pulse Resp BP Pulse Ox O2 Del Method 09/12/24 03:13 36.5 C 87 20 114/88 95 Room Air 09/11/24 23:00 18 09/11/24 22:36 36.7 C 82 18 145/106 H 94 Room Air 09/11/24 22:01 Room Air 09/11/24 20:16 85 18 96 Room Air Resident Activity Tracking Resident Involvement: Resident Care Provided Care Provided: Adult Hospital Medicine
[2024-09-12] MEDS: POTASSIUM CHLORIDE CRTAB 20 MEQ TABCR PO STA (11:10)
--- NOTE | 2024-09-13 07:37 | Hospitalist Progress Note ---
Date of Service September 13, 2024 Assessment & Plan (1) Influenza: (2) Unresponsive: (3) Dysphagia: (4) Acute heart failure with preserved ejection fraction (HFpEF): (5) Parkinsonism: (6) DVT prophylaxis: (7) Conjunctivitis: Plan 1) Influenza/ Super-imposed pneumonia - pos Influenza w/ severe sepsis/septic shock on admission - Re-started Zosyn on 09/08, negative MRSA nares. Completed course of 09/13, stopped 1 day earlier due to looser stools - CXR on admission w/out opacities/signs of PNA, some pulmonary vascular congestion, procal= 0.17-> overall reassuring that likely just viral in the setting of influenza - Repeat CXR on 09/08 showed bibasilar opacities concerning for developing pneumonia, Repeat VBG, 09/08, WNL - added guaifenesin, 1200 mg, PO, BID; added hypertonic saline nebulizer, finished course of Tamiflu - Ordered Chest Percussion Therapy (chest vest) - weaned from BiPAP and O2 NC, now on room air (2) Right Upper Extremity Weakness - Noticed by as he was eating lunch on 09/13, was primarily using left hand and would use left hand to cotton picker operator right 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 Sensation intact at R UE. R hand biology research assistant strength slightly weaker than L - History of R shoulder surgery ~20 years ago, but patient denies pain of the shoulder at present - Cranial nerves intact to testing - Lower suspicion that this is related to an intracranial abnormaliity, but ordered CT head to rule out acute change given his recent brain bleed that lead to prior admission at [place] - CT head without acute changes. R Shoulder XR shows "moderate acromioclavicular and glenohumeral joint space loss." - If symptoms change/progress, would consider more neurologic workup but the isolation of symptoms to distal R forearm seem to suggest more musculoskeletal etiology. - Continue PT/OT - I called and discussed the above imaging and plan of care with the patient's on the afternoon of 09/13 (3) Unresponsive/Delirious - likely delirium -> multifactorial in the setting of influenza/hypoxia/hypercapnia/hypotension - Head CT without acute pathology on admission - improving, patient AAO x 2 now; patient more drowsy on 09/08, 09/09 AM - pt on sedating meds: melatonin, 9 mg, PO, qHS; quetiapine, 12.5 mg, GT, q12hrs; gabapentin, 300 mg, PEG, BID - Initially on 1:1, but now >72 hours without 1:1. Awaiting bed availability at [facility]. (4) Dysphagia - tube feeds restarted 09/05 - discussed with [facility] and prior to admission was getting Jevity 1.2 bolus feeds on 325mL QID - Industrial Economics Teacher following and added recommendations - Patient now tolerating more PO intake so tube feeds have scaled back in frequency (5) Acute heart failure with preserved ejection fraction (HFpEF) - Blood pressures mildly hypotensive on admission-> held Lasix/lisinopril; BNP, 72 (on admission) - overall appears euvolemic on exam (6) Parkinsonism - continue carbidopa-levodopa, memantine; ropinirole held in context of delirium (7) DVT prophylaxis - Lovenox, 40 mg, subQ, BID (on previously) (8) Conjunctivitis/conjunctival hemorrhage - bilateral now (started out on just left side) - No significant improvement on gentamicin drops so switched to Cipro drops on 09/11 - Cipro drops seem to be more effective, conjunctivitis appears to be improving (9) Hypokalemia - K 3.3 on 09/12, repletion ordered - Repeat daily BMP (10) Loose Bowel Movement - Ordered c.diff stool test after 2 mucousy, loose BMs on 09/12 - C.diff test negative. D/c antibiotics on 09/13, will monitor loose stool after antibiotic discontinuation Chronic/Stable conditions Afib: Rate controlled not on anticoagulation due to fall/bleed risk, follows with cardiology as an outpatient CAD: continue aspirin, Crestor Restless Leg Syndrome: Continue gabapentin, ropinirole held d/t increased deliri um risk History of Seizure: continue zonisamide HLD: continue statin DM2: last A1C, 6.4, Mar 2024-> empagliflozin held * Dispo: medically stable for discharge to [facility], currently waiting for bed availability Code: Full code Diet: Pureed diet with mildly thick liquids VTE Prophylaxis: Lovenox Admission and Anticipated Discharge Date Admission Date: September 04, 2024 Supervising Physician Co-Signing Physician Notes ATTESTATION I also saw the patient and confirmed العلي portions of the history and exam. I agree with the impression and plan in the resident documentation, and as summarized below. Eyes look and feel a bit better. Still having some mucousy stools per rectum, but C. difficile was negative. family concerned with decreased motion right upper extremity. Upon exam, seems to be more related to her shoulder ( He has prior history of shoulder surgery ). CT head negative for acute event. Shoulder x-ray shows moderate arthritic changes. EXAM 113/79, 80, 16, 95% room air Bilateral conjunctivitis, markedly improved heart distant but regular Lungs decreased in bases, clear upper menjivar DATA Labs no new labs today IMPRESSION & PLAN Flu A Pneumonia Dysphagia, improving with improved orientation Conjunctivitis, improving Hypokalemia Paroxysmal atrial fibrillation remains off systemic anticoagulation due to history of intracranial bleed awaiting placement at Additional per resident documentation Subjective Patient seen and examined at bedside, patient had just finished eating breakfast. Patient complains that he doesn't like the applesauce and the eggs are cold. Feels that his eyes are better today, not noticing any burning. Review of Systems Review of Systems: As per HPI Physical Exam Constitutional: well developed and well nourished; no acute distress Eyes: Bilateral conjunctiva with some erythema, improved from previous days. PERRLA ENMT: Ears: no external ear abnormality Nose: no external nose abnormality Respiratory: normal respiratory effort; no respiratory distress Good air movement, some coarse lung sounds. Cardiovascular: Rate/Rhythm: regular rate and regular rhythm Extremities: no edema Gastrointestinal (Abdomen): Inspection/Auscultation: abdomen normal to inspection; abdomen not distended Percussion/Palpation: abdomen soft; abdomen nontender Musculoskeletal: Right upper extremity with some decreased movement distally at wrist/forearm. Right sided elbow movement/strength within normal limits. Systematic Theology Professor strength of right hand minimally reduced when compared to left. No pain with palpation of right shoulder. Skin: no rashes, warm and dry Neurologic: CN's II-XI intact bilaterally Psychiatric: Orientation: alert, oriented to person, oriented to place and oriented to time Results & Data Results & Data Vital Signs (Past 12 Hours) Vital Signs Temp Pulse Resp BP Pulse Ox O2 Del Method O2 Flow Rate 09/13/24 07:10 84 15 94 Room Air 09/12/24 22:30 Room Air 09/12/24 20:10 36.4 C L 85 18 143/87 H 100 Nasal Cannula 4 FiO2 09/13/24 07:10 21 09/12/24 22:30 09/12/24 20:[address] 09/13/24 13:57 CT head without contrast History: Arm weakness Comparison: None Technique: Using multidetector thin collimation helical acquisition technique, axial, coronal and sagittal CT images from the skull base to the vertex were obtained without intravenous contrast. Dose reduction techniques were achieved by using automatic exposure control and/or adjustment of mA and/or kV according to patient size and/or use of iterative reconstruction technique. Findings: No intracranial hemorrhage, mass-effect, or midline shift. The ventricles are proportionate to the cerebral sulci. The lyon to white matter differentiation of the cerebral hemispheres is preserved. The basal cisterns are patent. No change in the partially calcified extra-axial lesion overlying the left frontal lobe measuring approximately 1 cm. Moderate cerebral atrophy. My mucosal thickening of the right maxillary sinus. Mastoid air cells are clear. Bilateral pseudophakia. Impression: No acute intracranial pathology. Electronically signed by Dada Ortega 09-13-2024 2:27 PM Shoulder X-Ray 09/13/24 14:14 INDICATION: Shoulder pain. TECHNIQUE: 4 views of the right shoulder. COMPARISON: No relevant priors. FINDINGS: No acute fracture or dislocation. No lytic or blastic bony lesions seen. Moderate acromioclavicular and glenohumeral joint space loss. Soft tissues appear unremarkable. IMPRESSION: Moderate acromioclavicular and glenohumeral joint space loss. Electronically signed by Sea Jorge 09-13-2024 2:56 PM Resident Activity Tracking Resident Involvement: Resident Care Provided Care Provided: Adult Hospital Medicine
--- NOTE | 2024-09-13 14:27 | CT Scan Report ---
CT head without contrast History: Arm weakness Comparison: None Technique: Using multidetector thin collimation helical acquisition technique, axial, coronal and sagittal CT images from the skull base to the vertex were obtained without intravenous contrast. Dose reduction techniques were achieved by using automatic exposure control and/or adjustment of mA and/or kV according to patient size and/or use of iterative reconstruction technique. Findings: No intracranial hemorrhage, mass-effect, or midline shift. The ventricles are proportionate to the cerebral sulci. The lyon to white matter differentiation of the cerebral hemispheres is preserved. The basal cisterns are patent. No change in the partially calcified extra-axial lesion overlying the left frontal lobe measuring approximately 1 cm. Moderate cerebral atrophy. My mucosal thickening of the right maxillary sinus. Mastoid air cells are clear. Bilateral pseudophakia. Impression: No acute intracranial pathology. Electronically signed by Dada Ortega 09-13-2024 2:27 PM
--- NOTE | 2024-09-13 14:57 | XRay Report ---
INDICATION: Shoulder pain. TECHNIQUE: 4 views of the right shoulder. COMPARISON: No relevant priors. FINDINGS: No acute fracture or dislocation. No lytic or blastic bony lesions seen. Moderate acromioclavicular and glenohumeral joint space loss. Soft tissues appear unremarkable. IMPRESSION: Moderate acromioclavicular and glenohumeral joint space loss. Electronically signed by Sea Jorge 09-13-2024 2:56 PM
--- NOTE | 2024-09-14 06:59 | Hospitalist Progress Note ---
Date of Service September 14, 2024 Assessment & Plan (1) Influenza: (2) Unresponsive: (3) Dysphagia: (4) Acute heart failure with preserved ejection fraction (HFpEF): (5) Parkinsonism: (6) DVT prophylaxis: (7) Conjunctivitis: Plan Pt is a 79 yo male with a past med hx including diabetes, CAD with hx [place], HFpEF, paroxysmal afib on lovenox at home, parkinsonism, and dysphagia who presents to the hospital on 09/04 for ARF positive for influ A. #Influenza/ Super-imposed pneumonia - pos Influenza w/ severe sepsis/septic shock on admission - Re-started Zosyn on 09/08, negative MRSA nares. Completed course of 09/13, stopped 1 day earlier due to looser stools - CXR on admission w/out opacities/signs of PNA, some pulmonary vascular congestion, procal= 0.17-> overall reassuring that likely just viral in the setting of influenza - Repeat CXR on 09/08 showed bibasilar opacities concerning for developing pneumonia, Repeat VBG, 09/08, WNL - added guaifenesin, 1200 mg, PO, BID; added hypertonic saline nebulizer, finished course of Tamiflu - Ordered Chest Percussion Therapy (chest vest) - weaned from BiPAP and O2 NC, now on room air #Right Upper Extremity Weakness - Noticed by as he was eating lunch on 09/13, was primarily using left hand and 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 Sensation intact at R UE. R hand clip loading machine feeder strength slightly weaker than L - History of R shoulder surgery ~20 years ago, but patient denies pain of the shoulder at present - Cranial nerves intact to testing - Lower suspicion that this is related to an intracranial abnormaliity, but ordered CT head to rule out acute change given his recent brain bleed that lead to prior admission at [place] - CT head without acute changes. R Shoulder XR shows "moderate acromioclavicular and glenohumeral joint space loss." - If symptoms change/progress, would consider more neurologic workup but the isolation of symptoms to distal R forearm seem to suggest more musculoskeletal etiology. - Continue PT/OT - teacher of the emotionally disturbed provider called and discussed the above imaging and plan of care with the patient's on the afternoon of 09/13 #Unresponsive/Delirious - likely delirium -> multifactorial in the setting of influenza/hypoxia/hypercapnia/hypotension - Head CT without acute pathology on admission - improving, patient AAO x 2 now; patient more drowsy on 09/08, 09/09 AM - pt on sedating meds: melatonin, 9 mg, PO, qHS; quetiapine, 12.5 mg, GT, q12hrs; gabapentin, 300 mg, PEG, BID - Initially on 1:1, but now >72 hours without 1:1. Awaiting bed availability at [facility]. #Dysphagia - tube feeds restarted 09/05 - discussed with [facility] and prior to admission was getting Jevity 1.2 bolus feeds on 325mL QID - Staff Nuclear Weapons Officer following and added recommendations - Patient now tolerating more PO intake so tube feeds have scaled back in frequency #Acute heart failure with preserved ejection fraction (HFpEF) - Blood pressures mildly hypotensive on admission-> held Lasix/lisinopril; BNP, 72 (on admission) - overall appears euvolemic on exam #Parkinsonism - continue carbidopa-levodopa, memantine; ropinirole held in context of delirium #DVT prophylaxis - Lovenox, 40 mg, subQ, BID (on previously) #Conjunctivitis/conjunctival hemorrhage - bilateral (started out on just left side initially) - No significant improvement on gentamicin drops so switched to Cipro drops on 09/11 - Cipro drops seem to be more effective, conjunctivitis appears to be improving #Hypokalemia - K 3.3 on 09/12, repletion ordered - Repeat daily BMP #Loose Bowel Movement - Ordered c.diff stool test after 2 mucousy, loose BMs on 09/12 - C.diff test negative. D/c antibiotics on 09/13, will monitor loose stool after antibiotic discontinuation Chronic/Stable conditions Afib: Rate controlled not on anticoagulation due to fall/bleed risk, follows with cardiology as an outpatient CAD: continue aspirin, Crestor Restless Leg Syndrome: Continue gabapentin, ropinirole held d/t increased de lirium risk History of Seizure: continue zonisamide HLD: continue statin DM2: last A1C, 6.4, Mar 2024-> empagliflozin held during acute illness * Dispo: medically stable for discharge to [facility], currently waiting for bed availability VTE Prophylaxis: Lovenox Admission and Anticipated Discharge Date Admission Date: September 04, 2024 Supervising Physician Co-Signing Physician Notes I personally examined the patient and verified all العلي points of history and exam, discussed case, and agree with decision making with Dr Sabillon doing better seems less confused awaiting return to [facility] vitals noted nad heent nc at mmm breathing unlabored no accessory muscles good effort skin no rashes no pallor or icterus IMPRESSION & PLAN Flu A Pneumonia Dysphagia, improving with improved orientation Conjunctivitis, improving Hypokalemia Paroxysmal atrial fibrillation doing better. breathing well. on room air. appears far more lucid than when i last saw him. for [facility] when bed available otherwise as above Subjective Pt seen today at bedside, feeling okay today. When seen, he was getting a breathing treatment and percussion, which he stopped and said he was done with. He states his breathing isnt baseline for him but is better than when he came in. He is not on oxygen at home. Lives at home with his , has a stair chair lift at home but states before coming in/last time he was home he felt very short of breath even getting around his house. He states his eyes feel less itchy/irritated today and his blurry vision is better today. No chest pain or SOB. No nausea or vomiting. Review of Systems Review of Systems: Per HPI. Physical Exam Physical Exam: General:Alert and oriented, no acute distress, HEENT: Normocephalic, moist oral mucosa, cataracts noted, bilateral conjunctivitis noted Cardio: Regular rate and rhythm, no murmur, Resp:Lungs clear to auscultation b/l in upper and middle lung menjivar but air movement is poor, mild rhonchi noted in the bases GI: Soft and nontender, nondistended, bowel sounds active Skin: Warm, pink, dry, Results & Data Results & Data Vital Signs (Past 12 Hours) Vital Signs Temp Pulse Resp BP Pulse Ox O2 Del Method 09/13/24 21:30 Room Air 09/13/24 20:00 36.5 C 88 16 135/92 97 Room Air 09/13/24 19:32 90 18 95 Room Air Resident Activity Tracking Resident Involvement: Resident Care Provided Care Provided: Adult Hospital Medicine
[2024-09-14 07:45] LABS: Basophils # (auto) 0.02 K/uL (0.00-0.20); Basophils % (auto) 0.3 %; Eosinophils # (auto) 0.19 K/uL (0.00-0.50); Eosinophils % (auto) 2.9 %; Hematocrit (blood only) 42.4 % (42.0-52.0); Hemoglobin 13.5 g/dl (14.0-18.0); Immature Granulocytes # (auto) 0.05 K/uL (0.01-0.20); Immature Granulocytes % (auto) 0.8 %; Lymphocytes # (auto) 1.41 K/uL (1.20-3.40); Lymphocytes % (auto) 21.4 %; Mean Corpuscular Hemoglobin 29.2 pg (25.0-34.0); Mean Corpuscular Hgb Conc 31.8 g/dL (32.0-36.0); Mean Corpuscular Volume 91.8 fL (80.0-100.0); Mean Platelet Volume 9.7 fL (9.4-12.4); Monocytes # (auto) 0.78 K/uL (0.11-0.59); Monocytes % (auto) 11.9 %; Neutrophils # (auto) 4.13 K/uL (1.40-6.50); Neutrophils % (auto) 62.7 %; Platelet Count 346 K/uL (130-400); RDW Coefficient of Variation 15.7 % (11.5-14.5); RDW Standard Deviation 52.2 fL (36.4-46.3); Red Blood Count 4.62 M/uL (4.70-6.10); White Blood Count 6.58 K/ul (4.8-10.8)
[2024-09-14] MEDS: SERTRALINE HCL 50 MG TABLET PO SCH (09:01)
[2024-09-14] MEDS: QUEtiapine FUMARATE 25 MG TABLET PO SCH (09:02)
[2024-09-14] MEDS: GABAPENTIN 250 MG/5 ML 470 ML BTL PO SCH (09:04)
[2024-09-14] MEDS: FINASTERIDE 5 MG TAB PO SCH (09:04)
[2024-09-14 09:19] LABS: BUN Creatinine Ratio 19.7 (10-20); Calcium 9.2 mg/dl (8.6-10.3); Creatinine Clr Calc Pharmacy 112.7 ml/min; Potassium 3.3 mmol/L (3.5-5.1)
[2024-09-14] MEDS: POTASSIUM CHLORIDE 20 MEQ/15 ML UDC PO STA (11:23)
[2024-09-14] MEDS: CARBIDOPA/LEVODOPA 25/100MG TAB PO SCH (14:28)
--- NOTE | 2024-09-14 18:48 | Billing Data ---
Date of Service September 14, 2024 Coding Level of Care Code 79647 SUB INP/OBS CARE
--- NOTE | 2024-09-14 18:49 | Billing Data ---
Date of Service September 14, 2024 Coding Level of Care Code 48077 SUB INP/OBS CARE
[2024-09-14] MEDS: ATORVASTATIN 40 MG TAB PO SCH (21:24)
[2024-09-15] MEDS: LOPERAMIDE HCL 2 MG CAP PO STA (06:18)
[2024-09-15] MEDS: LANSOPRAZOLE 30 MG SOLTAB PO SCH (06:18)
[2024-09-15 06:21] LABS: BUN Creatinine Ratio 25.9 (10-20); Calcium 8.9 mg/dl (8.6-10.3); Creatinine Clr Calc Pharmacy 131.1 ml/min; Potassium 3.6 mmol/L (3.5-5.1)
[2024-09-15 06:23] LABS: Basophils # (auto) 0.02 K/uL (0.00-0.20); Basophils % (auto) 0.3 %; Eosinophils # (auto) 0.16 K/uL (0.00-0.50); Eosinophils % (auto) 2.4 %; Hematocrit (blood only) 39.3 % (42.0-52.0); Hemoglobin 12.7 g/dl (14.0-18.0); Immature Granulocytes # (auto) 0.03 K/uL (0.01-0.20); Immature Granulocytes % (auto) 0.4 %; Lymphocytes # (auto) 1.25 K/uL (1.20-3.40); Lymphocytes % (auto) 18.6 %; Mean Corpuscular Hemoglobin 29.7 pg (25.0-34.0); Mean Corpuscular Hgb Conc 32.3 g/dL (32.0-36.0); Mean Corpuscular Volume 91.8 fL (80.0-100.0); Mean Platelet Volume 9.8 fL (9.4-12.4); Monocytes # (auto) 0.88 K/uL (0.11-0.59); Monocytes % (auto) 13.1 %; Neutrophils # (auto) 4.37 K/uL (1.40-6.50); Neutrophils % (auto) 65.2 %; Platelet Count 321 K/uL (130-400); RDW Coefficient of Variation 15.7 % (11.5-14.5); RDW Standard Deviation 52.4 fL (36.4-46.3); Red Blood Count 4.28 M/uL (4.70-6.10); White Blood Count 6.71 K/ul (4.8-10.8)
--- NOTE | 2024-09-15 09:51 | Hospitalist Progress Note ---
Date of Service September 15, 2024 Assessment & Plan (1) Influenza: (2) Unresponsive: (3) Dysphagia: (4) Acute heart failure with preserved ejection fraction (HFpEF): (5) Parkinsonism: (6) DVT prophylaxis: (7) Conjunctivitis: Plan Pt is a 79 yo male with a past med hx including diabetes, CAD with hx [place], HFpEF, paroxysmal afib on lovenox at home, parkinsonism, and dysphagia who presents to the hospital on 09/04 for ARF positive for influ A. #Influenza/ Super-imposed pneumonia - pos Influenza w/ severe sepsis/septic shock on admission - Re-started Zosyn on 09/08, negative MRSA nares. Completed course of 09/13, stopped 1 day earlier due to looser stools - CXR on admission w/out opacities/signs of PNA, some pulmonary vascular congestion, procal= 0.17-> overall reassuring that likely just viral in the setting of influenza - Repeat CXR on 09/08 showed bibasilar opacities concerning for developing pneumonia, Repeat VBG, 09/08, WNL - added guaifenesin, 1200 mg, PO, BID; added hypertonic saline nebulizer, finished course of Tamiflu - Ordered Chest Percussion Therapy (chest vest) - weaned from BiPAP and O2 NC, now on room air #Right Upper Extremity Weakness - Noticed by as he was eating lunch on 09/13, was primarily using left hand and would 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 Sensation intact at R UE. R hand office machines wirer strength slightly weaker than L - History of R shoulder surgery ~20 years ago, but patient denies pain of the shoulder at present - Cranial nerves intact to testing - Lower suspicion that this is related to an intracranial abnormaliity, but ordered CT head to rule out acute change given his recent brain bleed that lead to prior admission at [place] - CT head without acute changes. R Shoulder XR shows "moderate acromioclavicular and glenohumeral joint space loss." - If symptoms change/progress, would consider more neurologic workup but the isolation of symptoms to distal R forearm seem to suggest more musculoskeletal etiology. - Continue PT/OT - curtains and draperies salesperson provider called and discussed the above imaging and plan of care with the patient's on the afternoon of 09/13 #Unresponsive/Delirious - likely delirium -> multifactorial in the setting of influenza/hypoxia/hypercapnia/hypotension - Head CT without acute pathology on admission - improving, patient AAO x 2 now; patient more drowsy on 09/08, 09/09 AM - pt on sedating meds: melatonin, 9 mg, PO, qHS; quetiapine, 12.5 mg, GT, q12hrs; gabapentin, 300 mg, PEG, BID - Initially on 1:1, but now >72 hours without 1:1. Awaiting bed availability at [facility]. #Dysphagia - tube feeds restarted 09/05 - discussed with [facility] and prior to admission was getting Jevity 1.2 bolus feeds on 325mL QID - Director Of Adult Epilepsy following and added recommendations - Patient now tolerating more PO intake so tube feeds have scaled back in frequency #Acute heart failure with preserved ejection fraction (HFpEF) - Blood pressures mildly hypotensive on admission-> held Lasix/lisinopril; BNP, 72 (on admission) - overall appears euvolemic on exam #Parkinsonism - continue carbidopa-levodopa, memantine; ropinirole held in context of delirium #DVT prophylaxis - Lovenox, 40 mg, subQ, BID (on previously) #Conjunctivitis/conjunctival hemorrhage - bilateral (started out on just left side initially) - No significant improvement on gentamicin drops so switched to Cipro drops on 09/11 - Cipro drops seem to be more effective, conjunctivitis appears to be improving #Hypokalemia - K 3.3 on 09/12, repletion ordered - Repeat daily BMP #Loose Bowel Movement - Ordered c.diff stool test after 2 mucousy, loose BMs on 09/12 - C.diff test negative. D/c antibiotics on 09/13, will monitor loose stool after antibiotic discontinuation Chronic/Stable conditions Afib: Rate controlled not on anticoagulation due to fall/bleed risk, follows with cardiology as an outpatient CAD: continue aspirin, Crestor Restless Leg Syndrome: Continue gabapentin, ropinirole held d/t increased de lirium risk History of Seizure: continue zonisamide HLD: continue statin DM2: last A1C, 6.4, Mar 2024-> empagliflozin held during acute illness * Dispo: medically stable for discharge to [facility], currently waiting for bed availability VTE Prophylaxis: Lovenox Admission and Anticipated Discharge Date Admission Date: September 04, 2024 Supervising Physician Co-Signing Physician Notes I personally examined the patient and verified all العلي points of history and exam, discussed case, and agree with decision making with Dr Sabillon no new issues [facility] vitals noted nad heent nc at mmm breathing unlabored no accessory muscles good effort skin no rashes no pallor or icterus IMPRESSION & PLAN Flu A Pneumonia Dysphagia, improving with improved orientation Conjunctivitis, improving Hypokalemia Paroxysmal atrial fibrillation doing better. overall improved. stable for [facility] otherwise as above Subjective Pt seen at bedside. No questions or complaints today. He states he feels no better or worse than yesterday. His eyes feel no better or worse than yesterday. Review of Systems Review of Systems: Per HPI. Physical Exam Physical Exam: General:Alert and oriented, no acute distress, HEENT: Normocephalic, moist oral mucosa, cataracts noted, bilateral conjunctivitis noted unchanged from yesterday Cardio: Regular rate and rhythm, no murmur, Resp:Lungs clear to auscultation b/l in upper and middle lung menjivar but air movement is poor, mild rhonchi noted in the bases improved today GI: Soft and nontender, nondistended, bowel sounds active Skin: Warm, pink, dry, Results & Data Results & Data Vital Signs (Past 12 Hours) Vital Signs Temp Pulse Resp BP Pulse Ox O2 Del Method 09/15/24 07:52 83 18 95 Room Air 09/15/24 07:35 Room Air 09/15/24 07:14 36.4 C L 78 18 138/85 96 Room Air Resident Activity Tracking Resident Involvement: Resident Care Provided Care Provided: Adult Hospital Medicine
--- NOTE | 2024-09-15 13:16 | Billing Data ---
Date of Service September 15, 2024 Coding Level of Care Code 26287 SUB INP/OBS CARE
[2024-09-16] MEDS: ACETAMINOPHEN 500 MG TAB PO PRN (02:09)
[2024-09-16 06:37] LABS: BUN Creatinine Ratio 27.4 (10-20); Calcium 8.5 mg/dl (8.6-10.3); Creatinine Clr Calc Pharmacy 122.6 ml/min; Potassium 3.6 mmol/L (3.5-5.1)
[2024-09-16 06:41] LABS: Basophils # (auto) 0.01 K/uL (0.00-0.20); Basophils % (auto) 0.2 %; Eosinophils # (auto) 0.15 K/uL (0.00-0.50); Eosinophils % (auto) 2.3 %; Hematocrit (blood only) 37.7 % (42.0-52.0); Hemoglobin 12.2 g/dl (14.0-18.0); Immature Granulocytes # (auto) 0.05 K/uL (0.01-0.20); Immature Granulocytes % (auto) 0.8 %; Lymphocytes # (auto) 1.41 K/uL (1.20-3.40); Lymphocytes % (auto) 21.2 %; Mean Corpuscular Hemoglobin 29.6 pg (25.0-34.0); Mean Corpuscular Hgb Conc 32.4 g/dL (32.0-36.0); Mean Corpuscular Volume 91.5 fL (80.0-100.0); Monocytes # (auto) 0.94 K/uL (0.11-0.59); Monocytes % (auto) 14.1 %; Neutrophils # (auto) 4.09 K/uL (1.40-6.50); Neutrophils % (auto) 61.4 %; Platelet Count 318 K/uL (130-400); RDW Coefficient of Variation 15.8 % (11.5-14.5); RDW Standard Deviation 52.7 fL (36.4-46.3); Red Blood Count 4.12 M/uL (4.70-6.10); White Blood Count 6.65 K/ul (4.8-10.8)
--- NOTE | 2024-09-16 12:14 | Discharge Summary ---
Date of Service September 16, 2024 Admission HPI Per Admitting Provider Patient is a 79-year-old male who was sent over from [facility] rehab due to being unresponsive. HPI is not obtainable from the patient, but from family, his physician at rehab, and the ER physicianhe had been [facility] to [facility] head [facility], it sounds like it was quite a long hospital course he was on the ventilator he has a feeding tube, but he was improving and had gone to [facility] for rehab. There he was getting better quite nicelyhis physician over there noted to me that even yesterday they were talking and joking. Today he was unresponsive in a manner that appeared nonspecific but infectious. They had ordered empiric antibiotics to be initiated, but ended up needing to send him to the ER before any therapy was even started. Here he was found to be hypoxic and hypotensive, but has responded to BiPAP and IV fluids. Again no meaningful HPI review of systems obtainable from the patient as he is still sedated from illness Had a fall with an intracranial bleedbut seem to have been recovering from that nicely. in regards to his background medical history, he does not seem to suffer significantly from freeze episodes should he miss medications. He does carry history of HFpEF, was last hospitalized for that in November 2023 and follows actively with the heart failure clinic. Admission Exam Per Admitting Provider In general he is laying in the ER bay supine with BiPAP on he is not reliably responsive but he does move around, groan a little, and vaguely reach for the mask. HEENT normocephalic atraumatic, best I can ascertain mucous membranes appear moist but obviously difficult exam with BiPAP mask on. Cardio is somewhat distant no rubs murmurs or gallops. Lungs are coarse bilaterally with somewhat diminished air entry no focal findings no wheezing no accessory muscle use no retractions no abdominal breathing. Abdomen is soft nondistended nontender no masses organomegaly there is a feeding tube in place consistent with PEG. Extremities without cyanosis clubbing or edema no appearance of calf tenderness. Neuro is very difficult to assess but he shows no focal deficits and seems to move all extremities equally and respond a degree to touch with no notable focal areas of sensory deficits. Skin without rashes pallor or icterus. Chest x-ray is a fairly poor film the does not show any clear or obvious infiltrate to me, has spinal hardware in place, and may be looks slightly consistent with pulmonary edema (which is actually inconsistent with his clinical picture) read by radiology as cardiomegaly with pulmonary vascular congestion. Labs show a CBC with a white count of 7.42, hemoglobin 12.7, platelets 177. VBG with a pH of 7.26 pCO2 of 56after I have seen himfollow-up ABG shows a pH of 7.32 pCO2 of 42 pO2 of 142. Procalcitonin of 0.17, CRP of 5.16. Troponin is normal, EKG is rate controlled A-fib without ischemic changes. Principal Diagnosis Influenza A infection Discharge Exam General:Alert and oriented, no acute distress, HEENT: Normocephalic, moist oral mucosa, cataracts noted, bilateral conjunctivitis noted which is improved today Cardio: Regular rate and rhythm, no murmur, Resp:Lungs clear to auscultation b/l in upper and middle lung menjivar but air movement is poor, faint rhonchi GI: Soft and nontender, nondistended, bowel sounds active Skin: Warm, pink, dry, Discharge Data Allergies Allergy/AdvReac Type Severity Reaction Status Date / Time No Known Allergies Allergy Verified 07/06/24 13:27 Consultations 09/04/24 14:55 ED Decision to Admit Stat 09/04/24 15:38 ED Decision to Admit Stat Ordered Studies 09/04/24 13:14 CT head/brain wo con Stat 09/13/24 13:57 CT head/brain wo con Urgent Hospital Course (1) Influenza: (2) Unresponsive: (3) Dysphagia: (4) Acute heart failure with preserved ejection fraction (HFpEF): (5) Parkinsonism: (6) DVT prophylaxis: (7) Conjunctivitis: Plan Pt is a 79 yo male with a past med hx including diabetes, CAD with hx [place], HFpEF, paroxysmal afib on lovenox at home, parkinsonism, and dysphagia who presents to the hospital on 09/04 for ARF positive for influ A. #Influenza/ Super-imposed pneumonia - pos Influenza w/ severe sepsis/septic shock on admission - Re-started Zosyn on 09/08, negative MRSA nares. Completed course of 09/13 (stopped 1 day earlier due to looser stools), also finished course of tamiflu - CXR on admission w/out opacities/signs of PNA, some pulmonary vascular congestion, repeat CXR on 09/08 showed bibasilar opacities concerning for developing pneumonia no post-treatment - pt improved, now on room air and comfortable #Right Upper Extremity Weakness, resolved - Noticed by as he was eating lunch on 09/13, was primarily using left hand and would use left hand to pick up operator right hand - On exam, patient able to move elbow/forearm independently and seems to be only restricted in certain movements at the wrist/hand, - Can shrug R shoulder but seems to avoid using the shoulder itself when being prompted to lift/move R arm. Sensation intact at R UE. R hand electronics engineering manager strength slightly weaker than L - History of R shoulder surgery ~20 years ago, but patient denies pain of the shoulder at present - CT head with no acute changes, and there have been no recurrence of these symptoms #Unresponsive/Delirious, resolved - likely delirium -> multifactorial in the setting of influenza/hypoxia/hypercapnia/hypotension - Head CT without acute pathology on admission #Dysphagia, improved - tube feeds restarted 09/05 - discussed with [facility] and prior to admission was getting Jevity 1.2 bolus feeds on 325mL QID - Patient now tolerating more PO intake so tube feeds have scaled back in frequency #Conjunctivitis/conjunctival hemorrhage, improving - bilateral (started out on just left side initially) - No significant improvement on gentamicin drops so switched to Cipro drops on 09/11 - Cipro drops seem to be more effective, conjunctivitis appears to be improving slowly, no further doses needed on discharge as he got 5 days here in the hospital Dispo: Back to [facility] to finish rehab. Total Time Total Time Spent Total Time Spent (In Minutes): <30. Discharge Plan Discharge Items Patient Disposition: Transfer Inpatient Rehab Fac Reason For Visit: FLU,HYPOXIA,DELIRIUM Discharge Diagnosis: Influenza A infection Activity: As commented below Activity Comment: Activity as tolerated. Non-emergency contact: Primary Care Provider Call non-emergency contact if: you have any medication questions, your symptoms worsen and your temperature is above 101 Follow-up/Referrals: Reinier Tipton MD [Primary Care Provider] - Diet: Regular Addtl Attending Provider Instructions: You were admitted to the hospital for influenza A ("the flu") infection. As you have done well here in the hospital and no longer need oxygen support, we feel it is safe at this point to get you back to [facility]. After you leave [facility], please follow up with your primary care doctor within 1 week after discharge. Pending Studies at Discharge: No Stand-Alone Forms: My [facility] Skilled Items Patient informed of condition?: Yes DNR: No Discharge Level of Care: Acute rehab Communicable Disease: No Discharge Prognosis: Stable Lines: None Urinary Catheter: No Medications and DC Order Prescriptions: Continued furosemide 40 mg tablet 40 mg feeding tube DAILY cyanocobalamin (vitamin B-12) 1,000 mcg Tablet 1,000 mcg feeding tube QAM cholecalciferol (vitamin D3) [Vitamin D3] 50 mcg (2,000 unit) Capsule 50 mcg feeding tube DAILY sertraline 25 mg Tablet 25 mg feeding tube DAILY zonisamide 25 mg capsule 25 mg PO Q12 Rx Instructions: stop 09/27/24 @8:59 carbidopa-levodopa 25-100 mg tablet 2 tab feeding tube Q8 gabapentin 300 mg capsule 300 mg PO BID memantine 10 mg tablet 10 mg PO Q12 melatonin 3 mg Tablet 9 mg feeding tube HS finasteride 5 mg Tablet 5 mg feeding tube DAILY enoxaparin 40 mg/0.4 mL Syringe 40 mg SUBCUT BID empagliflozin 25 mg Tablet 12.5 mg feeding tube QAM lansoprazole 15 mg Tablet,Disintegrat, Delay Rel 30 mg feeding tube DAILYBB quetiapine 25 mg Tablet 12.5 mg feeding tube Q12 atorvastatin 40 mg Tablet 40 mg feeding tube HS ropinirole 2 mg Tablet 2 mg feeding tube HS bacitracin 500 unit/gram Ointment 1 applic TOPICAL BID acetaminophen 650 mg/20.3 mL Solution 650 mg PO Q6 Held lisinopril 5 mg Tablet 5 mg feeding tube DAILY Hold Instructions: Resume on 10/19/24. Hold this medication until follow up with your primary care doctor. Please take a log of your blood pressure to your next visit with your doctor. You are to hold this for low blood pressures in the hospital. Discontinued piperacillin-tazobactam 3.375 gram Recon Soln 3.375 g IV Q6H Rx Instructions: start 09/04/24 Discharge Orders: Discharge Order (Routine); Ordered 09/16/24 Ordered By: Ama Sabillon Admission Data Admit Date/Time: 09/04/24 16:15 Attending Provider: Rene Paige Admit Provider: Rene Paige Primary Care Provider: Reinier Tipton Other Providers: [facility]; [facility]; Rodger Garcia; Rene Paige Supervising Physician Co-Signing Physician Notes I personally examined the patient and verified all العلي points of history and exam, discussed case, and agree with decision making with Dr Sabillon for rehab today. no new issues. updated on what has happened and why return to rehab makes the most sense vitals noted nad heent nc at mmm breathing unlabored no accessory muscles good effort skin no rashes no pallor or icterus IMPRESSION & PLAN Flu A Pneumonia Dysphagia, improving with improved orientation Conjunctivitis, improving Hypokalemia Paroxysmal atrial fibrillation doing better. overall improved. stable for return to rehab. for [facility] today otherwise as above Resident Activity Tracking Resident Involvement: Resident Care Provided Care Provided: Adult Hospital Medicine
[2024-09-16 13:00] VITALS: RESP 16
[2024-09-16 15:52] VITALS: BP 100/69; PULSE 76; TEMP 97.9; O2SAT 97
--- NOTE | 2024-09-16 16:27 | Billing Data ---
Date of Service September 16, 2024 Coding Level of Care Code 41835 IN/OBS DISCH 30 MIN/LESS
== END 2024-09-16 18:10 | DRG 871 ==
LOC: ED 13:04 → SUATTDRO 16:15 → EDINP 16:15 → 2E 18:02 → 3E 09-12 18:17

== ENCOUNTER 2024-10-23 16:34 | Inpatient (IN) ==
[2024-10-23] MEDS: SODIUM CHLORIDE 0.9% 500 ML IV ONE (17:09)
[2024-10-23 17:21] LABS: Basophils # (auto) 0.03 K/uL (0.00-0.20); Basophils % (auto) 0.5 %; Eosinophils # (auto) 0.16 K/uL (0.00-0.50); Eosinophils % (auto) 2.6 %; Hematocrit (blood only) 42.5 % (42.0-52.0); Hemoglobin 13.6 g/dl (14.0-18.0); Immature Granulocytes # (auto) 0.01 K/uL (0.01-0.20); Immature Granulocytes % (auto) 0.2 %; Mean Corpuscular Hemoglobin 30.5 pg (25.0-34.0); Mean Corpuscular Volume 95.3 fL (80.0-100.0); Mean Platelet Volume 9.4 fL (9.4-12.4); Monocytes # (auto) 0.71 K/uL (0.11-0.59); Monocytes % (auto) 11.6 %; Neutrophils # (auto) 3.79 K/uL (1.40-6.50); Neutrophils % (auto) 62.1 %; Platelet Count 269 K/uL (130-400); RDW Coefficient of Variation 16.5 % (11.5-14.5); RDW Standard Deviation 58.3 fL (36.4-46.3); Red Blood Count 4.46 M/uL (4.70-6.10)
--- NOTE | 2024-10-23 17:36 | XRay Report ---
Exam: Single view portable chest. History: Weakness. Comparison: 16 October 2024. Findings: Thoracic fusion hardware again noted. Patient is lordotic. Cardiac silhouette is prominent. A portion of this is likely exaggerated. This is unchanged. Pulmonary vasculature is within normal limits. Linear band densities bilateral pulmonary bases with poorly defined costophrenic angles. Lungs otherwise clear. Impression: Stable exam with likely bibasilar subsegmental atelectasis. No definitive infiltrate. Small effusions not excluded. Electronically signed by Chuck Vaughan 10-23-2024 5:36 PM
[2024-10-23 17:39] LABS: Albumin Globulin Ratio 1.2 (0.9-2); Albumin Level 3.6 gm/dl (3.4-5.0); BUN Creatinine Ratio 17.5 (10-20); Bilirubin,Total 0.4 mg/dl (0.2-1.0); Creatinine Clr Calc Pharmacy 97.8 ml/min; Globulin 2.9 gm/dl (2.5-4.0); Potassium 3.9 mmol/L (3.5-5.1); Total Protein 6.5 gm/dl (6.0-8.3)
[2024-10-23 17:54] LABS: Thyroid Stimulating Hormone 1.068 uIu/ml (0.300-4.500)
--- NOTE | 2024-10-23 17:56 | CT Scan Report ---
EXAM: CT head without contrast History: Fall. Hypotension. Comparison: 16 October 2024 and 04 September 2024.. Technique: Using multidetector thin collimation helical acquisition technique, axial, coronal and sagittal CT images from the skull base to the vertex were obtained without intravenous contrast. Dose reduction techniques were achieved by using automatic exposure control and/or adjustment of mA and/or kV according to patient size and/or use of iterative reconstruction technique. 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 Brain windows demonstrate prominent ventricular volume relative to the sulci. Small hyperdensity along the left frontal lobe extra-axial convexity unchanged when compared to prior exam. Suspect dystrophic calcification possibly meningioma. No appreciated hemorrhage, mass or acute large territorial infarct. Basal cisterns are patent. No midline shift. Orbital soft tissues demonstrate no abnormality. Bone windows demonstrate skull base and bone calvarium to be within normal limits. Impression: Stable exam with prominent ventricles relative to the sulci. This may represent preferential central cerebral volume loss. Communicating hydrocephalus such as normal pressure hydrocephalus not entirely excluded. Correlate with clinical data. No appreciated acute process. Electronically signed by Chuck Vaughan 10-23-2024 5:56 PM
[2024-10-23 19:11] LABS: Appearance Urine Clear (Clear); Bacteria Urine Automated 4+ (None Seen); Bilirubin Urine Negative (Negative); Blood Urine Negative (Negative); Cast Urine Automated 0-2 /lpf (0-2); Color Urine Yellow; Epithelial Cell Urine Auto 0-2 /hpf (0-2); Glucose Urine UA 2+ (Negative); Ketones Urine Negative (Negative); Leukocyte Esterase Urine 1+ (Negative); Nitrite Urine Negative (Negative); Protein Urine Negative (Negative); RBC Urine Automated 0-2 /hpf (0-2); Specific Gravity Urine 1.007 (1.000-1.030); Urobilinogen Urine Negative (Negative); WBC Urine Automated 21-50 /hpf (0-5)
--- NOTE | 2024-10-23 19:27 | History & Physical Report ---
Date of Service October 23, 2024 Assessment & Plan (1) Acute hypotension: (2) Acute UTI (urinary tract infection): (3) Frequent falls: (4) (HFpEF) heart failure with preserved ejection fraction: Plan 79-year-old male PMHx HFpEF, parkinsonism, PAF not on anticoagulants, CAD, diabetes, RLS, and history of prostate cancer presenting to ED via EMS for a fall. ED evaluation reveals no leukocytosis, H&H 13.6/42.5; CMP chloride 108, AST 11, ALT 3, otherwise grossly WNL; TSH 1.068; UA pending; CXR stable exam with likely bibasilar segmental atelectasis, no definitive infiltrate and small effusions not excluded; head CT stable exam with prominent ventricles relative to the sulci may represent preferential central cerebral volume loss, no appreciated acute process; EKG a flutter with variable AV block at 83 bpm.; Provided with 500 mL NSS in ED. #Hypotension Presenting for GLF, was hypotensive in field. Persistently soft pressures during ED course. H/o CHF, h/o hypotension. Pressure while in room during evaluation 110/76 with heart rate 88. - Received 500mL NSS in ED - CBC without leukocytosis and overall stable H&H; albumin WNL; UA with infection - CXR stable exam with likely bibasilar segmental atelectasis and no definitive infiltrate, small effusion cannot be excluded per read - No additional fluids at time of admission - HOLD lisinopril + lasix #UTI W/o symptoms but did have fall day of arrival. No history of Pseudomonas on prior cultures. No CVA tenderness appreciated, only chronic low back pain which is at baseline. Not meeting sepsis criteria. 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 Did not hit head on day of arrival but had struck head approximately 1 week ago when he had his initial fall. Not on blood thinners. No neurological deficits. No infectious symptoms to report per patient. For parkinsonism, patient does follow with neurology (most recent 10/15/2024), on carbidopa-levodopa, memantine, quetiapine, sertraline. H/o sundowning per . - No evidence infection on CBC and H&H overall stable; CMP without gross electrolyte abnormalities - UA reveals evidence of infection - abx as above - Chest CTA w/o PE but does reveal prominent heart size, pulmonary changes (may represent pulmonary vascular congestion) - Orthostatics pending - PT/OT ordered- appreciate assistance #HFpEF H/o HFpEF; presenting with recurrent falls; Not appearing volume overloaded on exam at time of admission. - Current weight 118 kg; daily weight standing and I+Os - Echo 11/2023 EF 55 to 60%; pending repeat - CXR stable exam likely bibasilar segmental atelectasis and no definitive infiltrate, small effusion cannot be excluded per read - On furosemide 20 daily as needed, believes that he takes this daily but is unsure - Will hold at time of admission given soft BPs - SCDs + promote leg elevation and frequent movement #T2DM H/o DMT2, on empagliflozin at home. - Most recent A1C 03/2023 @ 6.4% - pending - May continue outpatient meds - SSI with target BSG range 110-140mg/dL, CF 35, carb ratio 10 - BSG ACHS - Pharm glycemic management consult placed, appreciate assistance- Adjust regimen as needed #ENRIQUE- H/H at baseline, no bleeding - CBC am #HTN- Lisinopril - HELD at admission #HLD- Atorvastatin #RLS- Gabapentin, ropinirole #PAF- No anticoag due to fall/bleed risk, follows with cardiology #History of prostate cancer- Finasteride, Myrbetriq #GERD- Omeprazole #H/o seizure like activity- Per most recent neurology note, h/o seizure like activity with some abnormalities in EEG so on low dose Zonisamide OF NOTE Feeding tube in place- Patient with history of brain hemorrhage, in [place], complicated by dysphagia; Tube feedings were started at that time, still in place but NO LONGER being used for past month- Patient able to take meds/food by mouth; scheduled for removal November 18, per . Dispo: Admit, PCU VTE prophylaxis: SCDs This document was dictated utilizing quietrevolution. Please excuse any grammatical errors that may be secondary to use of this software. Admission and Anticipated Discharge Date Admission Date: 10/23/2024 History of Present Illness Chief Complaint: Fall Primary Care Provider: Reinier Woodson MD 79-year-old male PMHx HFpEF, parkinsonism, PAF not on anticoagulants, CAD, diabetes, RLS, and history of prostate cancer presenting to ED via EMS for a fall. [place] he had a fall in the parking lot which his reports was him just missing the curb and then losing his balance. Patient did hit his left shoulder on the car but did not hit his head. No LOC. [facility] and reported that it was in the 80s over 40s. Patient has had increased falls over the past week, with an initial fall being earlier in the week in which he did hit his head. Patient reports that he was at his appointment and whenever he was getting into the car he tripped because he had misstep. Patient states that he did not have any symptoms prior to the fall including dizziness, weakness, numbness or tingling, chest pain, or shortness of breath. States that he just did not lift his leg and off and fell over. 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 States that he just fell over but did not lose consciousness. Patient has no complaints at time of admission. He states that he has chronic low back pain and that this is bothering him but this is normal duration. States he was evaluated by a [facility] [place] in [place] but did not proceed with these appointments because they were too expensive. Patient states that he has no other symptoms at this time to include chest pain, shortness of breath, palpitations, abdominal pain, N/V/D/C, numbness/tingling, headache, fever/chills, URI symptoms, or LUTS. Patient states that he thinks he is takes his diuretic pill daily but is not sure. ED evaluation reveals no leukocytosis, H&H 13.6/42.5; CMP chloride 108, AST 11, ALT 3, otherwise grossly WNL; TSH 1.068; UA pending; CXR stable exam with likely bibasilar segmental atelectasis, no definitive infiltrate and small effusions not excluded; head CT stable exam with prominent ventricles relative to the sulci may represent preferential central cerebral volume loss, no appreciated acute process; EKG a flutter with variable AV block at 83 bpm.; Provided with 500 mL NSS in ED. Please see Dr. Bean's attestation for adjustments/additions to treatment plan. Allergies Allergy/AdvReac Type Severity Reaction Status Date / Time No Known Allergies Allergy Verified 10/23/24 18:55 Home Medications Medication Instructions Recorded Confirmed Type cyanocobalamin (vitamin B-12) 1,000 mcg PO QAM 12/19/18 10/23/24 History 1,000 mcg tablet carbidopa 25 mg-levodopa 100 mg 2 tab PO TID 09/04/24 10/23/24 History tablet empagliflozin 25 mg tablet 12.5 mg PO QAM 09/04/24 10/23/24 History finasteride 5 mg tablet 5 mg PO DAILY 09/04/24 10/23/24 History gabapentin 300 mg capsule 300 mg PO BID 09/04/24 10/23/24 History lisinopril 5 mg tablet 5 mg PO DAILY 09/04/24 10/23/24 History melatonin 3 mg tablet 9 mg PO HS 09/04/24 10/23/24 History memantine 10 mg tablet 10 mg PO BID 09/04/24 10/23/24 History quetiapine 25 mg tablet 12.5 mg PO BID 09/04/24 10/23/24 History ropinirole 2 mg tablet 2 mg PO QPM 09/04/24 10/23/24 History zonisamide 25 mg capsule 25 mg PO BID 09/04/24 10/23/24 History mirabegron 50 mg tablet,extended 50 mg PO DAILY 10/16/24 10/23/24 History release 24 hr (Myrbetriq) omeprazole 20 mg capsule,delayed 40 mg PO DAILY 10/16/24 10/23/24 History release sennosides 8.6 mg tablet 8.6 mg PO BID PRN Constipation 10/16/24 10/23/24 History atorvastatin 80 mg tablet 40 mg PO HS 10/23/24 10/23/24 History cholecalciferol (vitamin D3) 25 50 mcg PO DAILY 10/23/24 10/23/24 History mcg (1,000 unit) capsule (Vitamin D3) cholestyramine 4 gram oral powder 2 g PO BID 10/23/24 10/23/24 History for suspension in a packet (Prevalite) furosemide 20 mg tablet (Lasix) 20 mg PO DAILY PRN Fluid Retention 10/23/24 10/23/24 History sertraline 100 mg tablet 50 mg PO DAILY 10/23/24 10/23/24 History Past Med/Surg History Problem List (Updated 10/23/24 @ 22:02 by Gypsy Gandhi) (HFpEF) heart failure with preserved ejection fraction Acute UTI (urinary tract infection) (Acute) Frequent falls (Acute) Acute hypotension (Acute) Head injury (Acute) Fall (Acute) Generalized weakness (Acute) Sepsis (Acute) Acute dehydration (Acute) Influenza A (Acute) Acute hypoxemic respiratory failure (Acute) DVT prophylaxis Unresponsive PAF (paroxysmal atrial fibrillation) Dysphagia Iron deficiency anemia Acute heart failure with preserved ejection fraction (HFpEF) Parkinsonism Memory loss Acute urinary retention (Acute) Hematuria (Acute) Hematuria Coronary artery disease Diabetes Atherogenic dyslipidemia COVID-19 virus infection (Acute) Transient alteration of awareness Fall (Acute) Contusion of head (Acute) Back pain (Acute) Closed rib fracture (Acute) History of colon polyps Left shoulder pain (Chronic) Hypokalemia (Chronic) Superficial thrombophlebitis of left leg (Chronic) Right leg injury (Chronic) Neck stiffness (Chronic) Neck pain (Chronic) Closed head injury (Chronic) Encounter for pre-operative examination (Chronic) Leg length discrepancy (Chronic) Hypotension (Chronic) Restless leg syndrome Myofascial pain Spinal stenosis of lumbar region (Chronic) Bilateral sacroiliitis (Chronic) History of MA (myocardial infarction) (Chronic) 1994 Cardiac murmur (Chronic) A CHILD Hearing deficit (Chronic) [place] History of prostate cancer (Chronic) S/P CYBERKNIFE PROCEDURE History of osteoarthritis (Chronic) Chronic back pain (Chronic) Poor historian (Chronic) Medical History Conjunctivitis CHF (congestive heart failure) Seizure-like activity GERD (gastroesophageal reflux disease) Parkinson disease Sleep apnea CPAP Transient ischemic attack (TIA) possible ~2007. Diverticulosis Surgical History S/P epidural steroid injection History of repair of rotator cuff bilateral S/P left cataract extraction History of right cataract surgery 01/12/19: was given 2mg of IV versed History of prostate biopsy History of colonoscopy Family History Father Family history of diabetes mellitus Brother Family history of diabetes mellitus Social History Smoking Status: Unknown if ever smoked Tobacco Type: Pipe and Cigars Cigarettes Per Day: 1; Second Hand Exposure: No; Do You Dip or Chew Tobacco: No; Hx Alcohol Use: No Hx Substance Use: No Preferred Language: French Communication Ability: Effective Visual Impairment: No Limitations Hearing Ability: Hard of Hearing Training And Documentation Specialist Required: No Beliefs That Will Affect Care: None marital status: Current Living Situation: Spouse Current Living Situation Comment: [facility] current occupational status: retired Feels Safe at Home: Yes Safety Concerns: Feels Safe At This Time Assistive Devices: Cane and Walker Review of Systems Review of Systems: All systems reviewed & are unremarkable except as noted in Subjective Physical Exam Physical Exam: General: No acute distress Skin: Warm and dry; scabbed area over R eyebrow, no surrounding erythema or edema, no streaking, no oozing Head: Normocephalic, atraumatic Eyes: PERRL, conjunctivae clear, sclera non-icteric ENT: External ear and ear canal without swelling; nose atraumatic; good dentition, tongue normal appearance, pharynx normal Neck: Supple, no LAD Cardio: Irregularly irregular rhythm, rate controlled, ? systolic murmur, no G/R, S1 and S2 normal Resp: No respiratory distress, slightly diminished breath sounds base, lungs CTA in all lobes bilaterally, no wheezes, rales, or rhonchi Abdomen: Soft, symmetric, nontender; No masses or hepatosplenomegaly; Bowel sounds normoactive MSK: No deformities; pulses palpable and equal; 1+ pitting edema BLE, at baseline per patient. Neuro: Awake, alert; Sensation intact bilaterally; CN grossly intact Psych: Slow speech. Appropriate mood and affect; good judgement and insight. Results & Data Results & Data Vital Signs (Past 12 Hours) Vital Signs Temp Pulse Pulse Resp BP BP Pulse Ox 10/23/24 19:00 88 18 110/76 96 10/23/24 16:52 71 10/23/24 16:50 10/23/24 16:40 36.4 C L 78 23 90/67 L 94 O2 Del Method 10/23/24 19:00 10/23/24 16:52 10/23/24 16:50 Room Air 10/23/24 16:40 Laboratory Results 10/23/24 17:05 WBC 6.10 RBC 4.46 L Hgb 13.6 L Hct 42.5 MCV 95.3 MCH 30.5 MCHC 32.0 RDW Std Deviation 58.3 H RDW Coeff of Rachel 16.5 H Plt Count 269 MPV 9.4 Immature Gran % (Auto) 0.2 Neut % (Auto) 62.1 Lymph % (Auto) 23.0 [place] % (Auto) 11.6 Eos % (Auto) 2.6 Baso % (Auto) 0.5 Neut # (Auto) 3.79 Lymph # (Auto) 1.40 [place] # (Auto) 0.71 H Eos # (Auto) 0.16 Baso # (Auto) 0.03 Immature Gran # (Auto) 0.01 Sodium 142 Potassium 3.9 Chloride 108 H Carbon Dioxide 29 Anion Gap 5 BUN 14 Creatinine 0.80 Est Cr Clr Drug Dosing 97.8 eGFR 90.02 BUN/Creatinine Ratio 17.5 Glucose 95 Calcium 9.0 Total Bilirubin 0.4 AST 11 L ALT 3 L Alkaline Phosphatase 70 Total Protein 6.5 Albumin 3.6 Globulin 2.9 Albumin/Globulin Ratio 1.2 TSH 1.068 Diagnostic Findings Chest X-Ray 10/23/24 16:50 Exam: Single view portable chest. History: Weakness. Comparison: 16 October 2024. Findings: Thoracic fusion hardware again noted. Patient is lordotic. Cardiac silhouette is prominent. A portion of this is likely exaggerated. This is unchanged. Pulmonary vasculature is within normal limits. Linear band densities bilateral pulmonary bases with poorly defined costophrenic angles. Lungs otherwise clear. Impression: Stable exam with likely bibasilar subsegmental atelectasis. No definitive infiltrate. Small effusions not excluded. Electronically signed by Chuck Vaughan 10-23-2024 5:[address] 10/23/24 17:17 EXAM: CT head without contrast History: Fall. Hypotension. Comparison: 16 October 2024 and 04 September 2024.. Technique: Using multidetector thin collimation helical acquisition technique, axial, coronal and sagittal CT images from the skull base to the vertex were obtained without intravenous contrast. Dose reduction techniques were achieved by using automatic exposure control and/or adjustment of mA and/or kV according to patient size and/or use of iterative reconstruction technique. 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 Brain windows demonstrate prominent ventricular volume relative to the sulci. Small hyperdensity along the left frontal lobe extra-axial convexity unchanged when compared to prior exam. Suspect dystrophic calcification possibly meningioma. No appreciated hemorrhage, mass or acute large territorial infarct. Basal cisterns are patent. No midline shift. Orbital soft tissues demonstrate no abnormality. Bone windows demonstrate skull base and bone calvarium to be within normal limits. Impression: Stable exam with prominent ventricles relative to the sulci. This may represent preferential central cerebral volume loss. Communicating hydrocephalus such as normal pressure hydrocephalus not entirely excluded. Correlate with clinical data. No appreciated acute process. Electronically signed by Chuck Vaughan 10-23-2024 5:56 PM Medications Administered 500 mL NSS ECG Additional Comments: A flutter with variable AV block 83 bpm, QRS 92, QT/QTc 388/455, PRT */29/23 Code Status & VTE Plan Code Status Full Supervising Physician Co-Signing Physician Notes I personally saw and examined the patient. I independently reviewed the labs, EKG, imaging, problem list, medication list, past medical history and family history. I verified all العلي points and agree with Ofelia Valentin PA-C with the following exceptions and/or additions: 79 year old male presents to the ER with ground-level fall in the parking lot. He is unable to give me an independent history as appears to be sundowning at the time of his being seen. Please see history above. O/E HS irregular rhythm, regular rate, no murmurs, Chest CTAB, no pain on leg/arm movement, 5/5 power b/l equal, CN2-> 12 intact A/P Fall ?secondary to UTI - PT/OT UTI - IV ceftriaxone, follow up urine culture Hypotension - ?secondary to UTI, hold furosemide and lisinopril Paroxysmal atrial fib/flutter - previously anticoagulation deferred due to frequent falls, cardiology considering Watchman, rate controlled without AV jes blocking agents Otherwise as above PG Care Time/CCT Total # of Minutes Spent Total Time Spent with Patient: Total time spent is greater than 50% in coordination of care (as documented) at patient's floor/unit and/or counseling patient: Coding Level of Care Code 86965 INT INP/OBS CARE 3/75MIN Diagnoses Acute hypotension I95.9 Acute UTI (urinary tract infection) N39.0 Frequent falls R29.6 (HFpEF) heart failure with preserved ejection fraction I50.30
[2024-10-23] MEDS: OPTIRAY 320 125ml IV ONE (19:43)
--- NOTE | 2024-10-23 19:48 | Emergency Department Note ---
Impression & Plan Acute hypotension, Frequent falls, Acute UTI (urinary tract infection) ED Provider Note NAME: ALAN BONE AGE: 79 SEX: Male INFORMANT: Patient and ED PROVIDER(S): Michael Shankar MD CHIEF COMPLAINT: Fall and low blood pressure PLAN: Disposition: Admitted Outpatient prescription management: none Referral: None MEDICAL DECISION MAKING: Patient presented because of a fall and low blood pressure. He had no fever. Patient suffered no significant injury from his fall today. CT of the head was performed and was negative. His CBC and chemistry panels were unremarkable. ECG showed a flutter but rate controlled. Chest x-ray was negative for any acute findings. Patient was gently hydrated here. His hypotension had resolved. He did provide a urine sample. There was some concern for UTI. I suspect that the low blood pressure may be a combination of his Parkinson's, medications, and CHF rather than sepsis picture from UTI as he has no fever or white blood cell count elevation. Further evaluation and management will be necessary in the hospital. Patient and in agreement. Consultation was made with Dr. Bean of the [facility] service. Patient was evaluated in the ER for further management. Patient was given a dose of IV Rocephin for urinary coverage. CT imaging of the chest was ordered for further evaluation and management. Results pending at this time. I refer you to the EMR for further details. Care/management discussed with: analytical manager Level of care consideration(s): After review of the information above and other included data, I feel the patient requires escalation of care to admission. Triage Nursing notes: reviewed and agree them. Vital Signs: reviewed and remarkable for hypotension Additional History obtained from: Patient's . She notes frequent falls that have worsened over the last week. Chronic Medical/Social Conditions affecting care: Parkinson disease, CHF Prior/ Outside/ External records reviewed: none Differential Diagnosis: Infection, dehydration, metabolic abnormality, hypo/hyperglycemia, electrolyte disturbance, anemia, hypoxia, trauma, cardiac sources, intracerebral event, toxicologic, neurologic, as well as other pathologies. Diagnostics, independently interpreted by me: ECG: Twelve-lead ECG reveals atrial flutter at [address] elevation or depression. Cardiac Monitoring: Cardiac monitoring ordered by me: The patient was placed on continuous cardiac monitoring and observed. It revealed atrial flutter at 80 bpm. Medical decision rules: none Imaging studies: Head CT: A noncontrast CT scan of the head was performed and was negative for tumor, fracture, intracranial hemorrhage, or other acute pathology. Chest x-ray. Findings: A chest x-ray was performed and revealed no pneumothorax, effusion, infiltrate, pulmonary edema, free air under the diaphragm, or wide mediastinum. Impression: No acute disease. HPI: 79 year old Male arrives for evaluation of fall and low blood pressure. [facility] and had a ground-level fall in the parking lot. He suffered an injury. No reported head impact. His blood pressure was noted to be in the 80s per staff. notes the patient has had multiple falls in the recent weeks. Patient does have a history of some mild dementia, Parkinson's and CHF. Pt denies LOC, headache, visual changes, neck pain, chest pain, breathing difficulties, nausea, vomiting, abdominal pain, back pain, extremity pain, numbness, weakness, open wounds, active bleeding, urinary symptoms, or other complaints. PAST MEDICAL HISTORY: See Below, Parkinson, CHF PAST SURGICAL HISTORY: See Below, SOCIAL HISTORY: See Below, HOME MEDICATIONS: See Below ALLERGIES: See Below VITALS: See Below PHYSICAL EXAMINATION: GENERAL: Awake, alert, [id number], in no distress HENT: Normocephalic, atraumatic except a healing abrasion noted to the right forehead. Oropharynx unremarkable. EYES: Normal conjunctiva. Sclera non-icteric. NECK: Inspection normal. Non-tender. Supple. No nuchal rigidity. FROM. No masses. RESPIRATORY: Clear to auscultation. No wheezes. No rales. Normal respiratory effort. CARDIAC: Normal rate. Normal rhythm. No murmurs. No rubs. Extremities warm and well perfused. Pulses equal. No JVD. GI: Soft, non-distended. No tenderness to palpation. No rebound or guarding. No masses. MUSCULOSKELETAL: Atraumatic. Chest examination reveals no tenderness. The back is symmetrical on inspection without obvious abnormality. There is no CVA tenderness to palpation. No joint edema. LOWER EXTREMITIES: Calves are equal size bilaterally and non-tender. 1-2+ edema. No discoloration. NEURO: Mildly demented sensorium. Masked facies of Parkinson's. No focal sensory or motor deficits noted. SKIN: No rash or jaundice noted. PROCEDURES: none CRITICAL CARE: none OBSERVATION NOTE: none Past Med/Surg History Problem List Acute UTI (urinary tract infection) (Acute) Frequent falls (Acute) Acute hypotension (Acute) Head injury (Acute) Fall (Acute) Generalized weakness (Acute) Sepsis (Acute) Acute dehydration (Acute) Influenza A (Acute) Acute hypoxemic respiratory failure (Acute) DVT prophylaxis Unresponsive PAF (paroxysmal atrial fibrillation) Dysphagia Iron deficiency anemia Acute heart failure with preserved ejection fraction (HFpEF) Parkinsonism Memory loss Acute urinary retention (Acute) Hematuria (Acute) Hematuria Coronary artery disease Diabetes Atherogenic dyslipidemia COVID-19 virus infection (Acute) Transient alteration of awareness Fall (Acute) Contusion of head (Acute) Back pain (Acute) Closed rib fracture (Acute) History of colon polyps Left shoulder pain (Chronic) Hypokalemia (Chronic) Superficial thrombophlebitis of left leg (Chronic) Right leg injury (Chronic) Neck stiffness (Chronic) Neck pain (Chronic) Closed head injury (Chronic) Encounter for pre-operative examination (Chronic) Leg length discrepancy (Chronic) Hypotension (Chronic) Restless leg syndrome Myofascial pain Spinal stenosis of lumbar region (Chronic) Bilateral sacroiliitis (Chronic) History of NM (myocardial infarction) (Chronic) 1994 Cardiac murmur (Chronic) A CHILD Hearing deficit (Chronic) [place] History of prostate cancer (Chronic) S/P CYBERKNIFE PROCEDURE History of osteoarthritis (Chronic) Chronic back pain (Chronic) Poor historian (Chronic) Medical History Conjunctivitis CHF (congestive heart failure) Seizure-like activity GERD (gastroesophageal reflux disease) Parkinson disease Sleep apnea CPAP Transient ischemic attack (TIA) possible ~2007. Diverticulosis Surgical History S/P epidural steroid injection History of repair of rotator cuff bilateral S/P left cataract extraction History of right cataract surgery 01/12/19: was given 2mg of IV versed History of prostate biopsy History of colonoscopy Family History Father Family history of diabetes mellitus Brother Family history of diabetes mellitus Social History Smoking Status: Former smoker Tobacco Type: Pipe and Cigars Cigarettes Per Day: 1; Second Hand Exposure: No; Do You Dip or Chew Tobacco: No; Hx Alcohol Use: Yes Alcohol type: hard liquor Hx Substance Use: No Preferred Language: Pakistani Communication Ability: Impaired Visual Impairment: No Limitations Hearing Ability: Hard of Hearing Wall Scraper Required: No Beliefs That Will Affect Care: None marital status: Current Living Situation: Rehab Current Living Situation Comment: [facility] current occupational status: retired Feels Safe at Home: Yes Assistive Devices: Cane and Walker Allergies Allergies Allergy/AdvReac Type Severity Reaction Status Date / Time No Known Allergies Allergy Verified 10/23/24 18:55 Home Meds Home Medications Medication Instructions Recorded Confirmed cyanocobalamin (vitamin B-12) 1,000 mcg PO QAM 12/19/18 10/23/24 1,000 mcg tablet carbidopa 25 mg-levodopa 100 mg 2 tab PO TID 09/04/24 10/23/24 tablet empagliflozin 25 mg tablet 12.5 mg PO QAM 09/04/24 10/23/24 finasteride 5 mg tablet 5 mg PO DAILY 09/04/24 10/23/24 gabapentin 300 mg capsule 300 mg PO BID 09/04/24 10/23/24 lisinopril 5 mg tablet 5 mg PO DAILY 09/04/24 10/23/24 melatonin 3 mg tablet 9 mg PO HS 09/04/24 10/23/24 memantine 10 mg tablet 10 mg PO BID 09/04/24 10/23/24 quetiapine 25 mg tablet 12.5 mg PO BID 09/04/24 10/23/24 ropinirole 2 mg tablet 2 mg PO QPM 09/04/24 10/23/24 zonisamide 25 mg capsule 25 mg PO BID 09/04/24 10/23/24 mirabegron 50 mg tablet,extended 50 mg PO DAILY 10/16/24 10/23/24 release 24 hr (Myrbetriq) omeprazole 20 mg capsule,delayed 40 mg PO DAILY 10/16/24 10/23/24 release sennosides 8.6 mg tablet 8.6 mg PO BID PRN Constipation 10/16/24 10/23/24 atorvastatin 80 mg tablet 40 mg PO HS 10/23/24 10/23/24 cholecalciferol (vitamin D3) 25 50 mcg PO DAILY 10/23/24 10/23/24 mcg (1,000 unit) capsule (Vitamin D3) cholestyramine 4 gram oral powder 2 g PO BID 10/23/24 10/23/24 for suspension in a packet (Prevalite) furosemide 20 mg tablet (Lasix) 20 mg PO DAILY PRN Fluid Retention 10/23/24 10/23/24 sertraline 100 mg tablet 50 mg PO DAILY 10/23/24 10/23/24 Results & Data (ED) Vital Signs Vital Signs - 24 hr 10/23/24 16:40 10/23/24 16:50 10/23/24 16:52 Temperature 36.4 C L Temperature Source Oral Pulse Rate 78 71 Pulse Rate [Apical] Respiratory Rate 23 Blood Pressure 90/67 L Blood Pressure [Right Arm] Blood Pressure Mean 74 Blood Pressure Mean [Right Arm] Blood Pressure Position Semi-fowlers Pulse Oximetry 94 Oxygen Delivery Method Room Air Sepsis Recent Fever Within 48 Hours No Sepsis New/Unexplained Change in Mental Status No Sepsis Action Taken by Nursing No Action Required 10/23/24 19:00 Temperature Temperature Source Pulse Rate Pulse Rate [Apical] 88 Respiratory Rate 18 Blood Pressure Blood Pressure [Right Arm] 110/76 Blood Pressure Mean Blood Pressure Mean [Right Arm] 87 Blood Pressure Position Pulse Oximetry 96 Oxygen Delivery Method Sepsis Recent Fever Within 48 Hours Sepsis New/Unexplained Change in Mental Status Sepsis Action Taken by Nursing Laboratory Data 10/23/24 17:05 10/23/24 17:05 Lab Results 10/23/24 10/23/24 Range/Units 17:05 18:45 WBC 6.10 (4.8-10.8) K/ul RBC 4.46 L (4.70-6.10) M/uL Hgb 13.6 L (14.0-18.0) g/dl Hct 42.5 (42.0-52.0) % MCV 95.3 (80.0-100.0) fL MCH 30.5 (25.0-34.0) pg MCHC 32.0 (32.0-36.0) g/dL RDW Std Deviation 58.3 H (36.4-46.3) fL RDW Coeff of Rachel 16.5 H (11.5-14.5) % Plt Count 269 (130-400) K/uL MPV 9.4 (9.4-12.4) fL Immature Gran % (Auto) 0.2 % Neut % (Auto) 62.1 % Lymph % (Auto) 23.0 % Baker % (Auto) 11.6 % Eos % (Auto) 2.6 % Baso % (Auto) 0.5 % Neut # (Auto) 3.79 (1.40-6.50) K/uL Lymph # (Auto) 1.40 (1.20-3.40) K/uL Baker # (Auto) 0.71 H (0.11-0.59) K/uL Eos # (Auto) 0.16 (0.00-0.50) K/uL Baso # (Auto) 0.03 (0.00-0.20) K/uL Immature Gran # (Auto) 0.01 (0.01-0.20) K/uL Sodium 142 (136-145) mmol/L Potassium 3.9 (3.5-5.1) mmol/L Chloride 108 H (98-107) mmol/L Carbon Dioxide 29 (21-32) mmol/L Anion Gap 5 (3-11) BUN 14 (6-23) mg/dl Creatinine 0.80 (0.6-1.4) mg/dl Est Cr Clr Drug Dosing 97.8 ml/min eGFR 90.02 BUN/Creatinine Ratio 17.5 (10-20) Glucose 95 (70-99(Fasting)) mg/dl Calcium 9.0 (8.6-10.3) mg/dl Total Bilirubin 0.4 (0.2-1.0) mg/dl AST 11 L (13-39) U/L ALT 3 L (7-52) U/L Alkaline Phosphatase 70 (34-104) U/L Total Protein 6.5 (6.0-8.3) gm/dl Albumin 3.6 (3.4-5.0) gm/dl Globulin 2.9 (2.5-4.0) gm/dl Albumin/Globulin Ratio 1.2 (0.9-2) TSH 1.068 (0.300-4.500) uIu/ml Urine Color Yellow Urine Appearance Clear (Clear) Urine pH 7.0 (4.5-7.5) Ur Specific [place] 1.007 (1.000-1.030) Urine Protein Negative (Negative) Urine Glucose (UA) 2+ H (Negative) Urine Ketones Negative (Negative) Urine Blood Negative (Negative) Urine Nitrite Negative (Negative) Urine Bilirubin Negative (Negative) Urine Urobilinogen Negative (Negative) Ur Leukocyte Esterase 1+ H (Negative) Urine WBC (Auto) 21-50 H (0-5) /hpf Urine RBC (Auto) 0-2 (0-2) /hpf U Hyaline Cast (Auto) 0-2 (0-2) /lpf U Epithel Cells (Auto) 0-2 (0-2) /hpf Urine Bacteria (Auto) 4+ H (None Seen) Administered Medications Discontinued Medications Sodium Chloride (Nss) 500 mls @ 999 mls/hr IV .Q31M ONE Stop: 10/23/24 17:20 Last Infusion: 10/23/24 17:40 Dose: Infused Documented By: Admin: 10/23/24 17:09 Dose: 999 mls/hr Documented By: JUDY Ioversol (Optiray 320 125ml) 115 ml IV ONCE ONE Stop: 10/23/24 19:44 Last Admin: 10/23/24 19:43 Dose: 115 ml Documented By: NICOLE Imaging Data Radiologist's Impression: Chest X-Ray 10/23/24 16:50 Exam: Single view portable chest. History: Weakness. Comparison: 16 October 2024. Findings: Thoracic fusion hardware again noted. Patient is lordotic. Cardiac silhouette is prominent. A portion of this is likely exaggerated. This is unchanged. Pulmonary vasculature is within normal limits. Linear band densities bilateral pulmonary bases with poorly defined costophrenic angles. Lungs otherwise clear. Impression: Stable exam with likely bibasilar subsegmental atelectasis. No definitive infiltrate. Small effusions not excluded. Electronically signed by Chuck Vaughan 10-23-2024 5:[address] 10/23/24 17:17 EXAM: CT head without contrast History: Fall. Hypotension. Comparison: 16 October 2024 and 04 September 2024.. Technique: Using multidetector thin collimation helical acquisition technique, axial, coronal and sagittal CT images from the skull base to the vertex were obtained without intravenous contrast. Dose reduction techniques were achieved by using automatic exposure control and/or adjustment of mA and/or kV according to patient size and/or use of iterative reconstruction technique. Findings: Pl Sql Programmer film demonstrates no acute abnormality. Brain windows demonstrate prominent ventricular volume relative to the sulci. Small hyperdensity along the left frontal lobe extra-axial convexity unchanged when compared to prior exam. Suspect dystrophic calcification possibly meningioma. No appreciated hemorrhage, mass or acute large territorial infarct. Basal cisterns are patent. No midline shift. Orbital soft tissues demonstrate no abnormality. Bone windows demonstrate skull base and bone calvarium to be within normal limits. Impression: Stable exam with prominent ventricles relative to the sulci. This may represent preferential central cerebral volume loss. Communicating hydrocephalus such as normal pressure hydrocephalus not entirely excluded. Correlate with clinical data. No appreciated acute process. Electronically signed by Chuck Vaughan 10-23-2024 5:56 PM Discharge Plan Visit Data Chief Complaint: Fall Stated Complaint: FALL, HYPOTENSION ED Provider: Michael Shankar Discharge Problem: Acute hypotension, Frequent falls, Acute UTI (urinary tract infection) Forms Stand Alone Forms: My [facility] [email or web address] Prescriptions Prescriptions: No Action cyanocobalamin (vitamin B-12) 1,000 mcg Tablet 1,000 mcg PO QAM zonisamide 25 mg capsule 25 mg PO BID carbidopa-levodopa 25-100 mg tablet 2 tab PO TID gabapentin 300 mg capsule 300 mg PO BID Rx Instructions: 3pm and 9pm memantine 10 mg tablet 10 mg PO BID melatonin 3 mg Tablet 9 mg PO HS lisinopril 5 mg Tablet 5 mg PO DAILY Hold Instructions: Resume on 10/19/24. Hold this medication until follow up with your primary care doctor. Please take a log of your blood pressure to your next visit with your doctor. You are to hold this for low blood pressures in the hospital. finasteride 5 mg Tablet 5 mg PO DAILY empagliflozin 25 mg Tablet 12.5 mg PO QAM quetiapine 25 mg Tablet 12.5 mg PO BID ropinirole 2 mg Tablet 2 mg PO QPM Rx Instructions: 2 hours before bed sennosides 8.6 mg Tablet 8.6 mg PO BID PRN (Reason: Constipation) omeprazole 20 mg capsule,delayed release(DR/EC) 40 mg PO DAILY mirabegron [Myrbetriq] 50 mg tablet extended release 24 hr 50 mg PO DAILY atorvastatin 80 mg Tablet 40 mg PO HS sertraline 100 mg Tablet 50 mg PO DAILY furosemide [Lasix] 20 mg Tablet 20 mg PO DAILY PRN (Reason: Fluid Retention) cholecalciferol (vitamin D3) [Vitamin D3] 25 mcg (1,000 unit) Capsule 50 mcg PO DAILY Prevalite 4 gram powder in packet 2 g PO BID Referrals Referrals: Reinier Tipton MD [Primary Care Provider] -
--- NOTE | 2024-10-23 20:17 | CT Scan Report ---
CT pulmonary angiogram with IV contrast . History: Hypotension. COMPARISON: 30 July 2024. TECHNIQUE: CT angiography of the chest was performed without IV contrast followed by IV contrast, including 3D post processing CTA image reconstruction. FINDINGS: Drapery Cutter film demonstrates thoracic spine fusion changes. Percutaneous gastrostomy tube. Lung windows demonstrate portions of the exam to be limited secondary to streak artifact from posterior thoracic spine fusion hardware. Pulmonary vasculature and septal markings are prominent. Mild diffuse groundglass attenuation. Mild dependent subsegmental atelectasis. Soft tissue windows demonstrate diffuse calcified atherosclerotic changes coronary vasculature. Heart size is prominent. Pulmonary artery opacification is of moderate diagnostic quality. No pulmonary artery filling defects. Portions of the exam are limited secondary to patient motion. Trace pericardial effusion. Trace pleural effusions. Prominent mediastinal and hilar lymph nodes. No mg lymphadenopathy. Calcifications at the level of the aortic valve. Thoracic aorta demonstrates mild calcifications. No aneurysmal dilatation or dissection. Included upper abdomen is within normal limits. Bone windows demonstrate remote posterior left rib fractures. Bilateral multilevel pedicle screws and vertical fixation rods. Orthopedic hardware appears to be well-seated without appreciated failure. IMPRESSION: 1. No pulmonary embolism. 2. Prominent heart size and pulmonary changes which may represent pulmonary vascular congestion. Correlate with clinical data. Please see above for details. Electronically signed by Chuck Vaughan 10-23-2024 8:16 PM
[2024-10-23] MEDS: cefTRIAXone SODIUM 2,000 MG/50 ML BAG IV STA (21:05)
[2024-10-23] MEDS ORDERED: POLYETHYLENE (MIRALAX) 17 GM PACK PO PRN (22:24)
[2024-10-23] MEDS ORDERED: SENNA 8.6 MG TAB PO PRN (22:24)
[2024-10-23] MEDS ORDERED: ONDANSETRON INJ 2 MG/ML 2 ML VIAL IV PRN (22:24)
[2024-10-23] MEDS ORDERED: DEXTROSE 50% 50 ML SYRINGE IV PRN (22:49)
[2024-10-23] MEDS ORDERED: CARBOHYDRATES FOR HYPOGLYCEMIA PO PRN (22:49)
[2024-10-23] MEDS ORDERED: GLUCOSE 40% GEL 15 GM TUBE PO PRN (22:49)
[2024-10-23] MEDS ORDERED: GLUCAGON FOR INJ 1 MG VIAL SQ PRN (22:49)
[2024-10-23] MEDS ORDERED: PHARMACY GLYCEMIC MGMT CONSULT PRN (22:49)
[2024-10-23] MEDS ORDERED: GLUCOSE 10 TAB/TUBE PO PRN (22:49)
[2024-10-23] MEDS: ZONISAMIDE 25 MG CAPSULE PO SCH (23:33)
[2024-10-23] MEDS: QUEtiapine FUMARATE 25 MG TABLET PO SCH (23:34)
[2024-10-23] MEDS: MEMANTINE HCL 10 MG TAB PO SCH (23:34)
[2024-10-23] MEDS: CARBIDOPA/LEVODOPA 25/100MG TAB PO SCH (23:34)
[2024-10-23] MEDS: ATORVASTATIN 40 MG TAB PO SCH (23:35)
[2024-10-23] MEDS: rOPINIRole HCL 2 MG TABLET PO SCH (23:35)
[2024-10-23] MEDS: GABAPENTIN 300 MG CAP PO SCH (23:35)
[2024-10-23] MEDS: MELATONIN 3 MG TAB PO SCH (23:36)
[2024-10-24 06:14] LABS: Hematocrit (blood only) 41.8 % (42.0-52.0); Hemoglobin 13.5 g/dl (14.0-18.0); Mean Corpuscular Hemoglobin 30.4 pg (25.0-34.0); Mean Corpuscular Hgb Conc 32.3 g/dL (32.0-36.0); Mean Corpuscular Volume 94.1 fL (80.0-100.0); Mean Platelet Volume 9.3 fL (9.4-12.4); Platelet Count 262 K/uL (130-400); RDW Coefficient of Variation 16.4 % (11.5-14.5); RDW Standard Deviation 56.7 fL (36.4-46.3); Red Blood Count 4.44 M/uL (4.70-6.10); White Blood Count 6.51 K/ul (4.8-10.8)
[2024-10-24 06:27] LABS: BUN Creatinine Ratio 18.1 (10-20); Creatinine Clr Calc Pharmacy 104.9 ml/min; Potassium 3.8 mmol/L (3.5-5.1)
[2024-10-24 07:37] LABS: Estimated Average Glucose 117 mg/dl; Hemoglobin A1C 5.7 % (4.5-5.6)
[2024-10-24] MEDS: INSULIN ASPART PER UNIT CHARGE SC SCH (08:40)
[2024-10-24] MEDS: CHOLECALCIFEROL 25 MCG (1000 UNITS) TAB PO SCH (08:42)
[2024-10-24] MEDS: FINASTERIDE 5 MG TAB PO SCH (08:42)
[2024-10-24] MEDS: EMPAGLIFLOZIN 25 MG TAB PO SCH (08:42)
[2024-10-24] MEDS: VIBEGRON 75 MG TAB PO SCH (08:43)
[2024-10-24] MEDS: CYANOCOBALAMIN (B-12) 500 MCG TABLET PO SCH (08:43)
[2024-10-24] MEDS: SERTRALINE HCL 50 MG TABLET PO SCH (08:43)
[2024-10-24] MEDS: CHOLESTYRAMINE LIGHT 4 GM PKT PO SCH (08:44)
[2024-10-24] MEDS: PANTOprazole 40 MG TAB PO SCH (08:44)
--- NOTE | 2024-10-24 09:15 | Hospitalist Progress Note ---
Date of Service October 24, 2024 Assessment & Plan (1) Acute hypotension: (2) Acute UTI (urinary tract infection): (3) Frequent falls: (4) (HFpEF) heart failure with preserved ejection fraction: Plan 79-year-old male PMHx HFpEF, parkinsonism, PAF not on anticoagulants, CAD, diabetes, RLS, h/o intracranial hemorrhage, and history of prostate cancer presenting to ED via EMS for a fall. ED evaluation reveals no leukocytosis, H&H 13.6/42.5; CMP chloride 108, AST 11, ALT 3, otherwise grossly WNL; TSH 1.068; UA pending; CXR stable exam with likely bibasilar segmental atelectasis, no definitive infiltrate and small effusions not excluded; head CT stable exam with prominent ventricles relative to the sulci may represent preferential central cerebral volume loss, no appreciated acute process; EKG a flutter with variable AV block at 83 bpm.; Provided with 500 mL NSS in ED. #Hypotension Presenting for ground level fall, was hypotensive in field. Persistently soft pressures during ED course. H/o CHF, h/o hypotension. Pressure while in room during evaluation 110/76 with heart rate 88. - Received 500mL NSS in ED - CBC without leukocytosis and overall stable H&H; albumin WNL; UA with infection - CXR stable exam with likely bibasilar segmental atelectasis and no definitive infiltrate, small effusion cannot be excluded per read - No additional fluids at time of admission - HOLD lisinopril + lasix #UTI W/o symptoms but did have fall day of arrival. No history of Pseudomonas on prior cultures. No CVA tenderness appreciated, only chronic low back pain which is at baseline. Not meeting sepsis criteria. - CBC w/o leukocytosis; renal function stable - CBC + BMP am - UA presence of glucose/LE/WBC/bacteria; pending culture - Ceftriaxone IV #Frequent falls/ambulatory dysfunction/Parkinsonism Recurrent falls, 2 within the last week [employer]. Did not hit head on day of arrival but had struck head approximately 1 week ago when he had his initial fall. Not on blood thinners. No neurological deficits. No infectious symptoms to report per patient. For parkinsonism, patient does follow with neurology (most recent 10/15/2024), on carbidopa-levodopa, memantine, quetiapine, sertraline. H/o sundowning per . - No evidence infection on CBC and H&H overall stable; CMP without gross electrolyte abnormalities - UA reveals evidence of infection - abx as above - Chest CTA w/o PE but does reveal prominent heart size, pulmonary changes (may represent pulmonary vascular congestion) - Orthostatics pending - PT/OT ordered- appreciate assistance #HFpEF H/o HFpEF; presenting with recurrent falls; Not appearing volume overloaded on exam at time of admission. - Current weight 118 kg; daily weight standing and I+Os - Echo 11/2023 EF 55 to 60%; rpt showing stable EF, mod concentric LVH - CXR stable exam likely bibasilar segmental atelectasis and no definitive infiltrate, small effusion cannot be excluded per read - On furosemide 20 daily as needed, believes that he takes this daily but is unsure - Will hold at time of admission given soft BPs - SCDs + promote leg elevation and frequent movement #T2DM H/o DMT2, on empagliflozin at home. - Most recent A1C 03/2023 @ 6.4% - 5.7 - May continue outpatient meds - SSI with target BSG range 110-140mg/dL, CF 35, carb ratio 10 - BSG ACHS - Pharm glycemic management consult placed, appreciate assistance- Adjust regimen as needed #ENRIQUE- H/H at baseline, no bleeding - CBC am #HTN- Lisinopril - HELD at admission #HLD- Atorvastatin #RLS- Gabapentin, ropinirole #PAF- No anticoag due to fall/bleed risk, follows with cardiology #History of prostate cancer- Finasteride, Myrbetriq #GERD- Omeprazole #H/o seizure like activity- Per most recent neurology note, h/o seizure like activity with some abnormalities in EEG so on low dose Zonisamide OF NOTE Feeding tube in place- Patient with history of brain hemorrhage, in [place], complicated by dysphagia; Tube feedings were started at that time, still in place but NO LONGER being used for past month- Patient able to take meds/food by mouth; scheduled for removal November 18, per . Dispo: pending clinical improvement VTE prophylaxis: SCDs Admission and Anticipated Discharge Date Admission Date: October 23, 2024 Subjective No acute events Currently no new complaints Review of Systems Review of Systems: comprehensive ROS neg Physical Exam Physical Exam: Gen: no acute events HEENT: NC/AT, anicteric Lungs: CTAB CVS: s1s2 nl, irregular Abd: soft, nl bowel sounds, soft Ext: no edema : +[place] Neuro: slow in communicating, awake and alert Results & Data Results & Data Vital Signs (Past 12 Hours) Vital Signs Temp Pulse Pulse Resp BP Pulse Ox O2 Del Method 10/24/24 07:08 36.2 C L 78 18 108/77 92 Room Air 10/24/24 03:27 36.6 C 72 20 124/82 96 Room Air 10/24/24 00:21 78 10/23/24 22:24 36.5 C 80 20 177/108 H 97 Room Air PG Care Time/CCT Total # of Minutes Spent Total Time Spent with Patient: Total time spent is greater than 50% in coordination of care (as documented) at patient's floor/unit and/or counseling patient: Coding Level of Care Code 87130 SUB INP/OBS CARE 2/35MIN Diagnoses Acute hypotension I95.9 Acute UTI (urinary tract infection) N39.0 Frequent falls R29.6 (HFpEF) heart failure with preserved ejection fraction I50.30
--- NOTE | 2024-10-24 11:28 | XCELERA ---
[id number]
--- NOTE | 2024-10-24 14:58 | Pharmacy Report ---
Pharmacy Glycemic Short Note 2 - Date of Service October 24, 2024 - Glycemic Short BSG Results (Last 24 hours): 10/23/24 10/23/24 10/24/24 17:05 22:55 05:16 Glucose 95 100 H POC Glucose 104 H 10/24/24 10/24/24 07:08 11:04 Glucose POC Glucose 93 104 H OUTPATIENT ANTIDIABETIC REGIMEN: * Jardiance 12.5mg PO QAM * HbA1c 6.4% (04/13/24) 5.7% (10/24/24) ASSESSMENT: * Aba is a 79 year old male admitted with low blood pressure/fall and a history of type 2 diabetes mellitus. Pharmacy has been consulted to assist with glycemic management while inpatient. * BSG upon admission slightly below goal range, opted to hold basal insulin yesterday, continue to hold at this time. * All BSGs below goal range at this time, with Jardiance being restarted this AM, will switch from a weight based stress of 2 to a correction only NovoLog scale at this time. PLAN FOR INPATIENT GLYCEMIC CONTROL: * Basal insulin * Hold * Bolus insulin * NovoLog per scale ACHS or Q6hrs while NPO * Goal Range: Low 110 mg/dL - High 140 mg/dL * Correction Factor: 35 mg/dL/unit * Nutritional / Prandial insulin per carb ratio of 1 unit per NONE grams CHO consumed
[2024-10-24] MEDS: cefTRIAXone SODIUM 2,000 MG/50 ML BAG IV SCH (19:12)
--- NOTE | 2024-10-24 22:07 | Electrocardiogram Report ---
Test Reason : Blood Pressure : */* mmHG Vent. Rate : 83 BPM Atrial Rate : * BPM P-R Int : * ms QRS Dur : 92 ms QT Int : 388 ms P-R-T Axes : * 29 23 degrees QTcB Int : 455 ms Atrial fibrillation Abnormal ECG When compared with ECG of 16-Oct-2024 12:34, No significant change Confirmed by Christopher Castro ([id number] on 10/24/2024 10:07:31 PM Referred By: Confirmed By: Christopher Castro
[2024-10-25 07:06] LABS: Hematocrit (blood only) 42.9 % (42.0-52.0); Hemoglobin 13.9 g/dl (14.0-18.0); Mean Corpuscular Hemoglobin 30.7 pg (25.0-34.0); Mean Corpuscular Hgb Conc 32.4 g/dL (32.0-36.0); Mean Corpuscular Volume 94.7 fL (80.0-100.0); Mean Platelet Volume 9.3 fL (9.4-12.4); Platelet Count 268 K/uL (130-400); RDW Coefficient of Variation 16.1 % (11.5-14.5); RDW Standard Deviation 56.4 fL (36.4-46.3); Red Blood Count 4.53 M/uL (4.70-6.10); White Blood Count 6.02 K/ul (4.8-10.8)
[2024-10-25 07:38] LABS: BUN Creatinine Ratio 20.3 (10-20); Blood Urea Nitrogen 13 mg/dl (6-23); Calcium 9.1 mg/dl (8.6-10.3); Carbon Dioxide 28 mmol/L (21-32); Chloride 107 mmol/L (98-107); Creatinine Clr Calc Pharmacy 118.2 ml/min; Glucose 97 mg/dl (70-99(Fasting)); Phosphorus 3.8 mg/dl (2.5-4.9)
--- NOTE | 2024-10-25 09:36 | Hospitalist Progress Note ---
Date of Service October 25, 2024 Assessment & Plan (1) Acute hypotension: (2) Acute UTI (urinary tract infection): (3) Frequent falls: (4) (HFpEF) heart failure with preserved ejection fraction: Plan 79-year-old male PMHx HFpEF, parkinsonism, PAF not on anticoagulants, CAD, diabetes, RLS, h/o intracranial hemorrhage, and history of prostate cancer presenting to ED via EMS for a fall. ED evaluation reveals no leukocytosis, H&H 13.6/42.5; CMP chloride 108, AST 11, ALT 3, otherwise grossly WNL; TSH 1.068; UA pending; CXR stable exam with likely bibasilar segmental atelectasis, no definitive infiltrate and small effusions not excluded; head CT stable exam with prominent ventricles relative to the sulci may represent preferential central cerebral volume loss, no appreciated acute process; EKG a flutter with variable AV block at 83 bpm.; Provided with 500 mL NSS in ED. #Hypotension - resolved Presenting for ground level fall, was hypotensive in field. Persistently soft pressures during ED course. H/o CHF, h/o hypotension. Pressure while in room during evaluation 110/76 with heart rate 88. - Received 500mL NSS in ED - CBC without leukocytosis and overall stable H&H; albumin WNL; UA with infection - CXR stable exam with likely bibasilar segmental atelectasis and no definitive infiltrate, small effusion cannot be excluded per read - No additional fluids at time of admission - resume lisinopril, but cont to HOLD lasix #UTI W/o symptoms but did have fall day of arrival. No history of Pseudomonas on prior cultures. No CVA tenderness appreciated, only chronic low back pain which is at baseline. Not meeting sepsis criteria. 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 Did not hit head on day of arrival but had struck head approximately 1 week ago when he had his initial fall. Not on blood thinners. No neurological deficits. No infectious symptoms to report per patient. For parkinsonism, patient does follow with neurology (most recent 10/15/2024), on carbidopa-levodopa, memantine, quetiapine, sertraline. H/o sundowning per . - No evidence of infection on CBC and H&H overall stable; CMP without gross electrolyte abnormalities - UA reveals evidence of infection - abx as above - Chest CTA w/o PE but does reveal prominent heart size, pulmonary changes (may represent pulmonary vascular congestion) - Orthostatics pending - PT/OT ordered- appreciate assistance #HFpEF H/o HFpEF; presenting with recurrent falls; Not appearing volume overloaded on exam at time of admission. - Current weight 118 kg; daily weight standing and I+Os - Echo 11/2023 EF 55 to 60%; rpt showing stable EF, mod concentric LVH - CXR stable exam likely bibasilar segmental atelectasis and no definitive infiltrate, small effusion cannot be excluded per read - On furosemide 20 daily as needed, believes that he takes this daily but is unsure - Will hold at time of admission given soft BPs - SCDs + promote leg elevation and frequent movement #T2DM H/o DMT2, on empagliflozin at home. - A1c: 5.7 (10/24/24) - May continue outpatient meds - SSI with target BSG range 110-140mg/dL, CF 35, carb ratio 10 - BSG ACHS - Pharm glycemic management consult placed, appreciate assistance- Adjust regimen as needed #ENRIQUE- H/H at baseline, no bleeding - CBC am #HTN- Lisinopril (initially held on admission), will resume since BP is more elevated now #HLD- Atorvastatin #RLS- Gabapentin, ropinirole #PAF- No anticoag due to fall/bleed risk, follows with cardiology #History of prostate cancer- Finasteride, Myrbetriq #GERD- Omeprazole #H/o seizure like activity- Per most recent neurology note, h/o seizure like activity with some abnormalities in EEG so on low dose Zonisamide OF NOTE Feeding tube in place- Patient with history of brain hemorrhage, in [place], complicated by dysphagia; Tube feedings were started at that time, still in place but NO LONGER being used for past month- Patient able to take meds/food by mouth; scheduled for removal November 18, per . Dispo: pending BP stability (lisinopril resumed), potential d/c 10/25/24 VTE prophylaxis: SCDs Admission and Anticipated Discharge Date Admission Date: October 23, 2024 Subjective No acute events Currently no new complaints Review of Systems Review of Systems: comprehensive ROS neg Physical Exam Physical Exam: Gen: no acute events HEENT: NC/AT, anicteric Lungs: CTAB CVS: s1s2 nl, irregular Abd: soft, nl bowel sounds, soft Ext: no edema : +[place] Neuro: slow in communicating, awake and alert Results & Data Results & Data Vital Signs (Past 12 Hours) Vital Signs Temp Pulse Pulse Resp BP Pulse Ox O2 Del Method 10/25/24 07:52 36.3 C L 69 18 152/94 H 93 Room Air 10/25/24 07:00 80 10/25/24 03:07 36.3 C L 75 18 129/82 93 Room Air 10/24/24 23:01 80 10/24/24 22:56 36.5 C 84 20 132/95 90 Room Air PG Care Time/CCT Total # of Minutes Spent Total Time Spent with Patient: Total time spent is greater than 50% in coordination of care (as documented) at patient's floor/unit and/or counseling patient: Coding Level of Care Code 78841 SUB INP/OBS CARE 2/35MIN Diagnoses Acute hypotension I95.9 Acute UTI (urinary tract infection) N39.0 Frequent falls R29.6 (HFpEF) heart failure with preserved ejection fraction I50.30
[2024-10-25 09:45] LABS: Magnesium 1.8 mg/dl (1.7-2.4); Potassium 3.6 mmol/L (3.5-5.1)
[2024-10-25] MEDS: lisinopril 5 MG TAB PO SCH (12:12)
[2024-10-25] MEDS: POTASSIUM CHLORIDE CRTAB 20 MEQ TABCR PO ONE (16:46)
[2024-10-25] MEDS: MAGNESIUM OXIDE 400 MG TAB PO ONE (16:46)
[2024-10-26 07:20] VITALS: RESP 18
--- NOTE | 2024-10-26 09:34 | Hospitalist Progress Note ---
Date of Service October 26, 2024 Assessment & Plan (1) Acute hypotension: (2) Acute UTI (urinary tract infection): (3) Frequent falls: (4) (HFpEF) heart failure with preserved ejection fraction: Plan 79-year-old male PMHx HFpEF, parkinsonism, PAF not on anticoagulants, CAD, diabetes, RLS, h/o intracranial hemorrhage, and history of prostate cancer presenting to ED via EMS for a fall. ED evaluation reveals no leukocytosis, H&H 13.6/42.5; CMP chloride 108, AST 11, ALT 3, otherwise grossly WNL; TSH 1.068; UA pending; CXR stable exam with likely bibasilar segmental atelectasis, no definitive infiltrate and small effusions not excluded; head CT stable exam with prominent ventricles relative to the sulci may represent preferential central cerebral volume loss, no appreciated acute process; EKG a flutter with variable AV block at 83 bpm.; Provided with 500 mL NSS in ED. #Hypotension - resolved Presenting for ground level fall, was hypotensive in field. Persistently soft pressures during ED course. H/o CHF, h/o hypotension. Pressure while in room during evaluation 110/76 with heart rate 88. - Received 500mL NSS in ED - CBC without leukocytosis and overall stable H&H; albumin WNL; UA with infection - CXR stable exam with likely bibasilar segmental atelectasis and no definitive infiltrate, small effusion cannot be excluded per read - No additional fluids at time of admission - resume lisinopril, but cont to HOLD lasix - 4 7 blood pressure has normalized and patient is walking with physical therapy #UTI W/o symptoms but did have fall day of arrival. No history of Pseudomonas on prior cultures. No CVA tenderness appreciated, only chronic low back pain which is at baseline. Not meeting sepsis criteria. 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 Did not hit head on day of arrival but had struck head approximately 1 week ago when he had his initial fall. Not on blood thinners. No neurological deficits. No infectious symptoms to report per patient. For parkinsonism, patient does follow with neurology (most recent 10/15/2024), on carbidopa-levodopa, memantine, quetiapine, sertraline. H/o sundowning per . - No evidence of infection on CBC and H&H overall stable; CMP without gross electrolyte abnormalities - UA reveals evidence of infection - abx as above - Chest CTA w/o PE but does reveal prominent heart size, pulmonary changes (may represent pulmonary vascular congestion) - Orthostatics vitals noted blood pressure was 99 systolic today it is 147 and 157 - PT/OT ordered- appreciate assistance #HFpEF H/o HFpEF; presenting with recurrent falls; Not appearing volume overloaded on exam at time of admission. - Current weight 118 kg; daily weight standing and I+Os - Echo 11/2023 EF 55 to 60%; rpt showing stable EF, mod concentric LVH - CXR stable exam likely bibasilar segmental atelectasis and no definitive infiltrate, small effusion cannot be excluded per read - On furosemide 20 daily as needed, believes that he takes this daily but is unsure - Will hold at time of admission given soft BPs - SCDs + promote leg elevation and frequent movement #T2DM H/o DMT2, on empagliflozin at home. - A1c: 5.7 (10/24/24) - May continue outpatient meds - SSI with target BSG range 110-140mg/dL, CF 35, carb ratio 10 - BSG ACHS - Pharm glycemic management consult placed, appreciate assistance- Adjust regimen as needed #ENRIQUE- H/H at baseline, no bleeding - CBC am #HTN- Lisinopril (initially held on admission), will resume since BP is more elevated now #HLD- Atorvastatin #RLS- Gabapentin, ropinirole #PAF- No anticoag due to fall/bleed risk, follows with cardiology #History of prostate cancer- Finasteride, Myrbetriq #GERD- Omeprazole #H/o seizure like activity- Per most recent neurology note, h/o seizure like activity with some abnormalities in EEG so on low dose Zonisamide OF NOTE Feeding tube in place- Patient with history of brain hemorrhage, in [place], complicated by dysphagia; Tube feedings were started at that time, still in place but NO LONGER being used for past month- Patient able to take meds/food by mouth; scheduled for removal November 18, per . Dispo: pending BP stability (lisinopril resumed), potential d/c 10/25/24 VTE prophylaxis: SCDs Spoke to nursing staff Radha at extension 12/20/2000 and patient's Wilma at [phone] patient has home health we will discharge patient home Admission and Anticipated Discharge Date Admission Date: October 23, 2024 Subjective No acute events Currently no new complaints Review of Systems Review of Systems: All systems were reviewed and they were negative patient has a history of Parkinson's but he walked with the physical Physical Exam Physical Exam: Gen: no acute events HEENT: NC/AT, anicteric Lungs: CTAB CVS: s1s2 nl, irregular Abd: soft, nl bowel sounds, soft Ext: no edema : +[place] Neuro: slow in communicating, awake and alert Results & Data Results & Data Vital Signs (Past 12 Hours) Vital Signs Temp Pulse Pulse Resp BP Pulse Ox O2 Del Method 10/26/24 07:19 36.4 C L 81 18 148/94 H 93 Room Air 10/26/24 07:00 69 10/26/24 03:25 36.4 C L 70 16 119/81 95 Room Air 10/26/24 02:04 120 H 10/25/24 22:56 36.7 C 85 18 133/85 95 Room Air PG Care Time/CCT Total # of Minutes Spent Total Time Spent with Patient: Total time spent is greater than 50% in coordination of care (as documented) at patient's floor/unit and/or counseling patient: Coding Level of Care Code None Diagnoses Acute hypotension I95.9 Acute UTI (urinary tract infection) N39.0 Frequent falls R29.6 (HFpEF) heart failure with preserved ejection fraction I50.30
[2024-10-26 11:15] VITALS: TEMP 97.3; O2SAT 95
--- NOTE | 2024-10-26 11:21 | Pharmacy Report ---
Pharmacy Glycemic Sign Off Nt - Date of Service October 26, 2024 - Assessment & Plan ASSESSMENT: * Pharmacy was consulted by Ofelia Valentin PA-C on 10/23/24 for glycemic control and to write orders per [facility] inpatient glycemic control protocol. * Major changes made by pharmacy to antidiabetic regimen include: * adjustement of Novolog * Patient has been receiving/requiring 0-5 units of insulin per day for adequate glycemic control * BSGs ranging 92-137 mg/dl * Regimen has only required minor adjustments over the past 48hrs to achieve this level of control * Do not anticipate further changes in patient status that would quickly deteriorate glycemic control (i.e. patient to be NPO for upcoming procedure, steroids tapering, starting tube feedings, etc). PLAN FOR INPATIENT GLYCEMIC CONTROL: No changes needed to current regimen. * Continue empagliflozin 12.5 mg PO daily * Hold basal insulin * Continue NovoLog per scale ACHS/Q6hrs while NPO * Goal range = 110-140 mg/dl * CF = 35 mg/dl/unit * Hold prandial coverage * Pharmacy is signing off of glycemic consult and will no longer be making adjustments to inpatient regimen. Please feel free to re-consult if needed. Thank you.
--- NOTE | 2024-10-26 13:43 | Discharge Summary ---
Date of Service October 26, 2024 Admission HPI Per Admitting Provider 79-year-old male PMHx HFpEF, parkinsonism, PAF not on anticoagulants, CAD, diabetes, RLS, and history of prostate cancer presenting to ED via EMS for a fall. Patient states he was at the [facility] for a routine visit when he had a fall in the parking lot which his reports was him just missing the curb and then losing his balance. Patient did hit his left shoulder on the car but did not hit his head. No LOC. [facility] and reported that it was in the 80s over 40s. Patient has had increased falls over the past week, with an initial fall being earlier in the week in which he did hit his head. Patient reports that he was at his appointment and whenever he was getting into the car he tripped because he had misstep. Patient states that he did not have any symptoms prior to the fall including dizziness, weakness, numbness or tingling, chest pain, or shortness of breath. States that he just did not lift his leg and off and fell over. 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 States that he just fell over but did not lose consciousness. Patient has no complaints at time of admission. He states that he has chronic low back pain and that this is bothering him but this is normal duration. States he was evaluated by a [facility] in [place] but did not proceed with these appointments because they were too expensive. Patient states that he has no other symptoms at this time to include chest pain, shortness of breath, palpitations, abdominal pain, N/V/D/C, numbness/tingling, headache, fever/chills, URI symptoms, or LUTS. Patient states that he thinks he is takes his diuretic pill daily but is not sure. ED evaluation reveals no leukocytosis, H&H 13.6/42.5; CMP chloride 108, AST 11, ALT 3, otherwise grossly WNL; TSH 1.068; UA pending; CXR stable exam with likely bibasilar segmental atelectasis, no definitive infiltrate and small effusions not excluded; head CT stable exam with prominent ventricles relative to the sulci may represent preferential central cerebral volume loss, no appreciated acute process; EKG a flutter with variable AV block at 83 bpm.; Provided with 500 mL NSS in ED. Please see Dr. Bean's attestation for adjustments/additions to treatment plan. Admission Exam (Per Admitting) Constitutional Gen: no acute events HEENT: NC/AT, anicteric Lungs: CTAB CVS: s1s2 nl, irregular Abd: soft, nl bowel sounds, soft Ext: no edema : +[place] Neuro: slow in communicating, awake and alert Discharge Data Consultations 10/23/24 19:35 ED Decision to Admit Stat Hospital Course (1) Acute hypotension: (2) Acute UTI (urinary tract infection): (3) Frequent falls: (4) (HFpEF) heart failure with preserved ejection fraction: Plan 79-year-old male PMHx HFpEF, parkinsonism, PAF not on anticoagulants, CAD, diabetes, RLS, h/o intracranial hemorrhage, and history of prostate cancer presenting to ED via EMS for a fall. ED evaluation reveals no leukocytosis, H&H 13.6/42.5; CMP chloride 108, AST 11, ALT 3, otherwise grossly WNL; TSH 1.068; UA pending; CXR stable exam with likely bibasilar segmental atelectasis, no definitive infiltrate and small effusions not excluded; head CT stable exam with prominent ventricles relative to the sulci may represent preferential central cerebral volume loss, no appreciated acute process; EKG a flutter with variable AV block at 83 bpm.; Provided with 500 mL NSS in ED. #Hypotension - resolved Presenting for ground level fall, was hypotensive in field. Persistently soft pressures during ED course. H/o CHF, h/o hypotension. Pressure while in room during evaluation 110/76 with heart rate 88. - Received 500mL NSS in ED - CBC without leukocytosis and overall stable H&H; albumin WNL; UA with infection - CXR stable exam with likely bibasilar segmental atelectasis and no definitive infiltrate, small effusion cannot be excluded per read - No additional fluids at time of admission - resume lisinopril, but cont to HOLD lasix - 4 7 blood pressure has normalized and patient is walking with physical therapy #UTI W/o symptoms but did have fall day of arrival. No history of Pseudomonas on prior cultures. No CVA tenderness appreciated, only chronic low back pain which is at baseline. Not meeting sepsis criteria. 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 Not on blood thinners. No neurological deficits. No infectious symptoms to report per patient. For parkinsonism, patient does follow with neurology (most recent 10/15/2024), on carbidopa-levodopa, memantine, quetiapine, sertraline. H/o ing per . - No evidence of infection on CBC and H&H overall stable; CMP without gross electrolyte abnormalities - UA reveals evidence of infection - abx as above - Chest CTA w/o PE but does reveal prominent heart size, pulmonary changes (may represent pulmonary vascular congestion) - Orthostatics vitals noted blood pressure was 99 systolic today it is 147 and 157 - PT/OT ordered- appreciate assistance #HFpEF H/o HFpEF; presenting with recurrent falls; Not appearing volume overloaded on exam at time of admission. - Current weight 118 kg; daily weight standing and I+Os - Echo 11/2023 EF 55 to 60%; rpt showing stable EF, mod concentric LVH - CXR stable exam likely bibasilar segmental atelectasis and no definitive infiltrate, small effusion cannot be excluded per read - On furosemide 20 daily as needed, believes that he takes this daily but is unsure - Will hold at time of admission given soft BPs - SCDs + promote leg elevation and frequent movement #T2DM H/o DMT2, on empagliflozin at home. - A1c: 5.7 (10/24/24) - May continue outpatient meds - SSI with target BSG range 110-140mg/dL, CF 35, carb ratio 10 - BSG ACHS - Pharm glycemic management consult placed, appreciate assistance- Adjust regimen as needed #ENRIQUE- H/H at baseline, no bleeding - CBC am #HTN- Lisinopril (initially held on admission), will resume since BP is more elevated now #HLD- Atorvastatin #RLS- Gabapentin, ropinirole #PAF- No anticoag due to fall/bleed risk, follows with cardiology #History of prostate cancer- Finasteride, Myrbetriq #GERD- Omeprazole #H/o seizure like activity- Per most recent neurology note, h/o seizure like activity with some abnormalities in EEG so on low dose Zonisamide OF NOTE Feeding tube in place- Patient with history of brain hemorrhage, in [place], complicated by dysphagia; Tube feedings were started at that time, still in place but NO LONGER being used for past month- Patient able to take meds/food by mouth; scheduled for removal November 18, per . Dispo: pending BP stability (lisinopril resumed), potential d/c 10/25/24 VTE prophylaxis: SCDs Spoke to nursing staff Radha at extension 12/20/2000 and patient's Wilma at [phone] patient has home health we will discharge patient home Coding Level of Care Code 69402 INP/OBS DISCH >30 MIN Diagnoses Acute hypotension I95.9 Acute UTI (urinary tract infection) N39.0 Frequent falls R29.6 (HFpEF) heart failure with preserved ejection fraction I50.30
[2024-10-26 14:02] VITALS: BP 145/79; PULSE 70
== END 2024-10-26 15:11 | disposition home health service (06) | DRG 315 ==
LOC: ED 16:34 → 2S 19:44 → SUATTDRO 19:44 → 2S 21:50